=== PATIENT | female | born 1955 | race Caucasian/White ===

== ENCOUNTER 2016-10-07 19:41 | Inpatient (IN) | payer BC ==
--- NOTE | 2016-10-07 19:58 | ED ---
Neuro HPI - General Chief Complaint: Neuro Symptoms/Deficit Stated Complaint: L side numbness Time Seen by Provider: 10/07/16 19:45 Source: patient, RN notes reviewed Mode of arrival: wheelchair Limitations: no limitations - History of Present Illness Is the patient presenting with stroke symptoms?: Yes Last Known Well Date: 10/07/16 Last Known Well Time: 18:00 Onset/Timin -: hour(s) Initial Comments: Patient is 61-year-old woman who states she feels like she is having a TIA. The patient states she has had these symptoms previously and was told this was a stroke, and then the next time she had a TIA. The patient is complaining of what she is calling a burning or a picking-type sensation to her left side, and also states that it feels like her left side "is not moving like it's supposed to." Patient states the symptoms began at 6 PM while she was watching television at home. Location: left arm, left leg History of same: Yes Place: home Severity: moderate Quality: tingling, burning Improves With: none Worsens With: none On Anticoagulants: Yes Context: sudden onset Associated Symptoms: denies other symptoms Treatments Prior to Arrival: none - Related Data Home Medications: Home Medications Medication Instructions Recorded Confirmed Clopidogrel [Plavix] 75 mg PO DAILY 02/24/14 04/05/16 Doxepin [SINEquan] 20 mg PO HS 02/24/14 04/05/16 Levothyroxine Sodium [Synthroid] 88 mcg PO DAILY 02/24/14 04/05/16 Lisinopril 20 mg PO DAILY 02/24/14 04/05/16 Multivitamin/Iron/Folic Acid 1 tab PO DAILY 02/24/14 04/05/16 [Centrum Complete Multivit Tab] Omeprazole [PriLOSEC] 20 mg PO BID 02/24/14 04/05/16 Bells-3 Fatty Acids/Fish Oil [Fish 1,000 mg PO HS 10/29/14 04/05/16 Oil 1,000 mg Softgel] Bells-3 Fatty Acids/Fish Oil [Fish 2,000 mg PO DAILY 10/29/14 04/05/16 Oil 1,000 mg Softgel] Apixaban [Eliquis] 5 mg PO BID 04/05/16 04/05/16 Atorvastatin [Lipitor] 40 mg PO DAILY 04/05/16 04/05/16 Baclofen [Lioresal] 10 mg PO TID 04/05/16 04/05/16 Cholecalciferol [Vitamin D3] 5,000 unit PO DAILY 04/05/16 04/05/16 DULoxetine HCL [Cymbalta] 30 mg PO DAILY 04/05/16 04/05/16 Gabapentin [Neurontin] 300 mg PO TID 04/05/16 04/05/16 Deniseacidoph,Jocelyn B.lactis 1 cap PO DAILY 04/05/16 04/05/16 [Probiotic] Verapamil HCl [Verapamil ER] 240 mg PO DAILY 04/05/16 04/05/16 Previous Rx's Medication Instructions Recorded traMADol HCl [Ultram] 50 mg PO Q4H PRN #30 tab 04/06/16 Allergies/Adverse Reactions: Allergies Allergy/AdvReac Type Severity Reaction Status Date / Time cefpodoxime proxetil AdvReac Nausea & Verified 10/07/16 19:56 [From Vantin] Vomiting metoclopramide HCl AdvReac Nausea & Verified 10/07/16 19:56 [From Reglan] Vomiting pregabalin [From Lyrica] AdvReac Swelling Verified 10/07/16 19:56 Review of Systems ROS Statement: Those systems with pertinent positive or pertinent negative responses have been documented in the HPI. ROS Other: All systems not noted in ROS Statement are negative. Constitutional: Reports: weakness. Denies: fever, chills Eyes: Denies: vision change ENT: Denies: hearing loss Respiratory: Denies: cough, dyspnea Cardiovascular: Denies: chest pain, palpitations, edema, syncope Gastrointestinal: Denies: abdominal pain, nausea, vomiting Genitourinary: Denies: dysuria, hematuria Musculoskeletal: Denies: back pain Skin: Denies: rash Neurological: Reports: as per HPI, headache (Patient states she has had a chronic headache since she had "brain surgery," over 20 years ago), weakness, paresthesias Hematological/Lymphatic: Reports: as per HPI (Taking a look was 4 paroxysmal atrial tachycardia) General Exam Limitations: no limitations General appearance: alert, in no apparent distress, obese Head exam: Present: atraumatic, normocephalic Eye exam: Present: normal appearance. Absent: scleral icterus, conjunctival injection ENT exam: Present: normal oropharynx Neck exam: Present: normal inspection, full ROM. Absent: tenderness Respiratory exam: Present: normal lung sounds bilaterally, chest wall tenderness. Absent: respiratory distress, wheezes, rales, rhonchi, stridor Cardiovascular Exam: Present: regular rate, normal rhythm, normal heart sounds. Absent: systolic murmur, diastolic murmur, rubs, gallop GI/Abdominal exam: Present: soft. Absent: distended, tenderness, guarding, rebound, mass Extremities exam: Present: normal inspection, normal capillary refill. Absent: pedal edema, calf tenderness Back exam: Present: normal inspection Neurological exam: Present: alert, oriented X3, CN II-XII intact, motor sensory deficit (Patient has some subjective left arm and left leg weakness versus the right but still 5 out of 5.), reflexes normal Skin exam: Present: warm, dry, intact, normal color. Absent: rash, cyanosis, diaphoretic, erythema, petechiae, pallor, mottled Stroke MDM - Lab Data Result diagrams: 10/07/16 20:32 10/07/16 20:32 Lab Results 10/07/16 10/07/16 10/07/16 Range/Units 20:32 20:32 20:32 WBC 7.8 (3.8-10.6) k/uL RBC 4.77 (3.80-5.40) m/uL Hgb 13.6 (11.4-16.0) gm/dL Hct 41.4 (34.0-46.0) % MCV 86.9 (80.0-100.0) fL MCH 28.6 (25.0-35.0) pg MCHC 32.9 (31.0-37.0) g/dL RDW 13.0 (11.5-15.5) % Plt Count 134 L (150-450) k/uL Neutrophils % 56 % Lymphocytes % 33 % Monocytes % 7 % Eosinophils % 3 % Basophils % 1 % Neutrophils # 4.4 (1.3-7.7) k/uL Lymphocytes # 2.6 (1.0-4.8) k/uL Monocytes # 0.5 (0-1.0) k/uL Eosinophils # 0.2 (0-0.7) k/uL Basophils # 0.0 (0-0.2) k/uL PT (9.0-12.0) sec INR (<1.1) APTT (22.0-30.0) sec Sodium 143 (137-145) mmol/L Potassium 4.4 (3.5-5.1) mmol/L Chloride 109 H (98-107) mmol/L Carbon Dioxide 24 (22-30) mmol/L Anion Gap 10 mmol/L BUN 10 (7-17) mg/dL Creatinine 0.80 (0.52-1.04) mg/dL Est GFR (MDRD) Af Amer >60 (>60 ml/min/1.73 sqM) Est GFR (MDRD) Non-Af >60 (>60 ml/min/1.73 sqM) Glucose 123 H (74-99) mg/dL Calcium 8.6 (8.4-10.2) mg/dL Total Bilirubin 0.4 (0.2-1.3) mg/dL AST 29 (14-36) U/L ALT 39 (9-52) U/L Alkaline Phosphatase 123 (38-126) U/L Total Creatine Kinase 82 (30-135) U/L CK-MB (CK-2) 0.5 (0.0-2.4) ng/mL CK-MB (CK-2) Rel Index 0.6 Troponin I <0.012 (0.000-0.034) ng/mL Total Protein 6.3 (6.3-8.2) g/dL Albumin 3.9 (3.5-5.0) g/dL Urine Color Urine Appearance (Clear) Urine pH (5.0-8.0) Ur Specific [place] (1.001-1.035) Urine Protein (Negative) Urine Glucose (UA) (Negative) Urine Ketones (Negative) Urine Blood (Negative) Urine Nitrate (Negative) Urine Bilirubin (Negative) Urine Urobilinogen (<2.0) mg/dL Ur Leukocyte Esterase (Negative) Urine RBC (0-5) /hpf Urine WBC (0-5) /hpf Ur Squamous Epith Cells (0-4) /hpf Urine Mucus (None) /hpf 10/07/16 10/07/16 Range/Units 20:32 20:53 WBC (3.8-10.6) k/uL RBC (3.80-5.40) m/uL Hgb (11.4-16.0) gm/dL Hct (34.0-46.0) % MCV (80.0-100.0) fL MCH (25.0-35.0) pg MCHC (31.0-37.0) g/dL RDW (11.5-15.5) % Plt Count (150-450) k/uL Neutrophils % % Lymphocytes % % Monocytes % % Eosinophils % % Basophils % % Neutrophils # (1.3-7.7) k/uL Lymphocytes # (1.0-4.8) k/uL Monocytes # (0-1.0) k/uL Eosinophils # (0-0.7) k/uL Basophils # (0-0.2) k/uL PT 9.9 (9.0-12.0) sec INR 1.0 (<1.1) APTT 23.2 (22.0-30.0) sec Sodium (137-145) mmol/L Potassium (3.5-5.1) mmol/L Chloride (98-107) mmol/L Carbon Dioxide (22-30) mmol/L Anion Gap mmol/L BUN (7-17) mg/dL Creatinine (0.52-1.04) mg/dL Est GFR (MDRD) Af Amer (>60 ml/min/1.73 sqM) Est GFR (MDRD) Non-Af (>60 ml/min/1.73 sqM) Glucose (74-99) mg/dL Calcium (8.4-10.2) mg/dL Total Bilirubin (0.2-1.3) mg/dL AST (14-36) U/L ALT (9-52) U/L Alkaline Phosphatase (38-126) U/L Total Creatine Kinase (30-135) U/L CK-MB (CK-2) (0.0-2.4) ng/mL CK-MB (CK-2) Rel Index Troponin I (0.000-0.034) ng/mL Total Protein (6.3-8.2) g/dL Albumin (3.5-5.0) g/dL Urine Color Light Yellow Urine Appearance Clear (Clear) Urine pH 6.0 (5.0-8.0) Ur Specific [place] 1.007 (1.001-1.035) Urine Protein Negative (Negative) Urine Glucose (UA) Negative (Negative) Urine Ketones Negative (Negative) Urine Blood Negative (Negative) Urine Nitrate Negative (Negative) Urine Bilirubin Negative (Negative) Urine Urobilinogen <2.0 (<2.0) mg/dL Ur Leukocyte Esterase Moderate H (Negative) Urine RBC <1 (0-5) /hpf Urine WBC 11 H (0-5) /hpf Ur Squamous Epith Cells <1 (0-4) /hpf Urine Mucus Rare H (None) /hpf - EKG Data -: EKG Interpreted by Me EKG shows normal: QRS complexes (Wide-complex QRS consistent with paced rhythm) Rate: normal (86 bpm) When compared to previous EKG there are: other (Similar to comparison EKG from March 2016.) Interpretation: other (There is a paced rhythm which appears to be atrial sensed ventricular paced rate is 86 bpm.) Past Medical History Past Medical History: CVA/TIA, Fibromyalgia, GERD/Reflux, Hyperlipidemia, Hypertension, Osteoarthritis (OA), Pneumonia, Sleep Apnea/CPAP/BIPAP, Thyroid Disorder Additional Past Medical History / Comment(s): degenerative disc, splenic aneurysm (just being watched), UTI, HIATAL HERNIa.per pt no MRI's r/t metal clips rt temperol lobe-stated has had chronic headache ever since the sx); Chronic Pain Disorder,ddd headaches."6 tia's". cva 3-2013 lt side a bit weaker than rt.vit d deficiency,sinusitis History of Any Multi-Drug Resistant Organisms: None Reported Past Surgical History: Section, Cholecystectomy, Hysterectomy, Pacemaker Additional Past Surgical History / Comment(s): hemmorhoidectomy, PACEMAKER, PELVIC FLOOR SX FOR URINARY INCONT?MESH, BRAIN SX RT TEMPERAL ANUERYSM-HAS METAL CLIPS IN PLACE, ( HAS HEADACHES EVER SINCE), AVEL BREAST BIOPIES STATES HAS METALMARKERS IN PLACE.colonoscopy-benign polys removed. Past Anesthesia/Blood Transfusion Reactions: No Reported Reaction Additional Past Anesthesia/Blood Transfusion Reaction / Comment(s): usually wakes up very quickly from anesthesia Type of Cardiac Device: Permanent Pacemaker Device Placement Date:: Past Psychological History: Anxiety, Depression Smoking Status: Former smoker Past Alcohol Use History: None Reported, Rare Additional Past Alcohol Use History / Comment(s): smoked x 18 years 1.5 ppd, quit 1996 Past Drug Use History: None Reported - Past Family History Mother Family Medical History: Cancer, COPD, Myocardial Infarction (NM) Additional Family Medical History / Comment(s): cervical cancer, pancreatitis Father Family Medical History: Cancer, Congestive Heart Failure (CHF), COPD Additional Family Medical History / Comment(s): lung cancer,emphysema Course Vital Signs 10/07/16 10/07/16 10/07/16 19:50 19:56 20:10 Temperature 98.0 F 98 F Pulse Rate 84 87 82 Respiratory 18 20 18 Rate Blood Pressure 154/68 154/68 151/66 O2 Sat by Pulse 98 97 98 Oximetry 10/07/16 10/07/16 10/07/16 20:20 20:30 20:43 Temperature 98 F Pulse Rate 82 80 80 Respiratory 20 20 18 Rate Blood Pressure 132/64 143/64 144/65 O2 Sat by Pulse 98 98 98 Oximetry 10/07/16 21:00 Temperature Pulse Rate 82 Respiratory 18 Rate Blood Pressure 130/62 O2 Sat by Pulse 98 Oximetry Disposition Clinical Impression: Transient cerebral ischemia Disposition: ADMITTED IP TO THIS [facility] Condition: Fair
--- NOTE | 2016-10-07 20:19 | CT ---
EXAMINATION TYPE: CT brain wo con DATE OF EXAM: 10/07/2016 8:08 PM COMPARISON: 10/29/2014 HISTORY: Left side weakness. Hx of CVA. CT DLP: 976.8 mGycm Automated exposure control for dose reduction was used. FINDINGS: There is metal artifact from surgery at the anterior right temporal lobe. There is right temporal supervisor aircraft cleaning niotomy defect. There is hypodensity in the right posterior frontal lobe. There is no midline shift. There is no sign of intracranial hemorrhage. The calvarium is intact. Lateral ventricles appear britany l. IMPRESSION: There is evidence of old right posterior frontal lobe encephalomalacia. No acute intracranial abnorma lity. Previous right-sided surgery. No significant change compared to old exam.
[2016-10-07 20:44] LABS: Basophils % (A) 1 %; CH 29.2; CHCM 33.8; Eosinophils # (A) 0.2 k/uL (0-0.7); Eosinophils % (A) 3 %; HCT 41.4 % (34.0-46.0); HDW 2.69; HGB 13.6 gm/dL (11.4-16.0); Luc # (Auto) 0.09; Luc % (Auto) 1; Lymphocytes # (A) 2.6 k/uL (1.0-4.8); Lymphocytes % (A) 33 %; MCH 28.6 pg (25.0-35.0); MCHC 32.9 g/dL (31.0-37.0); MCV 86.9 fL (80.0-100.0); Mean Platelet Volume 8.4; Monocytes # (A) 0.5 k/uL (0-1.0); Monocytes % (A) 7 %; Neutrophils # (A) 4.4 k/uL (1.3-7.7); Neutrophils % (A) 56 %; RBC 4.77 m/uL (3.80-5.40); WBC 7.8 k/uL (3.8-10.6); WBC (Perox) 7.71
[2016-10-07 20:50] LABS: Partial Thromboplastin Time 23.2 sec (22.0-30.0); Prothrombin Time 9.9 sec (9.0-12.0)
[2016-10-07 20:53] LABS: ALT 39 U/L (9-52); AST 29 U/L (14-36); Alkaline Phosphatase 123 U/L (38-126); Anion Gap 10 mmol/L; Blood Urea Nitrogen 10 mg/dL (7-17); Calcium 8.6 mg/dL (8.4-10.2); Carbon Dioxide 24 mmol/L (22-30); Chloride 109 mmol/L (98-107); Glucose 123 mg/dL (74-99); Non-African American GFR(MDRD) >60 (>60 ml/min/1.73 sqM); Potassium 4.4 mmol/L (3.5-5.1); Sodium 143 mmol/L (137-145); Total Bilirubin 0.4 mg/dL (0.2-1.3); Total Protein 6.3 g/dL (6.3-8.2)
[2016-10-07 21:02] LABS: Creatine Kinase 82 U/L (30-135)
[2016-10-07 21:11] LABS: Appearance,Urine Clear (Clear); Bilirubin,Urine Negative (Negative); Glucose,Urine (UA) Negative (Negative); Ketones,Urine Negative (Negative); Leukocyte Esterase,Urine Moderate (Negative); Mucus,Urine Rare /hpf; Nitrite,Urine Negative (Negative); Particle Count 732; Protein,Urine Negative (Negative); RBC,Urine <1 /hpf (0-5); Specific Gravity,Urine 1.007 (1.001-1.035); Squamous Epithelial Cell,Urine <1 /hpf (0-4); UA Billing (MACRO vs. MICRO) MICRO; Urobilinogen,Urine <2.0 mg/dL (<2.0); WBC,Urine 11 /hpf (0-5)
[2016-10-07 21:15] LABS: Creatine Kinase MB 0.5 ng/mL (0.0-2.4); Troponin I <0.012 ng/mL (0.000-0.034)
--- NOTE | 2016-10-07 21:19 | XR ---
EXAMINATION TYPE: XR chest 2V DATE OF EXAM: 10/07/2016 9:04 PM COMPARISON: 04/05/2016 HISTORY: Altered mental status TECHNIQUE: Frontal and lateral views of the chest are obtained. FINDINGS: There is no heart failure nor confluent pneumonic infiltrate. Exam is limited by obesity. There is a left axillary pacemaker with the lead tips in the right ventricle. I see no sign of pleura l effusion. There are no hilar masses. IMPRESSION: No active cardiopulmonary disease. No change.
[2016-10-07] MEDS ORDERED: ASPIRIN 325 MG TAB PO STA (21:31)
[2016-10-07] MEDS ORDERED: traMADol 50 MG TAB PO STA (21:31)
[2016-10-08 02:22] VITALS: BMI 45.3
[2016-10-08] MEDS: traMADol 50 MG TAB PO PRN ×5 (02:28→22:45)
[2016-10-08] MEDS: SODIUM CHLORIDE 0.9% 1,000 ML IV SCH ×3 (05:52→17:22)
--- NOTE | 2016-10-08 10:16 | US ---
EXAMINATION TYPE: US carotid duplex BILAT DATE OF EXAM: 10/07/2016 11:11 PM COMPARISON: CT and US on PACS CLINICAL HISTORY: Stenosis. EC patient with left body side weakness today; prior TIA; pacemaker EXAM MEASUREMENTS: RIGHT: Peak Systolic Velocity (PSV) cm/sec ----- Right CCA: 56.6 ----- Right ICA: 64.5 ----- Right ECA: 65.3 ICA/CCA ratio: 1.1 RIGHT: End Diastole cm/sec ----- Right CCA: 15.6 ----- Right ICA: 18.2 ----- Right ECA: 9.0 LEFT: Peak Systolic Velocity (PSV) cm/sec ----- Left CCA: 38.7 ----- Left ICA: 69.8 ----- Left ECA: 69.7 ICA/CCA ratio: 1.8 LEFT: End Diastole cm/sec ----- Left CCA: 7.6 ----- Left ICA: 25.8 ----- Left ECA: 20.2 VERTEBRALS (direction of flow): Right Vertebral: Antegrade Left Vertebral: Antegrade TECHNOLOGIST IMPRESSION: Mild to moderate intimal wall thickening is noted at bilateral carotid bifu rcation, but PSV is within normal limits. IMPRESSION: Intimal thickening without significant flow-limiting stenosis. Criteria for Assigning % of Stenosis / Diameter reduction (Estimation based on the indirect measurements of the internal carotid artery velocities (ICA PSV). 1. Normal (no stenosis)=ICA PSV < 125 cm/s: ratio < 2.0: ICA EDV<40 cm/s. 2. Less than 50% stenosis=ICA PSV < 125 cm/s: ratio < 2.0: ICA EDV<40 cm/s. 3. 50 to 69% stenosis=ICA PSV of 125 to 230 cm/s: ration 2.0 ? 4.0: ICA EDV 40-100 cm/s. 4. Greater than 70% stenosis to near occlusion= ICA PSV > 230 cm/s: ratio > 4.0: ICA EDV > 100 cm/s. 5. Near occlusion= ICA PSV velocities may be low or undetectable: variable ratio and ICA EDV. 6. Total occlusion=unable to detect flow.
[2016-10-08] MEDS: ACETAMINOPHEN TAB 325 MG TAB PO PRN ×2 (11:04→17:21)
[2016-10-08] MEDS: CLOPIDOGREL 75 MG TAB PO SCH (11:05)
[2016-10-08] MEDS: ATORVASTATIN 80 MG TAB PO SCH (11:05)
[2016-10-08] MEDS: BACLOFEN 10 MG TAB PO SCH ×3 (11:05→22:41)
[2016-10-08] MEDS: CHOLECALCIFEROL 1,000 UNIT TAB PO SCH (11:05)
[2016-10-08] MEDS: APIXABAN 5 MG TAB PO SCH ×2 (11:05→22:41)
[2016-10-08] MEDS: FAMOTIDINE 20 MG TAB PO SCH ×2 (11:06→22:46)
[2016-10-08] MEDS: PANTOPRAZOLE 40 MG TABLET PO SCH ×2 (11:06→22:41)
[2016-10-08] MEDS: DULoxetine HCL 30 MG CAPSULE.DR PO SCH (11:06)
[2016-10-08] MEDS: LACTOBACILLUS ACIDOPH & BULGAR 1 EACH PACKET PO SCH (11:07)
[2016-10-08] MEDS: LEVOTHYROXINE 88 MCG TAB PO SCH (11:07)
[2016-10-08] MEDS: MULTIVITAMINS, THERA 1 EACH TAB PO SCH (11:07)
[2016-10-08] MEDS: LISINOPRIL 20 MG TAB PO SCH (11:07)
[2016-10-08] MEDS: VERAPAMIL SR 240 MG TABLET.ER PO SCH (11:07)
[2016-10-08] MEDS: GABAPENTIN 300 MG CAP PO SCH ×3 (11:08→22:41)
--- NOTE | 2016-10-08 18:24 | HP ---
DATE OF ADMISSION: 10/07/2016 CHIEF COMPLAINT: Numbness, tingling on the left side. HISTORY OF PRESENTING COMPLAINT: This is a very pleasant 61-year-old patient of Dr. Patrick with rather extensive medical history. Patient's chronic stable medical conditions include obesity; cerebral aneurysm and temporal lobe with a clip in place, GERD, hypertension, hyperlipidemia, hypothyroid, osteoarthritis, especially in the hands and the lower back, hiatal hernia, bipolar disorder. The patient has a history of about at least 5 or 6 TIAs and stroke in November 2013, which left the patient with very subtle weakness on the left side. Patient presents yesterday with feeling of prickly sensation in the lips, jaw discomfort and developed numbness, tingling and some weakness on the left side. The patient also has a headache off and on for about 2 months she states and does follow with Dr. Juan the neurologist in [facility]. Patient also developed chest pressure-like symptoms. There is no sweating. There is some dizziness and she therefore presented to the hospital. The patient has a at the bedside. REVIEW OF SYSTEMS: CONSTITUTIONAL: Tired. HEENT: As above. RESPIRATORY: None. CARDIOVASCULAR: As above. GASTROINTESTINAL: Heartburn. GENITOURINARY: None. MUSCULOSKELETAL: As above. Dermatological: None. HEMATOLOGICAL: None. LYMPHATICS: None. PSYCHIATRY: Anxious. NEUROLOGICAL: As above. Past medical history: Small PFO, paroxysmal atrial tachycardia, multiple TIAs, stroke in November 2013, residual left-sided weakness, morbid obesity; temporal lobe cerebral aneurysm with clip in place, GERD, hypertension, hyperlipidemia, hypothyroid, osteoarthritis of the hands and lumbar spine, hiatal hernia and bipolar disorder. PAST SURGICAL HISTORY: 1. . 2. Cholecystectomy. 3. Hysterectomy. 4. Pacemaker. 5. Hemorrhoidectomy. 6. Pacemaker. 7. ( ) surgery for urinary incontinence mesh. 8. Bilateral breast biopsies. 9. Permanent pacemaker. Past psych history bipolar disorder. SOCIAL HISTORY: Patient smoked for 18 years a pack and a half a day; stopped in 1996. . FAMILY HISTORY: Cancer, COPD, dementia, and myocardial infarction, cervical cancer. HOME MEDICATIONS: 1. ( ) 75 mg p.o. q.h.s. 2. Wellbutrin XL 300 mg p.o. daily. 3. Verapamil ER 240 mg p.o. daily. 4. Prilosec 20 mg p.o. b.i.d. 5. [place]-3 360 mg p.o. t.i.d. 6. Multivitamin Centrum, 1 tablet p.o. daily. 7. Lisinopril 20 mg p.o. daily. 8. Synthroid 88 mcg p.o. daily. 9. Probiotic 1 capsule p.o. daily. 10. Neurontin 300 mg p.o. t.i.d. 11. Fish oil 200 mg p.o. t.i.d. 12. Sinequan 200 mg q.h.s. 13. Vitamin D3 5000 units p.o. daily. 14. Baclofen 20 mg p.o. t.i.d. 15. Lipitor 40 mg p.o. daily. 16. Eliquis 5 mg p.o. b.i.d. 17. 5-Hydroxytryptophan 200 mg p.o. q.h.s. ALLERGIES TO ( ), REGLAN, LYRICA. On examination vital signs on presentation: Temperature 98, pulse 84, respiratory rate 18, blood pressure 150/68, pulse ox 98% on 2 liters. GENERAL APPEARANCE: Well built, BMI of 45.3, lying in bed, tired appearing. EYES: Pupils equal. Conjunctivae normal. HEENT: Oral cavity normal. NECK: JVD not raised. Mass not palpable. RESPIRATORY: Effort normal. LUNGS: Fair air entry. CARDIOVASCULAR: First and second seconds are normal. No edema. ABDOMEN: Soft, nontender. Liver and spleen not palpable. LYMPHATIC: No lymph nodes palpable in neck or axillae. PSYCHIATRY: Alert and oriented times three. Mood and affect slightly anxious -appearing. NEUROLOGICAL: Pupils equal. Cranial nerves grossly intact. Power on the left side is 4.5, slightly decreased sensation. INVESTIGATIONS: White count 7.8, hemoglobin 13.6. Potassium 4.4. UA positive for leukocyte esterase, WBC. EKG shows atrial sensed ventricular paced rhythm. CT scan of the brain shows old right posterior frontal lobe encephalomalacia. Nil acute. Chest x-ray nil acute. ASSESSMENT: 1. Possible acute stroke with symptoms lasting for close to 24 hours and now presents with numbness and tingling in the left side in a patient who has had multiple TIAs in the past and a prior stroke. This is a right-handed patient, likely ischemic in nature in the distribution of right middle cerebral artery area 2. Obesity, morbid obesity, body mass index of 45.3. 3. Temporal lobe cerebral aneurysm with clipping in the past. 4. Chronic gastroesophageal reflux disease. 5. Essential hypertension. 6. Hyperlipidemia. 7. Hypothyroidism. 8. Primary osteoarthritis of multiple joints, including the hands and lumbar spine. 9. Hiatal hernia. 10. Bipolar disorder, chronic. 11. Chest pain, with no prior cardiac history. PLAN: Home medications will be resumed. Patient is already on Eliquis. We will add baby aspirin and also do GI prophylaxis. This is Dr. Juan's patient. Will consult him also. Also get a cardiology opinion. Care was discussed in detail with the patient and . Questions were answered. Copy to Dr. Patrick
[2016-10-08] MEDS: DOXEPIN 10 MG CAP PO SCH (22:40)
[2016-10-08] MEDS: CEFUROXIME 250 MG TAB PO SCH (22:40)
[2016-10-09] MEDS: traMADol 50 MG TAB PO PRN ×4 (05:09→20:54)
[2016-10-09] MEDS: SODIUM CHLORIDE 0.9% 1,000 ML IV SCH ×2 (05:49→10:09)
[2016-10-09] MEDS: CEFUROXIME 250 MG TAB PO SCH ×2 (10:11→20:53)
[2016-10-09] MEDS: ATORVASTATIN 80 MG TAB PO SCH (10:12)
[2016-10-09] MEDS: APIXABAN 5 MG TAB PO SCH ×2 (10:12→20:52)
[2016-10-09] MEDS: BACLOFEN 10 MG TAB PO SCH ×3 (10:12→20:54)
[2016-10-09] MEDS: CHOLECALCIFEROL 1,000 UNIT TAB PO SCH (10:12)
[2016-10-09] MEDS: LACTOBACILLUS ACIDOPH & BULGAR 1 EACH PACKET PO SCH (10:13)
[2016-10-09] MEDS: GABAPENTIN 300 MG CAP PO SCH ×3 (10:13→20:54)
[2016-10-09] MEDS: CLOPIDOGREL 75 MG TAB PO SCH (10:13)
[2016-10-09] MEDS: FAMOTIDINE 20 MG TAB PO SCH ×2 (10:14→20:53)
[2016-10-09] MEDS: LEVOTHYROXINE 88 MCG TAB PO SCH (10:14)
[2016-10-09] MEDS: DULoxetine HCL 30 MG CAPSULE.DR PO SCH ×2 (10:14→10:31)
[2016-10-09] MEDS: PANTOPRAZOLE 40 MG TABLET PO SCH ×2 (10:15→20:53)
[2016-10-09] MEDS: LISINOPRIL 20 MG TAB PO SCH (10:15)
[2016-10-09] MEDS: MULTIVITAMINS, THERA 1 EACH TAB PO SCH (10:15)
[2016-10-09] MEDS: VERAPAMIL SR 240 MG TABLET.ER PO SCH (10:16)
[2016-10-09] MEDS: ACETAMINOPHEN TAB 325 MG TAB PO PRN ×2 (10:20→16:44)
--- NOTE | 2016-10-09 11:50 | PN ---
Hailey Ross is a 61-year-old female who presented with chest discomfort and numbness in the face and the jaw and discomfort in her jaw and therefore came into the hospital. Cardiac enzymes are normal. She has a sequential pacing and has a paced rhythm. Three sets of cardiac enzymes are normal. She is lying comfortably in bed at this time. Past history of obesity, cerebral aneurysm. Status post clipping, GERD, hypertension and complete heart block and dyslipidemia, hypothyroidism, osteoarthritis, and apparently a history of TIAs, and strokes was diagnosed previously by Dr. Ramsey. REVIEW OF SYSTEMS: No fever, chills, rigors. No cough or expectoration. No nausea, vomiting or diarrhea. No hematuria or dysuria. No strokes or seizures. No skin lesions. No musculoskeletal complaints. PAST SURGICAL HISTORY: , cholecystectomy, hysterectomy, pacemaker implantation, hemorrhoidectomy, breast biopsies. PAST MEDICAL HISTORY: History of bipolar disorder. SOCIAL HISTORY: She smoked for 18 years and smoked pack and a half day. She stopped in 1996. FAMILY HISTORY: Noncontributory. Medication list was reviewed and is documented in the chart. She is on Eliquis for atrial fibrillation. She is also on statins. ALLERGIES: REVIEWED AND ARE DOCUMENTED IN THE CHART. On examination, her blood pressure was in the normal range. Head and neck examination is normal. Heart sounds are normal, lungs are clear to auscultation. EXTREMITIES: Warm. No edema. She is alert and oriented. No motor weakness. IMPRESSION: 1. The patient denies any chest discomfort. Cardiac enzymes are normal. 2. She has been diagnosed with an acute stroke with numbness and tingling in her left side. She has had this symptom before. 3. Morbid obesity. 4. Temporal lobe cerebral aneurysm with clipping. 5. Atrial fibrillation. 6. Complete heart block status post permanent pacemaker implantation. Suggest: Continue cardiac medications and work up for stroke. She has had similar symptoms in the past and has had white matter disease on MRI. From a cardiac standpoint, I will continue all medication list without any changes. I will get the report for cardiac testing from the office and review that.
[2016-10-09 15:41] VITALS: RESP 18
[2016-10-09 18:47] LABS: Cholesterol 108 mg/dL (<200); HDL Cholesterol 40 mg/dL (40-60); Triglycerides 206 mg/dL (<150)
--- NOTE | 2016-10-09 19:07 | ECHOF ---
Referral Reason:Thrombus MEASUREMENTS -------- HEIGHT: 154.9 cm WEIGHT: 108.4 kg BP: 126/61 RVIDd: 2.6 cm (< 3.3) IVSd: 1.3 cm (0.6 - 1.1) LVIDd: 3.4 cm (3.9 - 5.3) LVPWd: 1.2 cm (0.6 - 1.1) IVSs: 1.9 cm LVIDs: 2.4 cm LVPWs: 2.0 cm LA Diam: 3.5 cm (2.7 - 3.8) LAESV Index (A-L): 16.55 ml/m Ao Diam: 2.9 cm (2.0 - 3.7) AV Cusp: 2.2 cm (1.5 - 2.6) MV EXCURSION: 17.332 mm (> 18.000) MV EF SLOPE: 100 mm/s (70 - 150) EPSS: 0.8 cm MV E Maged: 0.91 m/s MV DecT: 72 ms MV A Maged: 1.13 m/s MV E/A Ratio: 0.81 FINDINGS -------- Paced rhythm. This was a technically difficult study with suboptimal views. The left ventricular size is normal. There is mild concentric left ventricular hypertrophy. Overall left ventricular systolic function is normal with, an EF between 55 - 60 %. The right ventricle is normal in size and function. Normal LA size by volume 22+/-6 ml/m2. The right atrium is normal in size. 1.5mg of Definity was utilized for enhancement of images The aortic valve is trileaflet and appears structurally normal. There is trace mitral regurgitation. The tricuspid valve appears structurally normal. No regurgitation noted The pulmonic valve was not well visualized. The aortic root size is normal. There is no pericardial effusion. CONCLUSIONS -------- 1. Paced rhythm. 2. The aortic valve is trileaflet and appears structurally normal. 3. There is trace mitral regurgitation. 4. The pulmonic valve was not well visualized. 5. The aortic root size is normal. 6. There is no pericardial effusion. 7. This was a technically difficult study with suboptimal views. 8. The left ventricular size is normal. 9. There is mild concentric left ventricular hypertrophy. 10. Overall left ventricular systolic function is normal with, an EF between 55 - 60 %. 11. The right ventricle is normal in size and function. 12. Normal LA size by volume 22+/-6 ml/m2. 13. The right atrium is normal in size. 14. 1.5mg of Definity was utilized for enhancement of images [employer] FINISHER: Chen Cheung RDCS
[2016-10-09] MEDS: DOXEPIN 10 MG CAP PO SCH (20:53)
[2016-10-10] MEDS: SODIUM CHLORIDE 0.9% 1,000 ML IV SCH ×2 (00:07→07:56)
[2016-10-10] MEDS: ACETAMINOPHEN TAB 325 MG TAB PO PRN ×2 (00:07→06:50)
[2016-10-10] MEDS: traMADol 50 MG TAB PO PRN ×2 (00:51→06:51)
[2016-10-10] MEDS: VERAPAMIL SR 240 MG TABLET.ER PO SCH (07:52)
[2016-10-10] MEDS: PANTOPRAZOLE 40 MG TABLET PO SCH (07:52)
[2016-10-10] MEDS: LISINOPRIL 20 MG TAB PO SCH (07:53)
[2016-10-10] MEDS: LACTOBACILLUS ACIDOPH & BULGAR 1 EACH PACKET PO SCH (07:53)
[2016-10-10] MEDS: LEVOTHYROXINE 88 MCG TAB PO SCH (07:53)
[2016-10-10] MEDS: MULTIVITAMINS, THERA 1 EACH TAB PO SCH (07:53)
[2016-10-10] MEDS: ATORVASTATIN 80 MG TAB PO SCH (07:54)
[2016-10-10] MEDS: BACLOFEN 10 MG TAB PO SCH (07:54)
[2016-10-10] MEDS: APIXABAN 5 MG TAB PO SCH (07:54)
[2016-10-10] MEDS: CLOPIDOGREL 75 MG TAB PO SCH (07:55)
[2016-10-10] MEDS: DULoxetine HCL 30 MG CAPSULE.DR PO SCH ×2 (07:55→08:02)
[2016-10-10] MEDS: CEFUROXIME 250 MG TAB PO SCH (07:55)
[2016-10-10] MEDS: CHOLECALCIFEROL 1,000 UNIT TAB PO SCH (07:55)
[2016-10-10] MEDS: GABAPENTIN 300 MG CAP PO SCH (07:56)
[2016-10-10] MEDS: FAMOTIDINE 20 MG TAB PO SCH (07:56)
[2016-10-10] MEDS ORDERED: buPROPion XL 300 MG TAB.ER.24H PO SCH (09:00)
--- NOTE | 2016-10-10 10:43 | PN ---
DATE OF SERVICE: 10/09/2016 PRESENTING COMPLAINT: Numbness and tingling to the left side. INTERVAL HISTORY: This is a patient with multiple TIAs in the past, stroke previously, presented with some weakness on the left side, numbness, tingling. Seen by neurology earlier today, do not have the formal note. The patient also had some headache which has been constant, but patient is able to tolerate a diet, appears to be rather comfortable. at the bedside. Some tingling, numbness and on the left side. Per cardiology no further work-up has been ordered. Review of constitutional, cardiovascular, GI, pulmonary; relevant findings as above. Currently no chest pain. On examination, temperature 97.7, pulse 78, respiration 18, blood pressure 116/56, pulse ox 93% on room air. GENERAL APPEARANCE: Sitting up, comfortable, awake, eating a meal. EYES: Pupils equal. Conjunctivae normal. NECK: JVD not raised. Mass not palpable. RESPIRATORY: Effort normal. Lungs are clear. CARDIOVASCULAR: First and second sounds normal. No edema. ABDOMEN: Soft, nontender. Liver and spleen not palpable. PSYCHIATRY: Alert and oriented x3. Mood and affect normal. NEUROLOGICAL: Some numbness and mild weakness of the left side still present. INVESTIGATIONS: LDL is 27. Troponins are negative. Carotid Doppler no critical stenosis. ASSESSMENT: 1. Possible acute stroke, in a right-handed patient probably ischemic, distribution of right middle cerebral artery area. 2. Obesity, morbid; body mass index of 45.3. 3. Temporal lobe cerebral aneurysm with clipping history in the past. 4. Chronic gastroesophageal reflux disease. 5. Essential hypertension. 6. Hyperlipidemia. 7. Hypothyroidism. 8. Primary osteoarthritis of multiple joints including hands and lumbar spine. 9. Hiatal hernia. 10. Bipolar disorder, chronic. 11. Chest pain. No prior cardiac history. Seen by Dr. Ontiveros on this admission. 12. Chronic cephalgia. PLAN: Care was discussed with the patient and at bedside. Will await further input from neurology and cardiology. No further changes from my standpoint. The patient otherwise appears rather comfortable. Will follow.
[2016-10-10 11:43] VITALS: BP 131/66; PULSE 75; TEMP 98
--- NOTE | 2016-10-10 12:14 | P.PN ---
Subjective Principal diagnosis: Questionable TIA This is a 61-year-old female presented to the hospital initially with symptoms of chest discomfort as well as facial numbness. Cardiac enzymes 3 were negative. EKG showed a paced rhythm. Carotid Doppler study did not reveal any significant stenosis. Hemodynamically stable. Patient does have a history of obesity, cerebral aneurysm status post clipping, GERD, hypertension, hyperlipidemia, hypothyroidism. She was seen and examined this morning, from cardiology's standpoint when she is cleared by neurology and her primary she may be able to be discharged home. Objective - Vital Signs Vital signs: Vital Signs Temp 98.0 F 10/10/16 11:40 Pulse 75 10/10/16 11:40 Resp 18 10/10/16 11:40 BP 131/66 10/10/16 11:40 Pulse Ox 96 10/10/16 11:40 Intake & Output 10/09/16 10/10/16 10/10/16 18:59 06:59 18:59 Intake Total 596 800 180 Output Total 560 350 Balance 36 450 180 Weight 121.5 kg Intake: IV 800 Sodium Chloride 0.9% 1, 800 000 ml @ 100 mls/hr IV . Q10H NEHA Rx#:[id number] Oral 596 180 Output: Urine 560 350 Other: Voiding Method Bedpan Toilet # Voids 1 - Exam PHYSICAL EXAMINATION: HEENT: Head is atraumatic, normocephalic. Pupils equal, round. Neck is supple. There is no elevated jugular venous pressure. HEART EXAMINATION: Heart S1, S2 normal. No murmur or gallop heard. CHEST EXAMINATION: Lungs are clear to auscultation and precussion. No chest wall tenderness is noted on palpation or with deep breathing. ABDOMEN: Soft, nontender. Bowel sounds are heard. No organomegaly noted. EXTREMITIES: 2+ peripheral pulses with no evidence of peripheral edema and no calf tenderness noted. NEUROLOGIC patient is awake, alert and oriented -3. . - Labs CBC & Chem 7: 10/07/16 20:32 10/07/16 20:32 Labs: Abnormal Lab Results - Last 24 Hours (Table) 10/09/16 Range/Units 18:10 Triglycerides 206 H (<150) mg/dL Assessment and Plan (1) Pacemaker Status: Acute (2) Paroxysmal a-fib Status: Acute (3) Hx of nicotine dependence Status: Acute (4) Transient cerebral ischemia Status: Acute
--- NOTE | 2016-10-11 10:30 | EEG ---
DATE OF SERVICE: 10/10/2016 INDICATIONS FOR EXAMINATION: Transient ischemic attack. AGE: 61Y DESCRIPTION OF PROCEDURE: This EEG was performed using a 21 channel digital electroencephalograph, following international 10-20 system. DESCRIPTION OF THE RECORDING: From the beginning of the tracing, with the patient's eyes closed, the background rhythm was consisting most of 8-9 Hz alpha frequency in the posterior occipital leads. No obvious asymmetry is seen. Occasional muscle and movement artifacts are seen. Photic stimulation was performed with a minimal driving response seen. No pathological waves were elicited. Hyperventilation was not performed. The patient remains awake throughout the tracing. No epileptiform discharges were seen. Her EKG lead showed regular rate and rhythm. INTERPRETATION: This awake EEG can be considered within normal limits. There was no asymmetry seen. No epileptiform discharges were noticed. The absence of epileptiform discharges does not rule out the diagnosis of epilepsy. Therefore, clinical correlation is recommended.
--- NOTE | 2016-10-11 22:04 | DS ---
DATE OF ADMISSION: 10/07/2016 DATE OF DISCHARGE: 10/10/2016 FINAL DIAGNOSES: 1. Probable acute stroke in a right-handed patient, probably ischemic in the distribution, right middle cerebral artery area, likely ischemic. 2. Obesity, morbid, BMI of 45.3. 3. Temporal lobe cerebral aneurysm with clipping history in the past. 4. Chronic gastroesophageal reflux disease. 5. Essential hypertension. 6. Hyperlipidemia. 7. Hypothyroidism. 8. Primary osteoarthritis, multiple joints, including hands and lumbar spine. 9. Hiatal hernia. 10. Bipolar disorder, chronic. 11. Chronic cephalgia two months duration. 12. Chest pain, could be musculoskeletal, left-sided chest wall pain, not for any further work-up per cardiology. HOSPITAL COURSE: This is a very pleasant lady presented with numbness, tingling and left side has a baseline, has weakness on the left side. This was more so than before. Symptoms lasted for a good over 24 hours. Prior to discharge some of these symptoms actually had improved. The patient's CT scan of the brain did not show anything acute. Carotid Doppler did not show any critical stenosis. Echocardiogram showed preserved LV function. No thrombus was reported. Patient also had a headache for 2 months but the patient is able to eat, carry out activities. Patient was told to follow with her neurologist Dr. Juan. This admission, the patient was seen by Dr. Russ. At the time of discharge I did not have any formal dictation showing up. Patient also seen by cardiology, Dr. Ontiveros and patient has complaints also of chest pain. No further change in medications were made. Patient is already on Eliquis. Patient had atrial fibrillation previously. On the day of discharge, care was discontinued. On examination, mild weakness on the left side about 4/5 power, decreased sensation. The patient LDL was 27. Patient also was treated for UTI. Care was discussed in detail with the patient. Discharge planning more than 35 minutes. DISCHARGE MEDICATIONS: 1. Synthroid 88 mcg a day. 2. Lisinopril 20 mg a day. 3. Centrum complete 1 tablet p.o. daily. 4. Prilosec 20 mg b.i.d. 5. Eliquis 5 mg p.o. b.i.d. 6. Vitamin D3 ( ) p.o. daily. 7. Neurontin 300 mg p.o. t.i.d. 8. Probiotic 1 capsule p.o. daily. 9. Verapamil ER 240 mg p.o. daily. 10. Five hydroxytryptophan ( ) mg p.o. q.h.s. 11. Sinequan 20 mg p.o. q.h.s. 12. Fish oil 1200 mg p.o. t.i.d. 13. Freeburn-3 360 mg p.o. daily. 14. Wellbutrin XL 300 mg a day. 15. ( ) 75 mg p.o. q.h.s. 16. Lipitor 40 mg p.o. daily. 17. Baclofen 10 mg p.o. t.i.d. 18. Ceftin 200 mg p.o. b.i.d. for 6 tablets. 19. Plavix 75 mg p.o. daily. 20. Cymbalta 30 mg p.o. daily. 21. Ultram 50 mg p.o. q.4 p.r.n. Follow-up with Dr. Patrick on 10/12/2016. Follow up with Dr. Juan 10/11/2016. Discharge planning more than 35 minutes.
== END 2016-10-10 16:55 | disposition home or self-care (01) | DRG 65 ==
LOC: EC 19:41 → 6SEL 22:37
PROVIDERS: ADMIT Hospitalist; ATTEND Hospitalist
DX: I63.9 Cerebral infarction, unspecified (principal); I44.2 Atrioventricular block, complete; I67.1 Cerebral aneurysm, nonruptured; G93.89 Other specified disorders of brain; Q21.1 Atrial septal defect; I69.351 Hemiplegia and hemiparesis following cerebral infarction affecting right dominant side; N39.0 Urinary tract infection, site not specified; I72.8 Aneurysm of other specified arteries; K21.9 Gastro-esophageal reflux disease without esophagitis; I10 Essential (primary) hypertension; E03.9 Hypothyroidism, unspecified; E78.5 Hyperlipidemia, unspecified; K44.9 Diaphragmatic hernia without obstruction or gangrene; F31.9 Bipolar disorder, unspecified; M19.042 Primary osteoarthritis, left hand; M19.041 Primary osteoarthritis, right hand; I48.0 Paroxysmal atrial fibrillation; G47.30 Sleep apnea, unspecified; R90.82 White matter disease, unspecified; R07.89 Other chest pain; M47.816 Spondylosis without myelopathy or radiculopathy, lumbar region; R51 Headache; M79.7 Fibromyalgia; R40.2430 Glasgow coma scale score 3-8, unspecified time; G89.29 Other chronic pain; F41.9 Anxiety disorder, unspecified; E55.9 Vitamin D deficiency, unspecified; Z90.710 Acquired absence of both cervix and uterus; Z90.49 Acquired absence of other specified parts of digestive tract; Z87.448 Personal history of other diseases of urinary system; Z82.49 Family history of ischemic heart disease and other diseases of the circulatory system; Z80.1 Family history of malignant neoplasm of trachea, bronchus and lung; Z80.49 Family history of malignant neoplasm of other genital organs; Z82.5 Family history of asthma and other chronic lower respiratory diseases; Z87.891 Personal history of nicotine dependence; Z95.0 Presence of cardiac pacemaker; Z86.010 Personal history of colon polyps; Z87.01 Personal history of pneumonia (recurrent); Z87.440 Personal history of urinary (tract) infections; Z86.19 Personal history of other infectious and parasitic diseases; Z79.01 Long term (current) use of anticoagulants; Z79.899 Other long term (current) drug therapy; Z88.1 Allergy status to other antibiotic agents; Z88.8 Allergy status to other drugs, medicaments and biological substances
CPT/HCPCS: 36415; 70450; 71020; 80053; 80061; 81001; 82550; 82553; 83090; 84484; 85025; 85610; 85730; 93005; 93306; 93880; 95819; 99285

== ENCOUNTER → 2016-12-22 | Outpatient (CLI) | payer BC ==
[2016-12-22 07:21] LABS: Basophils # (A) 0.1 k/uL (0-0.2); Basophils % (A) 1 %; CH 29.2; CHCM 32.9; Eosinophils # (A) 0.3 k/uL (0-0.7); Eosinophils % (A) 3 %; HDW 2.73; HGB 14.6 gm/dL (11.4-16.0); Luc # (Auto) 0.21; Luc % (Auto) 2; Lymphocytes # (A) 3.8 k/uL (1.0-4.8); Lymphocytes % (A) 32 %; MCH 28.9 pg (25.0-35.0); MCHC 32.5 g/dL (31.0-37.0); MCV 88.9 fL (80.0-100.0); Mean Platelet Volume 7.4; Monocytes # (A) 0.6 k/uL (0-1.0); Monocytes % (A) 5 %; Neutrophils % (A) 59 %; RBC 5.06 m/uL (3.80-5.40); RDW 13.5 % (11.5-15.5); WBC (Perox) 11.57
[2016-12-22 07:40] LABS: ALT 30 U/L (9-52); AST 24 U/L (14-36); Alkaline Phosphatase 128 U/L (38-126); Amylase 45 U/L (30-110); Anion Gap 13 mmol/L; Blood Urea Nitrogen 9 mg/dL (7-17); Calcium 9.1 mg/dL (8.4-10.2); Carbon Dioxide 27 mmol/L (22-30); Chloride 105 mmol/L (98-107); Glucose 127 mg/dL (74-99); Non-African American GFR(MDRD) >60 (>60 ml/min/1.73 sqM); Potassium 4.2 mmol/L (3.5-5.1); Sodium 145 mmol/L (137-145); Total Bilirubin 0.6 mg/dL (0.2-1.3); Total Protein 6.7 g/dL (6.3-8.2)
--- NOTE | 2016-12-22 07:53 | US ---
EXAMINATION TYPE: US abdomen complete DATE OF EXAM: 12/22/2016 7:27 AM COMPARISON: CT 2016 CLINICAL HISTORY: R10.11 RT Upper Quad Pain. Gb removed 8 years ago, large body habitus EXAM MEASUREMENTS: Liver Length: 16 cm Gallbladder Wall: removed 7- 8 years ago CBD: 0.3 cm Spleen: 9.5 cm Right Kidney: 10.5 x 3.9 x 4.6 cm Left Kidney: 10.1 x 4.3 x 4.6 cm Pancreas: large body habitus , overlying bowel gas limited visualization Liver: large body habitus , fatty liver Gallbladder: removed Evidence for sonographic Patricio's sign: removed CBD: wnl Spleen: wnl Right Kidney: wnl Left Kidney: wnl Upper IVC: large body habitus , overlying bowel gas limited visualization Abd Aorta: large body habitus , overlying bowel gas limited visualization IMPRESSION: 1. Some limitation on the exam due to bowel gas. 2. No abnormal ultrasound findings. 3. Moderate fatty infiltration liver.
[2016-12-22 08:27] LABS: Hepatitis C Virus IgG Index 0.01
[2016-12-22 08:32] LABS: Hepatitis C Virus IgG Ab Negative (Negative)
[2016-12-22 09:46] LABS: Appearance,Urine Cloudy (Clear); Bacteria,Urine Rare /hpf; Bilirubin,Urine Negative (Negative); Glucose,Urine (UA) Negative (Negative); Ketones,Urine Negative (Negative); Leukocyte Esterase,Urine Large (Negative); Mucus,Urine Few /hpf; Nitrite,Urine Negative (Negative); PH, Urine 5.5 (5.0-8.0); Particle Count 9765; Protein,Urine Trace (Negative); RBC,Urine 3 /hpf (0-5); Specific Gravity,Urine 1.015 (1.001-1.035); Squamous Epithelial Cell,Urine 3 /hpf (0-4); UA Billing (MACRO vs. MICRO) MICRO; Urobilinogen,Urine <2.0 mg/dL (<2.0); WBC,Urine 63 /hpf (0-5)
== END | disposition home or self-care (01) ==
LOC: RADUSWWP 06:46
PROVIDERS: ATTEND Family Medicine
DX: K76.0 Fatty (change of) liver, not elsewhere classified (principal); R10.11 Right upper quadrant pain
CPT/HCPCS: 76700; 80053; 81001; 82150; 83690; 85025; 86803; 87086

== ENCOUNTER 2017-02-21 11:00 | Day surgery (SDC) | payer BC ==
[2017-02-17 13:51] VITALS: BMI 47.7
[~2017-02-21 11:00] MED LIST: LACTATED RINGERS 1,000 ML IV NR; LACTATED RINGERS 1,000 ML IV SCH; LEVOFLOXACIN 500MG-D5W PMX 500 MG in DEXTROSE/WATER 1 100ML.BAG IVPB NR
[2017-02-21] MEDS ORDERED: INDOMETHACIN 50MG SUPPOSITORY RECTAL ONE (12:30)
[2017-02-21 12:42] VITALS: TEMP 97
[2017-02-21 12:51] LABS: Glucose,Whole Blood 119 mg/dL (75-99)
[2017-02-21] MEDS ORDERED: LIDOCAINE 1% 20 ML VIAL (10MG/ML) FOR IV START INTRADERMA ONE (13:03)
[2017-02-21] MEDS ORDERED: GLUCAGON 1 MG/ML VIAL ONE (14:03)
[2017-02-21] MEDS ORDERED: GLYCOPYRROLATE 0.2 MG/ML 2 ML VIAL ONE (14:03)
[2017-02-21] MEDS ORDERED: LIDOCAINE 1% INJ 10MG/ML (20 ML MDV) ONE (14:03)
[2017-02-21] MEDS ORDERED: PROPOFOL 10 MG/ML 20 ML VIAL IV ONE (14:03)
[2017-02-21 14:04] LABS: Basophils % (A) 0 %; CHCM 33.4; Eosinophils # (A) 0.1 k/uL (0-0.7); Eosinophils % (A) 1 %; HCT 47.4 % (34.0-46.0); HDW 2.76; HGB 15.6 gm/dL (11.4-16.0); Luc # (Auto) 0.19; Luc % (Auto) 2; Lymphocytes # (A) 2.8 k/uL (1.0-4.8); Lymphocytes % (A) 23 %; MCH 28.8 pg (25.0-35.0); MCV 87.2 fL (80.0-100.0); Monocytes # (A) 0.7 k/uL (0-1.0); Monocytes % (A) 6 %; Neutrophils # (A) 8.6 k/uL (1.3-7.7); Neutrophils % (A) 69 %; RBC 5.43 m/uL (3.80-5.40); RDW 13.4 % (11.5-15.5); WBC 12.4 k/uL (3.8-10.6); WBC (Perox) 11.45
[2017-02-21 14:08] LABS: INR 1.1 (<1.1); Partial Thromboplastin Time 22.2 sec (22.0-30.0); Prothrombin Time 10.6 sec (9.0-12.0)
[2017-02-21 14:11] LABS: ALT 46 U/L (9-52); AST 43 U/L (14-36); Alkaline Phosphatase 149 U/L (38-126); Anion Gap 8 mmol/L; Blood Urea Nitrogen 11 mg/dL (7-17); Calcium 9.5 mg/dL (8.4-10.2); Carbon Dioxide 28 mmol/L (22-30); Chloride 105 mmol/L (98-107); Glucose 128 mg/dL (74-99); Non-African American GFR(MDRD) 56 (>60 ml/min/1.73 sqM); Potassium 4.7 mmol/L (3.5-5.1); Sodium 141 mmol/L (137-145); Total Bilirubin 0.9 mg/dL (0.2-1.3); Total Protein 7.1 g/dL (6.3-8.2)
[2017-02-21] MEDS ORDERED: IOHEXOL 300 MG/ML 50 ML BOTTLE MISCELLANE ONE (14:28)
--- NOTE | 2017-02-21 14:40 | P.PCN ---
Date of Procedure: 02/21/17 Preoperative Diagnosis: Postoperative Diagnosis: Procedure(s) Performed: Procedure: Endoscopic retrograde cholangiopancreatography ERCP. Preoperative diagnosis: Abdominal pain and abnormal liver enzymes. Postoperative diagnosis: S/P cholecystectomy, otherwise, examination within normal limits with normal pancreatic duct and normal common bile duct and intrahepatic biliary tree. Preparation sedation: Was provided by anesthesia. Brief clinical history: The patient is a 61-year-old female who was evaluated in the office recently regarding abdominal pain radiating to her back and slight elevation in her alkaline phosphatase and transaminases. She had prior cholecystectomy. The patient has a pacemaker and cannot undergo an MRI. An ultrasound of the abdomen showed fatty infiltration of the liver. This evaluation is to rule out with confidence retained common bile duct stone. Procedure: With the patient in the prone position and after informed consent and adequate sedation, I passed the Olympus video duodenoscope down the esophagus into her stomach then passed it through the pylorus into the duodenum and brought the papilla into view. The distal esophagus, stomach and duodenum did not show any abnormalities. The papilla appeared normal. Initial cannulation and injection with dye resulted in opacification of the pancreatic duct which appeared normal. Subsequently, we were able to cannulate the common bile duct selectively and visualize the CBD and biliary tree. The patient had prior cholecystectomy. The common bile duct did not have any filling defects and the intrahepatic biliary tree appeared normal. The patient tolerated the procedure well. Plan: The patient was reassured. Will continue to advise low-fat diet and reevaluate her liver enzymes. Further management and workup of her abdominal pains would be planned and I will keep you updated on her progress. Implants: Indications for Procedure: Operative Findings: Description of Procedure:
[2017-02-21 15:11] VITALS: BP 144/81; PULSE 100; RESP 20
--- NOTE | 2017-02-21 15:14 | FL ---
Fluoroscopy HISTORY: Common bile duct obstruction Two minutes 20 seconds fluoroscopy time supplied to the referring clinician. 3 intraoperative C-arm images document the procedure. See dictated report from gastroenterology.
== END 2017-02-21 15:25 | disposition home or self-care (01) ==
LOC: ORWHC2ENDO 11:00
DX: R74.8 Abnormal levels of other serum enzymes (principal); R10.9 Unspecified abdominal pain; R74.0 Nonspecific elevation of levels of transaminase and lactic acid dehydrogenase [LDH]; I10 Essential (primary) hypertension; E78.5 Hyperlipidemia, unspecified; E07.9 Disorder of thyroid, unspecified; E11.9 Type 2 diabetes mellitus without complications; K76.0 Fatty (change of) liver, not elsewhere classified; Z88.8 Allergy status to other drugs, medicaments and biological substances; Z86.73 Personal history of transient ischemic attack (TIA), and cerebral infarction without residual deficits; Z79.899 Other long term (current) drug therapy; Z95.0 Presence of cardiac pacemaker; Z90.49 Acquired absence of other specified parts of digestive tract
CPT/HCPCS: 80053; 85025; 85610; 85730; 74330; 43260; J1610; J1956; J2001; J2704; Q9967

== ENCOUNTER 2017-05-28 12:14 | Emergency (ER) | payer BC ==
[2017-05-28 12:27] VITALS: BP 147/67; PULSE 70; RESP 18; TEMP 97.6
[2017-05-28] MEDS ORDERED: HYDROcodone/APAP 5-325MG 1 EACH TAB PO STA (13:04)
--- NOTE | 2017-05-28 13:10 | ED ---
ENT HPI - General Chief complaint: ENT Stated complaint: Nose Bleed Time Seen by Provider: 05/28/17 12:54 Source: patient Mode of arrival: wheelchair Limitations: no limitations - History of Present Illness Initial comments: This patient is a 62-year-old woman who presents to be evaluate for epistaxis. The patient states that she had an episode of nose bleeding from the right naris one week ago. This was stopped at home she did see her clinic doctor during the week and he was unable to find a source for the bleeding, and told her that should she have another episode she should go to the emergency department. The patient states that around 10:30 today in the morning she started having bleeding again from the right naris. It has stopped now but this was while she was in the waiting room here. The patient states she has also been having some right facial pain that she thinks is related to sinus headache. She states that she does tend to get sinus headaches, and her physician was going to have a computed tomography scan for her. Patient is denying symptoms of anemia, including no dyspnea, diaphoresis, palpitations, chest pain, lightheadedness or syncope. The patient does take eliquis as directed for paroxysmal atrial tachycardia. MD complaint: epistaxis Onset/Timin -: week(s) Location: nose Consistency: intermittent, now resolved Worsens with: none Context-Epistaxis: other - Related Data Home Medications Medication Instructions Recorded Confirmed Levothyroxine Sodium [Synthroid] 88 mcg PO DAILY 02/24/14 02/17/17 Multivitamin/Iron/Folic Acid 1 tab PO DAILY 02/24/14 02/17/17 [Centrum Complete Multivit Tab] Omeprazole [PriLOSEC] 20 mg PO BID 02/24/14 02/17/17 Apixaban [Eliquis] 5 mg PO BID 04/05/16 02/17/17 Cholecalciferol [Vitamin D3] 5,000 unit PO TID 04/05/16 02/17/17 Gabapentin [Neurontin] 300 mg PO TID 04/05/16 02/17/17 L.acidoph,Paracasei, B.lactis 1 cap PO DAILY 04/05/16 02/17/17 [Probiotic] 5-Hydroxytryptophan (5-Htp) [5-Htp 300 mg PO HS 10/08/16 02/17/17 (Natrol)] buPROPion HCL [Wellbutrin XL] 300 mg PO DAILY 10/08/16 02/17/17 clomiPRAMINE HCL 75 mg PO HS 10/08/16 02/17/17 Losartan Potassium 100 mg PO DAILY 02/17/17 02/17/17 Melatonin 10 mg PO HS 02/17/17 02/17/17 Verapamil HCl [Verelan] 360 mg PO DAILY 02/17/17 02/17/17 metFORMIN HCL [Metformin HCl] 500 mg PO DAILY 02/17/17 02/17/17 Previous Rx's Medication Instructions Recorded Atorvastatin [Lipitor] 40 mg PO DAILY #30 tab 10/10/16 Baclofen [Lioresal] 10 mg PO TID tab 10/10/16 Azithromycin [Zithromax Z-pack] 250 mg PO DIRECTED #6 tab 05/28/17 Allergies Allergy/AdvReac Type Severity Reaction Status Date / Time cefpodoxime proxetil AdvReac Nausea & Verified 05/28/17 12:27 [From Vantin] Vomiting metoclopramide HCl AdvReac Nausea & Verified 05/28/17 12:27 [From Reglan] Vomiting pregabalin [From Lyrica] AdvReac Swelling/BLURRY Verified 05/28/17 12:27 VISION Review of Systems ROS Statement: Those systems with pertinent positive or pertinent negative responses have been documented in the HPI. ROS Other: All systems not noted in ROS Statement are negative. Constitutional: Denies: fever, chills ENT: Reports: epistaxis, congestion. Denies: ear pain, hearing loss Respiratory: Denies: cough, dyspnea Cardiovascular: Denies: chest pain, palpitations, syncope Gastrointestinal: Denies: abdominal pain, vomiting Neurological: Reports: as per HPI, headache. Denies: weakness, numbness, paresthesias Hematological/Lymphatic: Reports: other (eliquis) Past Medical History Past Medical History: CVA/TIA, Fibromyalgia, GERD/Reflux, Hyperlipidemia, Hypertension, Osteoarthritis (OA), Pneumonia, Sleep Apnea/CPAP/BIPAP, Thyroid Disorder Additional Past Medical History / Comment(s): CURRENT ABDOMINAL PAIN. degenerative disc, splenic aneurysm (just being watched), UTI, HIATAL HERNIa.per pt no MRI's r/t metal clips rt temperol lobe-stated has had chronic headache ever since the sx November of 1991); Chronic Pain Disorder,ddd headaches. "6 tia's". cva -2013 lt side a bit weaker than rt., sinusitis, DOES NOT USE CPAP, STATES TAKING METFORMIN FOR "FATTY LIVER" History of Any Multi-Drug Resistant Organisms: None Reported Past Surgical History: Section, Cholecystectomy, Hysterectomy, Pacemaker Additional Past Surgical History / Comment(s): hemmorhoidectomy, PACEMAKER, PELVIC FLOOR SX FOR URINARY INCONT MESH, BRAIN SX RT TEMPERAL ANUERYSM-HAS METAL CLIPS IN PLACE, ( HAS HEADACHES EVER SINCE), AVEL BREAST BIOPIES STATES HAS METALMARKERS IN PLACE.colonoscopy-HX OF POLYPS, EPIDURAL STERIOD INJECTIONS Past Anesthesia/Blood Transfusion Reactions: Previous Problems w/ Anesthesia Additional Past Anesthesia/Blood Transfusion Reaction / Comment(s): usually wakes up very quickly from anesthesia Type of Cardiac Device: Permanent Pacemaker Device Placement Date:: Snoobe, Past Psychological History: Anxiety, Bipolar, Depression Smoking Status: Former smoker Past Alcohol Use History: None Reported Past Drug Use History: None Reported - Past Family History Mother Family Medical History: Cancer, COPD, Dementia, Myocardial Infarction ([place]) Additional Family Medical History / Comment(s): cervical cancer, pancreatitis Father Family Medical History: Cancer, Congestive Heart Failure (CHF), COPD Additional Family Medical History / Comment(s): lung cancer,emphysema General Exam Limitations: no limitations General appearance: alert, in no apparent distress, obese Head exam: Present: atraumatic, normocephalic Eye exam: Present: normal appearance. Absent: scleral icterus, conjunctival injection ENT exam: Present: normal oropharynx, other (There is some dried blood around the right nare, there is no active bleeding. Currently no bleeding in the oropharynx. I do not see an anterior source of bleeding.) Respiratory exam: Present: normal lung sounds bilaterally. Absent: respiratory distress, wheezes, rales, rhonchi, stridor Cardiovascular Exam: Present: regular rate, normal rhythm, normal heart sounds. Absent: systolic murmur, diastolic murmur, rubs, gallop GI/Abdominal exam: Present: soft. Absent: distended, tenderness, guarding, rebound Neurological exam: Present: alert Skin exam: Present: warm, dry, intact, normal color. Absent: rash Course Vital Signs 05/28/17 12:23 Temperature 97.6 F Pulse Rate 70 Respiratory 18 Rate Blood Pressure 147/67 O2 Sat by Pulse 96 Oximetry Medical Decision Making - Lab Data Result diagrams: 05/28/17 13:30 05/28/17 13:30 Lab Results 05/28/17 05/28/17 05/28/17 Range/Units 13:30 13:30 13:30 WBC 7.0 (3.8-10.6) k/uL RBC 4.56 (3.80-5.40) m/uL Hgb 13.4 (11.4-16.0) gm/dL Hct 39.8 (34.0-46.0) % MCV 87.3 (80.0-100.0) fL MCH 29.3 (25.0-35.0) pg MCHC 33.6 (31.0-37.0) g/dL RDW 13.2 (11.5-15.5) % Plt Count 145 L (150-450) k/uL Neutrophils % 54 % Lymphocytes % 34 % Monocytes % 6 % Eosinophils % 3 % Basophils % 1 % Neutrophils # 3.8 (1.3-7.7) k/uL Lymphocytes # 2.4 (1.0-4.8) k/uL Monocytes # 0.4 (0-1.0) k/uL Eosinophils # 0.2 (0-0.7) k/uL Basophils # 0.0 (0-0.2) k/uL PT 9.9 (9.0-12.0) sec INR 1.0 (<1.2) APTT 22.5 (22.0-30.0) sec Sodium 145 (137-145) mmol/L Potassium 4.8 (3.5-5.1) mmol/L Chloride 108 H (98-107) mmol/L Carbon Dioxide 29 (22-30) mmol/L Anion Gap 8 mmol/L BUN 9 (7-17) mg/dL Creatinine 0.78 (0.52-1.04) mg/dL Est GFR (MDRD) Af Amer >60 (>60 ml/min/1.73 sqM) Est GFR (MDRD) Non-Af >60 (>60 ml/min/1.73 sqM) Glucose 122 H (74-99) mg/dL Calcium 9.1 (8.4-10.2) mg/dL Disposition Clinical Impression: Epistaxis, Sinusitis Disposition: HOME SELF-CARE Condition: Good Instructions: Sinusitis (ED), Nosebleed (ED) Prescriptions: Azithromycin [Zithromax Z-pack] 250 mg PO DIRECTED #6 tab Referrals: Sukhdev Patrick MD [Primary Care Provider] - 1-2 days Antwon Schroeder DO [Doctor of Osteopathic Medicine] - 1-2 days
[2017-05-28 13:42] LABS: Basophils % (A) 1 %; CH 28.8; CHCM 33.1; Eosinophils # (A) 0.2 k/uL (0-0.7); Eosinophils % (A) 3 %; HCT 39.8 % (34.0-46.0); HDW 2.72; HGB 13.4 gm/dL (11.4-16.0); Luc # (Auto) 0.14; Luc % (Auto) 2; Lymphocytes # (A) 2.4 k/uL (1.0-4.8); Lymphocytes % (A) 34 %; MCH 29.3 pg (25.0-35.0); MCHC 33.6 g/dL (31.0-37.0); MCV 87.3 fL (80.0-100.0); Mean Platelet Volume 8.2; Monocytes # (A) 0.4 k/uL (0-1.0); Monocytes % (A) 6 %; Neutrophils # (A) 3.8 k/uL (1.3-7.7); Neutrophils % (A) 54 %; RBC 4.56 m/uL (3.80-5.40); RDW 13.2 % (11.5-15.5); WBC (Perox) 6.98
[2017-05-28 13:49] LABS: Anion Gap 8 mmol/L; Blood Urea Nitrogen 9 mg/dL (7-17); Calcium 9.1 mg/dL (8.4-10.2); Carbon Dioxide 29 mmol/L (22-30); Chloride 108 mmol/L (98-107); Glucose 122 mg/dL (74-99); Non-African American GFR(MDRD) >60 (>60 ml/min/1.73 sqM); Potassium 4.8 mmol/L (3.5-5.1); Sodium 145 mmol/L (137-145)
[2017-05-28 14:05] LABS: Partial Thromboplastin Time 22.5 sec (22.0-30.0); Prothrombin Time 9.9 sec (9.0-12.0)
--- NOTE | 2017-05-28 14:10 | CT ---
EXAMINATION TYPE: CT sinus wo con DATE OF EXAM: 05/28/2017 COMPARISON: Previous study dated 08/13/2012. HISTORY: Nose bleed x 1.[address] DLP: 599.80 mGycm. Automated Exposure Control for Dose Reduction was Utilized. TECHNIQUE: CT scan of the sinuses is performed without contrast, axial images are obtained, coronal r eformatted images are also reviewed. FINDINGS: There has been a previous right temporal craniotomy and aneurysm clipping. There is a mick ter or malacia adjacent to the surgical site. There is an air-fluid level in the right maxillary sinus. The remainder of the paranasal sinuses appe ar clear. Both infundibula are patent. No soft tissue masses seen. IMPRESSION: 1. POSTSURGICAL CHANGE. 2. AIR-FLUID LEVEL IN THE RIGHT MAXILLARY SINUS SUGGESTS ACUTE SINUSITIS.
[2017-05-28] MEDS ORDERED: AZITHROMYCIN 500 MG TAB PO STA (14:15)
== END 2017-05-28 14:36 | disposition home or self-care (01) ==
LOC: EC 12:14
DX: J32.9 Chronic sinusitis, unspecified (principal); R04.0 Epistaxis; E78.5 Hyperlipidemia, unspecified; I10 Essential (primary) hypertension; K21.9 Gastro-esophageal reflux disease without esophagitis; M79.7 Fibromyalgia; E07.9 Disorder of thyroid, unspecified; E66.9 Obesity, unspecified; Z87.891 Personal history of nicotine dependence; Z79.01 Long term (current) use of anticoagulants; Z79.84 Long term (current) use of oral hypoglycemic drugs; Z79.899 Other long term (current) drug therapy; Z86.73 Personal history of transient ischemic attack (TIA), and cerebral infarction without residual deficits; Z87.898 Personal history of other specified conditions; Z88.1 Allergy status to other antibiotic agents; Z88.8 Allergy status to other drugs, medicaments and biological substances; Z98.890 Other specified postprocedural states; Z68.42 Body mass index [BMI] 45.0-49.9, adult
CPT/HCPCS: 36415; 70486; 80048; 85025; 85610; 85730; 99284

== ENCOUNTER 2017-06-20 18:30 | Inpatient (IN) | payer BC ==
[2017-06-20] MEDS ORDERED: ASPIRIN 81 MG PO STA (18:55)
[2017-06-20] MEDS ORDERED: MORPHINE SULFATE 2 MG/ML SYRINGE IVP STA ×2 (18:55→20:18)
[2017-06-20] MEDS ORDERED: NITROGLYCERIN OINT 1 INCH/GM PACKET TOPICAL STA (18:55)
--- NOTE | 2017-06-20 19:00 | ED ---
Chest Pain HPI - General Chief Complaint: Arrhythmia/Palpitations Stated Complaint: Low Pulse Time Seen by Provider: 06/20/17 18:49 Source: patient Mode of arrival: wheelchair Limitations: no limitations - History of Present Illness Initial Comments: This 62-year-old white female presents with with the complaint of a feeling of weakness throughout her entire body. She also states that her heart rate has been decreased recently and will ranged between 58 and 60 at times. She does have a pacemaker in place. She also has had some left-sided chest pain which is described as a burning which radiates into her neck and jaw and left shoulder. She has had some associated shortness of breath. She states that she has had a hard time ambulating due to the weakness. She does have a history of previous cardiac arrhythmias requiring the pacemaker but otherwise denies any cardiac abnormalities. Her last stress test was approximately one year ago and was purportedly normal. She was sent in today by her manager rehab' s office. She denies any leg pain or swelling or history of DVT or PE. No other complaints or modifying factors. - Related Data Home Medications Medication Instructions Recorded Confirmed Levothyroxine Sodium [Synthroid] 88 mcg PO DAILY 02/24/14 06/20/17 Omeprazole [PriLOSEC] 20 mg PO BID 02/24/14 06/20/17 Cholecalciferol [Vitamin D3] 5,000 unit PO TID 04/05/16 06/20/17 Gabapentin [Neurontin] 600 mg PO TID 04/05/16 06/20/17 L.acidoph,Paracasei, B.lactis 1 cap PO DAILY 04/05/16 06/20/17 [Probiotic] 5-Hydroxytryptophan (5-Htp) [5-Htp 300 mg PO HS 10/08/16 06/20/17 (Natrol)] buPROPion HCL [Wellbutrin XL] 300 mg PO DAILY 10/08/16 06/20/17 Losartan Potassium 100 mg PO DAILY 02/17/17 06/20/17 Verapamil HCl [Verelan] 360 mg PO DAILY 02/17/17 06/20/17 Apixaban [Eliquis] 2.5 mg PO BID 06/20/17 06/20/17 Baclofen [Lioresal] 20 mg PO TID 06/20/17 06/20/17 Multivitamins, Thera [Multivitamin 1 tab PO DAILY 06/20/17 06/20/17 (formulary)] metFORMIN HCL ER [Glucophage Xr] 500 mg PO PC-BRKFST 06/20/17 06/20/17 Previous Rx's Medication Instructions Recorded Atorvastatin [Lipitor] 40 mg PO DAILY #30 tab 10/10/16 Allergies Allergy/AdvReac Type Severity Reaction Status Date / Time pregabalin [From Lyrica] Allergy Swelling/Blurry Verified 06/20/17 19:00 Vision cefpodoxime proxetil AdvReac Nausea & Verified 06/20/17 19:00 [From Vantin] Vomiting metoclopramide HCl AdvReac Nausea & Verified 06/20/17 19:00 [From Reglan] Vomiting Review of Systems ROS Statement: Those systems with pertinent positive or pertinent negative responses have been documented in the HPI. ROS Other: All systems not noted in ROS Statement are negative. Past Medical History Past Medical History: CVA/TIA, Fibromyalgia, GERD/Reflux, Hyperlipidemia, Hypertension, Osteoarthritis (OA), Pneumonia, Sleep Apnea/CPAP/BIPAP, Thyroid Disorder Additional Past Medical History / Comment(s): CURRENT ABDOMINAL PAIN. degenerative disc, splenic aneurysm (just being watched), UTI, HIATAL HERNIa.per pt no MRI's r/t metal clips rt temperol lobe-stated has had chronic headache ever since the sx November of 1991); Chronic Pain Disorder,ddd headaches. "6 tia's". cva 3-2013 lt side a bit weaker than rt., sinusitis, DOES NOT USE CPAP, STATES TAKING METFORMIN FOR "FATTY LIVER" History of Any Multi-Drug Resistant Organisms: None Reported Past Surgical History: Section, Cholecystectomy, Hysterectomy, Pacemaker Additional Past Surgical History / Comment(s): hemmorhoidectomy, PACEMAKER, PELVIC FLOOR SX FOR URINARY INCONT MESH, BRAIN SX RT TEMPERAL ANUERYSM-HAS METAL CLIPS IN PLACE, ( HAS HEADACHES EVER SINCE), AVEL BREAST BIOPIES STATES HAS METALMARKERS IN PLACE.colonoscopy-HX OF POLYPS, EPIDURAL STERIOD INJECTIONS Past Anesthesia/Blood Transfusion Reactions: Previous Problems w/ Anesthesia Additional Past Anesthesia/Blood Transfusion Reaction / Comment(s): usually wakes up very quickly from anesthesia Type of Cardiac Device: Permanent Pacemaker Device Placement Date:: [place], Past Psychological History: Anxiety, Bipolar, Depression Smoking Status: Former smoker Past Alcohol Use History: None Reported Past Drug Use History: None Reported - Past Family History Mother Family Medical History: Cancer, COPD, Dementia, Myocardial Infarction (DC) Additional Family Medical History / Comment(s): cervical cancer, pancreatitis Father Family Medical History: Cancer, Congestive Heart Failure (CHF), COPD Additional Family Medical History / Comment(s): lung cancer,emphysema General Exam - General Exam Comments Initial Comments: GENERAL: The patient is well nourished and well hydrated. VITAL SIGNS: Heart rate, blood pressure, respiratory rate reviewed as recorded in nurse's notes. EYES: Pupils are round and reactive. Extraocular movements are intact. No conjunctival / lid redness or swelling. ENT: No external evidence of injury, swelling, or ecchymosis. Airway is patent. Throat is clear. NECK: Nontender. No swelling or evidence of injury. No subcutaneous emphysema. Trachea is midline. No thyroid mass. HEART: Regular rate and rhythm. Good peripheral pulses. LUNGS/CHEST: Breath sounds clear and equal bilaterally. No rales, rhonchi, or wheezes. No ecchymosis, subcutaneous emphysema, or tenderness. ABDOMEN: Abdomen soft without tenderness. No palpable masses or organomegaly. No peritoneal signs. No abdominal wall swelling or ecchymosis. EXTREMITIES: No extremity tenderness. Normal muscle tone and function. No thoracolumbar tenderness. NEUROLOGIC: Sensation is grossly intact. Cranial nerve exam reveals face is symmetrical, tongue is midline, speech is clear. SKIN: No abrasions or ecchymosis is noted. No induration or masses noted. PSYCHIATRIC: Alert and oriented. Appropriate behavior and judgment. Limitations: no limitations Course Vital Signs 06/20/17 06/20/17 18:31 20:28 Temperature 98.4 F 98.2 F Pulse Rate 60 55 L Respiratory 16 16 Rate Blood Pressure 132/61 114/84 O2 Sat by Pulse 98 97 Oximetry Chest Pain MDM - MDM The patient was seen and examined. All diagnostics were reviewed. An EKG shows an atrial sensed ventricular paced rhythm. There is no ST elevation identified. The IN intervals 184, QRS duration is 160, and the QTc interval is 506. The patient received an aspirin as well as Nitropaste and 2 mg of morphine IV. The laboratory is reviewed and is unremarkable. The chest x-ray does not show any acute process. It is felt as though she would require admission to the hospital to rule out the possibility of acute coronary syndrome. On recheck, she is feeling improved but states that that her pain is still at approximately 6 of 10 and she is ordered 2 more milligrams of morphine. The case is discussed with Halle from internal medicine and she is agreeable to admission. Disposition Clinical Impression: Chest pain, Dyspnea, Weakness, Unstable angina Disposition: ADMITTED IP TO THIS [facility] Condition: Fair Time of Disposition: 20:49 Decision Date: 06/20/17 Decision Time: 20:49
[2017-06-20 19:13] LABS: Basophils % (A) 1 %; CHCM 32.2; Eosinophils # (A) 0.2 k/uL (0-0.7); Eosinophils % (A) 3 %; HDW 2.82; HGB 13.4 gm/dL (11.4-16.0); Luc # (Auto) 0.18; Luc % (Auto) 3; Lymphocytes # (A) 2.6 k/uL (1.0-4.8); Lymphocytes % (A) 39 %; MCH 28.5 pg (25.0-35.0); MCHC 32.7 g/dL (31.0-37.0); MCV 87.2 fL (80.0-100.0); Mean Platelet Volume 7.7; Monocytes # (A) 0.4 k/uL (0-1.0); Monocytes % (A) 6 %; Neutrophils # (A) 3.2 k/uL (1.3-7.7); Neutrophils % (A) 49 %; RDW 13.1 % (11.5-15.5); WBC 6.7 k/uL (3.8-10.6); WBC (Perox) 6.93
[2017-06-20 19:25] LABS: ALT 30 U/L (9-52); AST 20 U/L (14-36); Alkaline Phosphatase 118 U/L (38-126); Anion Gap 9 mmol/L; Blood Urea Nitrogen 7 mg/dL (7-17); Calcium 8.9 mg/dL (8.4-10.2); Carbon Dioxide 24 mmol/L (22-30); Chloride 109 mmol/L (98-107); Glucose 93 mg/dL (74-99); Magnesium 1.9 mg/dL (1.6-2.3); Non-African American GFR(MDRD) >60 (>60 ml/min/1.73 sqM); Potassium 4.1 mmol/L (3.5-5.1); Sodium 142 mmol/L (137-145); Total Bilirubin 0.2 mg/dL (0.2-1.3); Total Protein 6.1 g/dL (6.3-8.2)
[2017-06-20 19:33] LABS: INR 0.9 (<1.2); Partial Thromboplastin Time 22.1 sec (22.0-30.0); Prothrombin Time 9.7 sec (9.0-12.0)
--- NOTE | 2017-06-20 19:33 | XR ---
EXAMINATION TYPE: XR chest 2V DATE OF EXAM: 06/20/2017 COMPARISON: Chest x-ray October 07, 2016 HISTORY: Chest pain and bradycardia. TECHNIQUE: Frontal and lateral views of the chest are obtained. FINDINGS: There is no focal air space opacity, pleural effusion, or pneumothorax seen. The cardiac silhouette size is stable and mildly enlarged with dual lead pacemaker and atherosclerotic thoracic a lisette all redemonstrated. Multilevel spurring in thoracic spine is again seen. Cholecystectomy clips a re redemonstrated. IMPRESSION: Mild Cardiomegaly without acute pulmonary process. No significant change from prior.
[2017-06-20 19:34] LABS: Creatine Kinase 31 U/L (30-135)
[2017-06-20 19:47] LABS: Creatine Kinase MB 0.3 ng/mL (0.0-2.4); Troponin I <0.012 ng/mL (0.000-0.034)
[2017-06-20] MEDS ORDERED: [UNRECOGNIZED DRUG - OTHER] PO SCH (21:00)
[2017-06-20] MEDS: CHOLECALCIFEROL 1,000 UNIT TAB PO SCH (22:24)
[2017-06-20] MEDS: GABAPENTIN 300 MG CAP PO SCH (22:24)
[2017-06-20] MEDS: BACLOFEN 10 MG TAB PO SCH (22:25)
[2017-06-20] MEDS: PANTOPRAZOLE 40 MG TABLET PO SCH (22:25)
[2017-06-20] MEDS: APIXABAN 2.5 MG TABLET PO SCH (22:25)
[2017-06-20] MEDS: NITROGLYCERIN OINT 1 INCH/GM PACKET TOPICAL SCH (23:29)
[2017-06-20] MEDS: MORPHINE SULFATE 2 MG/ML SYRINGE IVP PRN (23:29)
[2017-06-21 01:30] LABS: Creatine Kinase 27 U/L (30-135)
[2017-06-21 01:44] LABS: Creatine Kinase MB <0.2 ng/mL (0.0-2.4); Troponin I <0.012 ng/mL (0.000-0.034)
[2017-06-21] MEDS: MORPHINE SULFATE 2 MG/ML SYRINGE IVP PRN ×3 (02:22→09:05)
[2017-06-21] MEDS: LEVOTHYROXINE 88 MCG TAB PO SCH (05:45)
[2017-06-21] MEDS: NITROGLYCERIN OINT 1 INCH/GM PACKET TOPICAL SCH ×3 (05:46→18:31)
[2017-06-21 07:09] LABS: Cholesterol 125 mg/dL (<200); HDL Cholesterol 46 mg/dL (40-60)
[2017-06-21 07:20] LABS: Creatine Kinase 30 U/L (30-135)
[2017-06-21 07:33] LABS: Creatine Kinase MB 0.2 ng/mL (0.0-2.4); Troponin I <0.012 ng/mL (0.000-0.034)
[2017-06-21] MEDS: metFORMIN 500 MG TAB PO SCH ×2 (09:00→17:32)
[2017-06-21] MEDS ORDERED: ASPIRIN 325 MG TAB PO SCH (09:00)
[2017-06-21] MEDS: BACLOFEN 10 MG TAB PO SCH ×3 (09:01→21:17)
[2017-06-21] MEDS: buPROPion XL 300 MG TAB.ER.24H PO SCH (09:02)
[2017-06-21] MEDS: ATORVASTATIN 40 MG TAB PO SCH (09:02)
[2017-06-21] MEDS: CHOLECALCIFEROL 1,000 UNIT TAB PO SCH ×3 (09:02→21:18)
[2017-06-21] MEDS: LOSARTAN 50 MG TAB PO SCH (09:03)
[2017-06-21] MEDS: VERAPAMIL SR 180 MG TABLET.ER PO SCH (09:03)
[2017-06-21] MEDS: GABAPENTIN 300 MG CAP PO SCH ×3 (09:03→21:18)
[2017-06-21] MEDS: PANTOPRAZOLE 40 MG TABLET PO SCH ×2 (09:04→17:32)
[2017-06-21] MEDS: LACTOBACILLUS ACIDOPH & BULGAR 1 EACH PACKET PO SCH (09:04)
[2017-06-21] MEDS: ASPIRIN 81 MG PO SCH (09:39)
--- NOTE | 2017-06-21 09:54 | ECHOF ---
Referral Reason:cp MEASUREMENTS -------- HEIGHT: 154.9 cm WEIGHT: 107.0 kg BP: 115/50 IVSd: 1.4 cm (0.6 - 1.1) LVIDd: 4.2 cm (3.9 - 5.3) LVPWd: 1.6 cm (0.6 - 1.1) IVSs: 2.0 cm LVIDs: 2.6 cm LVPWs: 1.5 cm Ao Diam: 3.2 cm (2.0 - 3.7) AV Cusp: 2.1 cm (1.5 - 2.6) LA Diam: 4.1 cm (2.7 - 3.8) MV EXCURSION: 16.790 mm (> 18.000) MV EF SLOPE: 91 mm/s (70 - 150) EPSS: 0.7 cm MV E Maged: 0.70 m/s MV DecT: 225 ms MV A Maged: 0.76 m/s MV E/A Ratio: 0.93 RAP: 5.00 mmHg RVSP: 10.57 mmHg FINDINGS -------- Pacemaker This was a technically adequate study. The left ventricular size is normal. There is moderate concentric left ventricular hypertrophy. Overall left ventricular systolic function is normal with, an EF between 55 - 60 %. The right ventricle is normal in size and function. The left atrium is mildly dilated. The right atrium is normal in size. The aortic valve is trileaflet, and appears structurally normal. No aortic stenosis or regurgitation. The mitral valve leaflets are mildly thickened. There is trace mitral regurgitation. Trace tricuspid regurgitation present. The right ventricular systolic pressure, as measured by Doppler, is 10.57mmHg. Pulmonic valve appears structurally normal. The aortic root size is normal. The pericardium is normal. CONCLUSIONS -------- 1. Pacemaker 2. The mitral valve leaflets are mildly thickened. 3. There is trace mitral regurgitation. 4. Trace tricuspid regurgitation present. 5. The right ventricular systolic pressure, as measured by Doppler, is 10.57mmHg. 6. Pulmonic valve appears structurally normal. 7. The aortic root size is normal. 8. The pericardium is normal. 9. This was a technically adequate study. 10. The left ventricular size is normal. 11. There is moderate concentric left ventricular hypertrophy. 12. Overall left ventricular systolic function is normal with, an EF between 55 - 60 %. 13. The right ventricle is normal in size and function. 14. The left atrium is mildly dilated. 15. The right atrium is normal in size. 16. The aortic valve is trileaflet, and appears structurally normal. No aortic stenosis or regurgitation. [employer] OPERATOR: Padmini Watkins RDCS
[2017-06-21] MEDS ORDERED: ASPIRIN 325 MG TAB PO STA (11:07)
[2017-06-21] MEDS ORDERED: SODIUM CHLORIDE 0.9% 1,000 ML in EMPTY BAG 1 BAG IV ONE (11:07)
[2017-06-21] MEDS ORDERED: ALPRAZolam 0.25 MG TAB PO PRN (11:07)
[2017-06-21] MEDS ORDERED: ATORVASTATIN 40 MG TAB PO STA (11:11)
[2017-06-21] MEDS ORDERED: SODIUM CHLORIDE 0.9% 500 ML IV ONE (12:37)
[2017-06-21] MEDS: MULTIVITAMINS, THERA 1 EACH TAB PO SCH (12:55)
--- NOTE | 2017-06-21 14:05 | P.CRDCN ---
History of Present Illness Consult date: 06/21/17 History of present illness: This is a 62-year-old female. Past medical history significant for essential hypertension, complete heart block with permanent pacemaker implantation, dyslipidemia, paroxysmal atrial tachycardia, TIA and CVA. She is currently maintained on Eliquis. She presented to the hospital with complaints of increased weakness and fatigue over the last couple of days. She's been manually taking her pulse and she states it to be in the mid to low 50s. It was her understanding that her pacemaker is set at a rate of 60 so this concerned her. She also complains of midsternal chest heaviness with radiation across the left precordial region into the left shoulder and down the left arm as well as up into the left neck and jaw region. This pain is associated with shortness of breath, dizziness and chills. She states she's also had a dry cough recently. She cannot specify any aggravating or alleviating factors. She still complains of mild chest heaviness at this time. EKG reveals atrial and ventricular sensed paced rhythm. Cardiac enzymes are negative 3. Triglycerides 153, total cholesterol 125, LDL 48, HDL 46 potassium 4.1, BUNs 7, creatinine 0.72, hemoglobin 13.4. Current cardiac medications include Arturo was 2.5 mg by mouth twice a day, Lipitor 40 mg daily, losartan 100 mg daily, verapamil 360 mg daily. She states she recently suffered multiple nosebleeds and her Eliquis was cut in half. Her pacemaker was recently interrogated and showed normal function with episodes of PAT with controlled ventricular response. Review of Systems Extensive review of systems performed, negative except mentioned in HPI. Past Medical History Past Medical History: CVA/TIA, Fibromyalgia, GERD/Reflux, Hyperlipidemia, Hypertension, Osteoarthritis (OA), Pneumonia, Sleep Apnea/CPAP/BIPAP, Thyroid Disorder Additional Past Medical History / Comment(s): degenerative disc, splenic aneurysm (just being watched), UTI, HIATAL HERNIA.per pt no MRI's r/t metal clips rt temperol lobe-stated has had chronic headache ever since the sx November of 1991); Chronic Pain Disorder,ddd headaches."6 tia's". cva 3-2013 lt side a bit weaker than rt., sinusitis, DOES NOT USE CPAP, STATES TAKING METFORMIN FOR "FATTY LIVER" History of Any Multi-Drug Resistant Organisms: None Reported Past Surgical History: Section, Cholecystectomy, Hysterectomy, Pacemaker Additional Past Surgical History / Comment(s): hemmorhoidectomy, PACEMAKER, PELVIC FLOOR SX FOR URINARY INCONT MESH, BRAIN SX RT TEMPERAL ANUERYSM-HAS METAL CLIPS IN PLACE, ( HAS HEADACHES EVER SINCE), AVEL BREAST BIOPIES STATES HAS METALMARKERS IN PLACE.colonoscopy-HX OF POLYPS, EPIDURAL STERIOD INJECTIONS Past Anesthesia/Blood Transfusion Reactions: Previous Problems w/ Anesthesia Additional Past Anesthesia/Blood Transfusion Reaction / Comment(s): usually wakes up very quickly from anesthesia Type of Cardiac Device: Permanent Pacemaker Device Placement Date:: [employer], Past Psychological History: Anxiety, Bipolar, Depression Additional Psychological History / Comment(s): Diagnosed recently with Bipolar 2016 Smoking Status: Former smoker Past Alcohol Use History: None Reported Additional Past Alcohol Use History / Comment(s): smoked x 18 years 1.5 ppd, quit 1996 Past Drug Use History: None Reported - Past Family History Mother Family Medical History: Cancer, COPD, Dementia, Myocardial Infarction (OR) Additional Family Medical History / Comment(s): cervical cancer, pancreatitis Father Family Medical History: Cancer, Congestive Heart Failure (CHF), COPD Additional Family Medical History / Comment(s): lung cancer,emphysema Medications and Allergies Home Medications Medication Instructions Recorded Confirmed Type Levothyroxine Sodium [Synthroid] 88 mcg PO DAILY 02/24/14 06/20/17 History Omeprazole [PriLOSEC] 20 mg PO BID 02/24/14 06/20/17 History Cholecalciferol [Vitamin D3] 5,000 unit PO TID 04/05/16 06/20/17 History Gabapentin [Neurontin] 600 mg PO TID 04/05/16 06/20/17 History L.acidoph,Paracasei, B.lactis 1 cap PO DAILY 04/05/16 06/20/17 History [Probiotic] 5-Hydroxytryptophan (5-Htp) [5-Htp 300 mg PO HS 10/08/16 06/20/17 History (Natrol)] buPROPion HCL [Wellbutrin XL] 300 mg PO DAILY 10/08/16 06/20/17 History Atorvastatin [Lipitor] 40 mg PO DAILY #30 tab 10/10/16 06/20/17 Rx Losartan Potassium 100 mg PO DAILY 02/17/17 06/20/17 History Verapamil HCl [Verelan] 360 mg PO DAILY 02/17/17 06/20/17 History Apixaban [Eliquis] 2.5 mg PO BID 06/20/17 06/20/17 History Baclofen [Lioresal] 20 mg PO TID 06/20/17 06/20/17 History Multivitamins, Thera [Multivitamin 1 tab PO DAILY 06/20/17 06/20/17 History (formulary)] metFORMIN HCL ER [Glucophage Xr] 500 mg PO PC-BRKFST 06/20/17 06/20/17 History Allergies Allergy/AdvReac Type Severity Reaction Status Date / Time pregabalin [From Lyrica] Allergy Swelling/Blurry Verified 06/20/17 22:07 Vision cefpodoxime proxetil AdvReac Nausea & Verified 06/20/17 22:07 [From Vantin] Vomiting metoclopramide HCl AdvReac Nausea & Verified 06/20/17 22:07 [From Reglan] Vomiting Physical Exam Vitals: Vital Signs Temp Pulse Pulse Resp BP BP Pulse Ox 06/21/17 08:00 18 06/21/17 07:01 97.8 F 62 18 104/58 93 L 06/21/17 03:38 16 06/21/17 03:32 97.6 F 67 16 115/50 96 06/20/17 22:12 16 06/20/17 22:02 97.8 F 57 L 16 142/64 98 06/20/17 20:28 98.2 F 55 L 16 114/84 97 06/20/17 18:31 98.4 F 60 16 132/61 98 Intake and Output 06/20/17 06/21/17 06/21/17 22:59 06:59 14:59 Intake Total 250 Balance 250 Intake: Oral 250 Other: Voiding Method Toilet Toilet Toilet # Voids 2 Weight 107.048 kg GENERAL: Well-appearing, well-nourished and in no acute distress. Morbidly obese. NECK: Supple without JVD or thyromegaly. LUNGS: Breath sounds clear to auscultation bilaterally. Respiration equal and unlabored. No wheezes, rales or rhonchi. HEART: Regular rate and rhythm without murmurs, rubs or gallops. S1 and S2 heard. EXTREMITIES: Normal range of motion, no edema. No clubbing or cyanosis. Peripheral pulses intact and strong. Results 06/20/17 19:01 06/20/17 19:01 Cardiac Enzymes 06/20/17 06/20/17 06/21/17 Range/Units 19:01 19:01 00:53 AST 20 (14-36) U/L CK-MB (CK-2) 0.3 <0.2 (0.0-2.4) ng/mL Troponin I <0.012 <0.012 (0.000-0.034) ng/mL 06/21/17 Range/Units 06:34 AST (14-36) U/L CK-MB (CK-2) 0.2 (0.0-2.4) ng/mL Troponin I <0.012 (0.000-0.034) ng/mL Coagulation 06/20/17 Range/Units 19:01 PT 9.7 (9.0-12.0) sec APTT 22.1 (22.0-30.0) sec Lipids 06/21/17 Range/Units 06:34 Triglycerides 153 H (<150) mg/dL Cholesterol 125 (<200) mg/dL HDL Cholesterol 46 (40-60) mg/dL CBC 06/20/17 Range/Units 19:01 WBC 6.7 (3.8-10.6) k/uL RBC 4.70 (3.80-5.40) m/uL Hgb 13.4 (11.4-16.0) gm/dL Hct 41.0 (34.0-46.0) % Plt Count 147 L (150-450) k/uL Comprehensive Metabolic Panel 06/20/17 Range/Units 19:01 Sodium 142 (137-145) mmol/L Potassium 4.1 (3.5-5.1) mmol/L Chloride 109 H (98-107) mmol/L Carbon Dioxide 24 (22-30) mmol/L BUN 7 (7-17) mg/dL Creatinine 0.72 (0.52-1.04) mg/dL Glucose 93 (74-99) mg/dL Calcium 8.9 (8.4-10.2) mg/dL AST 20 (14-36) U/L ALT 30 (9-52) U/L Alkaline Phosphatase 118 (38-126) U/L Total Protein 6.1 L (6.3-8.2) g/dL Albumin 3.6 (3.5-5.0) g/dL Current Medications Generic Name Dose Route Start Last Admin Trade Name Freq PRN Reason Stop Dose Admin Apixaban 2.5 mg 06/20/17 21:00 06/20/17 22:25 Eliquis PO 2.5 mg BID [facility] Administration Aspirin 325 mg 06/21/17 09:00 Aspirin PO DAILY [facility] Atorvastatin Calcium 40 mg 06/21/17 09:00 Lipitor PO DAILY [facility] Baclofen 20 mg 06/20/17 22:00 06/20/17 22:25 Lioresal PO 20 mg TID [facility] Administration Bupropion HCl 300 mg 06/21/17 09:00 Wellbutrin Xl PO DAILY [facility] Cholecalciferol 5,000 unit 06/20/17 22:00 06/20/17 22:24 Vitamin D3 PO 5,000 unit TID [facility] Administration Gabapentin 600 mg 06/20/17 22:00 06/20/17 22:24 Neurontin PO 600 mg TID [facility] Administration Lactobacillus Acidoph/Bulgaricus 1 each 06/21/17 09:00 Lactinex PO DAILY [facility] Levothyroxine Sodium 88 mcg 06/21/17 06:30 06/21/17 05:45 Synthroid PO 88 mcg DAILY@0630 [facility] Administration Losartan Potassium 100 mg 06/21/17 09:00 Cozaar PO DAILY [facility] Metformin HCl 250 mg 06/21/17 07:30 Glucophage PO AC-BID [facility] Morphine Sulfate 2 mg 06/20/17 20:50 06/21/17 05:47 Morphine Sulfate (Inj) IVP 2 mg Q3H PRN Administration Chest Pain Multivitamins 1 each 06/21/17 12:00 Theragran PO DAILY@1200 [facility] Nitroglycerin 1 inch 06/21/17 00:00 06/21/17 05:46 Nitro-Bid Oint TOPICAL 1 inch Q6HR [facility] Administration Nitroglycerin 0.4 mg 06/20/17 20:50 Nitrostat SUBLINGUAL Q5M PRN Chest Pain Pantoprazole Sodium 40 mg 06/20/17 21:00 06/20/17 22:25 Protonix PO 40 mg AC-BID [facility] Administration Verapamil HCl 360 mg 06/21/17 09:00 Isoptin Sr PO DAILY [facility] Intake and Output 06/20/17 06/21/17 06/21/17 22:59 06:59 14:59 Intake Total 250 Balance 250 Intake: Oral 250 Other: Voiding Method Toilet Toilet Toilet # Voids 2 Weight 107.048 kg 06/20/17 19:01 06/20/17 19:01 Assessment and Plan Plan: ASSESSMENT 1. Unstable angina 2. Hypertension 3. Dyslipidemia 4. History of complete heart block status post pacemaker implantation 5. Paroxysmal atrial tachycardia on long-term anticoagulation PLAN We recommend proceeding with cardiac catheterization to assess for acute obstructive process. I have discussed the risks, benefits and alternative therapies for the above-mentioned procedure and for both sedation/analgesia as well as necessary blood product administration, if indicated, as they pertain to this patient. The patient has indicated understanding and acceptance of the risks and procedures discussed. She will be scheduled for tomorrow morning. Tami will be held tonight. If she should develop any chest pain please pain EKG stat. Nurse Practitioner note has been reviewed, I agree with a documented findings and plan of care. Patient was seen and examined.
--- NOTE | 2017-06-21 14:13 | HP ---
HISTORY AND PHYSICAL DATE OF ADMISSION: 06/20/2017 PRESENTING COMPLAINT: Chest pain. HISTORY OF PRESENTING COMPLAINT: Pleasant 62-year-old patient, rather extensive medical history. Chronic stable medical conditions include GERD, hypertension, hyperlipidemia, hypothyroid, osteoarthritis, hiatal hernia, bipolar disorder. Patient has a pacemaker. DIANE / FABIOLA: [id number] /
--- NOTE | 2017-06-21 15:01 | HP ---
HISTORY AND PHYSICAL DATE OF ADMISSION: 06/20/2017. DATE OF SERVICE: 06/21/2017. PRESENTING COMPLAINT: Chest pain. HISTORY OF PRESENTING COMPLAINT: This is a 62-year-old patient with rather extensive medical history. Chronic stable medical conditions include some temporal lobe cerebral aneurysm with clipping history, GERD, hypertension, hyperlipidemia, hypothyroid, osteoarthritis, hiatal hernia, bipolar disorder. The patient also had a pacemaker. The patient presents with dizzy, lightheaded, not feeling well. Blood pressure is running low. Also developed left- sided chest pain going up to the neck and the arm, lasting for a few hours. Called up Dr. Ontiveros's office, who directed her to come down to the ER. The patient is admitted for the same. REVIEW OF SYSTEMS: CONSTITUTIONAL: Tired. HEENT: None. RESPIRATORY: None. CARDIOVASCULAR: As above. GASTROINTESTINAL: Heartburn. GENITOURINARY: None. MUSCULOSKELETAL: As above. DERMATOLOGICAL: None. HEMATOLOGIC: None. LYMPHATIC: None. PSYCHIATRY: Anxiety. NEUROLOGICAL: None. PAST MEDICAL HISTORY: A small PFO, paroxysmal atrial tachycardia, multiple TIAs/strokes in November 2013, morbid obesity, temporal aneurysm with clip in place, GERD, hypertension, hyperlipidemia, hypothyroid, osteoarthritis, of the lumbar spine, hiatal hernia, bipolar disorder. PAST SURGICAL HISTORY: , cholecystectomy, hysterectomy, pacemaker, hemorrhoidectomy, surgery for urinary incontinence, bilateral breast biopsies. PAST PSYCH HISTORY: Bipolar disorder. SOCIAL HISTORY: Patient smoked for 18 years, a pack and half a day, stopped in 1996. . FAMILY HISTORY: Cancer, COPD, dementia, myocardial infarction, cervical cancer. HOME MEDICATIONS: 1. Glucophage XR 500 mg p.o. at breakfast. 2. Ventolin 360 mg p.o. daily. 3. Prilosec 20 mg p.o. b.i.d. 4. Multivitamin 1 tab p.o. daily. 5. Wellbutrin XL 300 mg p.o. daily. 6. Losartan 100 mg p.o. daily. 7. Synthroid 88 mcg p.o. daily. 8. Probiotic 1 capsule p.o. daily. 9. Neurontin 600 mg p.o. t.i.d. 10.Vitamin D3 5000 units p.o. t.i.d. 11.Baclofen 20 mg p.o. t.i.d. 12.Lipitor 40 mg p.o. daily. 13.Eliquis 22.5 p.o. b.i.d. 14.5-Hydroxytryptophan 300 mg p.o. q.h.s. ALLERGIES: LYRICA, REGLAN. PHYSICAL EXAMINATION: Vital Signs On Presentation: Temperature 98.2 pulse 55, respirations 16, blood pressure 114/84, pulse ox 97% on 2L. GENERAL APPEARANCE: Well built, BMI of 44.6, sitting up, slightly anxious appearing. EYES: Pupils equal. Conjunctivae normal. HEENT: Oral cavity normal. NECK: JVD not raised. Mass not palpable. RESPIRATORY: Effort normal. LUNGS: Clear. CARDIOVASCULAR: 1st and 2nd sounds normal. No edema. ABDOMEN: Soft, nontender. Liver and spleen not palpable. LYMPHATIC: No lymph node palpable in neck or axillae. PSYCHIATRY: Alert and oriented x3. Mood and affect slightly anxious-appearing. NEUROLOGICAL: Pupils equal. Cranial nerve grossly intact. Power and sensation grossly intact. INVESTIGATIONS: White count 6.7, hemoglobin 13.4. Potassium 4.1, BUN and creatinine are normal. Troponin x3 is negative. LDL is 48. EKG: Atrial sensed ventricular paced rhythm. ASSESSMENT: 1. Possible unstable angina. 2. Chronic fibromyalgia. 3. Gastroesophageal reflux disease. 4. Hypertension. 5. Hyperlipidemia. 6. Primary osteoarthritis multiple joints. 7. Obstructive sleep apnea. 8. Spleen aneurysm being followed. 9. Hiatal hernia. 10.Right temporal lobe aneurysm with a clip in place. 11.Chronic cephalgia. 12.Mild left hemiparesis from prior stroke. The patient does not use a continuous positive airway pressure machine. 13.Fatty liver. 14.Bipolar disorder. PLAN: Home medications are resumed. Cardiology was consulted. Patient's Eliquis has been held. Patient informed me that Dr. Eaton is going to take heart rate for a cardiac catheterization. The patient's and other family members are present. Care was discussed. MMODL / IJN: [id number] /
[2017-06-21 16:35] LABS: Basophils % (A) 0 %; CH 27.8; CHCM 30.5; Eosinophils # (A) 0.2 k/uL (0-0.7); Eosinophils % (A) 2 %; HCT 32.9 % (34.0-46.0); HDW 2.69; HGB 10.5 gm/dL (11.4-16.0); Hypochromasia Moderate; Luc # (Auto) 0.16; Luc % (Auto) 2; Lymphocytes # (A) 1.8 k/uL (1.0-4.8); Lymphocytes % (A) 26 %; MCH 29.3 pg (25.0-35.0); MCV 91.7 fL (80.0-100.0); Mean Platelet Volume 8.1; Monocytes # (A) 0.4 k/uL (0-1.0); Monocytes % (A) 6 %; Neutrophils # (A) 4.4 k/uL (1.3-7.7); Neutrophils % (A) 63 %; RBC 3.59 m/uL (3.80-5.40); RDW 13.4 % (11.5-15.5); WBC (Perox) 5.38
[2017-06-21 16:37] LABS: Calcium 8.3 mg/dL (8.4-10.2); Potassium 4.5 mmol/L (3.5-5.1); Total Bilirubin 0.3 mg/dL (0.2-1.3); Total Protein 5.7 g/dL (6.3-8.2)
[2017-06-22] MEDS: NITROGLYCERIN OINT 1 INCH/GM PACKET TOPICAL SCH ×5 (00:09→22:18)
[2017-06-22 01:05] LABS: Appearance,Urine Cloudy (Clear); Bacteria,Urine Rare /hpf; Bilirubin,Urine Negative (Negative); Glucose,Urine (UA) Negative (Negative); Ketones,Urine Negative (Negative); Leukocyte Esterase,Urine Large (Negative); Mucus,Urine Rare /hpf; Nitrite,Urine Negative (Negative); Particle Count 2159; Protein,Urine Negative (Negative); RBC,Urine 2 /hpf (0-5); Specific Gravity,Urine 1.006 (1.001-1.035); Squamous Epithelial Cell,Urine 5 /hpf (0-4); UA Billing (MACRO vs. MICRO) MICRO; Urobilinogen,Urine <2.0 mg/dL (<2.0); WBC,Urine 44 /hpf (0-5)
--- NOTE | 2017-06-22 01:29 | CT ---
EXAMINATION TYPE: CT brain wo con DATE OF EXAM: 06/22/2017 COMPARISON: 10/07/2016 HISTORY: r/o stroke weakness CT DLP: 1064.30 mGycm Automated exposure control for dose reduction was used. FINDINGS: There is a 4 cm area of cortical hypodensity in the right frontal lobe consistent with old cortical i nfarct. There is no mass effect. There is no midline shift. There is no sign of intracranial hemorrha ge. The calvarium is intact. There is right temporal craniotomy defect. There is surgical clips on th e right side of the sphenoid bone. There is hypodensity in the anterior right temporal lobe in the mi ddle cranial fossa. 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 NO ACUTE INTRACRANIAL ABNORMALITY. OLD SURGE RY. NO CHANGE COMPARED TO OLD EXAM.
[2017-06-22] MEDS: LACTOBACILLUS ACIDOPH & BULGAR 1 EACH PACKET PO SCH (08:53)
[2017-06-22] MEDS: ATORVASTATIN 40 MG TAB PO SCH (08:55)
[2017-06-22] MEDS: BACLOFEN 10 MG TAB PO SCH ×3 (08:55→20:47)
[2017-06-22] MEDS: CHOLECALCIFEROL 1,000 UNIT TAB PO SCH ×3 (08:55→20:47)
[2017-06-22] MEDS: LEVOTHYROXINE 88 MCG TAB PO SCH (08:56)
[2017-06-22] MEDS: PANTOPRAZOLE 40 MG TABLET PO SCH ×2 (08:56→17:09)
[2017-06-22] MEDS: LOSARTAN 50 MG TAB PO SCH (08:56)
[2017-06-22] MEDS: GABAPENTIN 300 MG CAP PO SCH ×3 (08:56→20:47)
[2017-06-22] MEDS: ASPIRIN 81 MG PO SCH (08:56)
[2017-06-22] MEDS: VERAPAMIL SR 180 MG TABLET.ER PO SCH (08:57)
[2017-06-22] MEDS: buPROPion XL 300 MG TAB.ER.24H PO SCH (08:57)
[2017-06-22] MEDS: metFORMIN 500 MG TAB PO SCH ×2 (08:57→17:09)
[2017-06-22 09:10] LABS: Basophils % (A) 0 %; CH 28.2; CHCM 31.2; Eosinophils # (A) 0.1 k/uL (0-0.7); Eosinophils % (A) 2 %; HCT 38.4 % (34.0-46.0); HDW 2.63; HGB 12.3 gm/dL (11.4-16.0); Hypochromasia Slight; Luc # (Auto) 0.13; Luc % (Auto) 2; Lymphocytes % (A) 38 %; MCH 29.1 pg (25.0-35.0); MCHC 32.1 g/dL (31.0-37.0); MCV 90.7 fL (80.0-100.0); Mean Platelet Volume 7.9; Monocytes # (A) 0.3 k/uL (0-1.0); Monocytes % (A) 6 %; Neutrophils # (A) 2.8 k/uL (1.3-7.7); Neutrophils % (A) 52 %; RBC 4.23 m/uL (3.80-5.40); RDW 13.2 % (11.5-15.5); WBC 5.4 k/uL (3.8-10.6)
[2017-06-22 09:34] LABS: ALT 34 U/L (9-52); AST 21 U/L (14-36); Alkaline Phosphatase 112 U/L (38-126); Anion Gap 8 mmol/L; Blood Urea Nitrogen 9 mg/dL (7-17); Calcium 8.8 mg/dL (8.4-10.2); Carbon Dioxide 27 mmol/L (22-30); Chloride 110 mmol/L (98-107); Glucose 87 mg/dL (74-99); Non-African American GFR(MDRD) >60 (>60 ml/min/1.73 sqM); Potassium 4.1 mmol/L (3.5-5.1); Sodium 145 mmol/L (137-145); Total Bilirubin 0.4 mg/dL (0.2-1.3); Total Protein 5.8 g/dL (6.3-8.2)
--- NOTE | 2017-06-22 09:47 | P.PN ---
Subjective Progress Note Date: 06/22/17 Principal diagnosis: Chest pain Paroxysmal atrial fibrillation After my evaluation yesterday I scheduled the patient for a cardiac catheterization given the chest pain that she had. Yesterday afternoon she had an episode of unexplained hypotension and subsequent labs showed that her creatinine was elevated and hemoglobin was low due to this and cardiac catheterization is canceled and patient is going to be transferred to sixth floor. Patient has developed intermittent episodes of speech difficulties which have somewhat inexplicable. The lab abnormalities and also somewhat difficult to explain. There is no obvious source of blood loss. I'm not going to do a cardiac catheterization on this admission she is pain-free had normal coronaries and a cardiac catheterization in 2012. When stable she'll be discharged home and outpatient follow-up arranged with cardiology. I'm going to resume the anticoagulant that she was on. Patient is going to be evaluated by neurologist. Objective - Vital Signs Vital signs: Vital Signs Temp 98.4 F 06/22/17 08:00 Pulse 78 06/22/17 08:00 Resp 18 06/22/17 08:00 BP 148/67 06/22/17 08:00 Pulse Ox 93 L 06/22/17 08:00 Intake & Output 06/21/17 06/22/17 06/22/17 18:59 06:59 18:59 Intake Total 1300 500 Balance 1300 500 Intake: Intake, IV Titration 500 Amount Sodium Chloride 0.9% 500 500 ml @ 999 mls/hr IV .Q31M ONE Rx#:[id number] Oral 800 500 Other: Voiding Method Toilet Toilet Toilet Bedside Commode # Voids 3 - Exam GENERAL: Patient is well developed and well nourished. Patient is nontoxic and well hydrated and is in no acute distress. ENT: Neck is soft and supple. No significant lymphadenopathy noted. Oropharynx clear. Moist mucous membranes. Neck has full range of motion without eliciting any pain. There is no thyroid enlargement and no masses are felt. EYES: Sclerae anicteric. PULMONARY: Unlabored respirations. Good breath sounds bilaterally. No audible rales, rhonchi or wheezing. CARDIOVASCULAR: First and second heart sounds are heard. S2 is normal intensity. No murmur. No gallop. No rubs. No parasternal heave. ABDOMEN: Soft and nontender with normal bowel sounds. No palpable organomegaly noted. There is no palpable pulsatile mass. NEUROLOGIC: Patient is alert and oriented x3. Cranial nerves grossly intact. No focal neurological deficit. Patient has intermittent episodes of speech difficulty MUSCULOSKELETAL: Normal extremities with adequate strength and full range of motion. No lower extremity swelling or edema. No calf tenderness. PSYCHIATRIC: No signs of anxiety. - Labs CBC & Chem 7: 06/22/17 08:53 06/22/17 08:53 Labs: Abnormal Lab Results - Last 24 Hours (Table) 06/21/17 06/21/17 06/22/17 Range/Units 16:04 16:04 00:45 RBC 3.59 L (3.80-5.40) m/uL Hgb 10.5 L (11.4-16.0) gm/dL Hct 32.9 L (34.0-46.0) % Plt Count 126 L (150-450) k/uL Chloride (98-107) mmol/L Creatinine 1.50 H (0.52-1.04) mg/dL Glucose 110 H (74-99) mg/dL Calcium 8.3 L (8.4-10.2) mg/dL Total Protein 5.7 L (6.3-8.2) g/dL Albumin 3.4 L (3.5-5.0) g/dL Urine Appearance Cloudy H (Clear) Ur Leukocyte Esterase Large H (Negative) Urine WBC 44 H (0-5) /hpf Ur Squamous Epith Cells 5 H (0-4) /hpf Urine Bacteria Rare H (None) /hpf Urine Mucus Rare H (None) /hpf 06/22/17 06/22/17 Range/Units 08:53 08:53 RBC (3.80-5.40) m/uL Hgb (11.4-16.0) gm/dL Hct (34.0-46.0) % Plt Count 123 L (150-450) k/uL Chloride 110 H (98-107) mmol/L Creatinine (0.52-1.04) mg/dL Glucose (74-99) mg/dL Calcium (8.4-10.2) mg/dL Total Protein 5.8 L (6.3-8.2) g/dL Albumin 3.4 L (3.5-5.0) g/dL Urine Appearance (Clear) Ur Leukocyte Esterase (Negative) Urine WBC (0-5) /hpf Ur Squamous Epith Cells (0-4) /hpf Urine Bacteria (None) /hpf Urine Mucus (None) /hpf Assessment and Plan Plan: Precordial chest pain sick sinus syndrome status post permanent pacemaker Unexplained confusion and speech difficulty No further cardiac evaluation on this admission. Whenever she is stable she will be discharged home and outpatient follow-up arranged with cardiology. We will see her through her hospital stay.
--- NOTE | 2017-06-22 13:33 | P.PN ---
Progress Note - Text Progress Note Date: 06/22/17 DATE OF SERVICE: 06/22/2017 PRESENTING COMPLAINT: chest pain HISTORY OF PRESENT ILLNESS: 62-year-old female who presented with dizziness lightheadedness not feeling well with low blood pressure. Developed left-sided chest pain going up to her neck and arm lasting for a few hours, call Dr. Qureshi's office who directed her to come to the ER for further evaluation. Admitted for same.patient was found to be hypotensive while in observation received to half liter fluid boluses and her blood pressure responded well. Later in the evening patient developed acute mental status changes,some myoclonic jerking noted, EKG performed, labs drawn, head CT performed, neurology consulted. INTERVAL HISTORY: 06/22/2017: this morning notified by observation area of patient's difficulty in finding words being able to complete sentences, concerning for stroke, instructed staff to notify neurology, transfer patient to [facility]. Patient seen in follow-up on [facility], lethargic and has difficulty answering questions, following orders, stat EEG ordered.cardiac catheterization canceled in light of her current condition. serial neuro exams ordered. We'll await additional input from neurology. REVIEW OF SYSTEMS: Done for constitutional ,cardiovascular, GI, pulmonary, neurologic with relevant findings as above. CURRENT MEDICATIONS Xanax, Eliquis, Lipitor, Wellbutrin 300 mg by mouth daily, Neurontin 600 mg by mouth 3 times a day, Synthroid, Cozaar, Glucophage,Protonix,[id number] mg by mouth daily. PHYSICAL EXAM VITAL SIGNS: temperature 98.4, pulse 78, respiratory rate 18, blood pressure 140/67, oxygen saturation 93% on room air. GENERAL APPEARANCE: Lying in bed, sleepy appearing, lethargic. EYES: Pupils equal. Conjunctiva normal. NECK: JVD not raised. Mass not palpable. RESPIRATORY: Respiratory effort normal. Lungs diminished bilaterally to auscultation. CARDIOVASCULAR: First and second sounds normal. No edema. ABDOMEN: Soft. Liver and spleen not palpable. No tenderness. No mass palpable. PSYCHIATRY: difficulty answering simple straightforward questions. Mood and affect lethargic. NEUROLOGICAL: Cranial nerves grossly intact. No facial asymmetry. Power and sensation grossly intact, difficulty finding words, INVESTIGATIONS: CBC and BMP unremarkable CT of the brain: Old right temporal lobe and right frontal lobe infarcts, no acute intracranial abnormality. ASSESSMENT: -unstable angina -Unexplained confusion and speech difficulty, in the differential are stroke/TIA , dementia,subdural or epidural hematoma, hypoglycemia, -Chronic fibromyalgia -Gastroesophageal reflux disease, -essential Hypertension -Hyperlipidemia. -Primary osteoarthritis of multiple joints, bilateral. -Obstructive sleep apnea. Patient does not use a continuous positive airway pressure machine. -Spleen aneurysm, being followed. -Hiatal hernia. 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 -Chronic cephalgia. -Mild left hemiparesis from prior stroke. -Fatty liver. -Bipolar disorder. PLAN: cardiology to follow will perform cardiac catheterization at a later time and date,Suspect stroke/TIA less likely dementia subdural/epidural hematoma,await input from neurology,EEG pending. Bedside swallow evaluation completed, lipid lowering agent and aspirin currently on, No family at the bedside we will continue to monitor patient very closely. CONTENT DEVELOPER statement: Patient was seen and examined by nurse practitioner Ese Hurtado and all elements of the case discussed with attending Dr. Velez
[2017-06-22] MEDS ORDERED: RX INFO: IV CONTRAST WAS GIVEN 1 EACH MISC MISCELLANE PRN (15:12)
[2017-06-22] MEDS: MULTIVITAMINS, THERA 1 EACH TAB PO SCH (17:07)
--- NOTE | 2017-06-22 18:14 | PN ---
PROGRESS NOTE DATE OF SERVICE: 06/22/2017 ATTENDING NOTE: This patient was seen and examined by me. I discussed the case with my nurse practitioner, Ms. Hurtado. This is a patient who initially presented with chest pain, was due for a cardiac catheterization today. Yesterday the patient developed episodes of hypotension and was given IV fluid bolus. Later on the patient was having some difficulty with speech; no focal weakness. Mentation somewhat changed overnight. Did CT scan early in the morning. It was negative. I did move the patient to [facility], as she was having trouble finding some words. PHYSICAL EXAMINATION: Temperature 98.4, pulse 78, respiration 18, blood pressure 148/67. On examination, lungs are clear. CARDIOVASCULAR: First and second sounds normal. NEURO: No focal weakness. Patient is having some difficulty with some words. INVESTIGATIONS: White count 5.4, hemoglobin 12.3, potassium 4.1, creatinine 0.84. UA positive. CT scan of the brain shows old right temporal lobe infarct and right frontal lobe infarct; nil acute. ASSESSMENT: 1. Acute mental status changes; could be a stroke. 2. Chest pain. At this point, cardiac catheterization has been deferred. PLAN: EEG has been ordered. Neurology was consulted. Neuro checks are in place. CT angio of the head and neck has been ordered by Neurology. Will follow. MMODL / IJN: [id number] /
[2017-06-22] MEDS ORDERED: ACETAMINOPHEN TAB 325 MG TAB PO PRN (18:35)
[2017-06-22] MEDS: MORPHINE SULFATE 2 MG/ML SYRINGE IVP PRN ×2 (19:07→22:52)
[2017-06-22] MEDS: APIXABAN 2.5 MG TABLET PO SCH (21:33)
--- NOTE | 2017-06-22 21:59 | P.CONS ---
History of Present Illness - Reason for Consult Consult date: 06/22/17 altered mental status Requesting physician: Joby Velez - Chief Complaint altered mental status - History of Present Illness patient is a 62-year-old female who is being consulted on by neurology for altered mental status. Patient initially presented to the ED with chest pain and was due for a cardiac catheterization today. Developed episodes of hypotension and was given IV fluid bolus. Patient also began having difficulty with speech, word finding ability. Patient did not have any focal weakness at that time. Mentation did appear to change during nighttime hours and nursing reported some altered mental status. CT of the brain was negative. Patient was moved to [facility] and still experiencing word finding difficulty. On contact, the patient is supine in bed alert and oriented 3, family present and in no acute distress. Patient CT of the brain noted old right temporal lobe and right frontal lobe infarcts. No acute intracranial abnormality. Old surgery. No change compared to old exam. Review of Systems all systems not noted in HPI or negative Past Medical History Past Medical History: CVA/TIA, Fibromyalgia, GERD/Reflux, Hyperlipidemia, Hypertension, Osteoarthritis (OA), Pneumonia, Sleep Apnea/CPAP/BIPAP, Thyroid Disorder Additional Past Medical History / Comment(s): degenerative disc, splenic aneurysm (just being watched), UTI, HIATAL HERNIA.per pt no MRI's r/t metal clips rt temperol lobe-stated has had chronic headache ever since the sx November of 1991); Chronic Pain Disorder,ddd headaches."6 tia's". cva 3-2013 lt side a bit weaker than rt., sinusitis, DOES NOT USE CPAP, STATES TAKING METFORMIN FOR "FATTY LIVER" History of Any Multi-Drug Resistant Organisms: None Reported Past Surgical History: Section, Cholecystectomy, Hysterectomy, Pacemaker Additional Past Surgical History / Comment(s): hemmorhoidectomy, PACEMAKER, PELVIC FLOOR SX FOR URINARY INCONT MESH, BRAIN SX RT TEMPERAL ANUERYSM-HAS METAL CLIPS IN PLACE, ( HAS HEADACHES EVER SINCE), AVEL BREAST BIOPIES STATES HAS METALMARKERS IN PLACE.colonoscopy-HX OF POLYPS, EPIDURAL STERIOD INJECTIONS Past Anesthesia/Blood Transfusion Reactions: Previous Problems w/ Anesthesia Additional Past Anesthesia/Blood Transfusion Reaction / Comm: usually wakes up very quickly from anesthesia Type of Cardiac Device: Permanent Pacemaker Device Placement Date:: Shape Collage, Past Psychological History: Anxiety, Bipolar, Depression Additional Psychological History / Comment(s): Diagnosed recently with Bipolar 2016 Smoking Status: Former smoker Past Alcohol Use History: None Reported Additional Past Alcohol Use History / Comment(s): smoked x 18 years 1.5 ppd, quit 1996 Past Drug Use History: None Reported - Past Family History Mother Family Medical History: Cancer, COPD, Dementia, Myocardial Infarction ([place]) Additional Family Medical History / Comment(s): cervical cancer, pancreatitis Father Family Medical History: Cancer, Congestive Heart Failure (CHF), COPD Additional Family Medical History / Comment(s): lung cancer,emphysema Medications and Allergies Home Medications Medication Instructions Recorded Confirmed Type Levothyroxine Sodium [Synthroid] 88 mcg PO DAILY 02/24/14 06/20/17 History Omeprazole [PriLOSEC] 20 mg PO BID 02/24/14 06/20/17 History Cholecalciferol [Vitamin D3] 5,000 unit PO TID 04/05/16 06/20/17 History Gabapentin [Neurontin] 600 mg PO TID 04/05/16 06/20/17 History L.acidoph,Paracasei, B.lactis 1 cap PO DAILY 04/05/16 06/20/17 History [Probiotic] 5-Hydroxytryptophan (5-Htp) [5-Htp 300 mg PO HS 10/08/16 06/20/17 History (Natrol)] buPROPion HCL [Wellbutrin XL] 300 mg PO DAILY 10/08/16 06/20/17 History Atorvastatin [Lipitor] 40 mg PO DAILY #30 tab 10/10/16 06/20/17 Rx Losartan Potassium 100 mg PO DAILY 02/17/17 06/20/17 History Verapamil HCl [Verelan] 360 mg PO DAILY 02/17/17 06/20/17 History Apixaban [Eliquis] 2.5 mg PO BID 06/20/17 06/20/17 History Baclofen [Lioresal] 20 mg PO TID 06/20/17 06/20/17 History Multivitamins, Thera [Multivitamin 1 tab PO DAILY 06/20/17 06/20/17 History (formulary)] metFORMIN HCL ER [Glucophage Xr] 500 mg PO [id number] 06/20/17 06/20/17 History Allergies Allergy/AdvReac Type Severity Reaction Status Date / Time pregabalin [From Lyrica] Allergy Swelling/Blurry Verified 06/22/17 15:22 Vision cefpodoxime proxetil AdvReac Nausea & Verified 06/22/17 15:22 [From Vantin] Vomiting metoclopramide HCl AdvReac Nausea & Verified 06/22/17 15:22 [From Reglan] Vomiting Physical Exam Vitals: Vital Signs Temp Pulse Resp BP Pulse Ox 06/22/17 18:45 60 127/58 06/22/17 18:40 62 127/74 06/22/17 18:35 65 119/82 06/22/17 18:30 67 116/65 06/22/17 15:55 97.8 F 63 18 139/61 96 06/22/17 13:55 97.8 F 63 18 132/66 96 06/22/17 12:00 63 18 06/22/17 09:55 97.6 F 72 18 144/91 96 06/22/17 08:00 98.4 F 78 18 148/67 93 L 06/22/17 04:00 98.3 F 70 16 158/71 93 L 06/21/17 23:57 98.4 F 84 16 134/50 90 L 06/21/17 23:30 70 16 Intake and Output 06/22/17 06/22/17 06/22/17 06:59 14:59 22:59 Intake Total 740 240 Balance 740 240 Intake: Oral 740 240 Other: Voiding Method Toilet Toilet Toilet Bedside Commode Bedside Commode # Voids 3 1 Constitutional: AOx3, cooperative HEENT: NC/AT, no facial asymmetry is seen. Throat: Supple, no masses Respiratory: No increased work of breathing Cardiac: Regular rate and Rhythm GI: non tender, non distended Musculoskeletal: Morning Nanny strengths are equal bilaterally 5/5, Lower extremity strengths are equal bilaterally at 5/5. Neurological: CN II-XII in tact, patient was AOx3, speech and language are normal but word finding difficulty noted, no unilateralizing weakness, no seizure activity note on physical exam. Sensation was abnormal. Left upper extremity and left lower extremity had decreased sensation to light touch. Patient also had positive nystagmus horizontally. Finger to nose induced dizziness and blurry vision. Patient was noted to have an upper torso and bilateral upper extremity tremor. Integementary: no rash, no erythema Psychiatric: mood and affect appropriate Results CBC & Chem 7: 06/22/17 08:53 06/22/17 08:53 Labs: Abnormal Lab Results - Last 24 Hours (Table) 06/22/17 06/22/17 06/22/17 Range/Units 00:45 08:53 08:53 Plt Count 123 L (150-450) k/uL Chloride 110 H (98-107) mmol/L Total Protein 5.8 L (6.3-8.2) g/dL Albumin 3.4 L (3.5-5.0) g/dL Urine Appearance Cloudy H (Clear) Ur Leukocyte Esterase Large H (Negative) Urine WBC 44 H (0-5) /hpf Ur Squamous Epith Cells 5 H (0-4) /hpf Urine Bacteria Rare H (None) /hpf Urine Mucus Rare H (None) /hpf Assessment and Plan (1) Altered mental status Status: Acute (2) Word finding difficulty Status: Acute Plan: 1. Altered mental status/rule out TIA or CVA 2. Word finding difficulty Patient does have a complex medical history. Patient does have a history of possible seizure during one occurrence in 1992 with multiple TIA since. Patient has a aneurysm clip in place from 1990. Physical exam decreased sensation/sensory perception in the left upper and lower extremities as well as positive nystagmus and finger to nose. Due to the patient's significant history as well as her new onset word finding difficulty and sensation abnormalities, we are going to order a CT angiogram of the head and neck. CT of the brain had no acute process at this time. Continue neuro checks as ordered. continue Lipitor 40 mg by mouth daily at bedtime, continue 81 mg aspirin. EEG is taken but not read. Continue DVT prophylaxis. With regard to the patient's upper torso jerking motion, we will continue to follow at this time. Further recommendations will be forthcoming. Status: Neurology will continue to follow and provide updates as needed or warranted. Contact our office with any questions. I discussed the patient's pertinent medical information with Dr. Russ. He agrees with the plan of care as implemented.
[2017-06-23] MEDS: NITROGLYCERIN OINT 1 INCH/GM PACKET TOPICAL SCH ×3 (00:47→19:13)
[2017-06-23] MEDS: NITROGLYCERIN SL TABS 0.4 MG TAB SUBLINGUAL PRN ×2 (01:04→01:09)
[2017-06-23] MEDS: ALPRAZolam 0.5 MG TAB PO PRN ×2 (01:05→09:38)
[2017-06-23] MEDS: MORPHINE SULFATE 2 MG/ML SYRINGE IVP PRN ×2 (01:25→09:19)
[2017-06-23 01:48] LABS: Anion Gap 10 mmol/L; Blood Urea Nitrogen 10 mg/dL (7-17); Calcium 8.9 mg/dL (8.4-10.2); Carbon Dioxide 22 mmol/L (22-30); Chloride 107 mmol/L (98-107); Glucose 79 mg/dL (74-99); Magnesium 1.9 mg/dL (1.6-2.3); Non-African American GFR(MDRD) >60 (>60 ml/min/1.73 sqM); Potassium 4.2 mmol/L (3.5-5.1); Sodium 139 mmol/L (137-145)
[2017-06-23 01:49] LABS: Basophils % (A) 0 %; CH 28.1; CHCM 30.5; Eosinophils # (A) 0.2 k/uL (0-0.7); Eosinophils % (A) 3 %; HCT 37.7 % (34.0-46.0); HDW 2.57; HGB 11.8 gm/dL (11.4-16.0); Hypochromasia Moderate; Luc # (Auto) 0.18; Luc % (Auto) 3; Lymphocytes # (A) 2.5 k/uL (1.0-4.8); Lymphocytes % (A) 40 %; MCH 28.8 pg (25.0-35.0); MCHC 31.2 g/dL (31.0-37.0); MCV 92.2 fL (80.0-100.0); Mean Platelet Volume 7.9; Monocytes # (A) 0.4 k/uL (0-1.0); Monocytes % (A) 6 %; Neutrophils % (A) 48 %; RBC 4.09 m/uL (3.80-5.40); RDW 13.3 % (11.5-15.5); WBC 6.2 k/uL (3.8-10.6); WBC (Perox) 6.55
[2017-06-23] MEDS: LEVOTHYROXINE 88 MCG TAB PO SCH (06:16)
[2017-06-23 06:17] LABS: Glucose,Whole Blood 87 mg/dL (75-99)
[2017-06-23] MEDS: PANTOPRAZOLE 40 MG TABLET PO SCH ×2 (06:17→19:09)
[2017-06-23] MEDS: metFORMIN 500 MG TAB PO SCH ×2 (06:17→19:09)
--- NOTE | 2017-06-23 08:21 | CT ---
EXAMINATION TYPE: CT angio head neck DATE OF EXAM: 06/22/2017 HISTORY: change in mental status, slurred speech, weakness COMPARISON: Carotid ultrasound October 07, 2016. CT brain earlier today. CT DLP: 417.8 mGycm. Automated Exposure Control for Dose Reduction was Utilized. TECHNIQUE: CTA scan of the head and neck are performed with IV Contrast, patient injected with 65 mL of Omnipaque 350, axial images are obtained, coronal and sagittal reformatted images are reviewed. T hree-D reconstructed images are created on an independent workstation and reviewed. FINDINGS: Carotid/Vascular Structures: There is mild calcified plaque in aortic arch. There is normal three-ves adelaida origin from aortic arch. Mild to moderate noncalcified plaque extends into left common and left s ubclavian arteries at their origin without significant stenosis seen. The right common carotid artery shows normal origin from the right brachiocephalic artery. There is tortuous medial course to both p roximal internal carotid arteries into the posterior oropharynx seen best near axial image 50. There is mild eccentric plaque at right carotid bulb extending into proximal internal carotid artery. No si gnificant stenosis is seen in right common or internal carotid arteries including at level of carotid bulb. Right external carotid artery is patent without significant plaque or stenosis. Seen best on raw data images there is moderate noncalcified plaque supraclinoid segment distal left i nternal carotid artery on raw data image 691, stenosis is approaching but felt under 50%. There is ot herwise no significant plaque or stenosis in left common or internal carotid arteries including at le jose of carotid bulb. There is patent left external carotid artery without significant plaque or steno sis. There is dominant right vertebral artery. Vertebral arteries are patent to basilar junction. There is patent right posterior communicating artery. There is hypoplastic left posterior communicating arter y. No significant stenosis or aneurysmal change is seen. There is patent anterior communicating artery. No significant focal stenosis or aneurysmal change is seen. Artifact from aneurysm clip at the right MCA trifurcation is redemonstrated. Other: Spine is straightened. There is mild to moderate multilevel spurring and disc space narrowing. There is partial visualization of left anterior chest wall pacemaker. There is right temporal craniotomy change with artifact from aneurysm clip at level of MCA trifurcati on. Old infarct right frontal temporal region is redemonstrated. IMPRESSION: 1. No new suspicious aneurysm at level of [place]. Clip and artifact from prior aneurysm cli pping right MCA trifurcation noted. 2. No significant focal stenosis in common or internal carotid arteries bilaterally.
[2017-06-23] MEDS: APIXABAN 2.5 MG TABLET PO SCH ×2 (08:45→20:08)
[2017-06-23] MEDS: ASPIRIN 81 MG PO SCH (08:45)
[2017-06-23] MEDS: BACLOFEN 10 MG TAB PO SCH ×3 (08:45→20:08)
[2017-06-23] MEDS: ATORVASTATIN 40 MG TAB PO SCH (08:45)
[2017-06-23] MEDS: CHOLECALCIFEROL 1,000 UNIT TAB PO SCH ×3 (08:46→20:09)
[2017-06-23] MEDS: buPROPion XL 300 MG TAB.ER.24H PO SCH (08:46)
[2017-06-23] MEDS: LOSARTAN 50 MG TAB PO SCH (08:47)
[2017-06-23] MEDS: GABAPENTIN 300 MG CAP PO SCH ×2 (08:47→20:09)
[2017-06-23] MEDS: LACTOBACILLUS ACIDOPH & BULGAR 1 EACH PACKET PO SCH (08:47)
[2017-06-23] MEDS: VERAPAMIL SR 180 MG TABLET.ER PO SCH (08:47)
[2017-06-23] MEDS: MULTIVITAMINS, THERA 1 EACH TAB PO SCH (08:48)
--- NOTE | 2017-06-23 11:22 | P.PN ---
Subjective Progress Note Date: 06/23/17 Principal diagnosis: chest pain, paroxysmal atrial fibrillation This is a pleasant 62-year-old female with past medical history of hypertension, complete heart block, status post permanent pacemaker implantation , dyslipidemia, paroxysmal atrial tachycardia, TIA and CVA. Presented to the hospital with complaints of increased weakness and fatigue over the last several days and noticing her heart rate to be in the mid to low 50s which she thinks her pacemaker is set at a rate of 60 to this was a concern of her. She also complained of some midsternal chest heaviness with radiation across the left corneal region into the left shoulder and down the left arm and up into the neck and jaw area. Stated with shortness of breath, dizziness and chills. No significant aggravating or alleviating factors. She was initially scheduled to undergo cardiac catheterization yesterday however patient developed an episode of hypotension and episodes so that intermittent speech difficulties and blurred vision. Neurology was placed and consult and cardiac catheterization was canceled. She continues to be chest pain-free. Cardiac catheterization in 2012 showed normal coronaries. On examination today, she is sitting up on the side of the bed complains of some degree of shortness of breath with blurred vision. There is a question yesterday about abnormalities in labs with elevated BUN/creatinine, BUN this morning 10 and creatinine 0.7. White count is low however the rest of the CBC is normal. Objective - Vital Signs Vital signs: Vital Signs Temp 97.0 F L 06/23/17 07:55 Pulse 55 L 06/23/17 07:55 Resp 18 06/23/17 07:55 BP 118/53 06/23/17 07:55 Pulse Ox 95 06/23/17 07:55 Intake & Output 06/22/17 06/23/17 06/23/17 18:59 06:59 18:59 Intake Total 980 20 50 Balance 980 20 50 Weight 115 kg Intake: IV 20 0.9% NS FLUSH 20 Oral 980 50 Other: Voiding Method Toilet Toilet Toilet Bedside Commode Bedside Commode Bedside Commode # Voids 1 1 # Bowel Movements 1 - Exam PHYSICAL EXAMINATION: HEENT: Head is atraumatic, normocephalic. Pupils equal, round. Neck is supple. There is no elevated jugular venous pressure. HEART EXAMINATION: Heart sounds regular, S1 and S2 normal. No murmur or gallop heard. CHEST EXAMINATION: Lungs are clear to auscultation and precussion. No chest wall tenderness is noted on palpation or with deep breathing. ABDOMEN: Soft, obese, nontender. Bowel sounds are heard. No organomegaly noted. EXTREMITIES: 2+ peripheral pulses with no evidence of peripheral edema and no calf tenderness noted. NEUROLOGIC patient is awake, alert and oriented x3. . - Labs CBC & Chem 7: 06/23/17 01:26 06/23/17 01:26 Labs: Abnormal Lab Results - Last 24 Hours (Table) 06/23/17 Range/Units 01:26 Plt Count 130 L (150-450) k/uL Assessment and Plan Plan: Assessment and plan #1 precordial chest pain #2 unexplained confusion, speech difficulty and blurred vision. #3 sick sinus syndrome, status post pacemaker implantation #4 hypertension From cardiology's perspective, no further cardiac evaluation on this admission. She will follow-up with Dr. Bhatti in as an outpatient. At this time we will follow the patient on an as-needed basis. Please do not hesitate to contact us with questions. QUALITY CONTROL ASSISTANT note has been reviewed, I agree with a documented findings and plan of care. Patient was seen and examined.
--- NOTE | 2017-06-23 11:45 | P.PN ---
Progress Note - Text Progress Note Date: 06/23/17 DATE OF SERVICE: 06/23/2017 PRESENTING COMPLAINT: chest pain HISTORY OF PRESENT ILLNESS: 62-year-old female who presented with dizziness lightheadedness not feeling well with low blood pressure. Developed left-sided chest pain going up to her neck and arm lasting for a few hours, call Dr. Qureshi's office who directed her to come to the ER for further evaluation. Admitted for same.patient was found to be hypotensive while in observation received to half liter fluid boluses and her blood pressure responded well. Later in the evening patient developed acute mental status changes,some myoclonic jerking noted, EKG performed, labs drawn, head CT performed, neurology consulted. INTERVAL HISTORY: 06/23/2017: Patient sitting up in bed able to answer questions. No difficulty finding words today. Vision remains blurred. EEG completed await final analysis. CTA of the head and neck performed and is negative for any new findings. Tolerating her diet ambulatory with some standby assistance. 06/22/2017: this morning notified by observation area of patient's difficulty in finding words being able to complete sentences, concerning for stroke, instructed staff to notify neurology, transfer patient to [facility] care. Patient seen in follow-up on selective care, lethargic and has difficulty answering questions, following orders, stat EEG ordered.cardiac catheterization canceled in light of her current condition. serial neuro exams ordered. We'll await additional input from neurology. REVIEW OF SYSTEMS: Done for constitutional ,cardiovascular, GI, pulmonary, neurologic with relevant findings as above. CURRENT MEDICATIONS Xanax, Eliquis, Lipitor,, baclofen 20 mg by mouth 3 times a day, Wellbutrin 300 mg by mouth daily, Neurontin 600 mg by mouth 3 times a day, Synthroid, Cozaar, Glucophage,Protonix,[id number] mg by mouth daily. PHYSICAL EXAM VITAL SIGNS: Temperature 97.0, pulse 55, respiratory rate 18, blood pressure 118/53, oxygen saturation 95% on 3 L GENERAL APPEARANCE: Sitting up in bed, appears comfortable. EYES: Pupils equal. Conjunctiva normal. NECK: JVD not raised. Mass not palpable. RESPIRATORY: Respiratory effort normal. Lungs diminished bilaterally to auscultation. CARDIOVASCULAR: First and second sounds normal. No edema. ABDOMEN: Soft. Liver and spleen not palpable. No tenderness. No mass palpable. PSYCHIATRY: difficulty answering simple straightforward questions. Mood and affect lethargic. NEUROLOGICAL: Cranial nerves grossly intact. No facial asymmetry. Power and sensation grossly intact, visual difficulties unable to see whiteboard at the end of the bed, INVESTIGATIONS: CBC and BMP unremarkable CT angiogram of the head and neck: No new suspicious aneurysm at the level of the [place] of [place]. Artifact from prior aneurysm clipping right MCA furcation noted, no significant focal stenosis in the common or internal carotid arteries bilaterally. EEG: Pending ASSESSMENT: -unstable angina, cardiology is deferred further assessment to a later date -Altered mental status rule out TIA -Chronic fibromyalgia -Gastroesophageal reflux disease, -essential Hypertension -Hyperlipidemia. -Primary osteoarthritis of multiple joints, bilateral. -Obstructive sleep apnea. Patient does not use a continuous positive airway pressure machine. -Spleen aneurysm, being followed. -Hiatal hernia. 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 -Chronic cephalgia. -Mild left hemiparesis from prior stroke. -Fatty liver. -Bipolar disorder. PLAN: cardiology to follow will perform cardiac catheterization/cardiac workup at a later time and date, no evidence of new stroke, more likely TIA EEG results pending. Bedside swallow evaluation completed, lipid lowering agent and aspirin currently on, plan of care discussed at the bedside with the patient she is in agreement.. MATERIAL HANDLER LOADER statement: Patient was seen and examined by nurse practitioner Ese Hurtado and all elements of the case discussed with attending Dr. Velez
[2017-06-23] MEDS ORDERED: GABAPENTIN 100 MG CAP PO SCH (16:00)
--- NOTE | 2017-06-23 18:30 | PN ---
PROGRESS NOTE DATE OF SERVICE: 06/23/2017 ATTENDING NOTE: This patient was seen and examined by me. I discussed the case with my nurse practitioner, Mayurifrieda. Patient was admitted with chest pain. Cardiac catheterization has been postponed. She also had some neurological changes. This morning patient complains of some blurring of the vision. Per the nursing staff, there is some inconsistency in her history. Some upper body slight tremors are present. Patient did tolerate some diet. PHYSICAL EXAMINATION: Temperature 97, pulse 55, respiration 18, blood pressure 118/53. On examination, slight tremors are present. LUNGS: Clear. CARDIOVASCULAR: First and second sounds normal. INVESTIGATIONS: White count 6.2, potassium 4.2. CT angiogram of the brain unremarkable. EEG pending. ASSESSMENT: The patient is slightly lethargic; not as much awake as she was before. I noticed her creatinine had gone up. Will cut back on the dose of Neurontin and see if that helps wake her up a bit more. EEG in the meantime is pending. Will follow. Care was discussed with JULIEN[facility]. MMODL / IJN: [id number] /
--- NOTE | 2017-06-23 20:19 | P.PN ---
Subjective Progress Note Date: 06/23/17 Principal diagnosis: altered mental status Neurology is following a 62-year-old female for altered mental status. Patient initially presented to the ED with chest pain and was due for a cardiac catheterization today. The episodes of hypotension and was given IV fluid bolus. Patient also began having difficulty with speech, word finding ability. Patient did not have any focal weakness at that time. Mentation did appear to change during nighttime hours and nursing reported some altered mental status. CT of the brain was negative. Patient was moved to [facility] care and still experienced word finding difficulty. Interval update: June 23, 2017 On contact, the patient was supine in bed resting, alert and oriented 2, family present. Patient was in no acute distress. Patient had been recently given Xanax prior to provider making contact. Family reports that the patient was extremely drowsy today. Patient had been given xanax prior to provider's interaction today. As referenced prior patient's CT of the brain noted old right temporal lobe and right frontal lobe infarcts. No acute intracranial abnormality. Old surgery. No change compared to old exam. Patient's CT angiogram was negative. EEG noted mild encephalopathy. Objective - Vital Signs Vital signs: Vital Signs Temp 97.2 F L 06/23/17 15:00 Pulse 50 L 06/23/17 15:00 Resp 18 06/23/17 15:00 BP 110/68 06/23/17 15:00 Pulse Ox 97 06/23/17 15:00 Intake & Output 06/23/17 06/23/17 06/24/17 06:59 18:59 06:59 Intake Total 20 50 Balance 20 50 Weight 115 kg Intake: IV 20 0.9% NS FLUSH 20 Oral 50 Other: Voiding Method Toilet Toilet Bedside Commode Bedside Commode # Voids 1 1 # Bowel Movements 1 - Exam Constitutional: AOx2, cooperative HEENT: NC/AT, no facial asymmetry is seen. Throat: Supple, no masses Respiratory: No increased work of breathing Cardiac: Regular rate and Rhythm GI: non tender, non distended Musculoskeletal: Coil Winding Supervisor strengths are equal bilaterally 5/5, Lower extremity strengths are equal bilaterally at 5/5. Neurological: CN II-XII in tact, patient was AOx2, speech and language are normal but word finding difficulty was still noted. No unilateralizing weakness , no seizure activity note on physical exam. Sensation was abnormal. sensation was abnormal. Left upper extremity and left lower extremity had decreased sensation to light touch. Patient also had positive nystagmus horizontally. Finger to nose induced dizziness and blurry vision. Patient was noted to have an upper torso and bilateral upper extremity tremor. Integementary: no rash, no erythema Psychiatric: mood and affect appropriate - Labs CBC & Chem 7: 06/23/17 01:26 06/23/17 01:26 Labs: Abnormal Lab Results - Last 24 Hours (Table) 06/23/17 Range/Units 01:26 Plt Count 130 L (150-450) k/uL Assessment and Plan (1) Altered mental status Status: Acute (2) Word finding difficulty Status: Acute (3) Encephalopathy Status: Acute Plan: 1. Altered mental status/rule out TIA or CVA 2. Word finding difficulty 3. Encephalopathy Patient does have a complex medical history. Patient does have a history of possible seizure during one occurrence in 1992 with multiple TIA since. Patient has a aneurysm clip in place from 1990. Physical exam decreased sensation/sensory perception in the left upper and lower extremities as well as positive nystagmus and finger to nose. CT angiogram of the head and neck was negative. CT of the brain had no acute process at this time. Continue neuro checks as ordered. Continue Lipitor 40 mg by mouth daily at bedtime, continue 81 mg aspirin. EEG noted mild encephalopathy. Continue DVT prophylaxis. With regard to the patient's upper torso jerking motion, further workup will take place in the outpatient setting. Discussed patient's medication regimen with hospitalist and it was agreed that we would decrease her gabapentin to 200 mg 3 times a day given her renal status and possible sedative effect. Additionally after speaking to nursing staff, patient was requesting to use Xanax regularly. Patient was on Xanax 0.50 mg as well as 0.25 mg. I'm going to discontinue Xanax 0.5 mg at this time. It was agreed between hospitalist and neurology that we would attempt to limit medications with sedation type effects with the patient and monitor for changes/ improvement. Status: Neurology will continue to follow and provide updates as needed or warranted. Contact our office with any questions. I discussed the patient's pertinent medical information with Dr. Russ. He agrees with the plan of care as implemented.
[2017-06-24] MEDS: LEVOTHYROXINE 88 MCG TAB PO SCH ×2 (06:38→06:41)
[2017-06-24] MEDS: metFORMIN 500 MG TAB PO SCH ×2 (06:38→17:57)
[2017-06-24] MEDS: PANTOPRAZOLE 40 MG TABLET PO SCH ×2 (06:38→17:58)
[2017-06-24 06:47] VITALS: RESP 18
[2017-06-24] MEDS: ASPIRIN 81 MG PO SCH (09:23)
[2017-06-24] MEDS: CHOLECALCIFEROL 1,000 UNIT TAB PO SCH ×3 (09:23→20:52)
[2017-06-24] MEDS: ATORVASTATIN 40 MG TAB PO SCH (09:23)
[2017-06-24] MEDS: GABAPENTIN 300 MG CAP PO SCH ×3 (09:24→20:52)
[2017-06-24] MEDS: APIXABAN 2.5 MG TABLET PO SCH ×2 (09:24→20:52)
[2017-06-24] MEDS: buPROPion XL 300 MG TAB.ER.24H PO SCH (09:24)
[2017-06-24] MEDS: LACTOBACILLUS ACIDOPH & BULGAR 1 EACH PACKET PO SCH (09:24)
[2017-06-24] MEDS: LOSARTAN 50 MG TAB PO SCH (09:24)
[2017-06-24] MEDS: BACLOFEN 10 MG TAB PO SCH ×3 (09:24→20:52)
[2017-06-24] MEDS: VERAPAMIL SR 180 MG TABLET.ER PO SCH (09:25)
[2017-06-24] MEDS ORDERED: RX INFO: IV CONTRAST WAS GIVEN 1 EACH MISC MISCELLANE PRN (10:45)
[2017-06-24 12:14] LABS: Calcium 9.3 mg/dL (8.4-10.2); Phosphorus 4.8 mg/dL (2.5-4.5)
[2017-06-24] MEDS: MULTIVITAMINS, THERA 1 EACH TAB PO SCH (12:14)
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
[2017-06-24] MEDS: MORPHINE SULFATE 2 MG/ML SYRINGE IVP PRN (17:56)
--- NOTE | 2017-06-24 18:02 | CT ---
EXAMINATION TYPE: CT brain wo/w con DATE OF EXAM: 06/24/2017 COMPARISON: NONE HISTORY: Tremor, weakness and dizziness CT DLP: 1739.2 mGycm Automated exposure control for dose reduction was used. CONTRAST: CT scan of the head is performed with IV Contrast, patient injected with 100 mL of Omnipaque 300. FINDINGS: Hypodense area is again noted in the right frontal lobe. Postsurgical changes are again noted. There is multiple metallic streak artifact from surgical clipping in the right middle cranial fossa. There is no acute hemorrhage or major vessel territorial infarct. Atrophy is noted in the right frontal lob e. The ventricles and sulci are age-appropriate. The calvarium and paranasal sinuses are unremarkable with the exception of postsurgical changes. There is mild hyperostosis frontalis interna. IMPRESSION: No change in appearance the brain from June 22, 2017.
--- NOTE | 2017-06-24 20:45 | P.PN ---
Subjective Progress Note Date: 06/24/17 Principal diagnosis: altered mental status Neurology is following a 62-year-old female for altered mental status. Patient initially presented to the ED with chest pain and was due for a cardiac catheterization today. The episodes of hypotension and was given IV fluid bolus. Patient also began having difficulty with speech, word finding ability. Patient did not have any focal weakness at that time. Mentation did appear to change during nighttime hours and nursing reported some altered mental status. CT of the brain was negative. Patient was moved to [facility] care and still experienced word finding difficulty. Interval update: June 24, 2017 Patient is sitting in a bedside chair and is able to interact and answer questions but appears somewhat fatigued. Patient did not have any difficulty during verbal interaction with word finding ability, comprehension contexts. Patient would intermittently repeat a previous word or sentence. But did note abnormality and self correct. is at the bedside. patient does appear to have improvement in mentation however, the patient still has an upper trunk and upper extremity rhythmic myoclonic jerking. Yesterday, the patient's gabapentin was decreased as well as her Xanax. This could have contributed to her increased mental clarity today. However, it has done nothing to identify an underlying etiology for the upper torso myoclonic activity. Patient's last EEG noted mild encephalopathy. CT of the brain will be reordered today. hospitalist has already requested another updated EEG. June 23, 2017 On contact, the patient was supine in bed resting, alert and oriented 2, family present. Patient was in no acute distress. Patient had been recently given Xanax prior to provider making contact. Family reports that the patient was extremely drowsy today. Patient had been given xanax prior to provider's interaction today. As referenced prior patient's CT of the brain noted old right temporal lobe and right frontal lobe infarcts. No acute intracranial abnormality. Old surgery. No change compared to old exam. Patient's CT angiogram was negative. EEG noted mild encephalopathy. Objective - Vital Signs Vital signs: Vital Signs Temp 97.4 F L 06/24/17 08:00 Pulse 64 06/24/17 16:00 Resp 18 06/24/17 06:46 BP 143/61 06/24/17 16:00 Pulse Ox 96 06/24/17 16:00 Intake & Output 06/24/17 06/24/17 06/25/17 06:59 18:59 06:59 Intake Total 490 310 Balance 490 310 Weight 112.9 kg Intake: IV 10 10 0.9% NS FLUSH 10 10 Oral 480 300 Other: Voiding Method Toilet # Voids 1 - Exam Constitutional: AOx3, cooperative HEENT: NC/AT, no facial asymmetry is seen. Throat: Supple, no masses Respiratory: No increased work of breathing Cardiac: Regular rate and Rhythm GI: non tender, non distended Musculoskeletal: Aquatics Manager strengths are equal bilaterally 5/5, Lower extremity strengths are equal bilaterally at 5/5. Neurological: CN II-XII in tact, patient was AOx3, speech and language are normal but word finding difficulty was still noted. No unilateralizing weakness , no seizure activity note on physical exam. Sensation was abnormal. sensation was abnormal. Left upper extremity and left lower extremity had decreased sensation to light touch. Patient also had positive nystagmus horizontally. Finger to nose induced dizziness and blurry vision. Patient was noted to have an upper torso and bilateral upper extremity tremor.or myoclonic jerking sensation Integementary: no rash, no erythema Psychiatric: mood and affect appropriate - Labs CBC & Chem 7: 06/23/17 01:26 06/23/17 01:26 Labs: Abnormal Lab Results - Last 24 Hours (Table) 06/24/17 Range/Units 11:29 Phosphorus 4.8 H (2.5-4.5) mg/dL Assessment and Plan (1) Altered mental status Status: Acute (2) Word finding difficulty Status: Acute (3) Encephalopathy Status: Acute Plan: 1. Altered mental status/rule out TIA or CVA 2. Word finding difficulty 3. Encephalopathy Patient does have a complex medical history. Patient does have a history of possible seizure during one occurrence in 1992 with multiple TIA since. Patient has a aneurysm clip in place from 1990. Physical exam decreased sensation/sensory perception in the left upper and lower extremities as well as positive nystagmus and finger to nose. CT angiogram of the head and neck was negative. CT of the brain had no acute process at this time. Repeated CT Brain ordered today. PCP - hospitalist ordered updated EEG. Last EEG noted mild encephalopathy. Continue neuro checks as ordered. Continue Lipitor 40 mg by mouth daily at bedtime, continue 81 mg aspirin. Continue DVT prophylaxis. Patient's upper torso myoclonic jerking is still being investigated. The gabapentin 200 mg 3 times a day given her renal status and possible sedative effect did produce some small positive improvment as stated previously. The discontinuation of the Xanax 0.5 mg at this time does also appear to have made some improvement as well. Status: Neurology will continue to follow and provide updates as needed or warranted. Contact our office with any questions. I discussed the patient's pertinent medical information with Dr. Russ. He agrees with the plan of care as implemented.
--- NOTE | 2017-06-24 21:37 | PN ---
PROGRESS NOTE DATE OF SERVICE: . ATTENDING NOTE: Patient seen and examined by me. I discussed with my nurse practitioner, Ms. Hurtado. This is a patient initially presented with chest pain. Subsequently had episodes of altered sensorium and jerking. I did cut back the dose of Neurontin yesterday and patient definitely more awake today but still she is having these jerking motions in upper body, not really myotonic but more of twitches I would say. at the bedside. PHYSICAL EXAMINATION: Temperature 97.4, pulse 70, blood pressure 123/59, patient having twitching movements but more awake. LABORATORY DATA: White count 6.2, potassium 4.2, magnesium is 2. ASSESSMENT: Altered mentation with some jerking movements. The patient is a bit more awake after the dose of Neurontin has been cut back. The patient is on a rather hefty dose of baclofen. Did discuss with the , we will cut back the dose of baclofen from 20 mg 3 times a day to 10 mg 4 times a day. The patient has been taking 5 hydroxytryptophan which review of literature shows that has been used in [place] in some places for depression and insomnia and for weight loss. We will see how the patient does with this. Patient did have a repeat CT scan of the brain showing some atrophy in the right frontal lobe. The frontal lobe finding might explain some of the findings but not the others. At the present time we will continue to observe the patient. I did discuss this today with JULIENNE Hughes of Dr. Russ. Also something at the level of cervical spine will not explain the altered mentation that she has had hence, we will see how the effect of cutting back on Baclofen does and go from there. MMODL / IJN: [id number] /
[2017-06-25] MEDS: BACLOFEN 10 MG TAB PO SCH ×3 (00:24→12:23)
[2017-06-25] MEDS: MORPHINE SULFATE 2 MG/ML SYRINGE IVP PRN ×3 (03:38→13:00)
[2017-06-25] MEDS: metFORMIN 500 MG TAB PO SCH (06:22)
[2017-06-25] MEDS: PANTOPRAZOLE 40 MG TABLET PO SCH (06:22)
[2017-06-25] MEDS: LEVOTHYROXINE 88 MCG TAB PO SCH (06:23)
[2017-06-25] MEDS: CHOLECALCIFEROL 1,000 UNIT TAB PO SCH (08:54)
[2017-06-25] MEDS: APIXABAN 2.5 MG TABLET PO SCH (08:55)
[2017-06-25] MEDS: GABAPENTIN 300 MG CAP PO SCH (08:55)
[2017-06-25] MEDS: VERAPAMIL SR 180 MG TABLET.ER PO SCH (08:55)
[2017-06-25] MEDS: LOSARTAN 50 MG TAB PO SCH (08:55)
[2017-06-25] MEDS: LACTOBACILLUS ACIDOPH & BULGAR 1 EACH PACKET PO SCH (08:55)
[2017-06-25] MEDS: ATORVASTATIN 40 MG TAB PO SCH (08:56)
[2017-06-25] MEDS: ASPIRIN 81 MG PO SCH (08:56)
[2017-06-25] MEDS: buPROPion XL 300 MG TAB.ER.24H PO SCH (08:56)
[2017-06-25 10:22] VITALS: TEMP 98.7
[2017-06-25] MEDS: MULTIVITAMINS, THERA 1 EACH TAB PO SCH (12:23)
[2017-06-25 14:19] VITALS: BP 115/57; PULSE 93
--- NOTE | 2017-06-25 15:18 | P.PN ---
Subjective Progress Note Date: 06/25/17 Principal diagnosis: altered mental status Neurology is following a 62-year-old female for altered mental status. Patient initially presented to the ED with chest pain and was due for a cardiac catheterization today. The episodes of hypotension and was given IV fluid bolus. Patient also began having difficulty with speech, word finding ability. Patient did not have any focal weakness at that time. Mentation did appear to change during nighttime hours and nursing reported some altered mental status. CT of the brain was negative. Patient was moved to [facility] care and still experienced word finding difficulty. Interval update: June 25, 2017 patient was in bed sitting in no acute distress, alert and oriented 3. Patient was much less fatigue today. She did not have any difficulty during verbal interaction with word finding ability, , comprehension or contacts. Patient's visual field changes have also resolved. Patient no longer repeated words phrases or sentences. Patient was also noted to have significantly less upper torso and upper extremity myoclonic jerking like activity. It is noted that the patient's baclofen was decreased by hospitalist yesterday. Patient also had her medication list reviewed with neurology and hospitalist and it was noted that the patient was no longer taking or 5 DHT as well. She has significantly improved. June 24, 2017 Patient is sitting in a bedside chair and is able to interact and answer questions but appears somewhat fatigued. Patient did not have any difficulty during verbal interaction with word finding ability, comprehension contexts. Patient would intermittently repeat a previous word or sentence. But did note abnormality and self correct. is at the bedside. patient does appear to have improvement in mentation however, the patient still has an upper trunk and upper extremity rhythmic myoclonic jerking. Yesterday, the patient's gabapentin was decreased as well as her Xanax. This could have contributed to her increased mental clarity today. However, it has done nothing to identify an underlying etiology for the upper torso myoclonic activity. Patient's last EEG noted mild encephalopathy. CT of the brain will be reordered today. hospitalist has already requested another updated EEG. June 23, 2017 On contact, the patient was supine in bed resting, alert and oriented 2, family present. Patient was in no acute distress. Patient had been recently given Xanax prior to provider making contact. Family reports that the patient was extremely drowsy today. Patient had been given xanax prior to provider's interaction today. As referenced prior patient's CT of the brain noted old right temporal lobe and right frontal lobe infarcts. No acute intracranial abnormality. Old surgery. No change compared to old exam. Patient's CT angiogram was negative. EEG noted mild encephalopathy. Objective - Vital Signs Vital signs: Vital Signs Temp 98.7 F 06/25/17 08:00 Pulse 93 06/25/17 12:00 Resp 18 06/25/17 03:31 BP 115/57 06/25/17 12:00 Pulse Ox 99 06/25/17 12:00 Intake & Output 06/24/17 06/25/17 06/25/17 18:59 06:59 18:59 Intake Total 310 980 318 Output Total 400 Balance 310 580 318 Weight 112.5 kg Intake: IV 10 20 20 0.9% NS FLUSH 10 20 20 Oral 300 960 298 Output: Urine 400 Other: Voiding Method Toilet # Voids 3 - Exam Constitutional: AOx3, cooperative HEENT: NC/AT, no facial asymmetry is seen. Throat: Supple, no masses Respiratory: No increased work of breathing Cardiac: Regular rate and Rhythm GI: non tender, non distended Musculoskeletal: Account Receivable Associate strengths are equal bilaterally 5/5, Lower extremity strengths are equal bilaterally at 4/5. Neurological: CN II-XII in tact, patient was AOx3, speech and language are normal, no unilateralizing weakness, no seizure activity note on physical exam. Sensation was normal. Integementary: no rash, no erythema Psychiatric: mood and affect appropriate - Labs CBC & Chem 7: 06/23/17 01:26 06/23/17 01:26 Assessment and Plan (1) Altered mental status Status: Acute (2) Word finding difficulty Status: Acute (3) Encephalopathy Status: Acute Plan: 1. encephalopathy 2. Medication reaction Patient does have a complex medical history. Patient does have a history of possible seizure during one occurrence in 1992 with multiple TIA since. Patient has a aneurysm clip in place from 1990. his physical exam findings have resolved to baseline. CT angiogram of the head and neck was negative. CT of the brain had no acute process at this time. Repeated CT Brain was consistent with previous CT. updated EEG results pending. Last EEG noted mild encephalopathy. Continue Lipitor 40 mg by mouth daily at bedtime, continue 81 mg aspirin. Continue DVT prophylaxis. Patient's upper torso myoclonic jerking is significantly improved since the adjustment and decreased dosing of baclofen, gabapentin, Xanax. Status: Neurology will clear the patient for discharge from a neurological standpoint. Advised patient to contact our office within 10 business days for a follow-up appointment. I discussed the patient's pertinent medical information with Dr. Russ. He agrees with the plan of care as implemented.
--- NOTE | 2017-06-25 16:50 | P.DS ---
Providers Date of admission: 06/22/17 15:01 Expected date of discharge: 06/25/17 Attending physician: Joby Velez Consults: 06/20/17 20:50 Consult Physician Urgent Consulting Provider: Susan Batista Consult Reason/Comments: cp Do you want consulting provider notified?: Yes 06/22/17 00:53 Consult Physician Routine Consulting Provider: Tiffanie Russ Consult Reason/Comments: altered mental status change / tremors Do you want consulting provider notified?: Yes, Notify in am 06/22/17 08:27 Consult Physician Routine Consulting Provider: Tiffanie Russ Consult Reason/Comments: change in mental status Do you want consulting provider notified?: Yes Primary care physician: Sukhdev Patrick Hospital Course: FINAL DIAGNOSES: -unstable angina, cardiology has deferred further assessment to a later date -Altered mental status rule out TIA -Toxic encephalopathy related to excess medication -Chronic fibromyalgia -Gastroesophageal reflux disease, -essential Hypertension -Hyperlipidemia. -Primary osteoarthritis of multiple joints, bilateral. -Obstructive sleep apnea. Patient does not use a continuous positive airway pressure machine. -Spleen aneurysm, being followed. -Hiatal hernia. 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 -Chronic cephalgia. -Mild left hemiparesis from prior stroke. -Fatty liver. -Bipolar disorder. HOSPTIAL COURSE: 62-year-old female who presented with dizziness and lightheadedness not feeling well and low blood pressure, developed left-sided chest pain going up to her neck and arm last Few hours spoke with her manager workers compensation who directed her to come to the emergency department for further evaluation and she was admitted for the same.home medications ordered,cardiology consulted, and there were tentative plans for a heart catheterization.Patient was hypotensive while in the observation area received to half liter fluid boluses and her blood pressure responded well., Later that evening patient developed acute mental status changes was noted to have myoclonic jerking EKG performed, labs drawn head CT performed neurology consulted patient transferred to [address] [place] [address]. Given the acute nature of the patient's changes in her mental status, cardiology canceled the heart catheterization and patient can follow-up as an outpatient and arrange to have this procedure done at that time.patient continued to be lethargic, neurology ordered an EEG, unable to perform MRI as patient has a pacemaker. Computed tomography scan did not reveal any acute infarct or acute changes.patient was noted to have difficulty with verbal interactions with word finding ability comprehension and context. Patient also found to have a torso myoclonic activity. EEG revealed mild encephalopathy. Second EEG was requested for follow-up. Medication list was reviewed by neurology and hospitalist service to determine source of myoclonic jerking..on hefty doses of baclofen, gabapentin, and Xanax as well as5 DHT. 5 DHT was stopped, baclofen gabapentin and Xanax were reduced. Patient tolerated the reduction well, mentation improved, myoclonic jerking reduced significantly.still has some difficulty with fine motor movement. Patient tolerating her diet ambulatory to and from the bathroom with standby assistance , no chest pain, dizziness, lightheadedness, minimal myoclonic jerking to the upper torso, patient's condition stable for discharge. PHYSICAL EXAM: CARDIOVASCULAR: first and second sound noted no edema. RESPIRATORY: respiratory effort normal, lung sounds diminished bilaterally MUSKULOSKELETAL:ambulatory with a steady gait, no weakness or drifting noted NEUROLOGIC: alert and oriented 3,gross motor movement intact,some myoclonic jerking to the upper torso. Patient was seen and examined by nurse practitioner Ese Hurtado in all elements of the case discussed with attending Dr. Velez DISPOSITION:home to the care of her Patient Condition at Discharge: Fair Plan - Discharge Summary New Discharge Prescriptions: New Aspirin 81 mg PO DAILY Melatonin 3 mg PO HS #1 tablet Nitroglycerin Sl Tabs [Nitrostat] 0.4 mg SUBLINGUAL Q5M PRN #21 tab PRN Reason: Chest Pain Continue Levothyroxine Sodium [Synthroid] 88 mcg PO DAILY Omeprazole [PriLOSEC] 20 mg PO BID Cholecalciferol [Vitamin D3] 5,000 unit PO TID L.acidoph,Paracasei, B.lactis [Probiotic] 1 cap PO DAILY buPROPion HCL [Wellbutrin XL] 300 mg PO DAILY Atorvastatin [Lipitor] 40 mg PO DAILY #30 tab Verapamil HCl [Verelan] 360 mg PO DAILY Losartan Potassium 100 mg PO DAILY Multivitamins, Thera [Multivitamin (formulary)] 1 tab PO DAILY Apixaban [Eliquis] 2.5 mg PO BID metFORMIN HCL ER [Glucophage Xr] 500 mg PO PC-BRKFST Changed Baclofen [Lioresal] 10 mg PO QID #0 Gabapentin [Neurontin] 300 mg PO TID #0 Discontinued 5-Hydroxytryptophan (5-Htp) [5-Htp (Natrol)] 300 mg PO HS Discharge Medication List Levothyroxine Sodium [Synthroid] 88 mcg PO DAILY 02/24/14 [History] Omeprazole [PriLOSEC] 20 mg PO BID 02/24/14 [History] Cholecalciferol [Vitamin D3] 5,000 unit PO TID 04/05/16 [History] L.acidoph,Paracasei, B.lactis [Probiotic] 1 cap PO DAILY 04/05/16 [History] buPROPion HCL [Wellbutrin XL] 300 mg PO DAILY 10/08/16 [History] Atorvastatin [Lipitor] 40 mg PO DAILY #30 tab 10/10/16 [Rx] Losartan Potassium 100 mg PO DAILY 02/17/17 [History] Verapamil HCl [Verelan] 360 mg PO DAILY 02/17/17 [History] Apixaban [Eliquis] 2.5 mg PO BID 06/20/17 [History] Multivitamins, Thera [Multivitamin (formulary)] 1 tab PO DAILY 06/20/17 [History ] metFORMIN HCL ER [Glucophage Xr] 500 mg PO PC-BRKFST 06/20/17 [History] Aspirin 81 mg PO DAILY 06/25/17 [Rx] Baclofen [Lioresal] 10 mg PO QID #0 06/25/17 [Rx] Gabapentin [Neurontin] 300 mg PO TID #0 06/25/17 [Rx] Melatonin 3 mg PO HS #1 tablet 06/25/17 [Rx] Nitroglycerin Sl Tabs [Nitrostat] 0.4 mg SUBLINGUAL Q5M PRN #21 tab 06/25/17 [Rx ] Follow up Appointment(s)/Referral(s): Jose A Ontiveros MD [STAFF PHYSICIAN] - 1 Week (Office will call with appointment. ) Sukhdev Patrick MD [Primary Care Provider] - 3 Days Tiffanie Russ MD [STAFF PHYSICIAN] - 1 Week Patient Instructions/Handouts: Altered Mental Status (GEN) Discharge Disposition: HOME SELF-CARE
--- NOTE | 2017-06-26 07:18 | DS ---
DISCHARGE SUMMARY DATE OF SERVICE: 06/25/2017. ATTENDING NOTE: This patient was seen and examined by me. I discussed with my nurse practitioner, Ms. Hurtado. This patient initially presented with chest pain, then developed altered mental status, altered sensorium and some jerking movements/twitching. Neurological workup was negative. I did cut back on patient's Neurontin dose to half, that is 600 to 300 mg 3 times a day. Also dose of baclofen was cut back from 20 mg 3 times a day down to 10 mg 4 times a day. Five hydroxytryptophan was discontinued. With these changes patient actually became more awake, twitches had gone down: Discussions were held today at length today with the patient and the . Very happy about the outcome. On exam lungs are clear. CARDIOVASCULAR: First and second sounds normal. The patient will follow with Neurology and Cardiology as an outpatient. DISCHARGE PLANNING: More than 35 minutes. MMSEEL / MELISSAN: [id number] /
--- NOTE | 2017-06-26 19:36 | EEG ---
ELECTROENCEPHALOGRAM REPORT DATE OF SERVICE: 06/22/2017. REASON FOR TESTING: Dizziness. DESCRIPTION OF THE PROCEDURE: This EEG was performed using a 21 channel digital electroencephalograph, following international 10-20 system. DESCRIPTION OF THE RECORDING: From the beginning of the tracing, and with patient's eyes closed, the background rhythm was mostly consisting of 6-7 hertz theta frequency in the posterior occipital leads. No obvious asymmetry is seen. Photic stimulation was performed with no driving response seen. No pathological waves were elicited. Hyperventilation was not performed. The patient remains awake throughout the tracing. No epileptiform discharges were seen. Her EKG lead showed a regular rate and rhythm. INTERPRETATION: This awake EEG is abnormal due to presence of generalized slowing of the background rhythm, mostly in the theta range. This is consistent with mild encephalopathy. No epileptiform discharges were seen. The absence of epileptiform discharges does not rule out the diagnosis of epilepsy, therefore clinical correlation is recommended. MMSEEL / IJN: [id number] /
== END 2017-06-25 14:43 | disposition home or self-care (01) | DRG 311 ==
LOC: EC 18:30 → 3OBS 20:50 → 6SEL 06-22 09:35 → OBSVTOIN 06-22 15:01
PROVIDERS: ADMIT Hospitalist; ATTEND Hospitalist
DX: I20.0 Unstable angina (principal); G92 Toxic encephalopathy; I95.9 Hypotension, unspecified; I69.354 Hemiplegia and hemiparesis following cerebral infarction affecting left non-dominant side; Z68.42 Body mass index [BMI] 45.0-49.9, adult; E66.01 Morbid (severe) obesity due to excess calories; K76.0 Fatty (change of) liver, not elsewhere classified; G25.3 Myoclonus; I10 Essential (primary) hypertension; I48.0 Paroxysmal atrial fibrillation; K21.9 Gastro-esophageal reflux disease without esophagitis; M79.7 Fibromyalgia; E78.5 Hyperlipidemia, unspecified; M19.91 Primary osteoarthritis, unspecified site; K44.9 Diaphragmatic hernia without obstruction or gangrene; F31.9 Bipolar disorder, unspecified; M47.816 Spondylosis without myelopathy or radiculopathy, lumbar region; R04.0 Epistaxis; F41.9 Anxiety disorder, unspecified; G47.33 Obstructive sleep apnea (adult) (pediatric); G47.00 Insomnia, unspecified; R51 Headache; T42.8X5A Adverse effect of antiparkinsonism drugs and other central muscle-tone depressants, initial encounter; T43.295A Adverse effect of other antidepressants, initial encounter; T42.6X5A Adverse effect of other antiepileptic and sedative-hypnotic drugs, initial encounter; E03.9 Hypothyroidism, unspecified; Z79.84 Long term (current) use of oral hypoglycemic drugs; Z79.01 Long term (current) use of anticoagulants; Z79.899 Other long term (current) drug therapy; Z95.0 Presence of cardiac pacemaker; Z87.891 Personal history of nicotine dependence; Z90.49 Acquired absence of other specified parts of digestive tract; Z90.710 Acquired absence of both cervix and uterus; Z86.010 Personal history of colon polyps; Z88.1 Allergy status to other antibiotic agents; Z88.8 Allergy status to other drugs, medicaments and biological substances
CPT/HCPCS: 36415; 70450; 70470; 70496; 70498; 71020; 80048; 80053; 80061; 81001; 82310; 82550; 82553; 83090; 83735; 83880; 84100; 84484; 85025; 85379; 85610; 85730; 93005; 93306; 95816; 96361; 96374; 96376; 99285

== ENCOUNTER → 2017-09-08 | Outpatient (CLI) | payer BC ==
--- NOTE | 2017-09-09 04:41 | CT ---
EXAMINATION TYPE: CT lumbar spine wo con DATE OF EXAM: 09/08/2017 COMPARISON: NONE HISTORY: Pain Unenhanced CT of the lumbar spine was performed. Bone and soft tissue window settings are submitted as well as coronal and sagittal reconstructions. L1-L2: Normal disc space height. No disc herniation protrusion or central stenosis. No facet joint arthropathy. No evidence for foraminal encroachment. L2-L3: Normal disc space height. No disc herniation protrusion or central stenosis. No facet joint arthropathy. No evidence for foraminal encroachment. L3-L4: Mild degenerative disc space narrowing. Mild posterior disc bulge. Mild effacement ventral the karo sac without overt stenosis. Facet joint arthropathy with mild bilateral foraminal encroachment. L4-L5: Moderate degenerative disc space narrowing. Broad-based right paracentral disc herniation with right lateral recess stenosis and right foraminal encroachment. Facet joint arthropathy with borderl ine to mild central stenosis identified. L5-S1: Mild degenerative disc space narrowing. No herniation protrusion or central stenosis. Facet kennedi int arthropathy without foraminal encroachment. No paraspinal masses are identified. Lumbar segments are free if fracture. Scattered ventral spondyl osis. Adrenal adenomas noted bilaterally. IMPRESSION: 1. Degenerative disc disease as discussed. 2. At L4-5 there is right paracentral broad-based disc herniation as noted above.
== END | disposition home or self-care (01) ==
LOC: RADCTMAIN 16:28
PROVIDERS: ATTEND Psychiatry & Neurology Neurology
DX: M51.26 Other intervertebral disc displacement, lumbar region (principal); M51.36 Other intervertebral disc degeneration, lumbar region
CPT/HCPCS: 72131

== ENCOUNTER → 2017-10-10 | Outpatient (CLI) | payer BC ==
--- NOTE | 2017-10-11 08:44 | MM ---
Reason for exam: screening (asymptomatic). Last mammogram was performed 2 years and 8 months ago. History: Patient is postmenopausal and has history of high-risk lesion on a previous biopsy at age 57. High risk right mammotome panel of the right breast, July 16, 2012. Benign stereotactic core biopsy of the left breast, June 23, 2003. Cyst aspiration of the left breast, 1984. Physical Findings: A clinical breast exam by your physician is recommended on an annual basis and results should be correlated with mammographic findings. MG Screening Mammo w CAD Bilateral CC and MLO view(s) were taken. Prior study comparison: February 16, 2015, bilateral MG diagnostic mammo w CAD AVEL. March 18, 2013, right diagnostic mammogram w/CAD. There are scattered fibroglandular densities. Previous mammotome biopsy within the right and left breast. There is developing symmetry in the right breast anterior depth slightly outer aspect CC view only. Left breast axillary pacemaker redemonstrated. ASSESSMENT: Incomplete: need additional imaging evaluation, BI-RAD 0 RECOMMENDATION: Special view mammogram of the right breast. If lesion persists on supplemental views, image directed ultrasound is recommended. [facility] will attempt to contact patient to return for supplemental views and ultrasound if indicated.
== END | disposition home or self-care (01) ==
LOC: RADMAMWWP 07:41
PROVIDERS: ATTEND Family Medicine
DX: Z12.31 Encounter for screening mammogram for malignant neoplasm of breast (principal)
CPT/HCPCS: 77067

== ENCOUNTER → 2017-10-17 | Outpatient (CLI) | payer BC ==
--- NOTE | 2017-10-17 10:24 | MM ---
Reason for exam: additional evaluation requested from abnormal screening. Last mammogram was performed less than 1 month ago. History: Patient is postmenopausal and has history of high-risk lesion on a previous biopsy at age 57. High risk right mammotome panel of the right breast, July 16, 2012. Benign stereotactic core biopsy of the left breast, June 23, 2003. Cyst aspiration of the left breast, 1984. Took hormonal contraceptives for 1 year beginning at age 18. Physical Findings: Nurse did not find any significant physical abnormalities on exam. MG Work Up Mamm w CAD RT Spot compression CC, spot compression MLO, ML, and CC view(s) were taken of the right breast. Prior study comparison: October 10, 2017, bilateral MG screening mammo w CAD. February 16, 2015, bilateral MG diagnostic mammo w CAD AVEL. There are scattered fibroglandular densities. Focal asymmetry persists on repeat CC and spot CC views. Not as well seen on additional views. These results were verbally communicated with the patient and result sheet given to the patient on 10/17/17. ASSESSMENT: Incomplete: need additional imaging evaluation, BI-RAD 0 RECOMMENDATION: Ultrasound of the right breast.
--- NOTE | 2017-10-17 10:25 | USB ---
Reason for exam: additional evaluation requested from abnormal screening. History: Patient is postmenopausal and has history of high-risk lesion on a previous biopsy at age 57. High risk right mammotome panel of the right breast, July 16, 2012. Benign stereotactic core biopsy of the left breast, June 23, 2003. Cyst aspiration of the left breast, 1984. Took hormonal contraceptives for 1 year beginning at age 18. US Breast Workup Limited RT Right breast ultrasound demonstrates a 4 x 2 x 3mm lobular, cystic lesion at 12 o'clock. These results were verbally communicated with the patient and result sheet given to the patient on 10/17/17. ASSESSMENT: Probably benign, BI-RAD 3 RECOMMENDATION: Follow-up diagnostic mammogram of the right breast in 6 months.
== END | disposition home or self-care (01) ==
LOC: RADMAMWWP 08:09
PROVIDERS: ATTEND Family Medicine
DX: R92.8 Other abnormal and inconclusive findings on diagnostic imaging of breast (principal)
CPT/HCPCS: 77065

== ENCOUNTER 2018-02-03 00:22 | Observation (INO) | payer BC ==
[2018-02-03] MEDS ORDERED: NITROGLYCERIN SL TABS 0.4 MG TAB SUBLINGUAL STA (00:36)
[2018-02-03] MEDS ORDERED: ASPIRIN 81 MG PO STA (00:36)
[2018-02-03] MEDS ORDERED: NITROGLYCERIN OINT 1 INCH/GM PACKET TOPICAL STA (00:36)
--- NOTE | 2018-02-03 00:39 | ED ---
General Adult HPI - General Chief complaint: Chest Pain Stated complaint: chest pain Time Seen by Provider: 02/03/18 00:25 Source: patient, RN notes reviewed Mode of arrival: wheelchair Limitations: no limitations - History of Present Illness Initial comments: This is a 62-year-old female who has a past medical history significant for high blood pressure high cholesterol and morbid obesity. Patient comes in today because about 10:30 this evening she started having chest pain which radiated to her jaw. Patient took one sublingual nitroglycerin and the pain radiated to her shoulder and eventually down her left side. She did a second nitroglycerin with no relief. Patient was short of breath and states she felt clammy. Patient denies any nausea vomiting or diarrhea. Patient states that she's not had any coronary artery disease but she does have a pacemaker in place. Patient denies any recent fever chills or cough. Patient denies any abdominal pain patient denies any calf pain or leg swelling. - Related Data Home Medications Medication Instructions Recorded Confirmed Levothyroxine Sodium [Synthroid] 88 mcg PO DAILY 02/24/14 06/20/17 Omeprazole [PriLOSEC] 20 mg PO BID 02/24/14 06/20/17 Cholecalciferol [Vitamin D3] 5,000 unit PO TID 04/05/16 06/20/17 L.acidoph,Paracasei, B.lactis 1 cap PO DAILY 04/05/16 06/20/17 [Probiotic] buPROPion HCL [Wellbutrin XL] 300 mg PO DAILY 10/08/16 06/20/17 Losartan Potassium 100 mg PO DAILY 02/17/17 06/20/17 Verapamil HCl [Verelan] 360 mg PO DAILY 02/17/17 06/20/17 Apixaban [Eliquis] 2.5 mg PO BID 06/20/17 06/20/17 Multivitamins, Thera [Multivitamin 1 tab PO DAILY 06/20/17 06/20/17 (formulary)] metFORMIN HCL ER [Glucophage Xr] 500 mg PO PC-BRKFST 06/20/17 06/20/17 Previous Rx's Medication Instructions Recorded Atorvastatin [Lipitor] 40 mg PO DAILY #30 tab 10/10/16 Aspirin 81 mg PO DAILY 06/25/17 Baclofen [Lioresal] 10 mg PO QID #0 06/25/17 Gabapentin [Neurontin] 300 mg PO TID #0 06/25/17 Melatonin 3 mg PO HS #1 tablet 06/25/17 Nitroglycerin Sl Tabs [Nitrostat] 0.4 mg SUBLINGUAL Q5M PRN #21 tab 06/25/17 Allergies Allergy/AdvReac Type Severity Reaction Status Date / Time pregabalin [From Lyrica] Allergy Swelling/Blurry Verified 02/03/18 00:22 Vision cefpodoxime proxetil AdvReac Nausea & Verified 02/03/18 00:22 [From Vantin] Vomiting metoclopramide HCl AdvReac Nausea & Verified 02/03/18 00:22 [From Reglan] Vomiting Review of Systems ROS Statement: Those systems with pertinent positive or pertinent negative responses have been documented in the HPI. ROS Other: All systems not noted in ROS Statement are negative. Past Medical History Past Medical History: CVA/TIA, Fibromyalgia, GERD/Reflux, Hyperlipidemia, Hypertension, Osteoarthritis (OA), Pneumonia, Sleep Apnea/CPAP/BIPAP, Thyroid Disorder Additional Past Medical History / Comment(s): degenerative disc, splenic aneurysm (just being watched), UTI, HIATAL HERNIA.per pt no MRI's r/t metal clips rt temperol lobe-stated has had chronic headache ever since the sx November of 1991); Chronic Pain Disorder,ddd headaches."6 tia's". cva -2013 lt side a bit weaker than rt., sinusitis, DOES NOT USE CPAP, STATES TAKING METFORMIN FOR "FATTY LIVER" History of Any Multi-Drug Resistant Organisms: None Reported Past Surgical History: Section, Cholecystectomy, Hysterectomy, Pacemaker Additional Past Surgical History / Comment(s): hemmorhoidectomy, PACEMAKER, PELVIC FLOOR SX FOR URINARY INCONT MESH, BRAIN SX RT TEMPERAL ANUERYSM-HAS METAL CLIPS IN PLACE, ( HAS HEADACHES EVER SINCE), AVEL BREAST BIOPIES STATES HAS METALMARKERS IN PLACE.colonoscopy-HX OF POLYPS, EPIDURAL STERIOD INJECTIONS Past Anesthesia/Blood Transfusion Reactions: Previous Problems w/ Anesthesia Additional Past Anesthesia/Blood Transfusion Reaction / Comment(s): usually wakes up very quickly from anesthesia Type of Cardiac Device: Permanent Pacemaker Device Placement Date:: [employer], Past Psychological History: Anxiety, Bipolar, Depression Smoking Status: Former smoker Past Alcohol Use History: None Reported Past Drug Use History: None Reported - Past Family History Mother Family Medical History: Cancer, COPD, Dementia, Myocardial Infarction ([place]) Additional Family Medical History / Comment(s): cervical cancer, pancreatitis Father Family Medical History: Cancer, Congestive Heart Failure (CHF), COPD Additional Family Medical History / Comment(s): lung cancer,emphysema General Exam - General Exam Comments Initial Comments: GENERAL: Patient is well-developed and well-nourished. Patient is nontoxic and well- hydrated and is in mild distress. ENT: Neck is soft and supple. No significant lymphadenopathy is noted. Oropharynx is clear. Moist mucous membranes. Neck has full range of motion without eliciting any pain. EYES: The sclera were anicteric and conjunctiva were pink and moist. Extraocular movements were intact and pupils were equal round and reactive to light. Eyelids were unremarkable. PULMONARY: Unlabored respirations. Good breath sounds bilaterally. No audible rales rhonchi or wheezing was noted. CARDIOVASCULAR: There is a regular rate and rhythm without any murmurs gallops or rubs. ABDOMEN: Soft and nontender with normal bowel sounds. No palpable organomegaly was noted. There is no palpable pulsatile mass. SKIN: Skin is clear with no lesions or rashes and otherwise unremarkable. NEUROLOGIC: Patient is alert and oriented x3. Cranial nerves II through XII are grossly intact. Motor and sensory are also intact. Normal speech, volume and content. Symmetrical smile. MUSCULOSKELETAL: Normal extremities with adequate strength and full range of motion. LYMPHATICS: No significant lymphadenopathy is noted PSYCHIATRIC: Normal psychiatric evaluation. Limitations: no limitations Course Vital Signs 02/03/18 02/03/18 02/03/18 00:24 00:51 01:00 Temperature 98.7 F Pulse Rate 68 70 Pulse Rate [ 74 Left] Respiratory 18 16 Rate Blood Pressure 160/72 181/81 O2 Sat by Pulse 98 96 Oximetry Medical Decision Making - Medical Decision Making EKG shows a paced rhythm at 55 bpm TX interval is 196 QRS is 172 QTC intervals 506 QTC is 484. Chest x-ray shows no acute abnormality. Patient will be admitted for unstable angina. No blood thinners will be given because she is already on eliquis. I will write admitting orders admitted to Dr. de los santos and consult cardiology - Lab Data Result diagrams: 02/03/18 00:50 02/03/18 00:50 Lab Results 02/03/18 02/03/18 02/03/18 Range/Units 00:50 00:50 00:50 WBC 7.1 (3.8-10.6) k/uL RBC 4.56 (3.80-5.40) m/uL Hgb 12.8 (11.4-16.0) gm/dL Hct 38.8 (34.0-46.0) % MCV 85.0 (80.0-100.0) fL MCH 28.0 (25.0-35.0) pg MCHC 32.9 (31.0-37.0) g/dL RDW 13.4 (11.5-15.5) % Plt Count 150 (150-450) k/uL Neutrophils % 50 % Lymphocytes % 38 % Monocytes % 7 % Eosinophils % 3 % Basophils % 0 % Neutrophils # 3.6 (1.3-7.7) k/uL Lymphocytes # 2.7 (1.0-4.8) k/uL Monocytes # 0.5 (0-1.0) k/uL Eosinophils # 0.2 (0-0.7) k/uL Basophils # 0.0 (0-0.2) k/uL PT (9.0-12.0) sec INR (<1.2) APTT (22.0-30.0) sec Sodium 142 (137-145) mmol/L Potassium 4.0 (3.5-5.1) mmol/L Chloride 107 (98-107) mmol/L Carbon Dioxide 25 (22-30) mmol/L Anion Gap 10 mmol/L BUN 10 (7-17) mg/dL Creatinine 0.70 (0.52-1.04) mg/dL Est GFR (CKD-EPI)AfAm >90 (>60 ml/min/1.73 sqM) Est GFR (CKD-EPI)NonAf >90 (>60 ml/min/1.73 sqM) Glucose 117 H (74-99) mg/dL Calcium 9.2 (8.4-10.2) mg/dL Magnesium 1.8 (1.6-2.3) mg/dL Total Bilirubin 0.2 (0.2-1.3) mg/dL AST 21 (14-36) U/L ALT 30 (9-52) U/L Alkaline Phosphatase 105 (38-126) U/L Total Creatine Kinase 46 (30-135) U/L CK-MB (CK-2) <0.2 (0.0-2.4) ng/mL CK-MB (CK-2) Rel Index Troponin I <0.012 (0.000-0.034) ng/mL Total Protein 6.0 L (6.3-8.2) g/dL Albumin 3.6 (3.5-5.0) g/dL 02/03/18 Range/Units 00:50 WBC (3.8-10.6) k/uL RBC (3.80-5.40) m/uL Hgb (11.4-16.0) gm/dL Hct (34.0-46.0) % MCV (80.0-100.0) fL MCH (25.0-35.0) pg MCHC (31.0-37.0) g/dL RDW (11.5-15.5) % Plt Count (150-450) k/uL Neutrophils % % Lymphocytes % % Monocytes % % Eosinophils % % Basophils % % Neutrophils # (1.3-7.7) k/uL Lymphocytes # (1.0-4.8) k/uL Monocytes # (0-1.0) k/uL Eosinophils # (0-0.7) k/uL Basophils # (0-0.2) k/uL PT 9.6 (9.0-12.0) sec INR 1.0 (<1.2) APTT 22.6 (22.0-30.0) sec Sodium (137-145) mmol/L Potassium (3.5-5.1) mmol/L Chloride (98-107) mmol/L Carbon Dioxide (22-30) mmol/L Anion Gap mmol/L BUN (7-17) mg/dL Creatinine (0.52-1.04) mg/dL Est GFR (CKD-EPI)AfAm (>60 ml/min/1.73 sqM) Est GFR (CKD-EPI)NonAf (>60 ml/min/1.73 sqM) Glucose (74-99) mg/dL Calcium (8.4-10.2) mg/dL Magnesium (1.6-2.3) mg/dL Total Bilirubin (0.2-1.3) mg/dL AST (14-36) U/L ALT (9-52) U/L Alkaline Phosphatase (38-126) U/L Total Creatine Kinase (30-135) U/L CK-MB (CK-2) (0.0-2.4) ng/mL CK-MB (CK-2) Rel Index Troponin I (0.000-0.034) ng/mL Total Protein (6.3-8.2) g/dL Albumin (3.5-5.0) g/dL Disposition Clinical Impression: Unstable angina Disposition: ADMITTED IP TO THIS HOSP Referrals: Sukhdev Patrick MD [Primary Care Provider] - 1-2 days Time of Disposition: 01:55
[2018-02-03] MEDS ORDERED: ACETAMINOPHEN TAB 500 MG TAB PO STA (00:42)
[2018-02-03 01:02] VITALS: RESP 16
[2018-02-03 01:02] LABS: Basophils % (A) 0 %; Eosinophils # (A) 0.2 k/uL (0-0.7); Eosinophils % (A) 3 %; HCT 38.8 % (34.0-46.0); HGB 12.8 gm/dL (11.4-16.0); Lymphocytes # (A) 2.7 k/uL (1.0-4.8); Lymphocytes % (A) 38 %; MCHC 32.9 g/dL (31.0-37.0); Mean Platelet Volume 7.9; Monocytes # (A) 0.5 k/uL (0-1.0); Monocytes % (A) 7 %; Neutrophils # (A) 3.6 k/uL (1.3-7.7); Neutrophils % (A) 50 %; Platelet Count 150 k/uL (150-450); RBC 4.56 m/uL (3.80-5.40); RDW 13.4 % (11.5-15.5); WBC 7.1 k/uL (3.8-10.6)
[2018-02-03 01:13] LABS: Partial Thromboplastin Time 22.6 sec (22.0-30.0); Prothrombin Time 9.6 sec (9.0-12.0)
[2018-02-03 01:14] LABS: ALT 30 U/L (9-52); AST 21 U/L (14-36); Albumin 3.6 g/dL (3.5-5.0); Alkaline Phosphatase 105 U/L (38-126); Anion Gap 10 mmol/L; Blood Urea Nitrogen 10 mg/dL (7-17); Calcium 9.2 mg/dL (8.4-10.2); Carbon Dioxide 25 mmol/L (22-30); Chloride 107 mmol/L (98-107); Glucose 117 mg/dL (74-99); Magnesium 1.8 mg/dL (1.6-2.3); Sodium 142 mmol/L (137-145); Total Bilirubin 0.2 mg/dL (0.2-1.3)
--- NOTE | 2018-02-03 01:33 | XR ---
EXAMINATION TYPE: XR chest 2V DATE OF EXAM: 02/03/2018 COMPARISON: 06/20/2017 HISTORY: Chest pain TECHNIQUE: Frontal and lateral views of the chest are obtained. FINDINGS: There is no heart failure nor confluent pneumonic infiltrate. Costophrenic angles are araceli r. There are chest leads. There is left axillary pacemaker with the lead tips over the right ventricl e. Bony thorax appears intact. IMPRESSION: No active cardiopulmonary disease. No change.
[2018-02-03 01:34] LABS: Creatine Kinase 46 U/L (30-135)
[2018-02-03 01:47] LABS: Creatine Kinase MB <0.2 ng/mL (0.0-2.4); Troponin I <0.012 ng/mL (0.000-0.034)
[2018-02-03] MEDS ORDERED: NITROGLYCERIN SL TABS 0.4 MG TAB SUBLINGUAL PRN ×2 (01:55→09:53)
[2018-02-03 03:16] VITALS: BMI 45.5
[2018-02-03] MEDS: NITROGLYCERIN OINT 1 INCH/GM PACKET TOPICAL SCH ×2 (06:30→13:03)
[2018-02-03 07:17] LABS: Creatine Kinase 35 U/L (30-135)
[2018-02-03 07:29] LABS: Creatine Kinase MB <0.2 ng/mL (0.0-2.4); Troponin I <0.012 ng/mL (0.000-0.034)
--- NOTE | 2018-02-03 09:13 | P.CRDCN ---
History of Present Illness Consult date: 02/03/18 History of present illness: This is a 62-year-old female with history of hypertension and also complete heart block status post permanent pacemaker implantation being followed by Dr. Ontiveros regularly. She has been admitted to this hospital on several occasions with atypical chest pains. In fact she had a cardiac catheterization 2012 that showed mild coronary artery disease. She had a Lexiscan stress test recently which he did not reveal any inducible ischemia. She comes now with complaints of chest and neck pain radiating to the left arm. She also claims the pain sometimes radiates to the whole left side of the body. She took 2 nitroglycerin at home without much relief. In the emergency room patient was given Tylenol with some partial relief. She claims she takes [place] at home. Apparently this is prescribed by neurologist. Her pains appear to be atypical. Her cardiac enzymes have been negative. EKG shows atrial sensed ventricular paced rhythm. I'm not recommending any further cardiac workup at this time. Symptomatic therapy. Patient could be discharged home if cleared by neurology. Follow-up with Dr. Ontiveros as an outpatient. Review of Systems As per the chart Past Medical History Past Medical History: CVA/TIA, Fibromyalgia, GERD/Reflux, Hyperlipidemia, Hypertension, Osteoarthritis (OA), Pneumonia, Sleep Apnea/CPAP/BIPAP, Thyroid Disorder Additional Past Medical History / Comment(s): degenerative disc, splenic aneurysm (just being watched), UTI, HIATAL HERNIA.per pt no MRI's r/t metal clips rt temperol lobe-stated has had chronic headache ever since the sx November of 1991); Chronic Pain Disorder,ddd headaches."6 tia's". cva 3-2013 lt side a bit weaker than rt., sinusitis, DOES NOT USE CPAP, STATES TAKING METFORMIN FOR "FATTY LIVER" History of Any Multi-Drug Resistant Organisms: None Reported Past Surgical History: Section, Cholecystectomy, Hysterectomy, Pacemaker Additional Past Surgical History / Comment(s): hemmorhoidectomy, PACEMAKER, PELVIC FLOOR SX FOR URINARY INCONT MESH, BRAIN SX RT TEMPERAL ANUERYSM-HAS METAL CLIPS IN PLACE, ( HAS HEADACHES EVER SINCE), AVEL BREAST BIOPIES STATES HAS METALMARKERS IN PLACE.colonoscopy-HX OF POLYPS, EPIDURAL STERIOD INJECTIONS Past Anesthesia/Blood Transfusion Reactions: Previous Problems w/ Anesthesia Additional Past Anesthesia/Blood Transfusion Reaction / Comment(s): usually wakes up very quickly from anesthesia Type of Cardiac Device: Permanent Pacemaker Device Placement Date:: [employer], Past Psychological History: Anxiety, Bipolar, Depression Additional Psychological History / Comment(s): Diagnosed recently with Bipolar 2016 Smoking Status: Former smoker Past Alcohol Use History: None Reported Additional Past Alcohol Use History / Comment(s): smoked x 18 years 1.5 ppd, quit 1996 Past Drug Use History: None Reported - Past Family History Mother Family Medical History: Cancer, COPD, Dementia, Myocardial Infarction ([place]) Additional Family Medical History / Comment(s): cervical cancer, pancreatitis Father Family Medical History: Cancer, Congestive Heart Failure (CHF), COPD Additional Family Medical History / Comment(s): lung cancer,emphysema Medications and Allergies Home Medications Medication Instructions Recorded Confirmed Type Levothyroxine Sodium [Synthroid] 88 mcg PO DAILY 02/24/14 02/03/18 History Omeprazole [PriLOSEC] 20 mg PO BID 02/24/14 02/03/18 History Cholecalciferol [Vitamin D3] 5,000 unit PO TID 04/05/16 02/03/18 History L.acidoph,Paracasei, B.lactis 1 cap PO DAILY 04/05/16 02/03/18 History [Probiotic] Atorvastatin [Lipitor] 40 mg PO DAILY #30 tab 10/10/16 02/03/18 Rx Losartan Potassium 100 mg PO DAILY 02/17/17 02/03/18 History Verapamil HCl [Verelan] 360 mg PO DAILY 02/17/17 02/03/18 History Apixaban [Eliquis] 5 mg PO BID 06/20/17 02/03/18 History Multivitamins, Thera [Multivitamin 1 tab PO DAILY 06/20/17 02/03/18 History (formulary)] metFORMIN HCL ER [Glucophage Xr] 500 mg PO PC-BRKFST 06/20/17 02/03/18 History Aspirin 81 mg PO DAILY 06/25/17 02/03/18 Rx Gabapentin [Neurontin] 300 mg PO TID #0 06/25/17 02/03/18 Rx Nitroglycerin Sl Tabs [Nitrostat] 0.4 mg SUBLINGUAL Q5M PRN #21 tab 06/25/17 Rx Baclofen [Lioresal] 10 mg PO TID 02/03/18 02/03/18 History buPROPion XL [Wellbutrin Xl] 150 mg PO DAILY 02/03/18 02/03/18 History Allergies Allergy/AdvReac Type Severity Reaction Status Date / Time pregabalin [From Lyrica] Allergy Swelling/Blurry Verified 02/03/18 00:22 Vision cefpodoxime proxetil AdvReac Nausea & Verified 02/03/18 00:22 [From Vantin] Vomiting metoclopramide HCl AdvReac Nausea & Verified 02/03/18 00:22 [From Reglan] Vomiting Physical Exam Vitals: Vital Signs Temp Pulse Pulse Pulse Resp BP BP 02/03/18 08:00 97.4 F L 65 16 110/48 02/03/18 03:41 97.5 F L 58 L 16 144/81 02/03/18 02:30 97.3 F L 58 L 16 160/74 02/03/18 02:04 97.8 F 61 16 157/70 02/03/18 01:00 70 16 181/81 02/03/18 00:51 74 02/03/18 00:24 98.7 F 68 18 160/72 Pulse Ox 02/03/18 08:00 95 02/03/18 03:41 98 02/03/18 02:30 97 02/03/18 02:04 95 02/03/18 01:00 96 02/03/18 00:51 02/03/18 00:24 98 Intake and Output 02/02/18 02/03/18 02/03/18 22:59 06:59 14:59 Other: Voiding Method Toilet # Voids 2 Weight 109.316 kg GENERAL EXAM: Patient is alert and oriented and doesn't appear to be in any acute distress HEENT: Normocephalic. Normal reaction of pupils, equal size, normal range of extraocular motion. No erythema or exudates in the throat. NECK: No masses, no nuchal rigidity. CHEST: No chest wall deformity. LUNGS: Equal air entry with no crackles or wheeze. HEART: S1 and S2 normal with no audible mumurs or gallops. Regular rhythm, femorals equal on both sides.. ABDOMEN: No hepatosplenomegaly, normal bowel sounds, no guarding or rigidity. SKIN: No rashes CENTRAL NERVOUS SYSTEM: No focal deficits. EXTREMITIES: No cyanosis, clubbing or edema. Results 02/03/18 00:50 02/03/18 00:50 Cardiac Enzymes 02/03/18 02/03/18 02/03/18 Range/Units 00:50 00:50 06:08 AST 21 (14-36) U/L CK-MB (CK-2) <0.2 <0.2 (0.0-2.4) ng/mL Troponin I <0.012 <0.012 (0.000-0.034) ng/mL Coagulation 02/03/18 Range/Units 00:50 PT 9.6 (9.0-12.0) sec APTT 22.6 (22.0-30.0) sec CBC 02/03/18 Range/Units 00:50 WBC 7.1 (3.8-10.6) k/uL RBC 4.56 (3.80-5.40) m/uL Hgb 12.8 (11.4-16.0) gm/dL Hct 38.8 (34.0-46.0) % Plt Count 150 (150-450) k/uL Comprehensive Metabolic Panel 02/03/18 Range/Units 00:50 Sodium 142 (137-145) mmol/L Potassium 4.0 (3.5-5.1) mmol/L Chloride 107 (98-107) mmol/L Carbon Dioxide 25 (22-30) mmol/L BUN 10 (7-17) mg/dL Creatinine 0.70 (0.52-1.04) mg/dL Glucose 117 H (74-99) mg/dL Calcium 9.2 (8.4-10.2) mg/dL AST 21 (14-36) U/L ALT 30 (9-52) U/L Alkaline Phosphatase 105 (38-126) U/L Total Protein 6.0 L (6.3-8.2) g/dL Albumin 3.6 (3.5-5.0) g/dL Current Medications Generic Name Dose Route Start Last Admin Trade Name Freq PRN Reason Stop Dose Admin Aspirin 325 mg 02/04/18 09:00 Aspirin PO DAILY NEHA Nitroglycerin 1 inch 02/03/18 06:00 02/03/18 06:30 Nitro-Bid Oint TOPICAL Not Given Q6HR [facility] Nitroglycerin 0.4 mg 02/03/18 01:55 Nitrostat SUBLINGUAL Q5M PRN Chest Pain Intake and Output 02/02/18 02/03/18 02/03/18 22:59 06:59 14:59 Other: Voiding Method Toilet # Voids 2 Weight 109.316 kg 02/03/18 00:50 02/03/18 00:50 EKG Interpretations (text) Atrial sensed ventricular paced rhythm Assessment and Plan (1) Atypical chest pain Current Visit: Yes Status: Acute Code(s): R07.89 - OTHER CHEST PAIN SNOMED Code(s): 227482787 (2) Pacemaker Current Visit: No Status: Acute Code(s): Z95.0 - PRESENCE OF CARDIAC PACEMAKER SNOMED Code(s): 013206408 (3) Paroxysmal a-fib Current Visit: No Status: Acute Code(s): I48.0 - PAROXYSMAL ATRIAL FIBRILLATION SNOMED Code(s): 996161220 (4) Transient cerebral ischemia Current Visit: No Status: Acute Code(s): G45.9 - TRANSIENT CEREBRAL ISCHEMIC ATTACK, UNSPECIFIED SNOMED Code(s): 178311028 Plan: Patient had a recent negative Lexiscan stress test. Enzymes and EKGs did not show any acute changes. Her pains are clinically atypical for angina. From Cardec standpoint, patient could be discharged home. Follow-up with Dr. Ontiveros
[2018-02-03] MEDS ORDERED: HYDROcodone/APAP 5-325MG 1 EACH TAB PO PRN (09:53)
[2018-02-03] MEDS ORDERED: buPROPion XL 150 MG TAB.ER.24H PO SCH (10:00)
[2018-02-03] MEDS ORDERED: ASPIRIN 81 MG PO SCH (10:00)
[2018-02-03] MEDS ORDERED: metFORMIN 500 MG TAB PO SCH (10:00)
[2018-02-03] MEDS ORDERED: LOSARTAN 50 MG TAB PO SCH (10:00)
[2018-02-03] MEDS ORDERED: LEVOTHYROXINE 88 MCG TAB PO SCH (10:00)
[2018-02-03] MEDS ORDERED: VERAPAMIL SR 180 MG TABLET.ER PO SCH (10:00)
[2018-02-03] MEDS ORDERED: PANTOPRAZOLE 40 MG TABLET PO SCH (10:00)
[2018-02-03 11:53] LABS: Glucose,Whole Blood 146 mg/dL (75-99)
[2018-02-03] MEDS ORDERED: MULTIVITAMINS, THERA 1 EACH TAB PO SCH (12:00)
[2018-02-03 13:31] LABS: Creatine Kinase 38 U/L (30-135)
[2018-02-03 13:43] LABS: Creatine Kinase MB <0.2 ng/mL (0.0-2.4); Troponin I <0.012 ng/mL (0.000-0.034)
[2018-02-03] MEDS ORDERED: BACLOFEN 10 MG TAB PO SCH (16:00)
[2018-02-03] MEDS ORDERED: GABAPENTIN 300 MG CAP PO SCH (16:00)
[2018-02-03 16:04] VITALS: BP 133/56; PULSE 69; TEMP 98.1
--- NOTE | 2018-02-03 16:14 | HP ---
HISTORY AND PHYSICAL DATE OF ADMISSION: 02/03/2018 DATE OF DISCHARGE: 02/03/2018 DATE OF SERVICE: 02/03/2018 PRESENTING COMPLAINT: Chest pressure. HISTORY OF PRESENTING COMPLAINT: This is a 62-year-old patient with a rather extensive medical history. The patient follows with Dr. Patrick. 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 The patient presented with a sensation of a pushing sensation on the chest going across then going to her jaw. The patient took a nitroglycerin, it did not help. Then the pain also went to her shoulders and arms, especially the left arm. The patient felt short of breath, but lightheaded, a bit clammy. Decided to come in. Was admitted for unstable angina. The patient is put on nitro paste. The patient's pain was there for a few hours. Cardiology was consulted. REVIEW OF SYSTEMS: CONSTITUTIONAL: Tired. HEENT: Chronic headache. RESPIRATORY: As above. CARDIOVASCULAR: As above. GASTROINTESTINAL: Heartburn. GENITOURINARY: None. MUSCULOSKELETAL: Chronic pain in joints. DERMATOLOGIC: None. HEMATOLOGIC: None. LYMPHATICS: None. PSYCHIATRY: Anxiety. NEUROLOGICAL: None. PAST MEDICAL HISTORY: Past medical history of small PFO, paroxysmal atrial tachycardia, multiple TIAs, stroke in November 2013, morbid obesity, temporal aneurysm with clip in place, GERD, hypertension, hyperlipidemia, hypothyroid, osteoarthritis of the lumbar spine, hiatal hernia, bipolar disorder. PAST SURGICAL HISTORY: cholecystectomy hysterectomy, pacemaker, hemorrhoidectomy, surgery for urinary incontinence, bilateral breast biopsies. PSYCH HISTORY: Bipolar. SOCIAL HISTORY: The patient stopped smoking in 1996. Smoked a pack and a half for 18 years. . FAMILY HISTORY: Family history of cancer, COPD, dementia, myocardial infarction, cervical cancer. HOME MEDICATIONS: 1. Cinnamon 500 mg p.o. daily. 2. Apple cider vinegar 300 mg p.o. daily. 3. Eliquis 2.5 p.o. b.i.d. 4. [place] 5 one tablet q.6 p.r.n. 5. Vitamin D3, 5000 units p.o. t.i.d. 6. Baclofen 10 mg p.o. t.i.d. 7. Lipitor 40 mg p.o. daily. 8. Aspirin 81 mg p.o. daily. 9. Multivitamin 1 tablet p.o. daily. 10.Losartan 100 mg p.o. daily. 11.Synthroid 88 mcg p.o. daily. 12.Probiotic 1 capsule p.o. daily. 13.Neurontin 300 mg p.o. t.i.d. 14.Glucophage XR 500 mg with breakfast. 15.Ventolin 360 mg p.o. daily. 16.Prilosec 20 mg p.o. b.i.d. 17.Nitrostat 0.4 sublingual q.5 p.r.n. 18.Wellbutrin XL 150 mg p.o. daily. ALLERGIES: Allergy to LYRICA, VANTIN, REGLAN. PHYSICAL EXAMINATION: On examination, temperature 97.6, pulse 60, respiration 16, blood pressure 110/48, pulse ox 95% on room air. GENERAL APPEARANCE: Well built, lying in bed, comfortable. EYES: Pupils equal. Conjunctivae normal. HENT: External appearance of nose and ears normal. Oral cavity normal. NECK: JVD not raised. Mass not palpable. RESPIRATORY: Effort normal. Lungs are clear. CARDIOVASCULAR: First and second sounds normal. No edema. ABDOMEN: Soft, nontender. Liver and spleen not palpable. LYMPHATIC: No lymph node palpable in the neck or axillae. PSYCHIATRY: Alert and oriented x3. Mood and affect normal. NEUROLOGICAL: Pupils equal. Cranial nerves grossly intact. Power and sensation grossly intact. INVESTIGATIONS: White count 7.1, hemoglobin 12.8. Potassium 4.0. Troponin x3 negative. EKG atrial sensed ventricular paced rhythm. ASSESSMENT: 1. Anterior chest wall pain with some cardiac sounding features for which Cardiology has been consulted. 2. Chronic fibromyalgia. 3. Gastroesophageal reflux disease. 4. Essential hypertension. 5. Hyperlipidemia. 6. Primary osteoarthritis multiple joints. 7. Obstructive sleep apnea. 8. Spleen aneurysm, chronic. 9. Hiatal hernia. 10.Right temporal lobe aneurysm with clip in place. 11.Chronic cephalgia. 12.Mild left hemiparesis from prior stroke. 13.Fatty liver. 14.Bipolar disorder. PLAN: Home medications are resumed. Nitro paste was placed. Cardiology was consulted. Care was discussed with the patient. MMODL / IJN: [id number] /
[2018-02-03] MEDS ORDERED: APIXABAN 5 MG TAB PO SCH (21:00)
--- NOTE | 2018-02-03 21:14 | DS ---
DISCHARGE SUMMARY DATE OF ADMISSION: February 03, 2018. DATE OF DISCHARGE: February 03, 2018. FINAL DIAGNOSES: 1. Anterior chest wall pain. 2. Chronic fibromyalgia. 3. Gastroesophageal reflux disease. 4. Essential hypertension. 5. Hyperlipidemia. 6. Primary osteoarthritis multiple joints. 7. Obstructive sleep apnea. 8. Spleen aneurysm, chronic. 9. Hiatal hernia. 10.Right temporal lobe aneurysm with clip in place. 11.Chronic cephalgia. 12.Mild left hemiparesis from prior stroke. 13.Fatty liver. 14.Bipolar disorder. CONSULTATION: Dr. Batista. HOSPITAL COURSE: Please refer to my H and P from earlier today. Patient presented with chest pain. Seen by Dr. Batista. Did not feel the need for any further workup at this point. Patient to follow Dr. Ontiveros. Home medications as listed in H and P to continue. FOLLOWUP: Follow up with Dr. Ontiveros in 1 week. Follow up with Dr. Patrick in 3 days. On examination lungs fair entry. Cardiovascular 1st and 2nd sounds normal. MMODL / IJN: [id number] /
[2018-02-04] MEDS ORDERED: ATORVASTATIN 40 MG TAB PO SCH (09:00)
[2018-02-04] MEDS ORDERED: ASPIRIN 325 MG TAB PO SCH (09:00)
[2018-02-04] MEDS ORDERED: CHOLECALCIFEROL 1,000 UNIT TAB PO SCH (09:00)
[2018-02-04] MEDS ORDERED: LACTOBACILLUS ACIDOPH & BULGAR 1 EACH PACKET PO SCH (09:00)
== END 2018-02-03 16:14 | disposition home or self-care (01) ==
LOC: EC 00:22 → 3OBS 01:55
PROVIDERS: ADMIT Hospitalist; ATTEND Hospitalist
DX: R07.89 Other chest pain (principal); I10 Essential (primary) hypertension; I25.110 Atherosclerotic heart disease of native coronary artery with unstable angina pectoris; I44.2 Atrioventricular block, complete; I48.0 Paroxysmal atrial fibrillation; Q21.1 Atrial septal defect; Z95.0 Presence of cardiac pacemaker; M79.7 Fibromyalgia; K21.9 Gastro-esophageal reflux disease without esophagitis; E78.5 Hyperlipidemia, unspecified; Z99.89 Dependence on other enabling machines and devices; G47.33 Obstructive sleep apnea (adult) (pediatric); M15.9 Polyosteoarthritis, unspecified; I72.8 Aneurysm of other specified arteries; I69.359 Hemiplegia and hemiparesis following cerebral infarction affecting unspecified side; K76.0 Fatty (change of) liver, not elsewhere classified; F31.9 Bipolar disorder, unspecified; F41.9 Anxiety disorder, unspecified; K44.9 Diaphragmatic hernia without obstruction or gangrene; E66.01 Morbid (severe) obesity due to excess calories; Z68.42 Body mass index [BMI] 45.0-49.9, adult; G89.29 Other chronic pain; R51 Headache; E03.9 Hypothyroidism, unspecified; M47.816 Spondylosis without myelopathy or radiculopathy, lumbar region; Z79.82 Long term (current) use of aspirin; Z79.84 Long term (current) use of oral hypoglycemic drugs; Z79.01 Long term (current) use of anticoagulants; Z79.890 Hormone replacement therapy; Z79.899 Other long term (current) drug therapy; Z88.1 Allergy status to other antibiotic agents; Z88.8 Allergy status to other drugs, medicaments and biological substances; Z87.891 Personal history of nicotine dependence; Z87.01 Personal history of pneumonia (recurrent); Z87.440 Personal history of urinary (tract) infections; Z86.010 Personal history of colon polyps; Z82.5 Family history of asthma and other chronic lower respiratory diseases; Z82.49 Family history of ischemic heart disease and other diseases of the circulatory system; Z80.1 Family history of malignant neoplasm of trachea, bronchus and lung; Z80.49 Family history of malignant neoplasm of other genital organs; Z81.8 Family history of other mental and behavioral disorders; Z83.79 Family history of other diseases of the digestive system; E78.00 Pure hypercholesterolemia, unspecified
CPT/HCPCS: 99285 ×2; 36415; 80053; 82550; 82553; 83735; 84484; 85025; 85610; 85730; 71046; G0378

== ENCOUNTER → 2018-02-20 | Outpatient (CLI) | payer BC ==
[2018-02-20 11:03] LABS: Cholesterol 116 mg/dL (<200); HDL Cholesterol 56 mg/dL (40-60); LDL Cholesterol,Calculated 36 mg/dL (0-99); Triglycerides 122 mg/dL (<150)
--- NOTE | 2018-02-20 14:25 | CT ---
EXAMINATION TYPE: CT brain w con DATE OF EXAM: 02/20/2018 COMPARISON: 06/24/2017 INDICATION: Lt sided weakness DLP: 1005.1 mGycm, Automated exposure control for dose reduction was used. CONTRAST: None CT of the brain is performed utilizing 3 mm thick sections through the posterior fossa and 3 mm thick sections through the remaining calvarium. Study is performed within 24 hours of arrival to the hosp ital. No abnormal hyperdensity is present to suggest an acute intracranial hemorrhage. No mass lesion is evident. No acute infarcts are evident. 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 An aneurysm clip with beam hardening artifact is present in th e right middle cranial fossa. No suspicious enhancement is evident. Postsurgical craniotomies in the right temporal region. Findings are stable from comparison. Ventricles and sulci are appropriate for the patient age. Encephalomalacia is in the right frontal p arietal region at the postsurgical site. Paranasal sinuses and mastoid air cells within the [id number] are clear. IMPRESSIONS: 1. Postsurgical changes from prior aneurysm repair right middle cranial fossa. 2. No acute intracranial process. Exam appears stable from 2017.
--- NOTE | 2018-02-20 14:35 | CT ---
EXAMINATION TYPE: CT angio head neck DATE OF EXAM: 02/20/2018 HISTORY: Lt sided weakness COMPARISON: 06/22/2017 CT DLP: 1538.5 mGycm. Automated Exposure Control for Dose Reduction was Utilized. TECHNIQUE: CTA scan of the neck is performed without and with IV Contrast, patient injected with 65 mL of Isovue 370, axial images are obtained, coronal and sagittal reformatted images are reviewed. Th ree-D reconstructed images are created on an independent workstation and reviewed. FINDINGS: Carotid/Vascular Structures: The carotid arteries are nearly in the midline position at the level of the hypopharynx. The internal carotid arteries bifurcate into A1 and M1 segments. The left A1 segment appears hypoplastic. The anterior communicating artery is patent. A2 segments are normal. Middle cer ebral artery branches appear normal. There are aneurysm clips present on the right with beam hardenin g artifact causing limitation at that level. The right posterior communicating artery is patent. Left posterior communicating artery appears to be patent. Vertebrobasilar system is normal. Posterior cer ebral vasculature appears normal. No aneurysms are identified. Three-D [id number] imaging performed separately on the ventricular computer is reviewed. IMPRESSION: 1. No significant flow-limiting stenosis carotid bifurcations. 2. No aneurysm identified on the current [place]. Beam hardening artifact from prior aneurys m repair at the right middle cranial fossa is present.
== END | disposition home or self-care (01) ==
LOC: RADCTMAIN 09:03
PROVIDERS: ATTEND Psychiatry & Neurology Neurology
DX: G93.89 Other specified disorders of brain (principal); I63.9 Cerebral infarction, unspecified; Z98.890 Other specified postprocedural states
CPT/HCPCS: 80061; 83090; 70496; 70460; 70498; 36415; Q9967

== ENCOUNTER → 2018-04-17 | Outpatient (CLI) | payer BC ==
--- NOTE | 2018-04-19 08:32 | MM ---
Reason for exam: additional evaluation requested from prior study. Last mammogram was performed 6 months ago. History: Patient is postmenopausal and has history of high-risk lesion on a previous biopsy at age 57. High risk right mammotome panel of the right breast, July 16, 2012. Benign stereotactic core biopsy of the left breast, June 23, 2003. Cyst aspiration of the left breast, 1984. Took hormonal contraceptives for 1 year beginning at age 18. Took estrogen for 2 months. Physical Findings: Nurse did not find any significant physical abnormalities on exam. MG 3D Diag Mammo W/Cad RT CC and MLO view(s) were taken of the right breast. Prior study comparison: October 17, 2017, right breast MG work up mamm w CAD RT. October 17, 2017, right breast US breast workup limited RT. October 10, 2017, bilateral MG screening mammo w CAD. February 16, 2015, bilateral MG diagnostic mammo w CAD AVEL. There are scattered fibroglandular densities. Previous mammotome biopsy in the right breast. Inverted nipple is unchanged. The questioned central asymetric density is no longer present. These results were verbally communicated with the patient and result sheet given to the patient on 04/17/18. ASSESSMENT: Negative, BI-RAD 1 RECOMMENDATION: Routine screening mammogram of both breasts in 6 months.
== END | disposition home or self-care (01) ==
LOC: RADMAMWWP 09:41
PROVIDERS: ATTEND Family Medicine
DX: N60.81 Other benign mammary dysplasias of right breast (principal)
CPT/HCPCS: 77061; 77065

== ENCOUNTER → 2018-04-17 | Outpatient (CLI) | payer BC ==
[2018-04-17 11:42] LABS: Calcium 9.2 mg/dL (8.4-10.2); Potassium 4.4 mmol/L (3.5-5.1)
== END | disposition home or self-care (01) ==
LOC: LABWHC1 10:40
PROVIDERS: ATTEND Family Medicine
DX: R79.89 Other specified abnormal findings of blood chemistry (principal)
CPT/HCPCS: 36415; 80048

== ENCOUNTER → 2018-12-11 | Outpatient (CLI) | payer BC ==
--- NOTE | 2018-12-11 14:22 | CT ---
EXAMINATION TYPE: CT cervical spine wo con DATE OF EXAM: 12/11/2018 COMPARISON: None HISTORY: Pain CT DLP: 851 mGycm Automated exposure control for dose reduction was used. TECHNIQUE: CT scan of the cervical spine is obtained without contrast, axial images are obtained, sa gittal and coronal reformatted images are also reviewed. FINDINGS: Assessment spinal canal limited but noncontrast technique, resolution and artifact. Spinal cord assessment nondiagnostic. There is hypertrophic changes and degenerative disc disease at all lev els with most marked findings at C5-6 and C6-C7. C2-C3 no obvious disc herniation or canal stenosis. Neural foramina patent. At C3-C4 there is posterior spondylosis and minimal disc bulging. No Canal stenosis. Uncovertebral kennedi int hypertrophy on the right. Very mild right foraminal encroachment. At C4-C5 there is no obvious disc herniation or canal stenosis. Mild posterior spondylosis. Neural fo ramina patent. C5-C6 there is a posterior cervical spondylosis result in anterior compression of the thecal sac. Unc overtebral joint hypertrophy with moderate bilateral foraminal encroachment and mild to moderate cent ral stenosis. At C6-C7 there is facet arthropathy and uncovertebral joint hypertrophy with posterior spondylosis. M ild anterior compression of the thecal sac. Borderline central stenosis. At C7-T1 no obvious disc herniation, canal stenosis or foraminal encroachment. Incidental note is made of pacemaker leads. 3 mm subpleural nodularity in the posterior right lung li misael related to pleural thickening and postinflammatory. Soft tissue ossification posterior to the C4 -C5 spinous processes. Mild atherosclerotic change of the carotid artery. IMPRESSION: 1. Multilevel degenerative disc disease with multilevel hypertrophic spurring and cervical spondylosi s. Most marked findings at C5-6 and C6-C7 with canal stenosis at C5-C6 as discussed above. 2. Multilevel foraminal encroachment.
== END | disposition home or self-care (01) ==
LOC: RADCTMAIN 13:35
PROVIDERS: ATTEND Psychiatry & Neurology Pain Medicine
DX: M48.02 Spinal stenosis, cervical region (principal); M50.322 Other cervical disc degeneration at C5-C6 level; M47.812 Spondylosis without myelopathy or radiculopathy, cervical region; Z88.8 Allergy status to other drugs, medicaments and biological substances
CPT/HCPCS: 72125

== ENCOUNTER → 2019-01-17 | Outpatient (CLI) | payer BC ==
--- NOTE | 2019-01-17 16:34 | CT ---
EXAMINATION TYPE: CT angio abdomen DATE OF EXAM: 01/17/2019 2:24 PM COMPARISON: 04/18/2016 HISTORY: Splenic artery aneurysm. CT DLP: 886.6 mGycm Automated exposure control for dose reduction was used. TECHNIQUE: Performed with IV Contrast, patient injected with 100 mL of Isovue 370. Three-D reconstructed images performed on a separate computer by the technologist are presented.. FINDINGS: At this phase of contrast liver appears to have some fatty infiltration. There is irregular patchy co ntrast within the spleen. Vascular calcifications within the aorta. Kidneys appear normal. Pancreas i s unremarkable. Loops of bowel with oral contrast appear normal. There are some loops of bowel with i ncomplete distention limiting their evaluation. There is mild thickening of the right adrenal gland m easuring 1.4 cm. Mild thickening of the left adrenal gland measures 1.2 cm Attention is paid to the splenic artery. Three-D reconstructed images were performed by the technolog ist. The splenic artery is very tortuous. There is a calcified aneurysm distal portion at the splenic hilum. This measures 1.6 cm in diameter which is stable from comparison. IMPRESSION: 1. STABLE 1.6 CM SPLENIC ARTERY ANEURYSM. 2. THICKENING OF THE BILATERAL ADRENAL GLANDS
== END ==
LOC: RADCTMAIN 13:12
PROVIDERS: ATTEND Family Medicine
DX: I72.8 Aneurysm of other specified arteries (principal); E27.8 Other specified disorders of adrenal gland
CPT/HCPCS: 82565; 84520; 74175; 36415; Q9967

== ENCOUNTER → 2019-05-01 | Outpatient (CLI) | payer BC ==
--- NOTE | 2019-05-02 14:31 | MM ---
Reason for exam: screening (asymptomatic). Last mammogram was performed 1 year ago. History: Patient is postmenopausal and has history of high-risk lesion on a previous biopsy at age 57. High risk right mammotome panel of the right breast, July 16, 2012. Benign stereotactic core biopsy of the left breast, June 23, 2003. Cyst aspiration of the left breast, 1984. Took hormonal contraceptives for 1 year beginning at age 18. Took estrogen for 2 months. Physical Findings: A clinical breast exam by your physician is recommended on an annual basis and results should be correlated with mammographic findings. MG 3D Screening Mammo W/Cad Bilateral CC and MLO view(s) were taken. Prior study comparison: April 17, 2018, right breast MG 3d diag mammo w/cad RT. October 17, 2017, right breast MG work up mamm w CAD RT. There are scattered fibroglandular densities. Benign appearing bilateral calcifications. Bilateral biopsy markers noted. Left cardiac device. ASSESSMENT: Benign, BI-RAD 2 RECOMMENDATION: Routine screening mammogram of both breasts in 1 year.
== END | disposition home or self-care (01) ==
LOC: RADMAMWWP 13:05
PROVIDERS: ATTEND Family Medicine
DX: Z12.31 Encounter for screening mammogram for malignant neoplasm of breast (principal)
CPT/HCPCS: 77063; 77067

== ENCOUNTER → 2019-05-10 | Outpatient (CLI) | payer BC ==
--- NOTE | 2019-05-10 15:21 | CT ---
EXAMINATION TYPE: CT lumbar spine wo con DATE OF EXAM: 05/10/2019 COMPARISON: 09/08/2017 HISTORY: Low back pain, no injury. CT DLP: [address] of the lumbar spine was performed. Bone and soft tissue window settings are submitted as well as coronal and sagittal reconstructions. L1-L2: Normal disc space height. No disc herniation protrusion or central stenosis. No facet joint arthropathy. No evidence for foraminal encroachment. L2-L3: Normal disc space height. No disc herniation protrusion or central stenosis. No facet joint arthropathy. No evidence for foraminal encroachment. L3-L4: Mild degenerative disc space narrowing. Mild posterior disc bulge. No herniation of protrusion . No central stenosis or foraminal encroachment. L4-L5: Moderate disc desiccation. Again noted situated at the level of the right neural foramen is a broad-based disc herniation resulting in right lateral recess stenosis and right foraminal encroachme nt unchanged from prior study. No evidence for central stenosis. L5-S1: Mild to moderate disc space narrowing. No herniation or central stenosis. Mild facet joint art hropathy without evidence for foraminal encroachment. No paraspinal masses are identified. Lumbar segments are free if fracture. IMPRESSION: 1. Multilevel degenerative disc space narrowing. 2. Essentially stable disc herniation at L4-5 situated at the level of the right neural foramen.
== END | disposition home or self-care (01) ==
LOC: RADCTMAIN 14:38
PROVIDERS: ATTEND Psychiatry & Neurology Neurology
DX: M99.73 Connective tissue and disc stenosis of intervertebral foramina of lumbar region (principal); M51.26 Other intervertebral disc displacement, lumbar region
CPT/HCPCS: 72131

== ENCOUNTER → 2019-11-05 | Day surgery (SDC) | payer BC, MEDICARE ==
[2019-10-31 16:18] VITALS: BMI 48.8
[~2019-11-05] MED LIST changes: -LACTATED RINGERS 1,000 ML IV NR; -LEVOFLOXACIN 500MG-D5W PMX 500 MG in DEXTROSE/WATER 1 100ML.BAG IVPB NR; +LIDOCAINE 1% 20 ML VIAL (10MG/ML) FOR IV START INTRADERMA ONE; +LIDOCAINE 1% INJ 10MG/ML (20 ML MDV) ONE; +PROPOFOL 10 MG/ML 20 ML VIAL IV ONE
[2019-11-05 08:57] VITALS: TEMP 97.7
--- NOTE | 2019-11-05 09:54 | P.PCN ---
Date of Procedure: 11/05/19 Description of Procedure: Brief history: Patient is a pleasant scheduled for an elective upper endoscopy as well as colonoscopy as a part of evaluation of GERD and diarrhea. Patient has long- standing history of frequent loose bowel movements usually once daily with associated urgency. Also has a history of GERD. Procedure performed: Esophagogastroduodenoscopy with biopsy Colonoscopy with biopsy and polypectomy Estimated blood loss: Minimal. Preoperative diagnosis: GERD, diarrhea, last colonoscopy 2014 Anesthesia: [facility] [place] Procedure: After informed consent was obtained from the patient was brought into the endoscopy unit and IV sedation was administered by anesthesia under continuous monitoring. Initially upper endoscopy was done. The Olympus GF 190 video endoscope was inserted into the mouth and esophagus intubated without any difficulty and was gradually advanced into the stomach and duodenum and carefully examined. The bulb and second part of the duodenum appeared normal, with biopsies taken to rule out celiac sprue. The scope was then withdrawn into the stomach adequately insufflated with air and upon careful examination the antrum and body, cardia and fundus appeared normal., Except for some mild punctate erythema in the antrum and body suggestive of mild gastritis with biopsies taken The scope was then withdrawn into the esophagus. The GE junction was located at 38 cm to the incisors and appeared regular with biopsies taken. It appeared regular with no erythema erosions or ulcerations. Rest of the esophagus appeared normal. Patient tolerated the procedure well. At this time the patient continued to remain sedation. Initial digital rectal examination was normal. Olympus CF 190 video colonoscope was then inserted into the rectum and gradually advanced to the cecum without any difficulty. Careful examination was performed as the scope was gradually being withdrawn. The prep was excellent. The cecum, ascending colon, transverse colon, descending colon, sigmoid colon and rectum appeared normal. Diminutive flat 3 mm ascending colon polyp removed with cold forcep polypectomy and sessile 2 mm rectal polyp removed with cold forcep polypectomy. A few scattered left colonic diverticula noted. Terminal ileum was intubated and appeared normal with biopsies taken. Biopsies taken of the right and left colon in the setting of diarrhea. Retroflexion was performed in the rectum and no lesions were noted. Patient tolerated the pr ocedure well. Impression: 1. Mild gastritis antrum body, biopsied. Biopsies of the duodenum and GE junction. 2. Diminutive polyps removed from the ascending colon and rectum with cold forcep polypectomy. Mild left colonic diverticulosis. Random biopsies of the right colon, left colon and normal-appearing terminal ileum in the setting of altered bowel function and diarrhea. Recommendations: Findings of this examination were discussed with the patient as well as her . Okay to resume diet. Okay to resume medications. Await pathology from biopsies. Would recommend repeat colonoscopy in 7-10 years pending pathology polypectomy.
[2019-11-05 10:01] VITALS: BP 154/85; PULSE 86; RESP 18
== END ==
LOC: ORWHC2ENDO 07:40
PROVIDERS: ATTEND Internal Medicine
DX: K29.50 Unspecified chronic gastritis without bleeding (principal); K21.0 Gastro-esophageal reflux disease with esophagitis; D12.2 Benign neoplasm of ascending colon; K57.30 Diverticulosis of large intestine without perforation or abscess without bleeding; R19.7 Diarrhea, unspecified; F32.9 Major depressive disorder, single episode, unspecified; Z95.0 Presence of cardiac pacemaker; Z86.73 Personal history of transient ischemic attack (TIA), and cerebral infarction without residual deficits; Z79.890 Hormone replacement therapy; Z79.899 Other long term (current) drug therapy; Z79.01 Long term (current) use of anticoagulants; Z88.8 Allergy status to other drugs, medicaments and biological substances; Z87.891 Personal history of nicotine dependence; Z98.890 Other specified postprocedural states
CPT/HCPCS: 88305; 45380; 43239; J2001; J2704

== ENCOUNTER → 2020-04-24 | Outpatient (CLI) | payer MEDICARE ==
--- NOTE | 2020-04-24 13:59 | US ---
EXAMINATION TYPE: US abdomen limited DATE OF EXAM: 04/24/2020 COMPARISON: CT 01/17/2019, ultrasound 12/22/2016 CLINICAL HISTORY: I72.8 ANEURYSM OF OTHER SPECIFIED ARTERIES. Splenic artery aneurysm. Spleen: 11cm Unable to visualize splenic artery aneurysm on this exam due to overlying bowel gas. IMPRESSION: Limited ultrasound demonstrates no diagnostic evidence of splenic artery aneurysm. Howev er, there is a definite splenic artery aneurysm noted by previous CT scan which demonstrates peripher al atherosclerotic changes measuring 1.6 cm.
--- NOTE | 2020-04-24 14:21 | US ---
EXAMINATION TYPE: US carotid duplex BILAT DATE OF EXAM: 04/24/2020 COMPARISON: NONE CLINICAL HISTORY: R09.89 SYMPTOMS INVOLVING CIRCULATORY AND RESPITORY SYSTEM. EXAM MEASUREMENTS: RIGHT: Peak Systolic Velocity (PSV) cm/sec ----- Right CCA: 85.2 ----- Right ICA: 105.5 ----- Right ECA: 91.4 ICA/CCA ratio: 1.2 RIGHT: End Diastole cm/sec ----- Right CCA: 22.7 ----- Right ICA: 25.6 ----- Right ECA: 10.0 LEFT: Peak Systolic Velocity (PSV) cm/sec ----- Left CCA: 85.4 ----- Left ICA: 95.1 ----- Left ECA: 129.9 ICA/CCA ratio: 1.1 LEFT: End Diastole cm/sec ----- Left CCA: 19.2 ----- Left ICA: 27.3 ----- Left ECA: 19.5 VERTEBRALS (direction of flow): Right Vertebral: Antegrade Left Vertebral: Antegrade Rhythm: Normal Mild amount of plaque visualized bilateral bulbs. Slightly elevated velocity left ECA IMPRESSION: 1. Mild amount of plaque bilaterally with no significant hemodynamic stenosis Criteria for Assigning % of Stenosis / Diameter reduction (Estimation based on the indirect measurements of the internal carotid artery velocities (ICA PSV). 1. Normal (no stenosis)=ICA PSV < 125 cm/s: ratio < 2.0: ICA EDV<40 cm/s. 2. Less than 50% stenosis=ICA PSV < 125 cm/s: ratio < 2.0: ICA EDV<40 cm/s. 3. 50 to 69% stenosis=ICA PSV of 125 to 230 cm/s: ration 2.0 ? 4.0: ICA EDV 40-100 cm/s. 4. Greater than 70% stenosis to near occlusion= ICA PSV > 230 cm/s: ratio > 4.0: ICA EDV > 100 cm/s. 5. Near occlusion= ICA PSV velocities may be low or undetectable: variable ratio and ICA EDV. 6. Total occlusion=unable to detect flow.
== END | disposition home or self-care (01) ==
LOC: RADUSWWP 13:09
PROVIDERS: ATTEND Family Medicine
DX: I65.23 Occlusion and stenosis of bilateral carotid arteries (principal); I72.8 Aneurysm of other specified arteries
CPT/HCPCS: 76705; 93880

== ENCOUNTER 2020-04-27 12:15 | Observation (INO) | payer MEDICARE ==
--- NOTE | 2020-04-27 12:51 | ED ---
General Adult HPI - General Chief complaint: Neuro Symptoms/Deficit Stated complaint: left side weakness/pain Time Seen by Provider: 04/27/20 12:31 Source: patient, RN notes reviewed, old records reviewed Mode of arrival: wheelchair Limitations: no limitations - History of Present Illness Initial comments: 64 -year-old female presenting for evaluation of left-sided pain as well as numbness and tingling. Patient was sent in by her neurologist for CT a ngiography as an outpatient. Because of the preauthorization issues with insurance it was recommended she present to the emergency department for urgent imaging. Patient states that for 3 weeks she's had left-sided upper and lower extremity pain. She has previous history of clipped aneurysm in 1991. She has history of atrial fibrillation and is currently anticoagulated. She denies chest pain. Denies fever. Denies headache. She has additionally has history of fibromyalgia and does feel with chronic pain. - Related Data Home Medications Medication Instructions Recorded Confirmed Omeprazole [PriLOSEC] 20 mg PO BID 02/24/14 04/27/20 Cholecalciferol [Vitamin D3 (25 5,000 unit PO BID 04/05/16 04/27/20 Mcg = 1000 Iu)] Losartan Potassium 100 mg PO DAILY 02/17/17 04/27/20 Apixaban [Eliquis] 2.5 mg PO BID 06/20/17 04/27/20 HYDROcodone/APAP 5-325MG [[place] 1 tab PO TID 02/03/18 04/27/20 5-325] Alendronate Sodium [Fosamax] 70 mg PO FR 10/31/19 04/27/20 Multivit-Min/FA/Lycopen/Lutein 1 tab PO DAILY 10/31/19 04/27/20 [Centrum Silver Tablet] Ondansetron [Zofran] 4 mg PO Q8HR PRN 10/31/19 04/27/20 Verapamil HCl [Verapamil ER] 360 mg PO DAILY 10/31/19 04/27/20 buPROPion HCL [Wellbutrin XL] 300 mg PO DAILY 10/31/19 04/27/20 Atorvastatin [Lipitor] 40 mg PO DAILY 04/27/20 04/27/20 Baclofen [Lioresal] 10 mg PO BID@0800,1200 04/27/20 04/27/20 Baclofen [Lioresal] 20 mg PO HS 04/27/20 04/27/20 L.acidoph,Paracasei, B.lactis 1 cap PO BID 04/27/20 04/27/20 [Probiotic] Lacosamide [Vimpat] 150 mg PO BID 04/27/20 04/27/20 hydroCHLOROthiazide [Hydrodiuril] 12.5 mg PO DAILY 04/27/20 04/27/20 Previous Rx's Medication Instructions Recorded Aspirin 81 mg PO DAILY 06/25/17 Allergies Allergy/AdvReac Type Severity Reaction Status Date / Time pregabalin [From Lyrica] Allergy Swelling/Blurry Verified 04/27/20 13:28 Vision cefpodoxime proxetil AdvReac Nausea & Verified 04/27/20 13:28 [From Vantin] Vomiting metoclopramide HCl AdvReac Nausea & Verified 04/27/20 13:28 [From Reglan] Vomiting Review of Systems ROS Statement: Those systems with pertinent positive or pertinent negative responses have been documented in the HPI. ROS Other: All systems not noted in ROS Statement are negative. Past Medical History Past Medical History: CVA/TIA, Fibromyalgia, GERD/Reflux, Hyperlipidemia, Hypertension, Osteoarthritis (OA), Pneumonia, Renal Disease, Sleep Apnea/CPAP/BIPAP, Thyroid Disorder Additional Past Medical History / Comment(s): DDD, osteoporosis, spleenic aneurysm , Hx UTI's, HIATAL HERNIA.per pt no MRI's r/t metal clips rt temperol lobe-stated has had chronic headache ever since the sx November of 1991); Chronic Pain Disorder,ddd ,"6 tia's". cva 3-2013 lt side a bit weaker than rt., sinusitis, DOES NOT USE CPAP, FATTY LIVER, states BBB, frequent diarrhea.,nausea, stage 3 kidney disease., urine leakage- wears depends, palpitaions. History of Any Multi-Drug Resistant Organisms: None Reported Past Surgical History: Section, Cholecystectomy, Hysterectomy, Pacemaker Additional Past Surgical History / Comment(s): hemmorhoidectomy, PACEMAKER, PELVIC FLOOR SX FOR URINARY INCONT MESH, BRAIN SX RT TEMPERAL ANUERYSM-HAS METAL CLIPS IN PLACE, ( HAS HEADACHES EVER SINCE), AVEL BREAST BIOPIES STATES HAS METALMARKERS IN PLACE.colonoscopy-HX OF POLYPS, EPIDURAL STERIOD INJECTIONS Past Anesthesia/Blood Transfusion Reactions: Previous Problems w/ Anesthesia Additional Past Anesthesia/Blood Transfusion Reaction / Comment(s): usually wakes up very quickly from anesthesia- woke up during surgery Type of Cardiac Device: Permanent Pacemaker Device Placement Date:: 1stdibs, Past Psychological History: Anxiety, Bipolar, Depression Smoking Status: Former smoker Past Alcohol Use History: None Reported Past Drug Use History: None Reported - Past Family History Mother Family Medical History: Cancer, COPD, Dementia, Myocardial Infarction ([place]) Additional Family Medical History / Comment(s): cervical cancer, pancreatitis Father Family Medical History: Cancer, Congestive Heart Failure (CHF), COPD Additional Family Medical History / Comment(s): lung cancer,emphysema General Exam Limitations: no limitations General appearance: alert, in no apparent distress Head exam: Present: atraumatic, normocephalic Eye exam: Present: normal appearance, PERRL ENT exam: Present: normal exam Neck exam: Present: normal inspection. Absent: tenderness, meningismus Respiratory exam: Present: normal lung sounds bilaterally. Absent: respiratory distress, wheezes Cardiovascular Exam: Present: regular rate, normal rhythm GI/Abdominal exam: Present: soft. Absent: distended, tenderness Extremities exam: Present: normal inspection, normal capillary refill Back exam: Present: normal inspection, full ROM Neurological exam: Present: alert, oriented X3, CN II-XII intact, motor sensory deficit (NIH of 1), other Psychiatric exam: Present: normal affect, normal mood Skin exam: Present: warm, dry, intact. Absent: cyanosis, diaphoretic Course Vital Signs 04/27/20 04/27/20 12:19 14:13 Temperature 99.2 F 98.1 F Pulse Rate 75 69 Respiratory 20 18 Rate Blood Pressure 141/56 152/63 O2 Sat by Pulse 97 97 Oximetry EKG Findings - EKG Comments: EKG Findings:: Sinus rhythm atrial sensed ventricular paced rate of 90, CT interval 182, QRS duration 176, QTC [address] segment elevation. Medical Decision Making - Medical Decision Making 64-year-old female with progressive left-sided numbness, weakness, and pain. History of cerebral aneurysm. Patient is currently anticoagulated with history of atrial fibrillation. CT performed which is negative for intracranial hemorrhage, shows previous encephalomalacia and postsurgical changes. CT angiography performed which is negative for acute occlusion or aneurysmal change. Patient has normal CBC, normal CMP. Given the progressive nature of her symptoms she will be admitted with neurology on consult. Case is discussed with Dr. Lyman who will accept admission. - Lab Data Result diagrams: 04/27/20 12:45 04/27/20 12:45 Lab Results 04/27/20 04/27/20 04/27/20 Range/Units 12:45 12:45 12:45 WBC 6.9 (3.8-10.6) k/uL RBC 4.53 (3.80-5.40) m/uL Hgb 11.4 (11.4-16.0) gm/dL Hct 36.2 (34.0-46.0) % MCV 79.8 L (80.0-100.0) fL MCH 25.2 (25.0-35.0) pg MCHC 31.6 (31.0-37.0) g/dL RDW 14.4 (11.5-15.5) % Plt Count 155 (150-450) k/uL Neutrophils % 54 % Lymphocytes % 33 % Monocytes % 6 % Eosinophils % 3 % Basophils % 1 % Neutrophils # 3.7 (1.3-7.7) k/uL Lymphocytes # 2.3 (1.0-4.8) k/uL Monocytes # 0.4 (0-1.0) k/uL Eosinophils # 0.2 (0-0.7) k/uL Basophils # 0.0 (0-0.2) k/uL PT 9.9 (9.0-12.0) sec INR 0.9 (<1.2) APTT 24.2 (22.0-30.0) sec Sodium 138 (137-145) mmol/L Potassium 4.1 (3.5-5.1) mmol/L Chloride 106 (98-107) mmol/L Carbon Dioxide 26 (22-30) mmol/L Anion Gap 6 mmol/L BUN 14 (7-17) mg/dL Creatinine 0.70 (0.52-1.04) mg/dL Est GFR (CKD-EPI)AfAm >90 (>60 ml/min/1.73 sqM) Est GFR (CKD-EPI)NonAf >90 (>60 ml/min/1.73 sqM) Glucose 114 H (74-99) mg/dL Calcium 8.7 (8.4-10.2) mg/dL Total Bilirubin 0.5 (0.2-1.3) mg/dL AST 26 (14-36) U/L ALT 20 (4-34) U/L Alkaline Phosphatase 101 (38-126) U/L Troponin I (0.000-0.034) ng/mL Total Protein 6.2 L (6.3-8.2) g/dL Albumin 3.9 (3.5-5.0) g/dL 04/27/20 Range/Units 12:45 WBC (3.8-10.6) k/uL RBC (3.80-5.40) m/uL Hgb (11.4-16.0) gm/dL Hct (34.0-46.0) % MCV (80.0-100.0) fL MCH (25.0-35.0) pg MCHC (31.0-37.0) g/dL RDW (11.5-15.5) % Plt Count (150-450) k/uL Neutrophils % % Lymphocytes % % Monocytes % % Eosinophils % % Basophils % % Neutrophils # (1.3-7.7) k/uL Lymphocytes # (1.0-4.8) k/uL Monocytes # (0-1.0) k/uL Eosinophils # (0-0.7) k/uL Basophils # (0-0.2) k/uL PT (9.0-12.0) sec INR (<1.2) APTT (22.0-30.0) sec Sodium (137-145) mmol/L Potassium (3.5-5.1) mmol/L Chloride (98-107) mmol/L Carbon Dioxide (22-30) mmol/L Anion Gap mmol/L BUN (7-17) mg/dL Creatinine (0.52-1.04) mg/dL Est GFR (CKD-EPI)AfAm (>60 ml/min/1.73 sqM) Est GFR (CKD-EPI)NonAf (>60 ml/min/1.73 sqM) Glucose (74-99) mg/dL Calcium (8.4-10.2) mg/dL Total Bilirubin (0.2-1.3) mg/dL AST (14-36) U/L ALT (4-34) U/L Alkaline Phosphatase (38-126) U/L Troponin I <0.012 (0.000-0.034) ng/mL Total Protein (6.3-8.2) g/dL Albumin (3.5-5.0) g/dL Disposition Clinical Impression: Cerebrovascular accident (CVA) Disposition: ADMITTED IP TO THIS HOSP Condition: Stable Is patient prescribed a controlled substance at d/c from ED?: No Referrals: Sukhdev Patrick MD [Primary Care Provider] - 1-2 days Decision to Admit Reason: Admit from EC Decision Date: 04/27/20 Decision Time: 15:19
[2020-04-27 12:56] LABS: Basophils % (A) 1 %; Eosinophils # (A) 0.2 k/uL (0-0.7); Eosinophils % (A) 3 %; HCT 36.2 % (34.0-46.0); HGB 11.4 gm/dL (11.4-16.0); Lymphocytes # (A) 2.3 k/uL (1.0-4.8); Lymphocytes % (A) 33 %; MCH 25.2 pg (25.0-35.0); MCHC 31.6 g/dL (31.0-37.0); MCV 79.8 fL (80.0-100.0); Mean Platelet Volume 7.9; Monocytes # (A) 0.4 k/uL (0-1.0); Monocytes % (A) 6 %; Neutrophils # (A) 3.7 k/uL (1.3-7.7); Neutrophils % (A) 54 %; Platelet Count 155 k/uL (150-450); RBC 4.53 m/uL (3.80-5.40); RDW 14.4 % (11.5-15.5); WBC 6.9 k/uL (3.8-10.6)
[2020-04-27 13:09] LABS: ALT 20 U/L (4-34); AST 26 U/L (14-36); African American GFR (CKD) >90 (>60 ml/min/1.73 sqM); Albumin 3.9 g/dL (3.5-5.0); Alkaline Phosphatase 101 U/L (38-126); Anion Gap 6 mmol/L; Blood Urea Nitrogen 14 mg/dL (7-17); Calcium 8.7 mg/dL (8.4-10.2); Carbon Dioxide 26 mmol/L (22-30); Chloride 106 mmol/L (98-107); Glucose 114 mg/dL (74-99); Non-African American GFR(CKD) >90 (>60 ml/min/1.73 sqM); Potassium 4.1 mmol/L (3.5-5.1); Sodium 138 mmol/L (137-145); Total Bilirubin 0.5 mg/dL (0.2-1.3); Total Protein 6.2 g/dL (6.3-8.2)
[2020-04-27 13:22] LABS: INR 0.9 (<1.2); Partial Thromboplastin Time 24.2 sec (22.0-30.0); Prothrombin Time 9.9 sec (9.0-12.0)
--- NOTE | 2020-04-27 13:39 | CT ---
EXAMINATION TYPE: CT brain wo con DATE OF EXAM: 04/27/2020 HISTORY: Left sided pain, weakness, numbness an tingling. History of right sided temporal aneurysm. H istory of aneurysm repair. CT DLP: 1126.8 mGycm. Automated Exposure Control for Dose Reduction was Utilized. TECHNIQUE: CT scan of the head is performed without contrast. COMPARISON: CT brain 02/20/2018. CTA head and neck 02/20/2018. FINDINGS: Old encephalomalacia of right frontal and right temporal lobe. Aneurysm clips with beam hardening art ifact in the right middle cranial fossa redemonstrated. No extra-axial fluid collection. There is no acute intracranial hemorrhage, midline shift, or mass effect identified. The ventricles, sulci, and c isterns are normal in size and configuration. Right craniotomy postsurgical changes. The globes are grossly symmetric. Visualized sinuses and masto id air cells are clear. IMPRESSION: 1. No acute intracranial hemorrhage, midline shift, or mass effect. 2. Old encephalomalacia of the right frontal and right temporal lobes. 3. Right middle cranial fossa aneurysm repair postsurgical changes.
--- NOTE | 2020-04-27 13:55 | CT ---
EXAMINATION TYPE: CT angio head neck DATE OF EXAM: 04/27/2020 HISTORY: Left sided pain, weakness, numbness an tingling. History of right sided temporal aneurysm. H istory of aneurysm repair. COMPARISON: CTA head and neck 02/20/2018 CT DLP: 857.6 mGycm. Automated Exposure Control for Dose Reduction was Utilized. TECHNIQUE: CTA scan of the head and neck is performed with IV Contrast, patient injected with 65 mL of Isovue 370, axial images are obtained, coronal and sagittal reformatted images are reviewed. Three -D reconstructed images are created on an independent workstation and reviewed. FINDINGS: Carotid/Vascular Structures: The bilateral common carotid, internal carotid, and external carotid art eries are patent without evidence of significant narrowing or aneurysm. Cervical of [place]: Vertebral basilar system appears normal. Right vertebral artery is dominant. Post erior cerebral vasculature is unremarkable. Internal carotid arteries bifurcate normally into A1 and M1 segments. There are aneurysm clips in the right middle cranial fossa with beam hardening artifact, limiting evaluation at that level. A2 segments are normal. The anterior communicating artery is quesada nt. Left Posterior communicating artery is patent. Right posterior communicating artery is patent. No aneurysm seen. IMPRESSION: 1. Right middle cranial fossa aneurysm surgical clips with beam hardening artifact limiting evaluatio n at this level. 2. No evidence of aneurysm or significant stenosis of the head or neck.
[2020-04-27] MEDS ORDERED: ONDANSETRON 4 MG TAB PO PRN (18:25)
[2020-04-27] MEDS ORDERED: ACETAMINOPHEN TAB 325 MG TAB PO PRN (18:27)
[2020-04-27] MEDS ORDERED: NALOXONE 0.4 MG/ML 1 ML VIAL IV PRN (18:27)
[2020-04-27] MEDS ORDERED: MORPHINE SULFATE 2 MG/ML SYRINGE IV PRN (18:27)
--- NOTE | 2020-04-27 19:06 | P.HPIM ---
History of Present Illness H&P Date: 04/27/20 Chief Complaint: Numbness 64-year-old female with PMH of CVA in 2014 with left-sided residual weakness, aneurysm diagnosed in 1991 requiring right temporal lobe clip, skipped beat post pacemaker, splenic aneurysm presents the ED for constellation of symptoms. Patient reports 3 week history of left-sided pain including her upper and lower extremity. She describes this pain as myalgias, 10 out of 10 in severity. She also reports numbness that extends into her left hand and involves all of her fingers. She also reports numbness in her left toes. She had an outpatient appointment with Dr. Russ who ordered CT brain and CTA head and neck. She was unable to obtain these tests due to insurance authorization and she was advised to go to the ED. Patient denies any headache, lower extremity edema, nausea or vomiting, fever or chills, cough, chest pain, shortness of breath, palpitations, changes in urination or bowel habits. No changes in appetite or weight. She denies any dizziness. In the ED, her vital signs are stable except for T-max of 99.2 and mildly elevated blood pressure 152/63. MCV of 79.8. Coagulation panel was negative. CMP showed glucose of 114. Troponin was less than 0.012, EKG showing sinus rhythm with premature supraventricular complexes and fusion complexes. CT brain showed old encephalomalacia in the right frontal and right temporal lobe, right middle cranial fossa aneurysm repair postsurgical changes. CTA head and neck showed right middle cranial fossa aneurysm surgical clips, no evidence of aneurysm or significant stenosis. Patient is admitted for left-sided neuropathic pain and weakness, rule out CVA, neurology consultation. Review of Systems Pertinent positives and negatives as discussed in HPI, a complete review of systems was performed and all other systems are negative. Past Medical History Past Medical History: CVA/TIA, Fibromyalgia, GERD/Reflux, Hyperlipidemia, Hypertension, Osteoarthritis (OA), Pneumonia, Renal Disease, Sleep Apnea/CPAP/BIPAP, Thyroid Disorder Additional Past Medical History / Comment(s): DDD, osteoporosis, spleenic aneurysm , Hx UTI's, HIATAL HERNIA.per pt no MRI's r/t metal clips rt temperol lobe-stated has had chronic headache ever since the sx November of 1991); Chronic Pain Disorder,ddd ,"6 tia's". cva 3-2013 lt side a bit weaker than rt., sinusitis, DOES NOT USE CPAP, FATTY LIVER, states BBB, frequent diarrhea.,nausea, stage 3 kidney disease., urine leakage- wears depends, palpitaions. History of Any Multi-Drug Resistant Organisms: None Reported Past Surgical History: Section, Cholecystectomy, Hysterectomy, Pacemaker Additional Past Surgical History / Comment(s): hemmorhoidectomy, PACEMAKER, PELVIC FLOOR SX FOR URINARY INCONT MESH, BRAIN SX RT TEMPERAL ANUERYSM-HAS METAL CLIPS IN PLACE, ( HAS HEADACHES EVER SINCE), AVEL BREAST BIOPIES STATES HAS METALMARKERS IN PLACE.colonoscopy-HX OF POLYPS, EPIDURAL STERIOD INJECTIONS Past Anesthesia/Blood Transfusion Reactions: Previous Problems w/ Anesthesia Additional Past Anesthesia/Blood Transfusion Reaction / Comment(s): usually wakes up very quickly from anesthesia- woke up during surgery Type of Cardiac Device: Permanent Pacemaker Device Placement Date:: Clutch, Past Psychological History: Anxiety, Bipolar, Depression Smoking Status: Former smoker Past Alcohol Use History: None Reported Past Drug Use History: None Reported - Past Family History Mother Family Medical History: Cancer, COPD, Dementia, Myocardial Infarction ([place]) Additional Family Medical History / Comment(s): cervical cancer, pancreatitis Father Family Medical History: Cancer, Congestive Heart Failure (CHF), COPD Additional Family Medical History / Comment(s): lung cancer,emphysema Medications and Allergies Home Medications Medication Instructions Recorded Confirmed Type Omeprazole [PriLOSEC] 20 mg PO BID 02/24/14 04/27/20 History Cholecalciferol [Vitamin D3 (25 5,000 unit PO BID 04/05/16 04/27/20 History Mcg = 1000 Iu)] Losartan Potassium 100 mg PO DAILY 02/17/17 04/27/20 History Apixaban [Eliquis] 2.5 mg PO BID 06/20/17 04/27/20 History Aspirin 81 mg PO DAILY 06/25/17 04/27/20 Rx HYDROcodone/APAP 5-325MG [[place] 1 tab PO TID 02/03/18 04/27/20 History 5-325] Alendronate Sodium [Fosamax] 70 mg PO FR 10/31/19 04/27/20 History Multivit-Min/FA/Lycopen/Lutein 1 tab PO DAILY 10/31/19 04/27/20 History [Centrum Silver Tablet] Ondansetron [Zofran] 4 mg PO Q8HR PRN 10/31/19 04/27/20 History Verapamil HCl [Verapamil ER] 360 mg PO DAILY 10/31/19 04/27/20 History buPROPion HCL [Wellbutrin XL] 300 mg PO DAILY 10/31/19 04/27/20 History Atorvastatin [Lipitor] 40 mg PO DAILY 04/27/20 04/27/20 History Baclofen [Lioresal] 10 mg PO BID@0800,1200 04/27/20 04/27/20 History Baclofen [Lioresal] 20 mg PO HS 04/27/20 04/27/20 History L.acidoph,Paracasei, B.lactis 1 cap PO BID 04/27/20 04/27/20 History [Probiotic] Lacosamide [Vimpat] 150 mg PO BID 04/27/20 04/27/20 History hydroCHLOROthiazide [Hydrodiuril] 12.5 mg PO DAILY 04/27/20 04/27/20 History Allergies Allergy/AdvReac Type Severity Reaction Status Date / Time pregabalin [From Lyrica] Allergy Swelling/Blurry Verified 04/27/20 13:28 Vision cefpodoxime proxetil AdvReac Nausea & Verified 04/27/20 13:28 [From Vantin] Vomiting metoclopramide HCl AdvReac Nausea & Verified 04/27/20 13:28 [From Reglan] Vomiting Physical Exam Vitals: Vital Signs Temp Pulse Resp BP Pulse Ox 04/27/20 14:13 98.1 F 69 18 152/63 97 04/27/20 12:19 99.2 F 75 20 141/56 97 Intake and Output 04/27/20 04/27/20 04/27/20 06:59 14:59 22:59 Other: Weight 116.12 kg General: [non toxic], [no distress], [appears at stated age] Derm: [warm], [dry] Head: [atraumatic], [normocephalic], [symmetric] Eyes: [EOMI], [no lid lag], [anicteric sclera] Mouth: [no lip lesion], [mucus membranes moist] Cardiovascular: [S1S2 reg], [no murmur], [positive DP pulse bilateral], Lungs: [CTA bilateral], [no rhonchi, no rales] , [no accessory muscle use] Abdominal: [soft], [ nontender to palpation], [no guarding], [no appreciable organomegaly] Ext: [no gross muscle atrophy], [no edema], [no contractures] Neuro: [ CN II-XI grossly intact], [left lower extremity 3 out of 5 strength, 5 out of 5 throughout otherwise, sensation intact in all 4 extremities to touch] Psych: [Alert], [oriented], [appropriate affect] Results CBC & Chem 7: 04/27/20 12:45 08 12:45 Labs: Abnormal Lab Results - Last 24 Hours (Table) 04/27/20 04/27/20 Range/Units 12:45 12:45 MCV 79.8 L (80.0-100.0) fL Glucose 114 H (74-99) mg/dL Total Protein 6.2 L (6.3-8.2) g/dL Assessment and Plan Assessment: Left-sided neuropathic pain with numbness History of CVA Microcytosis Complete heart block post pacemaker Paroxysmal A. fib Fibromyalgia Hypertension Plans: Restart aspirin and Lipitor. Advance neurochecks. Telemetry monitoring. Fall precautions. Follow PT and OT recommendations. Plans: Management as above. Plans: Follow iron studies. Plans: Telemetry monitoring. Plans: Continue verapamil. Eliquis for anticoagulation. Plans: Pain control with morphine as needed. Continue Vimpat. Tylenol as needed. Plans: Continue hydrochlorothiazide. Continue losartan. Continue verapamil. DVT prophylaxis: [Eliquis] Discussed with: [Patient and ] Anticipated discharge: [2-3 days] Anticipated discharge place: [Home] A total of [45] minutes was spent on the care of this complex patient more than 50% of the time was spent in counseling and care coordination. Patient names her Curtis decision maker if she can make decisions for herself. Patient would like to be full code.
[2020-04-27] MEDS: LACOSAMIDE 150 MG TABLET PO SCH (20:17)
[2020-04-27] MEDS: APIXABAN 2.5 MG TABLET PO SCH (20:18)
[2020-04-27] MEDS: HYDROcodone/APAP 5-325MG 1 EACH TAB PO SCH (20:18)
[2020-04-27] MEDS: PANTOPRAZOLE 40 MG TABLET PO SCH (20:41)
[2020-04-27] MEDS ORDERED: BACLOFEN 10 MG TAB PO SCH (21:00)
[2020-04-28] MEDS: SODIUM CHLORIDE 0.9% 1,000 ML IV SCH ×3 (07:22→14:21)
[2020-04-28 07:28] LABS: Basophils % (A) 1 %; Eosinophils # (A) 0.2 k/uL (0-0.7); Eosinophils % (A) 4 %; HCT 36.2 % (34.0-46.0); HGB 11.4 gm/dL (11.4-16.0); Hypochromasia Slight; Lymphocytes # (A) 1.8 k/uL (1.0-4.8); Lymphocytes % (A) 30 %; MCH 25.4 pg (25.0-35.0); MCHC 31.5 g/dL (31.0-37.0); MCV 80.6 fL (80.0-100.0); Monocytes # (A) 0.4 k/uL (0-1.0); Monocytes % (A) 6 %; Neutrophils # (A) 3.3 k/uL (1.3-7.7); Neutrophils % (A) 56 %; Platelet Count 142 k/uL (150-450); RDW 14.4 % (11.5-15.5); WBC 5.9 k/uL (3.8-10.6)
[2020-04-28 07:43] LABS: ALT 19 U/L (4-34); AST 25 U/L (14-36); African American GFR (CKD) >90 (>60 ml/min/1.73 sqM); Albumin 3.7 g/dL (3.5-5.0); Alkaline Phosphatase 89 U/L (38-126); Anion Gap 6 mmol/L; Blood Urea Nitrogen 12 mg/dL (7-17); Calcium 8.9 mg/dL (8.4-10.2); Carbon Dioxide 28 mmol/L (22-30); Chloride 106 mmol/L (98-107); Cholesterol 112 mg/dL (<200); Glucose 114 mg/dL (74-99); HDL Cholesterol 55 mg/dL (40-60); LDL Cholesterol,Calculated 39 mg/dL (0-99); Magnesium 1.9 mg/dL (1.6-2.3); Non-African American GFR(CKD) >90 (>60 ml/min/1.73 sqM); Potassium 3.8 mmol/L (3.5-5.1); Sodium 140 mmol/L (137-145); Total Bilirubin 0.6 mg/dL (0.2-1.3); Total Protein 5.8 g/dL (6.3-8.2); Triglycerides 88 mg/dL (<150)
[2020-04-28 07:48] VITALS: RESP 16; TEMP 97.2
[2020-04-28] MEDS: PANTOPRAZOLE 40 MG TABLET PO SCH (07:50)
[2020-04-28] MEDS: BACLOFEN 10 MG TAB PO SCH ×2 (07:50→14:21)
[2020-04-28] MEDS: APIXABAN 2.5 MG TABLET PO SCH (07:50)
[2020-04-28] MEDS: HYDROcodone/APAP 5-325MG 1 EACH TAB PO SCH (07:51)
[2020-04-28] MEDS: LACOSAMIDE 150 MG TABLET PO SCH (07:52)
[2020-04-28] MEDS ORDERED: ASPIRIN 81 MG PO SCH (09:00)
[2020-04-28] MEDS ORDERED: buPROPion XL 300 MG TAB.ER.24H PO SCH (09:00)
[2020-04-28] MEDS ORDERED: hydroCHLOROthiazide 12.5 MG CAP PO SCH (09:00)
[2020-04-28] MEDS ORDERED: VERAPAMIL SR 180 MG TABLET.ER PO SCH (09:00)
[2020-04-28] MEDS ORDERED: ATORVASTATIN 40 MG TAB PO SCH (09:00)
[2020-04-28] MEDS ORDERED: LOSARTAN 50 MG TAB PO SCH (09:00)
[2020-04-28 11:00] VITALS: BP 140/76; PULSE 68
--- NOTE | 2020-04-28 11:16 | P.CNNES ---
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 Patient was send by her neurologist (Dr. Russ) who ordered CT angiogram of the head and neck but patient unable to get these done because insurance authorization issues. Patient denies any nausea any vomiting any fever or chills cough. Today at 5am she notices she had numbness, tingling and pain involving entire left face. She denies any slurring of speech, difficulty getting her worlds out, dysphaphagia. She denies of visual field defect. Her neurologist perscribe Verapamil acid for past 3 weeks, intially 100mg bid then increased to 150mg bid but was making her sleepy so decreased it to 75mg qam and 150mg qpm. She denies of any urinary or bowel problems. She had 2D echo about a week ago. On presentation the patient's initial vitals were blood pressure 141/56, heart rate of 75, respiratory rate of 97 at room air, and temperature of 99.2 Fahrenheit oral. Workup in the hospital so far consisted of: CT of the head which the was reported as no acute intracranial hemorrhage, midline shift or mass effect. Old encephalomalacia of the right frontal and right temporal lobe. Right middle cranial fossa aneurysm repair postsurgical changes. CTA of the head and neck which was reported as were right middle cranial fossa aneurysm surgical clip with beam hardening artifact limiting evaluation at this level. No evidence of aneurysm or significant stenosis of the head and neck. EKG was reported as sinus rhythm with premature supraventricular complex and fusion complexes. Left axis deviation. Nonspecific intraventricular block. Lateral infarct age undetermined. Here infarct age undetermined. The ventricular rate of 90 Of note patient's home medication includes Eliquis 2.5 mg twice a day, aspirin 81 mg daily, Lipitor 40 mg daily baclofen 10 mg three times a day. Of note she was on Lyrica in past and she could not tolerate medication, giving her blurry vision and extremity edema. And in remote past was on Gabapentin and not sure of dose but did not help. She said she also has history of sinusitis. Review of Systems Review of system: The 12 point system was reviewed and apparent positive and negative per HPI. Past Medical History Past Medical History: CVA/TIA, Fibromyalgia, GERD/Reflux, Hyperlipidemia, Hypertension, Osteoarthritis (OA), Pneumonia, Renal Disease, Sleep Apnea/CPAP/BIPAP, Thyroid Disorder Additional Past Medical History / Comment(s): DDD, osteoporosis, spleenic aneurysm , Hx UTI's, HIATAL HERNIA.per pt no MRI's r/t metal clips rt temperol lobe-stated has had chronic headache ever since the sx November of 1991); Chronic Pain Disorder,ddd ,"6 tia's". cva 3-2013 lt side a bit weaker than rt., sinusitis, DOES NOT USE CPAP, FATTY LIVER, states BBB, frequent diarrhea.,nausea, stage 3 kidney disease., urine leakage- wears depends, palpitaions. History of Any Multi-Drug Resistant Organisms: None Reported Past Surgical History: Section, Cholecystectomy, Hysterectomy, Pacemaker Additional Past Surgical History / Comment(s): hemmorhoidectomy, PACEMAKER, PELVIC FLOOR SX FOR URINARY INCONT MESH, BRAIN SX RT TEMPERAL ANUERYSM-HAS METAL CLIPS IN PLACE, ( HAS HEADACHES EVER SINCE), AVEL BREAST BIOPIES STATES HAS METALMARKERS IN PLACE.colonoscopy-HX OF POLYPS, EPIDURAL STERIOD INJECTIONS Past Anesthesia/Blood Transfusion Reactions: Previous Problems w/ Anesthesia Additional Past Anesthesia/Blood Transfusion Reaction / Comment(s): usually wakes up very quickly from anesthesia- woke up during surgery Type of Cardiac Device: Permanent Pacemaker Device Placement Date:: [email or web address], Past Psychological History: Anxiety, Bipolar, Depression Smoking Status: Former smoker Past Alcohol Use History: None Reported Past Drug Use History: None Reported - Past Family History Mother Family Medical History: Cancer, COPD, Dementia, Myocardial Infarction (PR) Additional Family Medical History / Comment(s): cervical cancer, pancreatitis Father Family Medical History: Cancer, Congestive Heart Failure (CHF), COPD Additional Family Medical History / Comment(s): lung cancer,emphysema Medications and Allergies Home Medications Medication Instructions Recorded Confirmed Type Omeprazole [PriLOSEC] 20 mg PO BID 02/24/14 04/27/20 History Cholecalciferol [Vitamin D3 (25 5,000 unit PO BID 04/05/16 04/27/20 History Mcg = 1000 Iu)] Losartan Potassium 100 mg PO DAILY 02/17/17 04/27/20 History Apixaban [Eliquis] 2.5 mg PO BID 06/20/17 04/27/20 History Aspirin 81 mg PO DAILY 06/25/17 04/27/20 Rx HYDROcodone/APAP 5-325MG [[place] 1 tab PO TID 02/03/18 04/27/20 History 5-325] Alendronate Sodium [Fosamax] 70 mg PO FR 10/31/19 04/27/20 History Multivit-Min/FA/Lycopen/Lutein 1 tab PO DAILY 10/31/19 04/27/20 History [Centrum Silver Tablet] Ondansetron [Zofran] 4 mg PO Q8HR PRN 10/31/19 04/27/20 History Verapamil HCl [Verapamil ER] 360 mg PO DAILY 10/31/19 04/27/20 History buPROPion HCL [Wellbutrin XL] 300 mg PO DAILY 10/31/19 04/27/20 History Atorvastatin [Lipitor] 40 mg PO DAILY 04/27/20 04/27/20 History Baclofen [Lioresal] 10 mg PO BID@0800,1200 04/27/20 04/27/20 History Baclofen [Lioresal] 20 mg PO HS 04/27/20 04/27/20 History L.acidoph,Paracasei, B.lactis 1 cap PO BID 04/27/20 04/27/20 History [Probiotic] Lacosamide [Vimpat] 150 mg PO BID 04/27/20 04/27/20 History hydroCHLOROthiazide [Hydrodiuril] 12.5 mg PO DAILY 04/27/20 04/27/20 History Gabapentin [Neurontin] 100 mg PO HS #42 cap 04/28/20 Rx Allergies Allergy/AdvReac Type Severity Reaction Status Date / Time pregabalin [From Lyrica] Allergy Swelling/Blurry Verified 04/27/20 13:28 Vision cefpodoxime proxetil AdvReac Nausea & Verified 04/27/20 13:28 [From Vantin] Vomiting metoclopramide HCl AdvReac Nausea & Verified 04/27/20 13:28 [From Reglan] Vomiting Physical Examination - Vital Signs Vital Signs: Vital Signs Temp Pulse Resp BP Pulse Ox 04/27/20 14:13 98.1 F 69 18 152/63 97 04/27/20 12:19 99.2 F 75 20 141/56 97 Intake and Output 04/27/20 04/27/20 04/27/20 06:59 14:59 22:59 Other: Weight 116.12 kg GENERAL: The patient is lying in bed and is not in acute distress. CHEST: The heart rate is regular rate rhythm. No murmurs to auscultation. LUNG: Clear to auscultation bilaterally no wheezing noted throughout. Not labored breathing. ABDOMEN/GI: Bowel sounds present in all 4 quadrants. No tenderness to palpation throughout. NEUROLOGICAL: Higher mental function: The patient is awake, alert, oriented to self, place and time. Patient is following commands. No aphasia and no neglect. Cranial nerves: The pupils are round, equal and reactive to light and accommodation. Visual cisneros are full to confrontation throughout. Extraocular movement is intact no nystagmus is noted. Facial sensation is decrease to touch and pinprick on entire left side. The facial strength is normal throughout. Hearing is normal bilaterally to hand rub. Tongue is midline and moved [id number] without any difficulty. No dysarthria is noted. Shoulder shrug is normal bilaterally. Motor: Gait is defered. The strength is 4+ to 5- over left upper and lower extremity (old). Otherwise 5 over 5 on the right. Normal tone and bulk. Cerebellum: Normal finger to nose bilaterally. Sensation: Sensation is decreased to touch and pinprick on left side. Reflexes (right/left): Bilateral upper extremities are 2+ while lower are 1+ bilaterally. Plantars are mute bilaterally. Results PT of 9.9, INR 0.9, PTT of 24.2. 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 Patient was send by her neurologist (Dr. Russ) who ordered CT angiogram of the head and neck. Today at 5am she notices she had numbness, tingling and pain involving entire left face. She denies any slurring of speech, difficulty getting her worlds out, dysphaphagia. She denies of visual field defect. Her neurologist perscribe Verapamil aand currently on75mg qam and 150mg qpm but not helping. Left facial and upper and lower extremity numbness, tingling and pain: Possibly right Thalamic stroke. On initial presentation she was having only left upper and lower extremity which would localize to cervcial area. 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 Old encephalomalacia of the right frontal and right temporal lobe. Right middle cranial fossa aneurysm repair postsurgical changes. CTA of the head and neck which was reported as were right middle cranial fossa aneurysm surgical clip with beam hardening artifact limiting evaluation at this level. No evidence of aneurysm or significant stenosis of the head and neck. EKG was reported as sinus rhythm with premature supraventricular complex and fusion complexes. Left axis deviation. Nonspecific intraventricular block. Lateral infarct age undetermined. Patient cannot get MRI because has clip. Cannot rule out right thalamic stroke or cervical causing her symptoms. -Ordered Vitamin B12, folate, thiamine levels and lipid profile. -Will place patient on Gabapentin 100mg qhs daily for one week and if continues to have symptoms to go up to 200mg qhs for next week and if continues to go up to 300mg qhs. -Need to follow-up regarding her recent 2D echo result as outpatient that she had recenly. -Continue ASA 81, Eliquis 2.5mg bid and lipitor 40mg. Patient is agreement not to have her medication adjustment because of risk of bleed. Will defer that to her neurologist she follows-up with.. -She need to follow-up with her neurologist within one to two weeks. Thank you for the consult. Raul Suarez MD Neuro-Hospitalist. Time with Patient: Greater than 30
--- NOTE | 2020-04-28 12:51 | P.DS ---
Providers Date of admission: 04/27/20 15:17 Expected date of discharge: 04/28/20 Attending physician: Dipika Pace MD Consults: 04/27/20 15:17 Consult Physician Routine Consulting Provider: Raul Suarez Consult Reason/Comments: CVA Do you want consulting provider notified?: Yes Primary care physician: [facility] Course: 64-year-old female with PMH of CVA in 2013 with left-sided residual weakness, aneurysm diagnosed in 1991 requiring right temporal lobe clip, skipped beat post pacemaker, splenic aneurysm presents the ED for constellation of symptoms. Patient reports 3 week history of left-sided pain including her upper and lower extremity. She describes this pain as myalgias, 10 out of 10 in severity. She also reports numbness that extends into her left hand and involves all of her fingers. She also reports numbness in her left toes. She had an outpatient appointment with Dr. Russ who ordered CT brain and CTA head and neck. She was unable to obtain these tests due to insurance authorization and she was advised to go to the ED. Patient denies any headache, lower extremity edema, nausea or vomiting, fever or chills, cough, chest pain, shortness of breath, palpitations, changes in urination or bowel habits. No changes in appetite or weight. She denies any dizziness. In the ED, her vital signs are stable except for T-max of 99.2 and mildly elevated blood pressure 152/63. MCV of 79.8. Coagulation panel was negative. CMP showed glucose of 114. Troponin was less than 0.012, EKG showing sinus rhythm with premature supraventricular complexes and fusion complexes. CT brain showed old encephalomalacia in the right frontal and right temporal lobe, right middle cranial fossa aneurysm repair postsurgical changes. CTA head and neck showed right middle cranial fossa aneurysm surgical clips, no evidence of aneurysm or significant stenosis. Patient is admitted for left-sided neuropathic pain and weakness, rule out CVA, neurology consultation. Patient was seen and examined this morning. Patient reports some numbness in the right side of her face. She continues to report weakness on the left side along with neuropathic pain, numbness and tingling in her left fingers and toes and myalgias. She was evaluated by neurology they could not exclude thalamic stroke given her inability to obtain MRI. He recommended gabapentin along with outpatient follow-up with neurology within 1-2 weeks. She is to continue aspirin, Lipitor and Eliquis. General: [non toxic], [no distress], [appears at stated age] Derm: [warm], [dry] Head: [atraumatic], [normocephalic], [symmetric] Eyes: [EOMI], [no lid lag], [anicteric sclera] Mouth: [no lip lesion], [mucus membranes moist] Cardiovascular: [S1S2 reg], [no murmur], [positive DP pulse bilateral], Lungs: [CTA bilateral], [no rhonchi, no rales] , [no accessory muscle use] Abdominal: [soft], [ nontender to palpation], [no guarding], [no appreciable organomegaly] Ext: [no gross muscle atrophy], [no edema], [no contractures] Neuro: [ CN II-XI grossly intact except decreased sensation on the left side of her face], [left lower extremity 3 out of 5 strength, 5 out of 5 throughout otherwise, sensation intact in all 4 extremities to touch] Psych: [Alert], [oriented], [appropriate affect] Left-sided neuropathic pain with numbness History of CVA Microcytosis Complete heart block post pacemaker Paroxysmal A. fib Fibromyalgia Hypertension CT brain showed old encephalomalacia in the right frontal and right temporal lobe, right middle cranial fossa aneurysm repair postsurgical changes. CTA head and neck showed right middle cranial fossa aneurysm surgical clips, no evidence of aneurysm or significant stenosis. Plans: Restart aspirin and Lipitor. Advance neurochecks. Telemetry monitoring. Fall precautions. Follow PT and OT recommendations. Follow thiamine, B12 and folic acid in the outpatient setting. Plans: Management as above. Plans: Follow iron studies. Plans: Telemetry monitoring. Plans: Continue verapamil. Eliquis for anticoagulation. Plans: Pain control with morphine as needed. Continue Vimpat. Tylenol as needed. Plans: Continue hydrochlorothiazide. Continue losartan. Continue verapamil. DVT prophylaxis: [Eliquis] Discussed with: [Patient and ] Anticipated discharge: [2-3 days] Anticipated discharge place: [Home] A total of [45] minutes was spent on the care of this complex patient more than 50% of the time was spent in counseling and care coordination. Patient names her Curtis decision maker if she can make decisions for herself. Patient would like to be full code. [Patient with persistent numbness on the left side. CTA head and neck stable. Unable to exclude thalamic stroke. Unable to obtain MRI. Patient to continue aspirin, Lipitor and Eliquis. Neurology cleared patient for discharge. Follow- up PCP within 3 days. Advised to return back to ED or call 911 for changes in neurologic condition. Patient verbalized understanding of the plan. This complex discharge took about 35 minutes to complete.] Pertinent Studies: Brain CT, CTA head and neck Patient Condition at Discharge: Stable Plan - Discharge Summary Discharge Rx Participant: No New Discharge Prescriptions: New Gabapentin [Neurontin] 100 mg PO HS #42 cap Continue Omeprazole [PriLOSEC] 20 mg PO BID Cholecalciferol [Vitamin D3 (25 Mcg = 1000 Iu)] 5,000 unit PO BID Losartan Potassium 100 mg PO DAILY Apixaban [Eliquis] 2.5 mg PO BID Aspirin 81 mg PO DAILY HYDROcodone/APAP 5-325MG [Page 5-325] 1 tab PO TID Verapamil HCl [Verapamil ER] 360 mg PO DAILY buPROPion HCL [Wellbutrin XL] 300 mg PO DAILY Alendronate Sodium [Fosamax] 70 mg PO FR Multivit-Min/FA/Lycopen/Lutein [Centrum Silver Tablet] 1 tab PO DAILY Ondansetron [Zofran] 4 mg PO Q8HR PRN PRN Reason: Nausea Atorvastatin [Lipitor] 40 mg PO DAILY Baclofen [Lioresal] 10 mg PO BID@0800,1200 Baclofen [Lioresal] 20 mg PO HS hydroCHLOROthiazide [Hydrodiuril] 12.5 mg PO DAILY Lacosamide [Vimpat] 150 mg PO BID L.acidoph,Paracasei, B.lactis [Probiotic] 1 cap PO BID Discharge Medication List Omeprazole [PriLOSEC] 20 mg PO BID 02/24/14 [History] Cholecalciferol [Vitamin D3 (25 Mcg = 1000 Iu)] 5,000 unit PO BID 04/05/16 [History] Losartan Potassium 100 mg PO DAILY 02/17/17 [History] Apixaban [Eliquis] 2.5 mg PO BID 06/20/17 [History] Aspirin 81 mg PO DAILY 06/25/17 [Rx] HYDROcodone/APAP 5-325MG [Page 5-325] 1 tab PO TID 02/03/18 [History] Alendronate Sodium [Fosamax] 70 mg PO FR 10/31/19 [History] Multivit-Min/FA/Lycopen/Lutein [Centrum Silver Tablet] 1 tab PO DAILY 10/31/19 [History] Ondansetron [Zofran] 4 mg PO Q8HR PRN 10/31/19 [History] Verapamil HCl [Verapamil ER] 360 mg PO DAILY 10/31/19 [History] buPROPion HCL [Wellbutrin XL] 300 mg PO DAILY 10/31/19 [History] Atorvastatin [Lipitor] 40 mg PO DAILY 04/27/20 [History] Baclofen [Lioresal] 10 mg PO BID@0800,1200 04/27/20 [History] Baclofen [Lioresal] 20 mg PO HS 04/27/20 [History] L.acidoph,Paracasei, B.lactis [Probiotic] 1 cap PO BID 04/27/20 [History] Lacosamide [Vimpat] 150 mg PO BID 04/27/20 [History] hydroCHLOROthiazide [Hydrodiuril] 12.5 mg PO DAILY 04/27/20 [History] Gabapentin [Neurontin] 100 mg PO HS #42 cap 04/28/20 [Rx] Follow up Appointment(s)/Referral(s): Sukhdev Patrick MD [Primary Care Provider] - 04/30/20 9:45 am () Tiffanie Russ MD [Medical Doctor] - 1 Week (Office will call you to make follow up appointment. ) Patient Instructions/Handouts: Ischemic Stroke (DC) Activity/Diet/Wound Care/Special Instructions: Diet: Low-salt cardiac Follow-up PCP within 3 days of discharge. Follow-up with neurology within 1 week of discharge. Dosing instructions for gabapentin Take 1 tablet at bedtime for the first 7 days followed by 2 tablets at bedtime for the next 7 days followed by 3 tablets at bedtime for the following 7 days. Take all medications as advised. Come back to the ED or call 911 for worsening dizziness, chest pain, shortness of breath, palpitations, new onset numbness weakness tingling. Discharge Disposition: HOME SELF-CARE
[2020-04-28 18:53] LABS: Folate, Serum >24.0 ng/mL
[2020-04-29] MEDS ORDERED: GABAPENTIN 100 MG CAP PO SCH (21:00)
== END 2020-04-28 15:02 | disposition home or self-care (01) ==
LOC: EC 12:15 → INTOOBSV 15:17 → 3SCARD 15:17 → UNDODISIN 04-28 15:02
PROVIDERS: ADMIT Family Medicine; ATTEND Family Medicine
DX: M79.2 Neuralgia and neuritis, unspecified (principal); R20.0 Anesthesia of skin; R20.2 Paresthesia of skin; M25.512 Pain in left shoulder; M79.622 Pain in left upper arm; M79.605 Pain in left leg; I69.354 Hemiplegia and hemiparesis following cerebral infarction affecting left non-dominant side; R71.8 Other abnormality of red blood cells; I44.2 Atrioventricular block, complete; I48.0 Paroxysmal atrial fibrillation; M79.7 Fibromyalgia; G93.89 Other specified disorders of brain; I12.9 Hypertensive chronic kidney disease with stage 1 through stage 4 chronic kidney disease, or unspecified chronic kidney disease; K21.9 Gastro-esophageal reflux disease without esophagitis; E78.5 Hyperlipidemia, unspecified; M19.90 Unspecified osteoarthritis, unspecified site; G47.30 Sleep apnea, unspecified; E07.9 Disorder of thyroid, unspecified; M51.9 Unspecified thoracic, thoracolumbar and lumbosacral intervertebral disc disorder; M81.0 Age-related osteoporosis without current pathological fracture; I72.8 Aneurysm of other specified arteries; K44.9 Diaphragmatic hernia without obstruction or gangrene; G89.29 Other chronic pain; R51 Headache; K76.0 Fatty (change of) liver, not elsewhere classified; N18.3 Chronic kidney disease, stage 3 (moderate); R32 Unspecified urinary incontinence; F41.9 Anxiety disorder, unspecified; F31.9 Bipolar disorder, unspecified; I49.3 Ventricular premature depolarization; R94.31 Abnormal electrocardiogram [ECG] [EKG]; Z98.890 Other specified postprocedural states; Z79.01 Long term (current) use of anticoagulants; Z79.899 Other long term (current) drug therapy; Z79.82 Long term (current) use of aspirin; Z79.891 Long term (current) use of opiate analgesic; Z79.83 Long term (current) use of bisphosphonates; Z88.8 Allergy status to other drugs, medicaments and biological substances; Z88.1 Allergy status to other antibiotic agents; Z87.01 Personal history of pneumonia (recurrent); Z87.440 Personal history of urinary (tract) infections; Z87.09 Personal history of other diseases of the respiratory system; Z87.19 Personal history of other diseases of the digestive system; Z90.49 Acquired absence of other specified parts of digestive tract; Z90.710 Acquired absence of both cervix and uterus; Z95.0 Presence of cardiac pacemaker; Z86.010 Personal history of colon polyps; Z91.89 Other specified personal risk factors, not elsewhere classified; Z87.891 Personal history of nicotine dependence; Z86.79 Personal history of other diseases of the circulatory system; Z80.49 Family history of malignant neoplasm of other genital organs; Z82.5 Family history of asthma and other chronic lower respiratory diseases; Z81.8 Family history of other mental and behavioral disorders; Z82.49 Family history of ischemic heart disease and other diseases of the circulatory system; Z83.79 Family history of other diseases of the digestive system; Z80.1 Family history of malignant neoplasm of trachea, bronchus and lung
CPT/HCPCS: 96374; 99285; 36415; 93005; 97162; 84425; 80061; 80053 ×2; 82607; 82746; 83735; 84484; 85025 ×2; 85610; 85730; 70496; 70450; 70498; G0378 ×2; J2270; Q9967

== ENCOUNTER → 2020-10-06 | Outpatient (CLI) | payer MEDICARE ==
--- NOTE | 2020-10-08 07:20 | MM ---
Reason for exam: screening (asymptomatic). Last mammogram was performed 1 year and 5 months ago. History: Patient is postmenopausal and has history of high-risk lesion on a previous biopsy at age 57. High risk right mammotome panel of the right breast, July 16, 2012. Benign stereotactic core biopsy of the left breast, June 23, 2003. Cyst aspiration of the left breast, 1984. Took hormonal contraceptives for 1 year beginning at age 18. Took estrogen for 2 months. Physical Findings: A clinical breast exam by your physician is recommended on an annual basis and results should be correlated with mammographic findings. MG 3D Screening Mammo W/Cad Bilateral CC and MLO view(s) were taken. Prior study comparison: May 01, 2019, bilateral MG 3d screening mammo w/cad. April 17, 2018, right breast MG 3d diag mammo w/cad RT. There are scattered fibroglandular densities. No significant changes when compared with prior studies. ASSESSMENT: Benign, BI-RAD 2 RECOMMENDATION: Routine screening mammogram of both breasts in 1 year.
== END | disposition home or self-care (01) ==
LOC: RADMAMWWP 16:00
PROVIDERS: ATTEND Family Medicine
DX: Z12.31 Encounter for screening mammogram for malignant neoplasm of breast (principal)
CPT/HCPCS: 77063; 77067

== ENCOUNTER → 2021-08-11 | Outpatient (CLI) | payer MEDICARE ==
--- NOTE | 2021-08-11 12:56 | US ---
EXAMINATION TYPE: US abdomen limited DATE OF EXAM: 08/11/2021 COMPARISON: NONE CLINICAL HISTORY: I72.8 ANEURYSM OF OTHER SPECIFIED ARTERERIES. History of distal splenic artery aneu rysm EXAM MEASUREMENTS: Spleen: 11.5 cm Difficult and limited study due to patient body habitus and overlying bowel gas 1. Spleen: spleen appears wnl, visualized portion of splenic artery appear wnl IMPRESSION: spleen appears wnl
== END | disposition home or self-care (01) ==
LOC: RADUSWWP 11:46
PROVIDERS: ATTEND Family Medicine
DX: I72.8 Aneurysm of other specified arteries (principal)
CPT/HCPCS: 76705

== ENCOUNTER → 2021-08-23 | Outpatient (CLI) | payer MEDICARE ==
[2021-08-23 14:12] LABS: Chol/HDL Ratio 2.01 Ratio; Creatine Kinase 49 U/L (26-186); LDL Cholesterol,Calculated 57.1 mg/dL (0.0-131.0)
== END | disposition home or self-care (01) ==
LOC: LABWHC1 07:10
PROVIDERS: ATTEND Family Medicine
DX: Z13.220 Encounter for screening for lipoid disorders (principal)
CPT/HCPCS: 36415; 80061; 82550

== ENCOUNTER 2021-08-25 09:15 | Emergency (ER) | payer MEDICARE ==
[2021-08-25 09:26] VITALS: TEMP 98.8
[2021-08-25] MEDS ORDERED: SODIUM CHLORIDE 0.9% 1,000 ML IV STA (09:34)
[2021-08-25] MEDS ORDERED: ONDANSETRON 4 MG/2 ML VIAL IVP STA (09:34)
[2021-08-25] MEDS ORDERED: MORPHINE SULFATE 4 MG/ML SYRINGE IV STA (09:34)
[2021-08-25 10:10] LABS: Basophils # (A) 0.1 k/uL (0-0.2); Basophils % (A) 1 %; Eosinophils # (A) 0.3 k/uL (0-0.7); Eosinophils % (A) 3 %; HCT 44.5 % (34.0-46.0); HGB 15.1 gm/dL (11.4-16.0); Lymphocytes # (A) 3.2 k/uL (1.0-4.8); Lymphocytes % (A) 31 %; MCH 30.6 pg (25.0-35.0); Mean Platelet Volume 7.9; Monocytes # (A) 0.8 k/uL (0-1.0); Monocytes % (A) 8 %; Neutrophils # (A) 5.7 k/uL (1.3-7.7); Neutrophils % (A) 55 %; Platelet Count 169 k/uL (150-450); RBC 4.94 m/uL (3.80-5.40); RDW 12.2 % (11.5-15.5); WBC 10.2 k/uL (3.8-10.6)
[2021-08-25 10:31] LABS: Albumin 4.1 g/dL (3.5-5.0); Calcium 9.1 mg/dL (8.4-10.2); Potassium 3.7 mmol/L (3.5-5.1); Total Bilirubin 0.7 mg/dL (0.2-1.3); Total Protein 6.8 g/dL (6.3-8.2)
[2021-08-25 10:59] LABS: Appearance,Urine Cloudy (Clear); Bilirubin,Urine Negative (Negative); Blood,Urine Negative (Negative); Color,Urine Yellow; Glucose,Urine (UA) Negative (Negative); Hyaline Casts,Urine 5 /lpf (0-2); Ketones,Urine Negative (Negative); Leukocyte Esterase,Urine Small (Negative); Mucus,Urine Rare /hpf; Nitrite,Urine Negative (Negative); PH, Urine 5.5 (5.0-8.0); Protein,Urine Trace (Negative); RBC,Urine 1 /hpf (0-5); Specific Gravity,Urine 1.024 (1.001-1.035); Squamous Epithelial Cell,Urine <1 /hpf (0-4); Urobilinogen,Urine <2.0 mg/dL (<2.0); WBC,Urine 10 /hpf (0-5)
[2021-08-25] MEDS ORDERED: MORPHINE SULFATE 4 MG/ML SYRINGE IVP STA (11:26)
--- NOTE | 2021-08-25 11:29 | CT ---
EXAMINATION TYPE: CT abdomen pelvis w con DATE OF EXAM: 08/25/2021 COMPARISON: CT 01/17/2019 HISTORY: Right sided abdominal/flank pain CT DLP: 1942.6 mGycm Automated exposure control for dose reduction was used. TECHNIQUE: Helical acquisition of images from the lung bases through the pelvis have been completed. CONTRAST: Performed without Oral Contrast and with IV Contrast, patient injected with 100 mL of Isovue 300. FINDINGS: Pacemaker lead is present within the right ventricle. LUNG BASES: No significant abnormality is appreciated. AORTA: Atheromatous changes present. LIVER/GB: Patient is post cholecystectomy. There is some dilated intrahepatic and extrahepatic biliar y ducts. Liver shows no mass. Liver is increased in size. PANCREAS: No significant abnormality is seen. SPLEEN: Suspect a calcified aneurysm within the splenic hilum measuring 2 cm. ADRENALS: No significant interval change is seen, low dense mildly nodular appearance noted. KIDNEYS: No significant abnormality is seen. REPRODUCTIVE ORGANS: Not seen BOWEL: Colonic interposition noted anterior to the lower margin of the liver. The appendix is not se en. FREE AIR: No Free Air visible. ASCITES: None visible. PELVIC ADENOPATHY: None visualized. RETROPERITONEAL ADENOPATHY: No Retroperitoneal Adenopathy visible. URINARY BLADDER: No significant abnormality is seen. OSSEOUS STRUCTURES: Degenerative disc changes, facet arthropathy noted in the visualized spine. IMPRESSION: HEPATOMEGALY AND POSTOP CHANGE, additional findings above, stable splenic artery aneurysm
[2021-08-25] MEDS ORDERED: SULFAMETHOX-TMP 800-160MG 1 EACH TAB PO STA (11:43)
--- NOTE | 2021-08-25 11:57 | ED ---
Abdominal Pain HPI - General Chief Complaint: Abdominal Pain Stated Complaint: Appendicitis Time Seen by Provider: 08/25/21 09:34 Source: patient, RN notes reviewed Mode of arrival: ambulatory Limitations: no limitations - History of Present Illness Initial Comments: Patient is a 66-year-old female that presents to the emergency department complaining of right lower quadrant pain onset 2 weeks ago progressively worse. She notes no urinary tract symptoms. She notes that the pain is random and has no alleviating or aggravating factors. Noted that she notes the pain slight worse is certain movements. Patient was otherwise well-appearing. She was in no distress. She denied any chest pain shortness of breath headache nausea vomiting diarrhea constipation fever fatigue chills. - Related Data Home Medications Medication Instructions Recorded Confirmed Omeprazole [PriLOSEC] 20 mg PO BID 02/24/14 08/21/20 Cholecalciferol [Vitamin D3 (25 5,000 unit PO BID 04/05/16 08/21/20 Mcg = 1000 Iu)] Losartan Potassium 100 mg PO DAILY 02/17/17 08/21/20 Apixaban [Eliquis] 2.5 mg PO BID 06/20/17 08/21/20 Alendronate Sodium [Fosamax] 70 mg PO FR 10/31/19 08/21/20 Multivit-Min/FA/Lycopen/Lutein 1 tab PO DAILY 10/31/19 08/21/20 [Centrum Silver Tablet] Ondansetron [Zofran] 4 mg PO Q8HR PRN 10/31/19 08/21/20 Verapamil HCl [Verapamil ER] 360 mg PO DAILY 10/31/19 08/21/20 buPROPion HCL [Wellbutrin XL] 300 mg PO DAILY 10/31/19 08/21/20 Atorvastatin [Lipitor] 40 mg PO DAILY 04/27/20 08/21/20 Baclofen [Lioresal] 10 mg PO BID@0800,1200 04/27/20 08/21/20 Baclofen [Lioresal] 20 mg PO HS 04/27/20 08/21/20 L.acidoph,Paracasei, B.lactis 1 cap PO BID 04/27/20 08/21/20 [Probiotic] Lacosamide [Vimpat] 150 mg PO BID 04/27/20 08/21/20 hydroCHLOROthiazide [Hydrodiuril] 12.5 mg PO DAILY 04/27/20 08/21/20 HYDROcodone/APAP 7.5-325MG [[place] 1 tab PO TID PRN 08/07/20 08/21/20 7.5-325] Previous Rx's Medication Instructions Recorded Aspirin 81 mg PO DAILY 06/25/17 Gabapentin [Neurontin] 100 mg PO HS #42 cap 04/28/20 Sulfamethox-Tmp 800-160Mg [Bactrim 1 each PO Q12HR #14 tab 08/25/21 Ds] Allergies Allergy/AdvReac Type Severity Reaction Status Date / Time pregabalin [From Lyrica] Allergy Swelling/Blurry Verified 08/25/21 09:26 Vision cefpodoxime proxetil AdvReac Nausea & Verified 08/25/21 09:26 [From Vantin] Vomiting metoclopramide HCl AdvReac Nausea & Verified 08/25/21 09:26 [From Reglan] Vomiting Review of Systems ROS Statement: Those systems with pertinent positive or pertinent negative responses have been documented in the HPI. ROS Other: All systems not noted in ROS Statement are negative. Past Medical History Past Medical History: CVA/TIA, Fibromyalgia, GERD/Reflux, Hyperlipidemia, Hypertension, Osteoarthritis (OA), Pneumonia, Renal Disease, Sleep Apnea/CP AP/BIPAP, Thyroid Disorder Additional Past Medical History / Comment(s): DDD, osteoporosis, spleenic aneurysm , Hx UTI's, HIATAL HERNIA.per pt no MRI's r/t metal clips rt temperol lobe-stated has had chronic headache ever since the sx November of 1991); Chronic Pain Disorder,ddd ,"6 tia's". cva 3-2013 lt side a bit weaker than rt., sinusitis, DOES NOT USE CPAP, FATTY LIVER, states BBB, frequent diarrhea.,nausea, stage 3 kidney disease., urine leakage- wears depends, palpi taions. History of Any Multi-Drug Resistant Organisms: None Reported Past Surgical History: Section, Cholecystectomy, Hysterectomy, Pacemaker Additional Past Surgical History / Comment(s): hemmorhoidectomy, PACEMAKER, PELVIC FLOOR SX FOR URINARY INCONT MESH, BRAIN SX RT TEMPERAL ANUERYSM-HAS METAL CLIPS IN PLACE, ( HAS HEADACHES EVER SINCE), AVEL BREAST BIOPIES STATES HAS METALMARKERS IN PLACE.colonoscopy-HX OF POLYPS, EPIDURAL STERIOD INJECTIONS Past Anesthesia/Blood Transfusion Reactions: Previous Problems w/ Anesthesia Additional Past Anesthesia/Blood Transfusion Reaction / Comment(s): usually wakes up very quickly from anesthesia- woke up during surgery Type of Cardiac Device: Permanent Pacemaker Device Placement Date:: [employer], Past Psychological History: Anxiety, Bipolar, Depression Smoking Status: Former smoker Past Alcohol Use History: None Reported Past Drug Use History: None Reported - Past Family History Mother Family Medical History: Cancer, COPD, Dementia, Myocardial Infarction ([place]) Additional Family Medical History / Comment(s): cervical cancer, pancreatitis Father Family Medical History: Cancer, Congestive Heart Failure (CHF), COPD Additional Family Medical History / Comment(s): lung cancer,emphysema General Exam Limitations: no limitations General appearance: alert, in no apparent distress, obese Head exam: Present: atraumatic, normocephalic, normal inspection Eye exam: Present: normal appearance, PERRL, EOMI. Absent: scleral icterus, conjunctival injection, periorbital swelling ENT exam: Present: normal exam, mucous membranes moist Neck exam: Present: normal inspection Respiratory exam: Present: normal lung sounds bilaterally. Absent: respiratory distress, wheezes, rales, rhonchi, stridor Cardiovascular Exam: Present: regular rate, normal rhythm, normal heart sounds. Absent: systolic murmur, diastolic murmur, rubs, gallop, clicks GI/Abdominal exam: Present: soft, normal bowel sounds. Absent: distended, tenderness, guarding, rebound, rigid Extremities exam: Present: normal inspection, full ROM, normal capillary refill. Absent: tenderness, pedal edema, joint swelling, calf tenderness Back exam: Present: normal inspection, CVA tenderness (L) Neurological exam: Present: alert, oriented X3 Psychiatric exam: Present: normal affect, normal mood Skin exam: Present: warm, dry, intact, normal color. Absent: rash Course Vital Signs 08/25/21 09:22 Temperature 98.8 F Pulse Rate 96 Respiratory 18 Rate Blood Pressure 137/85 O2 Sat by Pulse 96 Oximetry Medical Decision Making - Medical Decision Making 66-year-old female with right back pain that radiates to right lower quadrant. Labs, CT of the abdomen and pelvis, 1 L normal saline, 4 mg of Zofran, 4 mg of morphine ordered. Labs: CBC unremarkable, CMP unremarkable, urinalysis shows 10 white blood cells, 1 tablet of Bactrim double strength ordered. Patient most likely has a mild kidney infection or kidney stone. Computed tomography scan of the abdomen and pelvis negative for any acute appendicitis. Case discussed with Dr. Barraza, patient can discharge home. - Lab Data Result diagrams: 08/25/21 09:57 08/25/21 09:57 Lab Results 08/25/21 08/25/21 08/25/21 Range/Units 09:57 09:57 09:57 WBC 10.2 (3.8-10.6) k/uL RBC 4.94 (3.80-5.40) m/uL Hgb 15.1 (11.4-16.0) gm/dL Hct 44.5 (34.0-46.0) % MCV 90.0 (80.0-100.0) fL MCH 30.6 (25.0-35.0) pg MCHC 34.0 (31.0-37.0) g/dL RDW 12.2 (11.5-15.5) % Plt Count 169 (150-450) k/uL MPV 7.9 Neutrophils % 55 % Lymphocytes % 31 % Monocytes % 8 % Eosinophils % 3 % Basophils % 1 % Neutrophils # 5.7 (1.3-7.7) k/uL Lymphocytes # 3.2 (1.0-4.8) k/uL Monocytes # 0.8 (0-1.0) k/uL Eosinophils # 0.3 (0-0.7) k/uL Basophils # 0.1 (0-0.2) k/uL Sodium 136 L (137-145) mmol/L Potassium 3.7 (3.5-5.1) mmol/L Chloride 101 (98-107) mmol/L Carbon Dioxide 26 (22-30) mmol/L Anion Gap 9 mmol/L BUN 12 (7-17) mg/dL Creatinine 0.87 (0.52-1.04) mg/dL Est GFR (CKD-EPI)AfAm 80 (>60 ml/min/1.73 sqM) Est GFR (CKD-EPI)NonAf 69 (>60 ml/min/1.73 sqM) Glucose 118 H (74-99) mg/dL Plasma Lactic Acid Daniel 1.4 (0.7-2.0) mmol/L Calcium 9.1 (8.4-10.2) mg/dL Total Bilirubin 0.7 (0.2-1.3) mg/dL AST 30 (14-36) U/L ALT 25 (4-34) U/L Alkaline Phosphatase 96 (38-126) U/L Total Protein 6.8 (6.3-8.2) g/dL Albumin 4.1 (3.5-5.0) g/dL Amylase 50 (30-110) U/L Lipase 118 (23-300) U/L Urine Color Urine Appearance (Clear) Urine pH (5.0-8.0) Ur Specific [employer] (1.001-1.035) Urine Protein (Negative) Urine Glucose (UA) (Negative) Urine Ketones (Negative) Urine Blood (Negative) Urine Nitrite (Negative) Urine Bilirubin (Negative) Urine Urobilinogen (<2.0) mg/dL Ur Leukocyte Esterase (Negative) Urine RBC (0-5) /hpf Urine WBC (0-5) /hpf Ur Squamous Epith Cells (0-4) /hpf Hyaline Casts (0-2) /lpf Urine Mucus (None) /hpf 08/25/21 Range/Units 10:28 WBC (3.8-10.6) k/uL RBC (3.80-5.40) m/uL Hgb (11.4-16.0) gm/dL Hct (34.0-46.0) % MCV (80.0-100.0) fL MCH (25.0-35.0) pg MCHC (31.0-37.0) g/dL RDW (11.5-15.5) % Plt Count (150-450) k/uL MPV Neutrophils % % Lymphocytes % % Monocytes % % Eosinophils % % Basophils % % Neutrophils # (1.3-7.7) k/uL Lymphocytes # (1.0-4.8) k/uL Monocytes # (0-1.0) k/uL Eosinophils # (0-0.7) k/uL Basophils # (0-0.2) k/uL Sodium (137-145) mmol/L Potassium (3.5-5.1) mmol/L Chloride (98-107) mmol/L Carbon Dioxide (22-30) mmol/L Anion Gap mmol/L BUN (7-17) mg/dL Creatinine (0.52-1.04) mg/dL Est GFR (CKD-EPI)AfAm (>60 ml/min/1.73 sqM) Est GFR (CKD-EPI)NonAf (>60 ml/min/1.73 sqM) Glucose (74-99) mg/dL Plasma Lactic Acid Daniel (0.7-2.0) mmol/L Calcium (8.4-10.2) mg/dL Total Bilirubin (0.2-1.3) mg/dL AST (14-36) U/L ALT (4-34) U/L Alkaline Phosphatase (38-126) U/L Total Protein (6.3-8.2) g/dL Albumin (3.5-5.0) g/dL Amylase (30-110) U/L Lipase (23-300) U/L Urine Color Yellow Urine Appearance Cloudy H (Clear) Urine pH 5.5 (5.0-8.0) Ur Specific [employer] 1.024 (1.001-1.035) Urine Protein Trace H (Negative) Urine Glucose (UA) Negative (Negative) Urine Ketones Negative (Negative) Urine Blood Negative (Negative) Urine Nitrite Negative (Negative) Urine Bilirubin Negative (Negative) Urine Urobilinogen <2.0 (<2.0) mg/dL Ur Leukocyte Esterase Small H (Negative) Urine RBC 1 (0-5) /hpf Urine WBC 10 H (0-5) /hpf Ur Squamous Epith Cells <1 (0-4) /hpf Hyaline Casts 5 H (0-2) /lpf Urine Mucus Rare H (None) /hpf - Radiology Data Radiology results: report reviewed, image reviewed CT of the abdomen and pelvis: Hepatomegaly and postop changes. Disposition Clinical Impression: Urinary tract infection Disposition: HOME SELF-CARE Condition: Stable Instructions (If sedation given, give patient instructions): Urinary Tract Infection in Women (ED) Additional Instructions: Please return to the Emergency Department if symptoms worsen or any other concerns. Follow-up with primary care 1-2 days. Take antibiotics as prescribed until complete. Is patient prescribed a controlled substance at d/c from ED?: No Referrals: Sukhdev Patrick MD [Primary Care Provider] - 1-2 days Time of Disposition: 11:57
[2021-08-25 12:28] VITALS: BP 121/66; PULSE 85; RESP 16
== END 2021-08-25 12:26 | disposition home or self-care (01) ==
LOC: EC 09:15
DX: N39.0 Urinary tract infection, site not specified (principal); I12.9 Hypertensive chronic kidney disease with stage 1 through stage 4 chronic kidney disease, or unspecified chronic kidney disease; N18.30 Chronic kidney disease, stage 3 unspecified; K21.9 Gastro-esophageal reflux disease without esophagitis; M79.7 Fibromyalgia; E78.5 Hyperlipidemia, unspecified; M19.90 Unspecified osteoarthritis, unspecified site; E07.9 Disorder of thyroid, unspecified; M81.0 Age-related osteoporosis without current pathological fracture; F41.9 Anxiety disorder, unspecified; F31.9 Bipolar disorder, unspecified; Z79.01 Long term (current) use of anticoagulants; Z79.82 Long term (current) use of aspirin; Z88.1 Allergy status to other antibiotic agents; Z86.73 Personal history of transient ischemic attack (TIA), and cerebral infarction without residual deficits; Z87.440 Personal history of urinary (tract) infections; Z90.49 Acquired absence of other specified parts of digestive tract; Z90.710 Acquired absence of both cervix and uterus; Z95.0 Presence of cardiac pacemaker; Z87.891 Personal history of nicotine dependence
CPT/HCPCS: 99284; 96374; 96375; 96376; 96361; 36415; 80053; 82150; 83605; 83690; 85025; 81001; 74177; J2270; J2405; Q9967

== ENCOUNTER → 2021-12-08 | Outpatient (CLI) | payer MEDICARE ==
--- NOTE | 2021-12-08 08:44 | CT ---
EXAMINATION TYPE: CT lumbar spine wo con DATE OF EXAM: 12/08/2021 8:16 AM COMPARISON: CT dated 05/10/2019 HISTORY: Lumbago. History of DDD lumbar pain. CT DLP: 2223.7 mGycm Automated exposure control for dose reduction was used. Technique: Unenhanced CT of the lumbar spine was performed. Bone and soft tissue window settings are submitted as well as coronal and sagittal reconstructions. Findings: Osteopenia. Preserved lumbar curvature. No significant anterolisthesis or retrolisthesis. No definite vertebral body collapse or acute displaced fracture. Degenerative changes of the lower thoracic and lumbar spine with multilevel opposing endplate osteophytosis. Right L3-4, bilateral L4-5 and bilatera l L5-S1 facet osteoarthropathy. L1-L2: No significant disc disease, central spinal canal stenosis or neuroforaminal stenosis. L2-L3: Minimal bilateral focal foraminal disc protrusions, causing no significant central spinal jaclyn l stenosis or neuroforaminal stenosis. L3-L4: Mild posterior annular disc relaxation with posterior osteophytosis and right facet osteoarthr opathy, causing mild central spinal canal stenosis and moderate left neuroforaminal stenosis slightly encroaching on the left L3 nerve root. L4-L5: Right focal foraminal and extraforaminal disc protrusion associated with posterior osteophytos is and bilateral facet osteoarthropathy, causing mild central spinal canal stenosis and severe right neuroforaminal stenosis compressing the right L4 nerve root. L5-S1: Minimal focal central posterior disc protrusion associated with bilateral facet osteoarthropat hy and posterior osteophytosis, causing no significant central spinal canal stenosis or significant n euroforaminal stenosis. Previous cholecystectomy. Arterial atherosclerotic calcifications. Partially calcified splenic artery aneurysm measuring up to 17 mm, appreciated previously, for vascular surgery consultation if not alr della performed. Bilateral adrenal adenomas, stable. No paraspinal lesion. IMPRESSION: Degenerative changes of the lumbar spine with multilevel DDD as detailed above, please correlate clin ically. Other incidental findings as described above.
== END | disposition home or self-care (01) ==
LOC: RADCTMAIN 07:51
PROVIDERS: ATTEND Psychiatry & Neurology Neurology
DX: M47.816 Spondylosis without myelopathy or radiculopathy, lumbar region (principal); M51.36 Other intervertebral disc degeneration, lumbar region
CPT/HCPCS: 72131

== ENCOUNTER → 2021-12-31 | Outpatient (CLI) | payer MEDICARE ==
--- NOTE | 2022-01-03 10:11 | MM ---
Reason for exam: screening (asymptomatic). Last mammogram was performed 1 year and 3 months ago. History: Patient is postmenopausal and has history of high-risk lesion on a previous biopsy at age 57. High risk right mammotome panel of the right breast, July 16, 2012. Benign stereotactic core biopsy of the left breast, June 23, 2003. Cyst aspiration of the left breast, 1984. Took hormonal contraceptives for 1 year beginning at age 18. Took estrogen for 2 months. Physical Findings: A clinical breast exam by your physician is recommended on an annual basis and results should be correlated with mammographic findings. MG 3D Screening Mammo W/Cad Bilateral CC and MLO view(s) were taken. Prior study comparison: October 06, 2020, bilateral MG 3d screening mammo w/cad. May 01, 2019, bilateral MG 3d screening mammo w/cad. There are scattered fibroglandular densities. Stable benign calcifications. There is no discrete abnormality. No significant changes when compared with prior studies. ASSESSMENT: Benign, BI-RAD 2 RECOMMENDATION: Routine screening mammogram of both breasts in 1 year.
== END | disposition home or self-care (01) ==
LOC: RADMAMWWP 07:40
PROVIDERS: ATTEND Family Medicine
DX: Z12.31 Encounter for screening mammogram for malignant neoplasm of breast (principal); Z78.0 Asymptomatic menopausal state
CPT/HCPCS: 77063; 77067

== ENCOUNTER → 2022-07-04 | Outpatient (CLI) | payer MEDICARE ==
--- NOTE | 2022-07-04 17:17 | CT ---
EXAMINATION TYPE: CT angio abdomen pelvis CT DLP: 2219.90 mGycm, Automated exposure control for dose reduction was used. DATE OF EXAM: 07/04/2022 4:33 PM COMPARISON: CT abdomen pelvis 08/25/2021 CLINICAL INDICATION:Female, 67 years old with history of I72.8 ANEURYSM, f/u splenic aneurysm. TECHNIQUE: Multiple thin slice sub-millimeter images were obtained through the abdomen, pelvis after administration of contrast. No 3-D reconstructed images and maximum intensity projection images were created. CT Contrast: Contrast used:80 mL of Isovue 370 without and with IV Contrast, Oral contrast used: with Oral Contrast None FINDINGS: CTA Abdomen and pelvis: Evaluation somewhat limited given phase of contrast The abdominal aorta does not demonstrate aneurysmal dilatation. Atherosclerotic plaquing is identified within the abdominal a lisette. The origins of the superior mesenteric artery, renal arteries, inferior mesenteric artery, and celiac axis are patent. The iliac vessels are normal in morphology LOWER CHEST: No evidence of focal consolidation, pneumothorax or pleural effusion. Partially visualiz ed cardiac conduction leads. LIVER: Unremarkable GALLBLADDER AND BILE DUCTS: The gallbladder surgically absent. PANCREAS: Unremarkable. SPLEEN: Unremarkable. ADRENAL GLANDS: Bilateral adrenal lipid rich adenomas are unchanged. KIDNEYS AND URETERS: No evidence of hydronephrosis or renal calculus. The ureters are unremarkable. PELVIS BLADDER: Unremarkable REPRODUCTIVE: The uterus is surgically absent. ABDOMEN & PELVIS STOMACH AND BOWEL: No evidence of bowel obstruction. Scattered colonic diverticula are present. PERITONEUM: No evidence of pneumoperitoneum or free fluid. VASCULATURE: No evidence of aortic aneurysm. Unchanged peripherally calcified 14 mm splenic artery an eurysm MUSCULOSKELETAL: No acute osseous abnormalities, mild multilevel disc degeneration changes of the spi ne. LYMPH NODES: No gross evidence for lymphadenopathy. SOFT TISSUE/ABDOMINAL WALL: Fat-containing umbilical hernia. IMPRESSION 1. Unchanged 14 mm splenic artery aneurysm with peripheral cortication. 2. Atherosclerotic disease involving abdominal aorta.
== END | disposition home or self-care (01) ==
LOC: RADCTMAIN 14:44
PROVIDERS: ATTEND Family Medicine
DX: I72.8 Aneurysm of other specified arteries (principal); I70.0 Atherosclerosis of aorta
CPT/HCPCS: 82565; 84520; 36415; 74174; Q9967

== ENCOUNTER → 2022-07-22 | Outpatient (CLI) | payer MEDICARE ==
--- NOTE | 2022-07-22 18:06 | CT ---
EXAMINATION TYPE: CT angio head CT DLP: 2196 mGycm, Automated exposure control for dose reduction was used. DATE OF EXAM: 07/22/2022 5:33 PM COMPARISON: 04/27/2020. CLINICAL INDICATION:Female, 67 years old with history of I67.1 Cerebral arterial aneurysm, Cerebral a rterial aneurysm TECHNIQUE: Axially acquired helical CT angiogram of the head and neck was obtained with contrast util izing 100 cc of Isovue-370 administered intravenously. Axial images are supplemented with 3D reconstr uctions which were post-processed at an independent workstation. NASCET criteria used. FINDINGS: No evidence of acute intracranial hemorrhage, mass effect, or midline shift. The ventricles, sulci, a nd cisterns are unremarkable. Right middle cranial fossa aneurysm clips. The Visualized portions of the internal carotid arteries, middle cerebral arteries, anterior cerebral arteries, and posterior cerebral arteries are patent. The basilar and vertebral arteries are patent. Postsurgical changes to the calvarium. IMPRESSION: 1. Surgical changes to the right middle cranial fossa without evidence of aneurysm. No evidence of h igh-grade stenosis. 2. Similar encephalomalacia the right frontal lobe from remote injury. 3. No evidence of acute/subacute CVA.
== END | disposition home or self-care (01) ==
LOC: RADCTMAIN 14:44
PROVIDERS: ATTEND Family Medicine
DX: G93.89 Other specified disorders of brain (principal)
CPT/HCPCS: 82565; 84520; 70496; 36415; Q9967

== ENCOUNTER 2023-01-02 14:35 | Emergency (ER) | payer MEDICARE ==
[2023-01-02 15:05] VITALS: TEMP 98.1
--- NOTE | 2023-01-02 15:48 | XR ---
EXAMINATION TYPE: XR chest 2V DATE OF EXAM: 01/02/2023 COMPARISON: 02/03/2018 HISTORY: Shortness of breath TECHNIQUE: Frontal and lateral views of the chest are obtained. FINDINGS: There is a dual lead left-sided pacemaker. The heart size is at the upper limits of normal to borderl ine enlarged. There is no focal consolidation, significant pleural effusion, or pneumothorax. There a re multilevel degenerative changes of the spine. IMPRESSION: No acute cardiopulmonary process.
--- NOTE | 2023-01-02 16:09 | ED ---
SOB HPI - General Source: patient Mode of arrival: ambulatory Limitations: no limitations <Shon Guzman - Last Filed: 01/02/23 16:08> <Ron Albert - Last Filed: 01/02/23 20:49> - General Chief Complaint: Shortness of Breath Stated Complaint: fever, chest pain Time Seen by Provider: 01/02/23 16:08 - History of Present Illness Initial Comments: patient is a 67-year-old female presenting with chief complaint of shortness of breath. Patient was sent over from [facility] due to low pulse ox, pallor, diaphoresis in the office. Patient does not know what her pulse ox was in the office. She admits to some chest pressure. Patient had pneumonia about a week ago and symptoms have not improved (Shon Guzman) Dictation was produced using [employer] dictation software. please excuse any grammatical, word or spelling errors. Chief Complaint: 67-year-old female with multiple comorbidities presents emergency department for cough History of Present Illness: Patient is a 67-year-old female she states even daily pneumonia for the last 7 days. [facility] She was hypoxic and looked pale at the office so they told her to come to the emergency room. Patient states she has a productive cough. States that her cough has been slowly improving. Denies any fevers. Patient denies a history of COPD or asthma. Denies any constitutional symptoms. Patient does not know what her oxygen levels were at the clinic. The ROS documented in this emergency department record has been reviewed and co nfirmed by me. Those systems with pertinent positive or negative responses have been documented in the HPI. All other systems are other negative and/or noncontributory. (Ron Albert) - Related Data Home Medications Medication Instructions Recorded Confirmed Omeprazole [PriLOSEC] 20 mg PO BID 02/24/14 01/02/23 Losartan Potassium 100 mg PO DAILY 02/17/17 01/02/23 Apixaban [Eliquis] 2.5 mg PO BID 06/20/17 01/02/23 Alendronate Sodium [Fosamax] 70 mg PO FR 10/31/19 01/02/23 Multivit-Min/FA/Lycopen/Lutein 1 tab PO DAILY 10/31/19 01/02/23 [Centrum Silver Tablet] Verapamil HCl [Verapamil ER] 360 mg PO DAILY 10/31/19 01/02/23 buPROPion HCL [Wellbutrin XL] 300 mg PO DAILY 10/31/19 01/02/23 Atorvastatin [Lipitor] 40 mg PO DAILY 04/27/20 01/02/23 Baclofen [Lioresal] 10 mg PO BID@0800,1200 04/27/20 01/02/23 Baclofen [Lioresal] 20 mg PO HS 04/27/20 01/02/23 L.acidoph,Paracasei, B.lactis 1 cap PO BID 04/27/20 01/02/23 [Probiotic] hydroCHLOROthiazide [Hydrodiuril] 12.5 mg PO DAILY 04/27/20 01/02/23 HYDROcodone/APAP 7.5-325MG [[place] 1 tab PO TID PRN 08/07/20 01/02/23 7.5-325] Cholecalciferol [Vitamin D3 (125 125 mcg PO DAILY 01/02/23 01/02/23 Mcg = 5000 Iu)] Lacosamide [Vimpat] 100 mg PO BID 01/02/23 01/02/23 Levothyroxine Sodium [Synthroid] 88 mcg PO DAILY 01/02/23 01/02/23 Magnesium 420mg 420 mg PO DAILY 01/02/23 01/02/23 Previous Rx's Medication Instructions Recorded Aspirin 81 mg PO DAILY 06/25/17 Albuterol Inhaler [Ventolin Hfa 1 - 2 puff INHALATION RT-Q6H PRN 01/02/23 Inhaler] #1 each methylPREDNISolone Dose Pack 4 mg PO DIRECTED #1 packet 01/02/23 [Medrol Dose Pack] Allergies Allergy/AdvReac Type Severity Reaction Status Date / Time pregabalin [From Lyrica] Allergy Swelling/Blurry Verified 01/02/23 18:06 Vision cefpodoxime proxetil AdvReac Nausea & Verified 01/02/23 18:06 [From Vantin] Vomiting metoclopramide HCl AdvReac Nausea & Verified 01/02/23 18:06 [From Reglan] Vomiting Review of Systems ROS Other: All systems not noted in ROS Statement are negative. <Shon Guzman - Last Filed: 01/02/23 16:08> ROS Other: All systems not noted in ROS Statement are negative. <Ron Albert - Last Filed: 01/02/23 20:49> ROS Statement: Those systems with pertinent positive or pertinent negative responses have been documented in the HPI. Past Medical History Past Medical History: CVA/TIA, Fibromyalgia, GERD/Reflux, Hyperlipidemia, Hypertension, Osteoarthritis (OA), Pneumonia, Renal Disease, Sleep Apnea/CPAP/BIPAP, Thyroid Disorder Additional Past Medical History / Comment(s): DDD, osteoporosis, spleenic aneurysm , Hx UTI's, HIATAL HERNIA.per pt no MRI's r/t metal clips rt temperol lobe-stated has had chronic headache ever since the sx November of 1991); Chronic Pain Disorder,ddd ,"6 tia's". cva -2013 lt side a bit weaker than rt., sinusitis, DOES NOT USE CPAP, FATTY LIVER, states BBB, frequent diarrhea.,nausea, stage 3 kidney disease., urine leakage- wears depends, palpitaions. History of Any Multi-Drug Resistant Organisms: None Reported Past Surgical History: Section, Cholecystectomy, Hysterectomy, Pacemaker Additional Past Surgical History / Comment(s): hemmorhoidectomy, PACEMAKER, PELVIC FLOOR SX FOR URINARY INCONT MESH, BRAIN SX RT TEMPERAL ANUERYSM-HAS METAL CLIPS IN PLACE, ( HAS HEADACHES EVER SINCE), AVEL BREAST BIOPIES STATES HAS METALMARKERS IN PLACE.colonoscopy-HX OF POLYPS, EPIDURAL STERIOD INJECTIONS Past Anesthesia/Blood Transfusion Reactions: Previous Problems w/ Anesthesia Additional Past Anesthesia/Blood Transfusion Reaction / Comment(s): usually wakes up very quickly from anesthesia- woke up during surgery Type of Cardiac Device: Permanent Pacemaker Device Placement Date:: TestinTRONIC, Past Psychological History: Anxiety, Bipolar, Depression Smoking Status: Former smoker Past Alcohol Use History: None Reported Past Drug Use History: None Reported - Past Family History Mother Family Medical History: Cancer, COPD, Dementia, Myocardial Infarction ([place]) Additional Family Medical History / Comment(s): cervical cancer, pancreatitis Father Family Medical History: Cancer, Congestive Heart Failure (CHF), COPD Additional Family Medical History / Comment(s): lung cancer,emphysema <Shon Guzman - Last Filed: 01/02/23 16:08> General Exam Limitations: no limitations <Shon Guzman - Last Filed: 01/02/23 16:08> <Ron Albert - Last Filed: 01/02/23 20:49> - General Exam Comments Initial Comments: Visual Physical Exam Vital signs reviewed General: Well-appearing, nontoxic, no acute distress. Head: Normocephalic, atraumatic Eyes: PERRLA, EOMI ENT: Airway patent Chest: Nonlabored breathing Skin: No visual rash, normal skin tone Neuro: Alert and oriented 3 Musculoskeletal: No gross abnormalities (Shon Guzman) PHYSICAL EXAM: General Impression: Alert and oriented x3, not in acute distress HEENT: Normocephalic atraumatic, extra-ocular movements intact, pupils equal and reactive to light bilaterally, mucous membranes moist. Cardiovascular: Heart regular rate and rhythm Chest: Able to complete full sentences, no retractions, no tachypnea, diffuse rhonchi on auscultation Abdomen: abdomen soft, non-tender, non-distended, no organomegaly Musculoskeletal: Pulses present and equal in all extremities, no peripheral edema Motor: no focal deficits noted Neurological: CN II-XII grossly intact, no focal motor or sensory deficits noted Skin: Intact with no visualized rashes Psych: Normal affect and mood (Ron Albert) Course Vital Signs 01/02/23 01/02/23 01/02/23 15:01 18:15 18:25 Temperature 98.1 F Pulse Rate 86 86 86 Respiratory 18 Rate Blood Pressure 150/77 O2 Sat by Pulse 97 Oximetry 01/02/23 01/02/23 19:42 19:45 Temperature Pulse Rate 84 Respiratory 19 19 Rate Blood Pressure 136/54 O2 Sat by Pulse Oximetry Medical Decision Making - Lab Data Result diagrams: 01/02/23 17:49 01/02/23 19:12 <Ron Albert - Last Filed: 01/02/23 20:49> - Medical Decision Making Ambulatory pulse ox was measured. Patient did not become hypoxic. She did not complain of shortness of breath during ambulation. Was pt. sent in by a medical professional or institution (, PA, [employer]IER, urgent care, hospital, or senior living...) When possible be specific @ -Sent in from outside clinic Did you speak to anyone other than the patient for history (EMS, parent, family, police, friend...)? What history was obtained from this source @ -No Did you review nursing and triage notes (agree or disagree)? Why? @ -I reviewed and agree with nursing and triage notes Were old charts reviewed (outside hosp., previous admission, EMS record, old EKG, old radiological studies, urgent care reports/EKG's, senior living records)? Report findings @ -No old charts were reviewed Differential Diagnosis (chest pain, altered mental status, abdominal pain women, abdominal pain men, vaginal bleeding, musculoskeletal, weakness, fever, dyspnea, syncope, headache, dizziness, GI bleed, back pain, seizure, CVA, palpatations, mental health)? @ -Differential Dyspnea: Coronary syndrome, arrhythmia, tamponade, asthma, COPD, pulmonary embolism, pneumonia, pneumothorax, pulmonary effusion, anaphylaxis, diabetic ketoacidosis, flailed chest, pulmonary contusion, diaphragmatic rupture, anemia, neuromuscular, this is not meant to be an all-inclusive list. EKG interpreted by me (3pts min.). @ -None done X-rays interpreted by me (1pt min.). @ -No acute processes CT interpreted by me (1pt min.). @ -None done U/S interpreted by me (1pt. min.). @ -None done What testing was considered but not performed or refused? (CT, X-rays, U/S, labs)? Why? @ -None What meds were considered but not given or refused? Why? @ -None Did you discuss the management of the patient with other professionals (professionals i.e. , PA, [employer]IER, lab, RT, psych nurse, nursing home social worker, supervisor inspection and testing, teacher, corrections officer, welfare case worker)? Give summary @ -No Was smoking cessation discussed for >3mins.? @ -No Was critical care preformed (if so, how long)? @ -No Were there social determinants of health that impacted care today? How? (Homelessness, low income, unemployed, alcoholism, drug addiction, transportation, low edu. Level, literacy, decrease access to med. care, longterm, rehab)? @ -No Was there de-escalation of care discussed even if they declined (Discuss DNR or withdrawal of care, Hospice)? DNR status @ -No What co-morbidities impacted this encounter? (DM, HTN, Smoking, COPD, CAD, Cancer, CVA, ARF, Chemo, Hep., AIDS, mental health diagnosis, sleep apnea, morbid obesity)? @ -None Was patient admitted / discharged? Hospital course, mention meds given and route, prescriptions, significant lab abnormalities, going to OR and other p ertinent info. @ -67-year-old female sent in from outside clinic for alleged hypoxia and ill appearance. Vital signs upon arrival were unremarkable. Patient was not hypoxic for us. 97% on room air. And with her pulse ox is negative. She did have some rhonchi on auscultation of the lungs. Given DuoNeb. X-rays unremarkable. Labs are reassuring. Disposition options were discussed. Patient is agreeable for discharge. Patient prescription for inhaler and Medrol Dosepak. Patient agreeable with plan. Advised up with primary care doctor. Undiagnosed new problem with uncertain prognosis? @ -No Drug Therapy requiring intensive monitoring for toxicity (Heparin, Nitro, Insulin, Cardizem)? @ -No Were any procedures done? @ -No Diagnosis/symptom? Acute, or Chronic, or Acute on Chronic? Uncomplicated (without systemic symptoms) or Complicated (systemic symptoms)? @ -1. Dyspnea, no high-risk features Side effects of treatment? @ -No Exacerbation, Progression, or Severe Exacerbation? @ -No Poses a threat to life or bodily function? How? (Chest pain, [place], [place], pneumonia, PE, COPD, DKA, ARF, appy, cholecystitis, CVA, Diverticulitis, Homicidal, Suicidal, threat to staff... and all critical care pts) @ -No (Ron Albert) - Lab Data Lab Results 01/02/23 01/02/23 01/02/23 Range/Units 17:49 17:49 19:12 WBC 7.0 (3.8-10.6) k/uL RBC 4.83 (3.80-5.40) m/uL Hgb 14.2 (11.4-16.0) gm/dL Hct 42.0 (34.0-46.0) % MCV 87.1 (80.0-100.0) fL MCH 29.5 (25.0-35.0) pg MCHC 33.9 (31.0-37.0) g/dL RDW 12.4 (11.5-15.5) % Plt Count 188 (150-450) k/uL MPV 7.6 Neutrophils % 56 % Lymphocytes % 34 % Monocytes % 6 % Eosinophils % 2 % Basophils % 0 % Neutrophils # 3.9 (1.3-7.7) k/uL Lymphocytes # 2.4 (1.0-4.8) k/uL Monocytes # 0.4 (0-1.0) k/uL Eosinophils # 0.1 (0-0.7) k/uL Basophils # 0.0 (0-0.2) k/uL PT 10.5 (9.0-12.0) sec INR 1.0 (<1.2) APTT 23.3 (22.0-30.0) sec Sodium (137-145) mmol/L Potassium (3.5-5.1) mmol/L Chloride (98-107) mmol/L Carbon Dioxide (22-30) mmol/L Anion Gap mmol/L BUN (7-17) mg/dL Creatinine (0.52-1.04) mg/dL Est GFR (CKD-EPI)AfAm (>60 ml/min/1.73 sqM) Est GFR (CKD-EPI)NonAf (>60 ml/min/1.73 sqM) Glucose (74-99) mg/dL Calcium (8.4-10.2) mg/dL Total Bilirubin (0.2-1.3) mg/dL AST (14-36) U/L ALT (4-34) U/L Alkaline Phosphatase (38-126) U/L Troponin I <0.012 (0.000-0.034) ng/mL Total Protein (6.3-8.2) g/dL Albumin (3.5-5.0) g/dL 01/02/23 Range/Units 19:12 WBC (3.8-10.6) k/uL RBC (3.80-5.40) m/uL Hgb (11.4-16.0) gm/dL Hct (34.0-46.0) % MCV (80.0-100.0) fL MCH (25.0-35.0) pg MCHC (31.0-37.0) g/dL RDW (11.5-15.5) % Plt Count (150-450) k/uL MPV Neutrophils % % Lymphocytes % % Monocytes % % Eosinophils % % Basophils % % Neutrophils # (1.3-7.7) k/uL Lymphocytes # (1.0-4.8) k/uL Monocytes # (0-1.0) k/uL Eosinophils # (0-0.7) k/uL Basophils # (0-0.2) k/uL PT (9.0-12.0) sec INR (<1.2) APTT (22.0-30.0) sec Sodium 137 (137-145) mmol/L Potassium 3.7 (3.5-5.1) mmol/L Chloride 103 (98-107) mmol/L Carbon Dioxide 30 (22-30) mmol/L Anion Gap 4 mmol/L BUN 7 (7-17) mg/dL Creatinine 0.63 (0.52-1.04) mg/dL Est GFR (CKD-EPI)AfAm >90 (>60 ml/min/1.73 sqM) Est GFR (CKD-EPI)NonAf >90 (>60 ml/min/1.73 sqM) Glucose 90 (74-99) mg/dL Calcium 9.0 (8.4-10.2) mg/dL Total Bilirubin 0.5 (0.2-1.3) mg/dL AST 33 (14-36) U/L ALT 24 (4-34) U/L Alkaline Phosphatase 72 (38-126) U/L Troponin I (0.000-0.034) ng/mL Total Protein 6.1 L (6.3-8.2) g/dL Albumin 3.7 (3.5-5.0) g/dL Disposition <Shon Guzman - Last Filed: 01/02/23 16:08> Is patient prescribed a controlled substance at d/c from ED?: No Time of Disposition: 20:47 <Ron Albert - Last Filed: 01/02/23 20:49> Clinical Impression: Dyspnea Disposition: HOME SELF-CARE Condition: Good Instructions (If sedation given, give patient instructions): Acute Bronchitis (ED) Prescriptions: methylPREDNISolone Dose Pack [Medrol Dose Pack] 4 mg PO DIRECTED #1 packet Albuterol Inhaler [Ventolin Hfa Inhaler] 1 - 2 puff INHALATION RT-Q6H PRN #1 each PRN Reason: Dyspnea Referrals: Sukhdev Patrick MD [Primary Care Provider] - 1-2 days
[2023-01-02] MEDS ORDERED: IPRATROPIUM-ALBUTEROL 3 ML NEB INHALATION STA (17:50)
[2023-01-02 18:16] LABS: Basophils % (A) 0 %; Eosinophils # (A) 0.1 k/uL (0-0.7); Eosinophils % (A) 2 %; HGB 14.2 gm/dL (11.4-16.0); Lymphocytes # (A) 2.4 k/uL (1.0-4.8); Lymphocytes % (A) 34 %; MCH 29.5 pg (25.0-35.0); MCHC 33.9 g/dL (31.0-37.0); MCV 87.1 fL (80.0-100.0); Mean Platelet Volume 7.6; Monocytes # (A) 0.4 k/uL (0-1.0); Monocytes % (A) 6 %; Neutrophils # (A) 3.9 k/uL (1.3-7.7); Neutrophils % (A) 56 %; Platelet Count 188 k/uL (150-450); RBC 4.83 m/uL (3.80-5.40); RDW 12.4 % (11.5-15.5)
[2023-01-02 18:52] LABS: Partial Thromboplastin Time 23.3 sec (22.0-30.0); Prothrombin Time 10.5 sec (9.0-12.0)
[2023-01-02 19:44] VITALS: RESP 19
[2023-01-02 19:47] VITALS: BP 136/54; PULSE 84
[2023-01-02 20:20] LABS: ALT 24 U/L (4-34); African American GFR (CKD) >90 (>60 ml/min/1.73 sqM); Albumin 3.7 g/dL (3.5-5.0); Anion Gap 4 mmol/L; Blood Urea Nitrogen 7 mg/dL (7-17); Carbon Dioxide 30 mmol/L (22-30); Chloride 103 mmol/L (98-107); Glucose 90 mg/dL (74-99); Non-African American GFR(CKD) >90 (>60 ml/min/1.73 sqM); Sodium 137 mmol/L (137-145); Total Bilirubin 0.5 mg/dL (0.2-1.3); Total Protein 6.1 g/dL (6.3-8.2)
[2023-01-02 20:38] LABS: AST 33 U/L (14-36); Alkaline Phosphatase 72 U/L (38-126); Potassium 3.7 mmol/L (3.5-5.1)
[2023-01-02] MEDS ORDERED: DEXAMETHASONE SOD PHOSPHATE 10 MG/ML 1 ML VIAL IV STA (20:44)
[2023-01-02] MEDS ORDERED: dexAMETHasone 2 MG TAB PO STA (21:15)
== END 2023-01-02 21:24 | disposition home or self-care (01) ==
LOC: EC 14:35
DX: R06.00 Dyspnea, unspecified (principal); I12.9 Hypertensive chronic kidney disease with stage 1 through stage 4 chronic kidney disease, or unspecified chronic kidney disease; N18.30 Chronic kidney disease, stage 3 unspecified; K21.9 Gastro-esophageal reflux disease without esophagitis; F31.9 Bipolar disorder, unspecified; E78.5 Hyperlipidemia, unspecified; F41.9 Anxiety disorder, unspecified; M19.90 Unspecified osteoarthritis, unspecified site; M79.7 Fibromyalgia; E07.9 Disorder of thyroid, unspecified; Z79.890 Hormone replacement therapy; Z79.899 Other long term (current) drug therapy; Z88.8 Allergy status to other drugs, medicaments and biological substances; Z86.73 Personal history of transient ischemic attack (TIA), and cerebral infarction without residual deficits; Z87.891 Personal history of nicotine dependence; Z90.49 Acquired absence of other specified parts of digestive tract
CPT/HCPCS: 36415; 94640; 93005; 80053; 84484; 85025; 85610; 85730; 71046; 99285; J8540

== ENCOUNTER → 2023-02-23 | Outpatient (CLI) | payer MEDICARE ==
--- NOTE | 2023-02-24 07:21 | MM ---
Reason for Exam: Screening (asymptomatic). Last mammogram was performed 1 year(s) and 2 month(s) ago. Patient History: Menarche at age 10. First Full-Term at age 17. Right ovary removed at age 31. Hysterectomy at age 31. Postmenopausal. Patient has history of breast feeding. Estrogen for 2 months. Hormonal Contraceptives for 1 year from age 18 until age 19. 1985, Cyst Aspiration on the Left side. 07/16/2012, High risk Core Biopsy on the right side. 06/23/2003, Benign Stereotactic Core Biopsy on the left side. Risk Values: Jessica 5 year model risk: 2.0%. NCI Lifetime model risk: 6.6%. Prior Study Comparison: 02/16/2015 Bilateral Diagnostic Mammogram, [facility]. 10/10/2017 Bilateral Screening Mammogram, [facility]. 04/17/2018 Right Diagnostic Mammogram, [facility]. 05/01/2019 Bilateral Screening Mammogram, [facility]. 10/06/2020 Bilateral Screening Mammogram, [facility]. 12/31/2021 Bilateral Screening Mammogram, [facility]. Tissue Density: There are scattered fibroglandular densities. Findings: Analyzed By CAD. There is no suspicious group of microcalcifications or new suspicious mass in either breast. Overall Assessment: Negative, BI-RAD 1 Management: Screening Mammogram of both breasts in [address] [facility] will attempt to contact patient to return for supplemental views and ultrasound if indicated. Patient should continue monthly self-breast exams. A clinical breast exam by your physician is recommended on an annual basis. This exam should not preclude additional follow-up of suspicious palpable abnormalities. Note on Jessica scores and lifetime risk: 1. A Jessica score greater than 3% is considered moderate risk. If this is the case, consider specialist referral to assess eligibility for a risk reducing agent. 2. If overall lifetime risk for the development of breast cancer is 20% or higher, the patient may qualify for future screening with alternating mammogram and breast MRI. Electronically signed and approved by: Maurice Hi DO
== END | disposition home or self-care (01) ==
LOC: RADMAMWWP 09:12
PROVIDERS: ATTEND Family Medicine
DX: Z12.31 Encounter for screening mammogram for malignant neoplasm of breast (principal); Z78.0 Asymptomatic menopausal state
CPT/HCPCS: 77063; 77067

== ENCOUNTER → 2023-03-14 | Outpatient (CLI) | payer MEDICARE ==
--- NOTE | 2023-03-14 14:52 | CT ---
EXAMINATION TYPE: CT chest wo con DATE OF EXAM: 03/14/2023 COMPARISON: Chest x-ray January 02, 2023 HISTORY: h/o SOB, pneumonia CT DLP: 1572.7 mGycm. Automated Exposure Control for Dose Reduction was Utilized. TECHNIQUE: CT scan of the thorax is performed without IV contrast. High resolution protocol with 1 m m sequences obtained at 10 mm intervals in supine and prone technique utilizing for inspiration and e xpiration. FINDINGS: LUNGS: Mild focal linear scarring in the anterior right mid lung is redemonstrated near image 118 ser ies 4. No significant peripheral reticulation or fibrotic change. Mild linear scarring bilaterally ax ial image 142 is redemonstrated. Mild to minimal left basilar linear scarring. No pleural effusion or pneumothorax seen bilaterally. No honeycombing or bronchiectasis. MEDIASTINUM: Lack of IV contrast and technique are noted to limit evaluation for mediastinal and josefa cially hilar adenopathy. There are no definitive greater than 1 cm mediastinal lymph nodes. Cardiomeg raymond with dual lead pacemaker is redemonstrated. No pericardial effusion is seen. OTHER: Cholecystectomy clips are redemonstrated. Multilevel spurring in the thoracic spine is redemon strated. IMPRESSION: Mild scattered linear scarring. No significant peripheral reticulation or fibrotic change .
== END | disposition home or self-care (01) ==
LOC: RADCTMAIN 12:18
PROVIDERS: ATTEND Internal Medicine Critical Care Medicine
DX: J98.4 Other disorders of lung (principal); R06.00 Dyspnea, unspecified
CPT/HCPCS: 71250

== ENCOUNTER 2023-07-31 01:28 | Observation (INO) | payer MEDICARE ==
[2023-07-31] MEDS ORDERED: ASPIRIN 81 MG PO STA (01:50)
[2023-07-31] MEDS ORDERED: NITROGLYCERIN SL TABS 0.4 MG TAB SUBLINGUAL STA (01:50)
--- NOTE | 2023-07-31 02:03 | ED ---
Chest Pain HPI - General Chief Complaint: Chest Pain Stated Complaint: Chest Pain Time Seen by Provider: 07/31/23 01:45 Source: patient Mode of arrival: ambulatory Limitations: no limitations - History of Present Illness MD Complaint: chest pain Onset/Timin -: days(s) Onset: during rest Pain Location: substernal, epigastric Pain Radiation: back Severity: moderate Quality: aching Consistency: constant Improves With: nothing Worsens With: nothing Anginal Symptoms: nausea Treatments Prior to Arrival: none - Related Data Home Medications Medication Instructions Recorded Confirmed Omeprazole [PriLOSEC] 20 mg PO BID 02/24/14 01/02/23 Losartan Potassium 100 mg PO DAILY 02/17/17 01/02/23 Apixaban [Eliquis] 2.5 mg PO BID 06/20/17 01/02/23 Alendronate Sodium [Fosamax] 70 mg PO FR 10/31/19 01/02/23 Multivit-Min/FA/Lycopen/Lutein 1 tab PO DAILY 10/31/19 01/02/23 [Centrum Silver Tablet] Verapamil HCl [Verapamil ER] 360 mg PO DAILY 10/31/19 01/02/23 buPROPion HCL [Wellbutrin XL] 300 mg PO DAILY 10/31/19 01/02/23 Atorvastatin [Lipitor] 40 mg PO DAILY 04/27/20 01/02/23 Baclofen [Lioresal] 10 mg PO BID@0800,1200 04/27/20 01/02/23 Baclofen [Lioresal] 20 mg PO HS 04/27/20 01/02/23 L.acidoph,Paracasei, B.lactis 1 cap PO BID 04/27/20 01/02/23 [Probiotic] hydroCHLOROthiazide [Hydrodiuril] 12.5 mg PO DAILY 04/27/20 01/02/23 HYDROcodone/APAP 7.5-325MG [[place] 1 tab PO TID PRN 08/07/20 01/02/23 7.5-325] Cholecalciferol [Vitamin D3 (125 125 mcg PO DAILY 01/02/23 01/02/23 Mcg = 5000 Iu)] Lacosamide [Vimpat] 100 mg PO BID 01/02/23 01/02/23 Levothyroxine Sodium [Synthroid] 88 mcg PO DAILY 01/02/23 01/02/23 Magnesium 420mg 420 mg PO DAILY 01/02/23 01/02/23 Previous Rx's Medication Instructions Recorded Aspirin 81 mg PO DAILY 06/25/17 Albuterol Inhaler [Ventolin Hfa 1 - 2 puff INHALATION RT-Q6H PRN 01/02/23 Inhaler] #1 each methylPREDNISolone Dose Pack 4 mg PO DIRECTED #1 packet 01/02/23 [Medrol Dose Pack] Allergies Allergy/AdvReac Type Severity Reaction Status Date / Time pregabalin [From Lyrica] Allergy Swelling/Blurry Verified 01/02/23 18:06 Vision cefpodoxime proxetil AdvReac Nausea & Verified 01/02/23 18:06 [From Vantin] Vomiting metoclopramide HCl AdvReac Nausea & Verified 01/02/23 18:06 [From Reglan] Vomiting Review of Systems ROS Statement: Those systems with pertinent positive or pertinent negative responses have been documented in the HPI. ROS Other: All systems not noted in ROS Statement are negative. Constitutional: Denies: fever, chills Respiratory: Denies: cough, dyspnea Cardiovascular: Reports: chest pain. Denies: palpitations, orthopnea, edema, syncope Gastrointestinal: Reports: nausea. Denies: abdominal pain, vomiting, diarrhea Genitourinary: Denies: dysuria, hematuria Musculoskeletal: Denies: back pain Skin: Denies: rash Neurological: Denies: headache, weakness, numbness EKG Findings - EKG Comments: EKG Findings:: There is an atrial/ventricular paced rhythm, rate 72 bpm - EKG Results: EKG: interpreted by SUMAYA Past Medical History Past Medical History: CVA/TIA, Fibromyalgia, GERD/Reflux, Hyperlipidemia, Hy pertension, Osteoarthritis (OA), Pneumonia, Renal Disease, Sleep Apnea/CPAP/BIPAP, Thyroid Disorder Additional Past Medical History / Comment(s): DDD, osteoporosis, spleenic aneurysm , Hx UTI's, HIATAL HERNIA.per pt no MRI's r/t metal clips rt temperol lobe-stated has had chronic headache ever since the sx November of 1991); Chronic Pain Disorder,ddd ,"6 tia's". cva 3-2013 lt side a bit weaker than rt., sinusitis, DOES NOT USE CPAP, FATTY LIVER, states BBB, frequent diarrhea.,nausea, stage 3 kidney disease., urine leakage- wears depends, palpitaions. History of Any Multi-Drug Resistant Organisms: None Reported Past Surgical History: Section, Cholecystectomy, Hysterectomy, Pacemaker Additional Past Surgical History / Comment(s): hemmorhoidectomy, PACEMAKER, PELVIC FLOOR SX FOR URINARY INCONT MESH, BRAIN SX RT TEMPERAL ANUERYSM-HAS METAL CLIPS IN PLACE, ( HAS HEADACHES EVER SINCE), AVEL BREAST BIOPIES STATES HAS METALMARKERS IN PLACE.colonoscopy-HX OF POLYPS, EPIDURAL STERIOD INJECTIONS Past Anesthesia/Blood Transfusion Reactions: Previous Problems w/ Anesthesia Additional Past Anesthesia/Blood Transfusion Reaction / Comment(s): usually wakes up very quickly from anesthesia- woke up during surgery Type of Cardiac Device: Permanent Pacemaker Device Placement Date:: Cerevo, Past Psychological History: Anxiety, Bipolar, Depression Smoking Status: Former smoker Past Alcohol Use History: None Reported Past Drug Use History: None Reported - Past Family History Mother Family Medical History: Cancer, COPD, Dementia, Myocardial Infarction ([place]) Additional Family Medical History / Comment(s): cervical cancer, pancreatitis Father Family Medical History: Cancer, Congestive Heart Failure (CHF), COPD Additional Family Medical History / Comment(s): lung cancer,emphysema General Exam Limitations: no limitations General appearance: alert, in no apparent distress Head exam: Present: atraumatic, normocephalic Eye exam: Present: normal appearance. Absent: scleral icterus, conjunctival injection ENT exam: Present: normal oropharynx Neck exam: Present: normal inspection Respiratory exam: Present: normal lung sounds bilaterally. Absent: respiratory distress, wheezes, rales, rhonchi, stridor Cardiovascular Exam: Present: regular rate, normal rhythm, normal heart sounds. Absent: systolic murmur, diastolic murmur, rubs, gallop GI/Abdominal exam: Present: soft. Absent: distended, tenderness, guarding, rebound, rigid, mass Extremities exam: Present: normal inspection, normal capillary refill. Absent: pedal edema, calf tenderness Back exam: Present: normal inspection. Absent: CVA tenderness (R), CVA tenderness (L) Neurological exam: Present: alert Skin exam: Present: warm, dry, intact, normal color. Absent: rash Course Vital Signs 07/31/23 01:31 Temperature 98.2 F Pulse Rate 78 Respiratory 20 Rate Blood Pressure 174/80 O2 Sat by Pulse 98 Oximetry Disposition Referrals: Sukhdev Patrick MD [Primary Care Provider] - 1-2 days
[2023-07-31 02:04] LABS: Basophils % (A) 0 %; Eosinophils # (A) 0.3 k/uL (0-0.7); Eosinophils % (A) 3 %; HCT 42.2 % (34.0-46.0); HGB 14.2 gm/dL (11.4-16.0); Lymphocytes # (A) 3.3 k/uL (1.0-4.8); Lymphocytes % (A) 40 %; MCH 29.3 pg (25.0-35.0); MCHC 33.7 g/dL (31.0-37.0); MCV 87.1 fL (80.0-100.0); Mean Platelet Volume 8.1; Monocytes # (A) 0.6 k/uL (0-1.0); Monocytes % (A) 7 %; Neutrophils # (A) 3.9 k/uL (1.3-7.7); Neutrophils % (A) 47 %; Platelet Count 141 k/uL (150-450); RBC 4.84 m/uL (3.80-5.40); RDW 12.9 % (11.5-15.5); WBC 8.4 k/uL (3.8-10.6)
[2023-07-31 02:14] LABS: INR 0.9 (<1.2); Partial Thromboplastin Time 25.3 sec (22.0-30.0); Prothrombin Time 10.4 sec (10.0-12.5)
[2023-07-31 02:18] LABS: ALT 30 U/L (4-34); AST 35 U/L (14-36); African American GFR (CKD) >90 (>60 ml/min/1.73 sqM); Albumin 4.2 g/dL (3.5-5.0); Alkaline Phosphatase 114 U/L (38-126); Amylase 65 U/L (30-110); Anion Gap 11 mmol/L; Blood Urea Nitrogen 14 mg/dL (7-17); Carbon Dioxide 24 mmol/L (22-30); Chloride 101 mmol/L (98-107); Glucose 94 mg/dL (74-99); Lipase 199 U/L (23-300); Magnesium 2.1 mg/dL (1.6-2.3); Non-African American GFR(CKD) 79 (>60 ml/min/1.73 sqM); Potassium 3.8 mmol/L (3.5-5.1); Sodium 136 mmol/L (137-145); Total Bilirubin 0.6 mg/dL (0.2-1.3); Total Protein 6.6 g/dL (6.3-8.2)
[2023-07-31 02:25] LABS: NT-Pro-B-Type Natriuretic Pept 76 pg/mL
--- NOTE | 2023-07-31 02:39 | XR ---
EXAM: XR Chest, 1 View CLINICAL HISTORY: chest pain TECHNIQUE: Frontal view of the chest. COMPARISON: Chest 2 views 01/02/2023 FINDINGS: Lungs: No focal airspace consolidation, accounting for prominent overlying soft tissues. Pulmonary vasculature is equalized without radiographic evidence for florid CHF. Pleural space: Unremarkable. No pneumothorax. No large pleural effusion. Heart: More prominent cardiomegaly is presumed related to portable technique. Mediastinum: No significant abnormality identified. The trachea is midline. Bones/joints: Unremarkable. Tubes, lines and devices: Left subclavian dual lead pacer, stable. IMPRESSION: No focal airspace consolidation, accounting for prominent overlying soft tissues. Pulmonary vasculature is equalized without radiographic evidence for florid CHF. No large pleural effusion or pneumothorax.
[2023-07-31] MEDS ORDERED: MORPHINE SULFATE 4 MG/ML SYRINGE IV STA (03:07)
[2023-07-31] MEDS ORDERED: NITROGLYCERIN SL TABS 0.4 MG TAB SUBLINGUAL PRN (03:49)
[2023-07-31] MEDS ORDERED: HYDROcodone/APAP 7.5-325MG 1 EACH TAB PO PRN (03:52)
[2023-07-31] MEDS ORDERED: ALBUTEROL NEBULIZED 2.5 MG/3 ML INHALATION PRN (03:52)
[2023-07-31] MEDS ORDERED: SODIUM CHLORIDE 0.9% 1,000 ML IV SCH (04:00)
[2023-07-31] MEDS ORDERED: LEVOTHYROXINE 88 MCG TAB PO SCH (07:00)
--- NOTE | 2023-07-31 07:12 | P.HPIM ---
History of Present Illness H&P Date: 07/31/23 Chief Complaint: Chest pain 68-year-old female with history of hypertension, GERD Patient coming in for evaluation of chest pain. She reports that she was following up with cardiology on July 10 when she was told that she has complete heart block and a stress test was ordered and done couple days later which was reported to be normal. since then she's been having off-and-on episodes of chest pain not related to activity however this chest pain has progressed to become steady chest pain over the past week that goes up and down in intensity again not related to any activity Over the past couple days her chest pain has been mostly consistent at around 8.5 out of 10 in severity right across her chest associated with shortness of breath and feeling intense pressure on her chest that gets worse with activity when she walks around. She also reports random sweating episodes over the past few weeks which felt similar to her hot flashes symptoms. She denies any palpitations or dizziness however she's been feeling off balance and she reports 2 falls over the past 6 months no head injuries no passing out. She reports occasional nausea but denies any vomiting Today she was watching the lines gain went toward the end she had intense pain as she was getting excited, this pain progressed throughout the night for which she decided to come in for evaluation. Patient has history of pacemaker which was placed 10 years ago. Right after which she had an episode of stroke with right-sided weakness that resolved completely. She also reports recent diagnosis of asthma where her general claims agent started her on some albuterol She denies any tobacco smoking illicit drugs or heavy alcohol Patient denies any known sick contacts denies any fevers or chills denies any coughing denies any sore throat denies any runny nose denies any changes in her bowel or urinary habits denies any abdominal pain. review of systems Pertinent positives as noted in HPI. All other systems were reviewed and are negative on exam Constitutional: No acute distress, conversant, pleasant Eyes: Anicteric sclerae, moist conjunctiva, Pupils equal round reactive to light ENMT: NC/AT Oropharynx clear, no erythema, or exudates Neck: Supple, no masses, or JVD No carotid bruits No thyromegaly Lungs: Clear to auscultation Clear to percussion Normal respiratory effort, no accessory muscle use Cardiovascular: Heart regular in rate and rhythm, No murmurs, gallops, or rubs No peripheral edema Abdominal: Soft Nontender, no guarding, rebound or rigidity Abdomen moving with respiration Normoactive bowel sounds No hepatomegaly, No splenomegaly No palpable mass No abdominal wall hernia noted Extremities: No digital cyanosis No clubbing Pedal pulses intact and symmetrical Radial pulses intact and symmetrical No calf tenderness Psychiatric: Alert and oriented to person, place and time Appropriate affect fair judgement Neuro Muscles Strength 5/5 in all 4 extremities Sensation to light touch grossly present throughout Cranial nerves II-XII grossly intact Lymphatics: no palpable cervical or supraclavicular lymph nodes Past Medical History Past Medical History: CVA/TIA, Fibromyalgia, GERD/Reflux, Hyperlipidemia, Hypertension, Osteoarthritis (OA), Pneumonia, Renal Disease, Sleep Apnea/CPAP/BIPAP, Thyroid Disorder Additional Past Medical History / Comment(s): DDD, osteoporosis, spleenic aneurysm , Hx UTI's, HIATAL HERNIA.per pt no MRI's r/t metal clips rt temperol lobe-stated has had chronic headache ever since the sx November of 1991); Chronic Pain Disorder,ddd ,"6 tia's". cva -2013 lt side a bit weaker than rt., sinusitis, DOES NOT USE CPAP, FATTY LIVER, states BBB, frequent diarrhea.,nausea, stage 3 kidney disease., urine leakage- wears depends, palpitaions. History of Any Multi-Drug Resistant Organisms: None Reported Past Surgical History: Section, Cholecystectomy, Hysterectomy, Pacemaker Additional Past Surgical History / Comment(s): hemmorhoidectomy, PACEMAKER, PELVIC FLOOR SX FOR URINARY INCONT MESH, BRAIN SX RT TEMPERAL ANUERYSM-HAS METAL CLIPS IN PLACE, ( HAS HEADACHES EVER SINCE), AVEL BREAST BIOPIES STATES HAS METALMARKERS IN PLACE.colonoscopy-HX OF POLYPS, EPIDURAL STERIOD INJECTIONS Past Anesthesia/Blood Transfusion Reactions: Previous Problems w/ Anesthesia Additional Past Anesthesia/Blood Transfusion Reaction / Comment(s): usually w akes up very quickly from anesthesia- woke up during surgery Type of Cardiac Device: Permanent Pacemaker Device Placement Date:: [employer], Past Psychological History: Anxiety, Bipolar, Depression Additional Psychological History / Comment(s): . Smoking Status: Former smoker Past Alcohol Use History: None Reported Additional Past Alcohol Use History / Comment(s): smoked x 18 years 1.5 ppd, quit 1996 Past Drug Use History: None Reported - Past Family History Mother Family Medical History: Cancer, COPD, Dementia, Myocardial Infarction ([place]) Additional Family Medical History / Comment(s): cervical cancer, pancreatitis Father Family Medical History: Cancer, Congestive Heart Failure (CHF), COPD Additional Family Medical History / Comment(s): lung cancer,emphysema Medications and Allergies Home Medications Medication Instructions Recorded Confirmed Type Omeprazole [PriLOSEC] 20 mg PO BID 02/24/14 01/02/23 History Losartan Potassium 100 mg PO DAILY 02/17/17 01/02/23 History Apixaban [Eliquis] 2.5 mg PO BID 06/20/17 01/02/23 History Aspirin 81 mg PO DAILY 06/25/17 01/02/23 Rx Alendronate Sodium [Fosamax] 70 mg PO FR 10/31/19 01/02/23 History Multivit-Min/FA/Lycopen/Lutein 1 tab PO DAILY 10/31/19 01/02/23 History [Centrum Silver Tablet] Verapamil HCl [Verapamil ER] 360 mg PO DAILY 10/31/19 01/02/23 History buPROPion HCL [Wellbutrin XL] 300 mg PO DAILY 10/31/19 01/02/23 History Atorvastatin [Lipitor] 40 mg PO DAILY 04/27/20 01/02/23 History Baclofen [Lioresal] 10 mg PO BID@0800,1200 04/27/20 01/02/23 History Baclofen [Lioresal] 20 mg PO HS 04/27/20 01/02/23 History L.acidoph,Paracasei, B.lactis 1 cap PO BID 04/27/20 01/02/23 History [Probiotic] hydroCHLOROthiazide [Hydrodiuril] 12.5 mg PO DAILY 04/27/20 01/02/23 History HYDROcodone/APAP 7.5-325MG [[place] 1 tab PO TID PRN 08/07/20 01/02/23 History 7.5-325] Albuterol Inhaler [Ventolin Hfa 1 - 2 puff INHALATION RT-Q6H PRN 01/02/23 Rx Inhaler] #1 each Cholecalciferol [Vitamin D3 (125 125 mcg PO DAILY 01/02/23 01/02/23 History Mcg = 5000 Iu)] Lacosamide [Vimpat] 100 mg PO BID 01/02/23 01/02/23 History Levothyroxine Sodium [Synthroid] 88 mcg PO DAILY 01/02/23 01/02/23 History Magnesium 420mg 420 mg PO DAILY 01/02/23 01/02/23 History methylPREDNISolone Dose Pack 4 mg PO DIRECTED #1 packet 01/02/23 Rx [Medrol Dose Pack] Allergies Allergy/AdvReac Type Severity Reaction Status Date / Time pregabalin [From Lyrica] Allergy Swelling/Blurry Verified 07/31/23 07:02 Vision cefpodoxime proxetil AdvReac Nausea & Verified 07/31/23 07:02 [From Vantin] Vomiting metoclopramide HCl AdvReac Nausea & Verified 07/31/23 07:02 [From Reglan] Vomiting Physical Exam Vitals: Vital Signs Temp Pulse Pulse Resp BP BP Pulse Ox 07/31/23 04:36 97.6 F 69 17 174/79 99 07/31/23 04:24 69 16 149/66 96 07/31/23 03:19 75 16 152/69 96 07/31/23 02:49 69 07/31/23 01:31 98.2 F 78 20 174/80 98 Intake and Output 07/30/23 07/30/23 07/31/23 14:59 22:59 06:59 Other: Weight 105.687 kg Results CBC & Chem 7: 07/31/23 01:53 07/31/23 01:53 Labs: Abnormal Lab Results - Last 24 Hours (Table) 07/31/23 07/31/23 Range/Units 01:53 01:53 Plt Count 141 L (150-450) k/uL Sodium 136 L (137-145) mmol/L Assessment and Plan Assessment: 68-year-old female with history of GERD and hypertension coming in for persistent chest pain over the past week which has worsened overnight and decided to come in for evaluation she had a recent normal stress test done about couple weeks ago I discussed the case with the ED doctor and accepted the admission for atypical chest pain to rule out acute coronary syndrome with anticipated length of stay less than 2 midnights Atypical chest pain Cardiology consult Troponins negative, continue to trend EKG showed ventricular paced rhythm Continue cardiac meds verapamil aspirin and Eliquis Continue atorvastatin Cardiac monitoring Monitor vital signs Nitro sublingual when necessary for pain Supplemental oxygen as needed Hypertension Continue hydrochlorothiazide, losartan Hypothyroid continue levothyroxine GERD Continue with the context 40 mg by mouth twice a day Blood work showing white count 8.4, hemoglobin 14.2 Mild thrombocytopenia platelets 141 Sodium 136 potassium 3.8 Urine 14 creatinine 0.7 Magnesium 2.1 Fall precautions PT evaluation due to reports of recent falls over the past 6 months Full code DVT prophylaxis on Eliquis 2.5 mg by mouth twice a day
[2023-07-31 07:46] VITALS: BP 145/73; PULSE 79; RESP 14; TEMP 97.7
[2023-07-31] MEDS ORDERED: buPROPion XL 300 MG TAB.ER.24H PO SCH (09:00)
[2023-07-31] MEDS ORDERED: CHOLECALCIFEROL 125 MCG (5000 IU) TABLET PO SCH (09:00)
[2023-07-31] MEDS ORDERED: LACOSAMIDE 50 MG TABLET PO SCH (09:00)
[2023-07-31] MEDS ORDERED: hydroCHLOROthiazide 12.5 MG CAP PO SCH (09:00)
[2023-07-31] MEDS ORDERED: VERAPAMIL SR 180 MG TABLET.ER PO SCH (09:00)
[2023-07-31] MEDS ORDERED: APIXABAN 2.5 MG TABLET PO SCH (09:00)
[2023-07-31] MEDS ORDERED: MAGNESIUM OXIDE 400 MG TAB PO SCH (09:00)
[2023-07-31] MEDS ORDERED: ATORVASTATIN 40 MG TAB PO SCH (09:00)
[2023-07-31] MEDS ORDERED: PANTOPRAZOLE 40 MG TABLET PO SCH (09:00)
[2023-07-31] MEDS ORDERED: LOSARTAN 50 MG TAB PO SCH (09:00)
--- NOTE | 2023-07-31 11:31 | P.CRDCN ---
History of Present Illness Consult date: 07/31/23 Consult reason: chest pain History of present illness: History of present illness: This is a 68 year old female patient of Dr. Ontiveros with past medical history of coronary artery disease, status post permanent pacemaker due to complete heart block, hypertension, history of PAT, hyperlipidemia, gastroesophageal reflux disease, hypothyroidism. We have been asked to evaluate the patient for chest pain. Patient states that she has had intermittent sharp pain that she has never had before. The chest wall is very tender to touch. She thought it was related to her fibromyalgia. Patient denies having any shortness of breath, lightheadedness or dizziness, no palpitations. EKG atrial sensed and ventricular paced Chest x-ray: No acute finding WBC 8.4, hemoglobin 14.2, platelet count 141. INR 0.9. Sodium 136, potassium 3.8, creatinine 0.77. Magnesium 2.1. Troponin negative 3. Liver function tests normal. Lipase 199. ProBNP 76 Home cardiac medications: Eliquis 2.5 mg twice daily, aspirin 81 mg daily, atorvastatin 40 mg daily, hydrochlorothiazide 12.5 mg daily, losartan 50 mg daily, verapamil 360 mg daily. Lexiscan stress test performed 07/07/2023 in the office was inconclusive EKG part with probable normal myocardial perfusion and function. Echocardiogram performed 06/16/2022 in the office revealed EF of 55-60%, mild left ventricular hypertrophy. Moderate mitral regurgitation. Mild to moderate tricuspid regurgitation. PAS P 55 mmHg. Review Of Systems: At the time of my evaluation: Constitutional: No fever, no chills. No weakness, fatigue or lethargy. EENT: No headache. No dizziness. Lungs: No shortness of breath, cough, no sputum production. No wheezing. Cardiovascular: + chest pain, no lower extremity edema. No palpitations. No paroxysmal nocturnal dyspnea. No orthopnea. No lightheadedness or dizziness. No syncopal episodes. Abdominal: No abdominal pain. No nausea, vomiting. No diarrhea. No c onstipation. No bloody or tarry stools. Musculoskeletal: No myalgias. No muscle weakness, no frequent falls. Integumentary: No wounds. No rash. No unusual bruising. Neurologic: No aphasia. No facial droop. No change in mentation. Physical examination: Gen: This is a 68-year-old female. She is resting in bed appears to be comfortable and in no acute distress. VS: reviewed HEENT: Head is atraumatic, normocephalic. Pupils equal, round. Sclerae is anicteric. NECK: Supple. No JVD. . LUNGS: Clear to auscultation. No wheezes or rhonchi. No intercostal retractions. HEART: Regular rate and rhythm. Systolic murmur. + Chest wall tenderness ABDOMEN: Soft No tenderness. EXTREMITIES: No pedal edema. No calf tenderness. NEUROLOGICAL: Patient is awake, alert and oriented x3. Assessment: Atypical chest pain, acute coronary syndrome ruled out Hypertension History of complete heart block status post pacemaker Pulmonary hypertension Plan: Continue patient's home cardiac medications Patient is cleared for discharge may follow-up in the office with Dr. Ontiveros as scheduled. Nurse practitioner note has been reviewed, I agree with documented findings and plan of care. Patient was seen and examined. Past Medical History Past Medical History: CVA/TIA, Fibromyalgia, GERD/Reflux, Hyperlipidemia, Hypertension, Osteoarthritis (OA), Pneumonia, Renal Disease, Sleep Apnea/CPAP/BIPAP, Thyroid Disorder Additional Past Medical History / Comment(s): DDD, osteoporosis, spleenic aneurysm , Hx UTI's, HIATAL HERNIA.per pt no MRI's r/t metal clips rt temperol lobe-stated has had chronic headache ever since the sx November of 1991); Chronic Pain Disorder,ddd ,"6 tia's". cva 3-2013 lt side a bit weaker than rt., si nusitis, DOES NOT USE CPAP, FATTY LIVER, states BBB, frequent diarrhea.,nausea, stage 3 kidney disease., urine leakage- wears depends, palpitaions. History of Any Multi-Drug Resistant Organisms: None Reported Past Surgical History: Section, Cholecystectomy, Hysterectomy, Pacemaker Additional Past Surgical History / Comment(s): hemmorhoidectomy, PACEMAKER, PELVIC FLOOR SX FOR URINARY INCONT MESH, BRAIN SX RT TEMPERAL ANUERYSM-HAS METAL CLIPS IN PLACE, ( HAS HEADACHES EVER SINCE), AVEL BREAST BIOPIES STATES HAS METALMARKERS IN PLACE.colonoscopy-HX OF POLYPS, EPIDURAL STERIOD INJECTIONS Past Anesthesia/Blood Transfusion Reactions: Previous Problems w/ Anesthesia Additional Past Anesthesia/Blood Transfusion Reaction / Comment(s): usually wakes up very quickly from anesthesia- woke up during surgery Type of Cardiac Device: Permanent Pacemaker Device Placement Date:: [employer], Past Psychological History: Anxiety, Bipolar, Depression Additional Psychological History / Comment(s): . Smoking Status: Former smoker Past Alcohol Use History: None Reported Additional Past Alcohol Use History / Comment(s): smoked x 18 years 1.5 ppd, quit 1996 Past Drug Use History: None Reported - Past Family History Mother Family Medical History: Cancer, COPD, Dementia, Myocardial Infarction ([place]) Additional Family Medical History / Comment(s): cervical cancer, pancreatitis Father Family Medical History: Cancer, Congestive Heart Failure (CHF), COPD Additional Family Medical History / Comment(s): lung cancer,emphysema Medications and Allergies Home Medications Medication Instructions Recorded Confirmed Type Apixaban [Eliquis] 2.5 mg PO BID 06/20/17 07/31/23 History Aspirin 81 mg PO DAILY 06/25/17 07/31/23 Rx Alendronate Sodium [Fosamax] 70 mg PO FR 10/31/19 07/31/23 History Verapamil HCl [Verapamil ER] 360 mg PO DAILY 10/31/19 07/31/23 History buPROPion HCL [Wellbutrin XL] 300 mg PO DAILY 10/31/19 07/31/23 History Atorvastatin [Lipitor] 40 mg PO DAILY 04/27/20 07/31/23 History Baclofen [Lioresal] 10 mg PO BID@0800,1200 04/27/20 07/31/23 History Baclofen [Lioresal] 20 mg PO HS 04/27/20 07/31/23 History L.acidoph,Paracasei, B.lactis 1 cap PO DAILY 04/27/20 07/31/23 History [Probiotic] hydroCHLOROthiazide [Hydrodiuril] 12.5 mg PO DAILY 04/27/20 07/31/23 History HYDROcodone/APAP 7.5-325MG [[place] 1 tab PO TID PRN 08/07/20 07/31/23 History 7.5-325] Lacosamide [Vimpat] 100 mg PO BID 01/02/23 07/31/23 History Levothyroxine Sodium [Synthroid] 88 mcg PO DAILY 01/02/23 07/31/23 History Albuterol Sulfate [Albuterol 2 puff PO RT-Q6H PRN 07/31/23 07/31/23 History Sulfate Hfa] Cholecalciferol [Vitamin D3 (25 50 mcg PO BID 07/31/23 07/31/23 History Mcg = 1000 Iu)] Fluticasone/Umeclidin/Vilanter 1 puff INHALATION RT-DAILY 07/31/23 07/31/23 History [Trelegy Ellipta 100-62.5-25] Losartan [Cozaar] 50 mg PO DAILY 07/31/23 07/31/23 History Magnesium Oxide [Mag-Ox] 400 mg PO HS 07/31/23 07/31/23 History Multivit-Min/Iron/Folic/Lutein 1 tab PO DAILY 07/31/23 07/31/23 History [Centrum Silver Women Tablet] Omeprazole [PriLOSEC] 40 mg PO DAILY 07/31/23 07/31/23 History Zinc Gluconate [Zinc] 50 mg PO DAILY 07/31/23 07/31/23 History Allergies Allergy/AdvReac Type Severity Reaction Status Date / Time pregabalin [From Lyrica] Allergy Swelling/Blurry Verified 07/31/23 07:02 Vision cefpodoxime proxetil AdvReac Nausea & Verified 07/31/23 07:02 [From Vantin] Vomiting metoclopramide HCl AdvReac Nausea & Verified 07/31/23 07:02 [From Reglan] Vomiting Physical Exam Vitals: Vital Signs Temp Pulse Pulse Resp BP BP Pulse Ox 07/31/23 07:00 97.7 F 79 14 145/73 95 07/31/23 04:36 97.6 F 69 17 174/79 99 07/31/23 04:24 69 16 149/66 96 07/31/23 03:19 75 16 152/69 96 07/31/23 02:49 69 07/31/23 01:31 98.2 F 78 20 174/80 98 Intake and Output 07/30/23 07/31/23 07/31/23 22:59 06:59 14:59 Other: # Voids 1 Weight 105.687 kg Results 07/31/23 01:53 07/31/23 01:53 Cardiac Enzymes 07/31/23 07/31/23 07/31/23 Range/Units 01:53 01:53 04:45 AST 35 (14-36) U/L Troponin I <0.012 <0.012 (0.000-0.034) ng/mL Coagulation 07/31/23 Range/Units 01:53 PT 10.4 (10.0-12.5) sec APTT 25.3 (22.0-30.0) sec CBC 07/31/23 Range/Units 01:53 WBC 8.4 (3.8-10.6) k/uL RBC 4.84 (3.80-5.40) m/uL Hgb 14.2 (11.4-16.0) gm/dL Hct 42.2 (34.0-46.0) % Plt Count 141 L (150-450) k/uL Comprehensive Metabolic Panel 07/31/23 Range/Units 01:53 Sodium 136 L (137-145) mmol/L Potassium 3.8 (3.5-5.1) mmol/L Chloride 101 (98-107) mmol/L Carbon Dioxide 24 (22-30) mmol/L BUN 14 (7-17) mg/dL Creatinine 0.77 (0.52-1.04) mg/dL Glucose 94 (74-99) mg/dL Calcium 9.0 (8.4-10.2) mg/dL AST 35 (14-36) U/L ALT 30 (4-34) U/L Alkaline Phosphatase 114 (38-126) U/L Total Protein 6.6 (6.3-8.2) g/dL Albumin 4.2 (3.5-5.0) g/dL Current Medications Generic Name Dose Route Start Last Admin Trade Name Freq PRN Reason Stop Dose Admin Hydrocodone Bitart/Acetaminophen 1 each 07/31/23 03:52 07/31/23 04:50 Hydrocodone/Apap 7.5-325mg 1 Each Tab PO 1 each TID PRN Administration Pain Albuterol Sulfate 2.5 mg 07/31/23 03:52 Albuterol Nebulized 2.5 Mg/3 Ml INHALATION RT-Q6H PRN Dyspnea Apixaban 2.5 mg 07/31/23 09:00 Apixaban 2.5 Mg Tablet PO BID [facility] Protocol Aspirin 325 mg 08/01/23 09:00 Aspirin 325 Mg Tab PO DAILY [facility] Atorvastatin Calcium 40 mg 07/31/23 09:00 Atorvastatin 40 Mg Tab PO DAILY [facility] Bupropion HCl 300 mg 07/31/23 09:00 Bupropion Xl 300 Mg Tab.Er.24h PO DAILY [facility] Cholecalciferol 125 mcg 07/31/23 09:00 Cholecalciferol 125 Mcg (5000 Iu) Tablet PO DAILY [facility] Hydrochlorothiazide 12.5 mg 07/31/23 09:00 Hydrochlorothiazide 12.5 Mg Cap PO DAILY [facility] Sodium Chloride 1,000 mls @ 20 mls/hr 07/31/23 04:00 07/31/23 04:34 Saline 0.9% IV Not Given .Q24H NEHA Lacosamide 100 mg 07/31/23 09:00 Lacosamide 50 Mg Tablet PO BID [facility] Levothyroxine Sodium 88 mcg 07/31/23 07:00 07/31/23 05:55 Levothyroxine 88 Mcg Tab PO 88 mcg DAILY@0700 [facility] Administration Losartan Potassium 100 mg 07/31/23 09:00 Losartan 50 Mg Tab PO DAILY [facility] Magnesium Oxide 400 mg 07/31/23 09:00 Magnesium Oxide 400 Mg Tab PO DAILY [facility] Nitroglycerin 0.4 mg 07/31/23 03:49 Nitroglycerin Sl Tabs 0.4 Mg Tab SUBLINGUAL Q5M PRN Chest Pain Pantoprazole Sodium 40 mg 07/31/23 09:00 Pantoprazole 40 Mg Tablet PO BID [facility] Verapamil HCl 360 mg 07/31/23 09:00 Verapamil Sr 180 Mg Tablet.Er PO DAILY [facility] Intake and Output 07/30/23 07/31/23 07/31/23 22:59 06:59 14:59 Other: # Voids 1 Weight 105.687 kg 07/31/23 01:53 07/31/23 01:53
--- NOTE | 2023-07-31 11:39 | P.DS ---
Providers Date of admission: 07/31/23 03:52 Expected date of discharge: 07/31/23 Attending physician: Colby Lozano MD Consults: 07/31/23 03:50 Consult Physician Routine Consulting Provider: Peng Huynh Consult Reason/Comments: chest pain Do you want consulting provider notified?: Yes Primary care physician: [facility] Course: 68-year-old female with PMH of hypertension, GERD, complete heart block with permanent pacemaker, CAD, dyslipidemia, hypothyroidism presents to the ED for chest pain. In the ED, she underwent extensive evaluation. Vital signs were stable. CBC showed platelet count 141. Coagulation panel within normal limits. CMP showed sodium of 136. Amylase and lipase within normal limits. Troponin less than 0.0123 with EKG showing ventricular paced rhythm. Chest x-ray no acute findings. Patient was admitted for chest pain, rule out ACS, cardiology consultation. Troponins were trended and ACS was ruled out. D-Dimer was negative. Cardiology evaluated the patient and recommended no further workup and outpatient follow-up with Dr. Ontiveros. 07/31 Patient was seen and examined this morning. She reports continued yesterday, 03/27 in severity, right sided, radiating to the right arm. General: non toxic, no distress, appears at stated age Derm: warm, dry Head: atraumatic, normocephalic, symmetric Eyes: EOMI, no lid lag, anicteric sclera Cardiovascular: S1S2 reg, no murmur, TTP chest wall Lungs: CTA bilateral, no rhonchi, no rales , no accessory muscle use Ext: no gross muscle atrophy, no edema, no contractures Neuro: no focal neuro deficits Psych: Alert, oriented, appropriate affect Discharge diagnosis: Atypical chest pain Chronic conditions: hypertension, GERD, complete heart block with permanent pacemaker, CAD, dyslipidemia, hypothyroidism This complex discharge took 35 minutes to complete. Patient Condition at Discharge: Stable Plan - Discharge Summary New Discharge Prescriptions: Continue Apixaban [Eliquis] 2.5 mg PO BID Aspirin 81 mg PO DAILY Verapamil HCl [Verapamil ER] 360 mg PO DAILY buPROPion HCL [Wellbutrin XL] 300 mg PO DAILY Alendronate Sodium [Fosamax] 70 mg PO FR Atorvastatin [Lipitor] 40 mg PO DAILY Baclofen [Lioresal] 10 mg PO BID@0800,1200 Baclofen [Lioresal] 20 mg PO HS hydroCHLOROthiazide [Hydrodiuril] 12.5 mg PO DAILY L.acidoph,Paracasei, B.lactis [Probiotic] 1 cap PO DAILY HYDROcodone/APAP 7.5-325MG [[place] 7.5-325] 1 tab PO TID PRN PRN Reason: Pain Lacosamide [Vimpat] 100 mg PO BID Levothyroxine Sodium [Synthroid] 88 mcg PO DAILY Omeprazole [PriLOSEC] 40 mg PO DAILY Albuterol Sulfate [Albuterol Sulfate Hfa] 2 puff PO RT-Q6H PRN PRN Reason: Shortness Of Breath Zinc Gluconate [Zinc] 50 mg PO DAILY Cholecalciferol [Vitamin D3 (25 Mcg = 1000 Iu)] 50 mcg PO BID Multivit-Min/Iron/Folic/Lutein [Centrum Silver Women Tablet] 1 tab PO DAILY Magnesium Oxide [Mag-Ox] 400 mg PO HS Fluticasone/Umeclidin/Vilanter [Trelegy Ellipta 100-62.5-25] 1 puff INHALATION RT-DAILY Losartan [Cozaar] 50 mg PO DAILY Discharge Medication List Apixaban [Eliquis] 2.5 mg PO BID 06/20/17 [History] Aspirin 81 mg PO DAILY 06/25/17 [Rx] Alendronate Sodium [Fosamax] 70 mg PO FR 10/31/19 [History] Verapamil HCl [Verapamil ER] 360 mg PO DAILY 10/31/19 [History] buPROPion HCL [Wellbutrin XL] 300 mg PO DAILY 10/31/19 [History] Atorvastatin [Lipitor] 40 mg PO DAILY 04/27/20 [History] Baclofen [Lioresal] 10 mg PO BID@0800,1200 04/27/20 [History] Baclofen [Lioresal] 20 mg PO HS 04/27/20 [History] L.acidoph,Paracasei, B.lactis [Probiotic] 1 cap PO DAILY 04/27/20 [History] hydroCHLOROthiazide [Hydrodiuril] 12.5 mg PO DAILY 04/27/20 [History] HYDROcodone/APAP 7.5-325MG [[place] 7.5-325] 1 tab PO TID PRN 08/07/20 [History] Lacosamide [Vimpat] 100 mg PO BID 01/02/23 [History] Levothyroxine Sodium [Synthroid] 88 mcg PO DAILY 01/02/23 [History] Albuterol Sulfate [Albuterol Sulfate Hfa] 2 puff PO RT-Q6H PRN 07/31/23 [History] Cholecalciferol [Vitamin D3 (25 Mcg = 1000 Iu)] 50 mcg PO BID 07/31/23 [History] Fluticasone/Umeclidin/Vilanter [Trelegy Ellipta 100-62.5-25] 1 puff INHALATION RT-DAILY 07/31/23 [History] Losartan [Cozaar] 50 mg PO DAILY 07/31/23 [History] Magnesium Oxide [Mag-Ox] 400 mg PO HS 07/31/23 [History] Multivit-Min/Iron/Folic/Lutein [Centrum Silver Women Tablet] 1 tab PO DAILY 07/31/23 [History] Omeprazole [PriLOSEC] 40 mg PO DAILY 07/31/23 [History] Zinc Gluconate [Zinc] 50 mg PO DAILY 07/31/23 [History] Follow up Appointment(s)/Referral(s): Jose A Ontiveros MD [STAFF PHYSICIAN] - 2 Weeks Sukhdev Patrick MD [Primary Care Provider] - 1-2 days Discharge Disposition: HOME SELF-CARE
[2023-08-01] MEDS ORDERED: ASPIRIN 325 MG TAB PO SCH (09:00)
[2023-08-01] MEDS ORDERED: ASPIRIN 81 MG PO SCH (09:00)
== END 2023-07-31 13:46 | disposition home or self-care (01) ==
LOC: EC 01:28 → 6NMEDSUR 03:52
PROVIDERS: ADMIT Internal Medicine; ATTEND Internal Medicine
DX: R07.89 Other chest pain (principal); F31.9 Bipolar disorder, unspecified; F41.9 Anxiety disorder, unspecified; I25.10 Atherosclerotic heart disease of native coronary artery without angina pectoris; E78.5 Hyperlipidemia, unspecified; K21.9 Gastro-esophageal reflux disease without esophagitis; E03.9 Hypothyroidism, unspecified; I27.20 Pulmonary hypertension, unspecified; I10 Essential (primary) hypertension; J45.909 Unspecified asthma, uncomplicated; G47.30 Sleep apnea, unspecified; I69.351 Hemiplegia and hemiparesis following cerebral infarction affecting right dominant side; I69.352 Hemiplegia and hemiparesis following cerebral infarction affecting left dominant side; Z87.891 Personal history of nicotine dependence; Z95.0 Presence of cardiac pacemaker; Z79.01 Long term (current) use of anticoagulants; Z79.83 Long term (current) use of bisphosphonates; Z79.890 Hormone replacement therapy; Z79.82 Long term (current) use of aspirin; Z79.899 Other long term (current) drug therapy
CPT/HCPCS: 96374; 99285; 36415; 93005; 85379; 83880; 80053; 82150; 83690; 83735; 84484; 85025; 85610; 85730; 71045; G0378; J2270

== ENCOUNTER → 2023-10-25 | Outpatient (CLI) | payer MEDICARE ==
[2023-10-25 13:40] LABS: African American GFR (CKD) >90 (>60 ml/min/1.73 sqM); Blood Urea Nitrogen 8 mg/dL (7-17); Non-African American GFR(CKD) >90 (>60 ml/min/1.73 sqM)
--- NOTE | 2023-10-25 14:46 | CT ---
EXAMINATION TYPE: CT brain wo/w con DATE OF EXAM: 10/25/2023 COMPARISON: 04/27/2020 HISTORY: headaches, right side numbness CT DLP: 2226mGycm CONTRAST: CT scan of the head is performed with IV Contrast, patient injected with 100 mL of Isovue 300. Unenhanced followed by contrast enhanced CT of the brain is submitted for evaluation. The ventricles are midline. There are age-related atrophic and chronic small vessel ischemic change. Right tempora l craniotomy with right frontal postoperative encephalomalacia. There is no evidence for intracranial hemorrhage or extra-axial collection. No mass effects are identified. Visualized bony calvarium is intact. Contrast is administered and no enhancing lesions are detected. No pathologic enhancement is identified. If symptoms persist consider MRI. IMPRESSION: 1. Postoperative changes as discussed. 2. Mild age-related atrophic and chronic small vessel ischemic change.
== END | disposition home or self-care (01) ==
LOC: RADCTMAIN 12:59
PROVIDERS: ATTEND Physical Medicine & Rehabilitation Pain Medicine
DX: Z01.818 Encounter for other preprocedural examination (principal); G31.1 Senile degeneration of brain, not elsewhere classified; I67.82 Cerebral ischemia; G43.009 Migraine without aura, not intractable, without status migrainosus; R41.3 Other amnesia; Z98.890 Other specified postprocedural states
CPT/HCPCS: 82565; 84520; 70470; 36415; Q9967

== ENCOUNTER → 2023-10-30 | Outpatient (CLI) | payer MEDICARE ==
[2023-10-30 15:54] LABS: Blood Urea Nitrogen 15.3 mg/dL (9.0-27.0); Carbon Dioxide 26.9 mmol/L (21.6-31.8); Chloride 103 mmol/L (96-109); Potassium 4.6 mmol/L (3.5-5.5); Sodium 141 mmol/L (135-145)
[2023-10-30 16:21] LABS: HCT 42.7 % (37.2-46.3); HGB 13.8 g/dL (12.0-15.0); MCH 28.6 pg (27.0-32.0); MCHC 32.3 g/dL (32.0-37.0); MCV 88.6 FL (80.0-97.0); Mean Platelet Volume 10.8 FL (9.5-12.2); NRBC Per 100 WBC 0 X 10*3/uL (0.00-0.01); Platelet Count 154 X 10*3/uL (140-440); RBC 4.82 X 10*6/uL (4.10-5.20); RDW 12.9 % (11.5-14.5); WBC 7.44 X 10*3/uL (4.50-10.00)
== END | disposition home or self-care (01) ==
LOC: LABPAT 10:18
PROVIDERS: ATTEND Internal Medicine Clinical Cardiac Electrophysiology
DX: Z01.812 Encounter for preprocedural laboratory examination (principal); I44.2 Atrioventricular block, complete; I47.19 Other supraventricular tachycardia
CPT/HCPCS: 80051; 82565; 84520; 85027

== ENCOUNTER 2023-11-07 13:48 | Day surgery (SDC) | payer MEDICARE ==
[~2023-11-07 13:48] MED LIST changes: -LACTATED RINGERS 1,000 ML IV SCH; -LIDOCAINE 1% 20 ML VIAL (10MG/ML) FOR IV START INTRADERMA ONE; -LIDOCAINE 1% INJ 10MG/ML (20 ML MDV) ONE; -PROPOFOL 10 MG/ML 20 ML VIAL IV ONE; +ceFAZolin 1 GM in SODIUM CHLORIDE 0.9% IRRIG BTL 250 ML IRRIGATION PRN
[2023-11-07] MEDS: SODIUM CHLORIDE 0.9% 1,000 ML IV SCH ×2 (14:31→19:57)
[2023-11-07] MEDS ORDERED: fentaNYL (PF) 50 MCG/ML 2 ML AMP ONE (16:40)
[2023-11-07] MEDS ORDERED: MIDAZOLAM 2 MG/2 ML VIAL ONE (16:40)
[2023-11-07] MEDS ORDERED: PROPOFOL 10 MG/ML 20 ML VIAL IV ONE (16:40)
[2023-11-07] MEDS ORDERED: LIDOCAINE 1% INJ 10MG/ML (20 ML MDV) ONE ×3 (17:04→18:32)
[2023-11-07] MEDS: LIDOCAINE 1% INJ 10MG/ML (20 ML MDV) SQ ONE ×3 (17:20→18:30)
[2023-11-07] MEDS: VANCOMYCIN 1,500 MG in SODIUM CHLORIDE 0.9% 500 ML 500 ML IVPB PRN (18:04)
[2023-11-07] MEDS: ROPIVACAINE 5 MG/ML 30 ML VIAL MISCELLANE ONE (18:07)
--- NOTE | 2023-11-07 18:42 | P.EPPROC ---
- EP Procedure Note Electrophysiology Procedure Note: Transvenous temporary pacing procedure Indication for the procedure: Severe underlying bradycardia secondary to complete heart block Awaiting pacemaker generator change. TVP placed just prior to that Patient was brought to the EP lab in a fasting state. Written informed consent was obtained prior to the procedure. The right groin was prepped and draped as a protocol. A 6-[place] sheath was placed in the right femoral vein. Via this, a temporary pacing catheter was placed in the right ventricle. Thresholds were interrogated. Temporary pacing was performed through the rest of the procedure. At the end of the entire procedure, the TVP was removed. The sheath was removed and hemostasis was assured. Patient tolerated the procedure well without any acute complications. Procedure performed Transvenous temporary pacing
--- NOTE | 2023-11-07 18:47 | P.EPPROC ---
- EP Procedure Note Electrophysiology Procedure Note: Diagnosis Symptomatic bradycardia secondary to complete heart block status post dual-chamber pacemaker Pacemaker at [facility] awaiting pacemaker generator change Procedure Dual-chamber pacemaker generator change Details Patient was brought to the EP lab in a fasting state. Written informed consent was obtained prior to the procedure. Conscious sedation provided. IV antibiotics administered. Local anesthesia administered. A 4 cm incision made in the pectoral area. Subfascial pocket made. Venous accesses obtained Venous sheaths placed. Leads placed in the right heart Chronic atrial lead position the right atrial appendage. P waves 3.4 mV, pacing impedance 418 ohms and pacing threshold 1.25 V at point 4 ms Chronic RV lead position in the RV apex. Pacemaker dependent, pacing impedance 950 ohms and pacing threshold 0.75 V at point 4 ms Device urology teacher: [id number] dual-chamber pacemaker Livier XT DR MRI Dual-chamber pacemaker device connected to the leads and placed in the subfascial pocket Antibiotic pouch placed Patient tolerated the procedure well without acute complications Pacemaker programming DDDR 50-130 bpm
[2023-11-07] MEDS: ACETAMINOPHEN IV (For NPO) 1,000 MG in EMPTY BAG 1 BAG IVPB ONE (19:48)
[2023-11-07] MEDS: MAGNESIUM OXIDE 400 MG TAB PO SCH (19:49)
[2023-11-07] MEDS: BACLOFEN 10 MG TAB PO SCH (19:49)
[2023-11-07 19:57] VITALS: RESP 16
[2023-11-07] MEDS: VANCOMYCIN 1,575 MG in SODIUM CHLORIDE 0.9% 250 ML IVPB ONE (20:00)
[2023-11-08] MEDS: ACETAMINOPHEN TAB 325 MG TAB PO PRN (03:32)
[2023-11-08 07:19] VITALS: BP 148/62; PULSE 71; TEMP 97.4
[2023-11-08] MEDS: VERAPAMIL SR 180 MG TABLET.ER PO SCH (08:45)
[2023-11-08] MEDS: buPROPion XL 300 MG TAB.ER.24H PO SCH (08:45)
[2023-11-08] MEDS: hydroCHLOROthiazide 12.5 MG CAP PO SCH (08:45)
[2023-11-08] MEDS: BACLOFEN 10 MG TAB PO SCH (08:46)
[2023-11-08] MEDS: LOSARTAN 50 MG TAB PO SCH (08:46)
[2023-11-08] MEDS: ASPIRIN 81 MG PO SCH (08:46)
[2023-11-08] MEDS: ATORVASTATIN 40 MG TAB PO SCH (08:46)
[2023-11-08] MEDS: LEVOTHYROXINE 88 MCG TAB PO SCH (08:49)
--- NOTE | 2023-11-08 09:11 | P.DS ---
Providers Date of admission: 11/07/23 Attending physician: Jose A Ontiveros Primary care physician: Sukhdev Cazaresleslie [facility] Course: The patient is a 68-year-old female who follows in the office with Dr. Ontiveros. She presented to the hospital to undergo pacemaker generator change. She tolerated her procedure well. The patient was interviewed and examined resting comfortably in bed. The patient denies any pain or pressure at her device site. GENERAL: Well-appearing, well-nourished and in no acute distress. NECK: Supple without JVD or thyromegaly. LUNGS: Breath sounds clear to auscultation bilaterally. Respiration equal and unlabored. No wheezes, rales or rhonchi. HEART: Regular rate and rhythm without murmurs, rubs or gallops. S1 and S2 heard. Small amount of serous drainage on device dressing. EXTREMITIES: Normal range of motion, no edema. No clubbing or cyanosis. Peripheral pulses intact and strong. IMPRESSION: Complete heart block, status post permanent pacemaker Pacemaker generator change PLAN: Continue home medication regimen Patient is cleared for discharge I am dictating on behalf of Dr Jose A Ontiveros's history/physical and assessment/plan. Plan - Discharge Summary New Discharge Prescriptions: No Action Apixaban [Eliquis] 2.5 mg PO BID Aspirin 81 mg PO DAILY Verapamil HCl [Verapamil ER] 360 mg PO DAILY buPROPion HCL [Wellbutrin XL] 300 mg PO DAILY Alendronate Sodium [Fosamax] 70 mg PO FR Atorvastatin [Lipitor] 40 mg PO DAILY Baclofen [Lioresal] 10 mg PO BID@0800,1200 Baclofen [Lioresal] 20 mg PO HS hydroCHLOROthiazide [Hydrodiuril] 12.5 mg PO DAILY L.acidoph,Paracasei, B.lactis [Probiotic] 1 cap PO DAILY HYDROcodone/APAP 7.5-325MG [[place] 7.5-325] 1 tab PO TID PRN PRN Reason: Pain Lacosamide [Vimpat] 100 mg PO BID Levothyroxine Sodium [Synthroid] 88 mcg PO DAILY Omeprazole [PriLOSEC] 40 mg PO DAILY Albuterol Sulfate [Albuterol Sulfate Hfa] 2 puff PO RT-Q6H PRN PRN Reason: Shortness Of Breath Zinc Gluconate [Zinc] 50 mg PO DAILY Cholecalciferol [Vitamin D3 (25 Mcg = 1000 Iu)] 50 mcg PO BID Multivit-Min/Iron/Folic/Lutein [Centrum Silver Women Tablet] 1 tab PO DAILY Magnesium Oxide [Mag-Ox] 400 mg PO HS Losartan [Cozaar] 50 mg PO DAILY Fluticasone/Umeclidin/Vilanter [Trelegy Ellipta 100-62.5-25] 1 inhalation INHALATION DAILY Discharge Medication List Apixaban [Eliquis] 2.5 mg PO BID 06/20/17 [History] Aspirin 81 mg PO DAILY 06/25/17 [Rx] Alendronate Sodium [Fosamax] 70 mg PO FR 10/31/19 [History] Verapamil HCl [Verapamil ER] 360 mg PO DAILY 10/31/19 [History] buPROPion HCL [Wellbutrin XL] 300 mg PO DAILY 10/31/19 [History] Atorvastatin [Lipitor] 40 mg PO DAILY 04/27/20 [History] Baclofen [Lioresal] 10 mg PO BID@0800,1200 04/27/20 [History] Baclofen [Lioresal] 20 mg PO HS 04/27/20 [History] L.acidoph,Paracasei, B.lactis [Probiotic] 1 cap PO DAILY 04/27/20 [History] hydroCHLOROthiazide [Hydrodiuril] 12.5 mg PO DAILY 04/27/20 [History] HYDROcodone/APAP 7.5-325MG [[place] 7.5-325] 1 tab PO TID PRN 08/07/20 [History] Lacosamide [Vimpat] 100 mg PO BID 01/02/23 [History] Levothyroxine Sodium [Synthroid] 88 mcg PO DAILY 01/02/23 [History] Albuterol Sulfate [Albuterol Sulfate Hfa] 2 puff PO RT-Q6H PRN 07/31/23 [History] Cholecalciferol [Vitamin D3 (25 Mcg = 1000 Iu)] 50 mcg PO BID 07/31/23 [History] Losartan [Cozaar] 50 mg PO DAILY 07/31/23 [History] Magnesium Oxide [Mag-Ox] 400 mg PO HS 07/31/23 [History] Multivit-Min/Iron/Folic/Lutein [Centrum Silver Women Tablet] 1 tab PO DAILY 07/31/23 [History] Omeprazole [PriLOSEC] 40 mg PO DAILY 07/31/23 [History] Zinc Gluconate [Zinc] 50 mg PO DAILY 07/31/23 [History] Fluticasone/Umeclidin/Vilanter [Trelegy Ellipta 100-62.5-25] 1 inhalation INHALATION DAILY 11/07/23 [History]
== END 2023-11-08 11:16 | disposition home or self-care (01) ==
LOC: CATHEP 13:48 → 6NMEDSUR 18:25 → CATHEP 11-08 11:16
PROVIDERS: ATTEND Internal Medicine Clinical Cardiac Electrophysiology
DX: I44.2 Atrioventricular block, complete (principal); Z79.01 Long term (current) use of anticoagulants; Z79.899 Other long term (current) drug therapy; Z79.82 Long term (current) use of aspirin
CPT/HCPCS: 33227; C1894; C1769 ×2; C1760; C1730; C1785; J2250; J3370; J0690; J2001; J3010; J2795; J0131; J2704

== ENCOUNTER → 2024-01-15 | Outpatient (CLI) | payer MEDICARE ==
--- NOTE | 2024-01-15 14:53 | US ---
EXAMINATION TYPE: US carotid duplex BILAT DATE OF EXAM: 01/15/2024 COMPARISON: CTa 2021, US 2019 CLINICAL INDICATION: Female, 68 years old with history of R20.0 PARESTHESIA OF SKIN; Hx smoker x 18 y ears, pt quit smoking in 1996. Hx hypertension, hyperlipidemia. TECHNIQUE: Carotid duplex ultrasound examination. Indirect Doppler criteria was utilized. FINDINGS: EXAM MEASUREMENTS: RIGHT: Peak Systolic Velocity (PSV) cm/sec ----- Right CCA: 75.7 ----- Right ICA: 79.0 ----- Right ECA: 97.7 ICA/CCA ratio: 1.0 RIGHT: End Diastole cm/sec ----- Right CCA: 17.5 ----- Right ICA: 14.5 ----- Right ECA: 10.9 LEFT: Peak Systolic Velocity (PSV) cm/sec ----- Left CCA: 85.6 ----- Left ICA: 76.8 ----- Left ECA: 114.5 ICA/CCA ratio: 0.9 LEFT: End Diastole cm/sec ----- Left CCA: 16.4 ----- Left ICA: 14.2 ----- Left ECA: 9.5 VERTEBRALS (direction of flow): Right Vertebral: Antegrade Left Vertebral: Antegrade Rhythm: Normal DEVIL TENDER NOTES: Intimal thickening seen bilaterally. Plaque seen within bilateral bulbs. IMPRESSION: Less than 50% stenosis of the bilateral carotid bifurcations. Criteria for Assigning % of Stenosis / Diameter reduction (Estimation based on the indirect measurements of the internal carotid artery velocities (ICA PSV). 1. Normal (no stenosis)=ICA PSV < 125 cm/s: ratio < 2.0: ICA EDV<40 cm/s. 2. Less than 50% stenosis=ICA PSV < 125 cm/s: ratio < 2.0: ICA EDV<40 cm/s. 3. 50 to 69% stenosis=ICA PSV of 125 to 230 cm/s: ration 2.0 ? 4.0: ICA EDV 40-100 cm/s. 4. Greater than 70% stenosis to near occlusion= ICA PSV > 230 cm/s: ratio > 4.0: ICA EDV > 100 cm/s. 5. Near occlusion= ICA PSV velocities may be low or undetectable: variable ratio and ICA EDV. 6. Total occlusion=unable to detect flow.
== END | disposition home or self-care (01) ==
LOC: RADUSWWP 14:07
PROVIDERS: ATTEND Family Medicine
DX: R20.2 Paresthesia of skin (principal)
CPT/HCPCS: 93880

== ENCOUNTER → 2024-02-07 | Outpatient (CLI) | payer MEDICARE ==
--- NOTE | 2024-02-07 17:22 | CT ---
EXAMINATION TYPE: CT ankle LT wo con, CT left foot without contrast DATE OF EXAM: 02/07/2024 COMPARISON: None HISTORY: Unspecified injury of left ankle. CT DLP: Combined DLP of 479.9 mGycm Automated exposure control for dose reduction was used. Contrast: None Technique: Axial images 2 mm thick sections. Reconstructed images in the coronal and sagittal plane. Images are obtained through both the ankle and the foot separately. FINDINGS: Left ankle: Ankle mortise is intact. No acute fractures are evident. Achilles tendon calcaneal heel s pur is present. Plantar calcaneal heel spurs present. Left foot: Alignment appears preserved. No acute fractures or dislocations evident. Tarsal metatarsal alignment appears normal. Joint spaces appear preserved. 3-D reconstructed images the left ankle and left foot are reviewed. IMPRESSION: 1. PLANTAR AND ACHILLES TENDON CALCANEAL HEEL SPURS. 2. NO ACUTE OSSEOUS ABNORMALITY EVIDENT. 3. MILD DEGENERATIVE JOINT CHANGES NOTED AT THE ANKLE AND WITHIN THE FOOT.
== END | disposition home or self-care (01) ==
LOC: RADCTMAIN 16:05
PROVIDERS: ATTEND Family Medicine
DX: M77.32 Calcaneal spur, left foot (principal); M19.072 Primary osteoarthritis, left ankle and foot; S99.912A Unspecified injury of left ankle, initial encounter; X58.XXXA Exposure to other specified factors, initial encounter

== ENCOUNTER → 2024-02-26 | Outpatient (CLI) | payer MEDICARE ==
--- NOTE | 2024-02-27 09:13 | MM ---
Reason for Exam: Screening (asymptomatic). Last screening mammogram was performed 12 month(s) ago. Patient History: Menarche at age 10. First Full-Term at age 17. Right ovary removed at age 31. Hysterectomy at age 31. Postmenopausal. Patient has history of breast feeding. Estrogen for 2 months. Hormonal Contraceptives for 1 year from age 18 until age 19. 1984, Cyst Aspiration on the Left side. 07/16/2012, High risk Core Biopsy on the right side. 06/23/2003, Benign Stereotactic Core Biopsy on the left side. Risk Values: Jessica 5 year model risk: 2.0%. NCI Lifetime model risk: 6.3%. Prior Study Comparison: 10/06/2020 Bilateral Screening Mammogram, [facility]. 12/31/2021 Bilateral Screening Mammogram, [facility]. 02/23/2023 Bilateral MG 3D screening mammo w/cad, [facility]. Tissue Density: The breasts are heterogeneously dense, which may obscure small masses. Findings: Analyzed By CAD. There is no suspicious group of microcalcifications or new suspicious mass in either breast. Overall Assessment: Benign, BI-RAD 2 Management: Screening Mammogram of both breasts in 1 year. . Patient should continue monthly self-breast exams. A clinical breast exam by your physician is recommended on an annual basis. This exam should not preclude additional follow-up of suspicious palpable abnormalities. Note on Jessica scores and lifetime risk: 1. A Jessica score greater than 3% is considered moderate risk. If this is the case, consider specialist referral to assess eligibility for a risk reducing agent. 2. If overall lifetime risk for the development of breast cancer is 20% or higher, the patient may qualify for future screening with alternating mammogram and breast MRI. Electronically signed and approved by: Pavan Morley M.D. Radiologis
== END | disposition home or self-care (01) ==
LOC: RADMAMWWP 10:48
PROVIDERS: ATTEND Family Medicine
DX: Z12.31 Encounter for screening mammogram for malignant neoplasm of breast (principal); Z78.0 Asymptomatic menopausal state
CPT/HCPCS: 77063; 77067

== ENCOUNTER 2024-04-30 14:33 | Emergency (ER) | payer MEDICARE ==
[2024-04-30] MEDS ORDERED: MORPHINE SULFATE 4 MG/ML SYRINGE ONE (14:35)
--- NOTE | 2024-05-29 14:02 | XR ---
Site ID [facility] Patient Hailey Ross ID [id number] Order # EXAMINATION TYPE: XR chest 2V DATE OF EXAM: 04/30/2024 COMPARISON: No comparisons on downtime PACS INDICATION: Chest pain TECHNIQUE: Frontal and lateral views of the chest are obtained. FINDINGS: The heart size is upper limits of normal for size. Pacemaker overlies left chest.. The pulmonary vasculature is normal. The lungs are clear. IMPRESSION: 1. No acute pulmonary process.
== END 2024-04-30 19:15 | disposition home or self-care (01) ==
LOC: EC 14:33
DX: R07.9 Chest pain, unspecified (principal)
CPT/HCPCS: 71046; 93005; 96374; 99285

== ENCOUNTER → 2024-08-02 | Outpatient (CLI) | payer MEDICARE ==
[2024-08-02 13:29] LABS: African American GFR (CKD) >90 (>60 ml/min/1.73 sqM); Blood Urea Nitrogen 16 mg/dL (7-17); Non-African American GFR(CKD) 86 (>60 ml/min/1.73 sqM)
--- NOTE | 2024-08-02 17:07 | CT ---
EXAMINATION TYPE: CT cervical spine wo/w con DATE OF EXAM: 08/02/2024 COMPARISON: CT cervical spine 12/11/2018 CLINICAL INDICATION: Female, 69 years old with history of M54.17 RADICULOPATHY, LUMBOSAC M51.370 I63. 9 M54.2; PHH, RADICULOPATHY. pain, numbess and tingling in all extremities. TECHNIQUE: CT scan of the cervical spine is obtained before and after the uneventful administration of 150 mL of Isovue 300 intravenously. Axial images are obtained, sagittal and coronal reformatted im ages are also reviewed. Patient was reinjected due to overheating/failure machine. CT DLP for all examinations performed at this time: 5776.80 mGycm Automated exposure control for dose reduction was used. FINDINGS: Cervical spine is visualized in its entirety from C1 through upper thoracic levels, demonstrates sati sfactory alignment without evidence of acute fracture or dislocation. Prevertebral soft tissue appea rs within normal limits. The C1-C2 articulation is within normal limits on the coronal images. No ab normal contrast enhancement. Retropectoral course of the bilateral internal carotid arteries. Visuali zed vascular changes patent. Tiny central disc protrusion at C2-C3 without significant effacement of anterior thecal sac. Broad-ba sed disc bulge at C3-C4 without significant effacement of the anterior thecal sac. Posterior disc ost eophyte complexes at C5-C6 and C6-C7 with mild to moderate central canal stenosis. Moderate to severe bilateral neural foraminal stenosis at C5-C6. Moderate left neural foraminal stenosis at C6-C7. Elizabeth lar soft tissue ossification posterior to the C4-C5 spinous processes. Thyroid gland is felt within normal limits. Visualized lung apices are clear. Partial visualization o f cardiac pacemaking leads. Prior visualization of postsurgical changes of the right middle cranial f obinna. IMPRESSION: 1. There is no acute fracture or dislocation evident in the cervical spine. 2. Moderate multilevel degenerative disc disease of the cervical spine at C5-C7. [facility], , 08/02/2024 5:05 PM
--- NOTE | 2024-08-02 17:15 | CT ---
EXAMINATION TYPE: CT lumbar spine wo/w con CT DLP: combined 5776.80 mGycm, Automated exposure control for dose reduction was used. DATE OF EXAM: 08/02/2024 3:14 PM COMPARISON: CT lumbar spine 12/08/2021, CTA abdomen and pelvis 07/04/2022. CLINICAL INDICATION:Female, 69 years old with history of M54.17 RADICULOPATHY, LUMBOSAC M51.370 I63.9 M54.2; PHH, RADICULOPATHY. pain, numbess and tingling in all extremities. TECHNIQUE: Multiple axial images were obtained from the midportion of T11 through the sacroiliac yaneth nts. Soft tissue and bone windows in coronal and sagittal planes were obtained and reviewed. Patient was reinjected due to overheating/failure machine. Contrast used:150 mL of Isovue 300 without and with IV Contrast Oral contrast used: none. FINDINGS: Alignment: There are 5 lumbar type vertebral bodies within normal alignment. Bone: Diffuse osteopenia. No evidence of fracture is identified. Multilevel anterior osteophytosis. M ild degenerative changes of bilateral SI joints. Multilevel lower lumbar spine facet arthropathy. No abnormal contrast enhancement. Discs: T12-L1: No spinal canal or neural foraminal stenosis is identified. L1-L2: No spinal canal or neural foraminal stenosis is identified. L2-L3: No spinal canal or neural foraminal stenosis is identified. L3-L4: Broad-based disc bulge with bilateral facet arthropathy contribute to mild central canal steno sis. Moderate bilateral neuroforaminal stenosis. L4-L5: Broad-based disc bulge with bilateral facet arthropathy contribute to mild central canal steno sis. Moderate bilateral neuroforaminal stenosis. L5-S1: Minimal focal central disc protrusion without significant effacement of the anterior thecal sa c. Bilateral facet arthropathy. Moderate bilateral neural foraminal stenosis. Other: Stable size of partially calcified splenic artery aneurysm measuring up to 1.4 cm. Moderate at herosclerotic calcification of the aorta and its branches. Stable lipid rich bright lateral adrenal a denomas. Uterus is surgically absent. IMPRESSION: 1. No evidence for spinal fracture. 2. Moderate multilevel degenerative disc disease and facet arthropathy as described above. Relatively stable from prior CT 2021. 3. Stable partially calcified splenic artery aneurysm dating back to at least 2021. [facility], , 08/02/2024 5:13 PM
== END | disposition home or self-care (01) ==
LOC: RADCTMAIN 12:48
PROVIDERS: ATTEND Physical Medicine & Rehabilitation Pain Medicine
DX: M51.17 Intervertebral disc disorders with radiculopathy, lumbosacral region (principal); M50.10 Cervical disc disorder with radiculopathy, unspecified cervical region; I63.9 Cerebral infarction, unspecified; M47.26 Other spondylosis with radiculopathy, lumbar region; I72.8 Aneurysm of other specified arteries
CPT/HCPCS: 82565; 84520; 72127; 72133; 36415; Q9967

== ENCOUNTER → 2024-10-01 | Outpatient (CLI) | payer MEDICARE | LOC: LABPAT 08:37 | PROVIDERS: ATTEND Psychiatry & Neurology Neurology | DX: Z01.818 Encounter for other preprocedural examination (principal) ==

== ENCOUNTER 2025-01-27 09:27 | Day surgery (SDC) | payer MEDICARE ==
[~2025-01-27 09:27] MED LIST changes: +LIDOCAINE 1% (10MG/ML) FOR IV START INTRADERMA PRN; +Pre Op ABX Message 1 EACH MISC MISCELLANE ONE; -ceFAZolin 1 GM in SODIUM CHLORIDE 0.9% IRRIG BTL 250 ML IRRIGATION PRN
[2025-01-27] MEDS: LACTATED RINGERS 1,000 ML IV SCH (10:33)
[2025-01-27] MEDS: ONDANSETRON 4 MG/2 ML VIAL IVP ONE (10:33)
[2025-01-27] MEDS: DEXAMETHASONE SOD PHOSPHATE 4 MG/ML 1 ML VIAL IV ONE (10:34)
[2025-01-27] MEDS: IV FLUID CONTINUATION 1,000 ML IV ONE (10:36)
[2025-01-27] MEDS: fentaNYL (PF) 50 MCG/ML 2 ML AMP IVP PRN (11:41)
[2025-01-27] MEDS: MIDAZOLAM 2 MG/2 ML VIAL IV PRN (11:41)
--- NOTE | 2025-01-27 12:12 | P.ANPRN ---
Procedure Note - Anesthesia - Nerve Block Performed Left Supraclavicular Single Time Out Performed: Yes Date of Procedure: 01/27/25 Procedure Start Time: 11:41 Procedure Stop Time: 11:47 Location of Patient: PreOp Indication: Acute Post-Operative Pain, Requested by Surgeon Sedation Type: Sedate with meaningful contact maintained Preparation: Sterile Prep Position: Supine Needle Types: Pajunk Needle Gauge: 21 Ultrasound used to visualize needle placement: Yes Ultrasound used to observe medication spread: Yes Injectate: 0.5% Ropivacaine (see comment for volume) (25 ml + 4 mg Dexamethasone) Blood Aspirated: No Pain Paresthesia on Injection Noted: No Resistance on Injection: Normal Image Stored and Saved: Yes Events: Uneventful and Well Tolerated
[2025-01-27] MEDS ORDERED: fentaNYL (PF) 50 MCG/ML 2 ML AMP ONE (12:34)
[2025-01-27] MEDS ORDERED: PROPOFOL 10 MG/ML 20 ML VIAL IV ONE (12:34)
[2025-01-27] MEDS ORDERED: ROPIVACAINE 5 MG/ML 30 ML VIAL ONE (12:34)
[2025-01-27] MEDS ORDERED: LIDOCAINE 1% INJ 10MG/ML (20 ML MDV) ONE (12:34)
[2025-01-27] MEDS ORDERED: MIDAZOLAM 2 MG/2 ML VIAL ONE (12:34)
[2025-01-27] MEDS ORDERED: DEXAMETHASONE SOD PHOSPHATE 4 MG/ML 1 ML VIAL ONE (12:34)
[2025-01-27 13:42] VITALS: TEMP 98
[2025-01-27] MEDS: HYDROmorphone 0.5 MG/0.5 ML SYRINGE IVP STA (13:49)
[2025-01-27] MEDS: HYDROmorphone 0.5 MG/0.5 ML SYRINGE IVP PRN (14:16)
[2025-01-27 14:47] VITALS: RESP 18
[2025-01-27] MEDS: HYDROcodone/APAP 5-325MG 1 EACH TAB PO STA (15:39)
[2025-01-27 15:45] VITALS: BP 143/84; PULSE 94
--- NOTE | 2025-01-28 15:39 | P.OP ---
Date of Procedure: 01/27/25 Preoperative Diagnosis: Left carpal tunnel syndrome, Left cubital tunnel syndrome Postoperative Diagnosis: same Procedure(s) Performed: Left cubital tunnel release, in situ Left endoscopic carpal tunnel release Anesthesia: SUSI Surgeon: Tara Plascencia Estimated Blood Loss (ml): 5 Pathology: none sent Condition: stable Disposition: PACU Indications for Procedure: Patient has numbness and tingling in her fingertips. Exam is consistent with carpal and cubital tunnel syndrome. We have decided to proceed with release of both simultaneously. Description of Procedure: The patient, operative extremity, and procedure were identified in the preoperative holding area. After informed consent was obtained, the patient was brought back to the operating room. The extremity was then prepped and draped in normal sterile fashion with a tourniquet on the patients brachium. A formal timeout was performed and the tourniquet was inflated to 250mmHg. A transverse incision was made just ulnar to the palmaris longus tendon. Dissection was taken down to the forearm fascia. This is released proximally about a centimeter. The incision was utilized to access the carpal tunnel with serial dilators and scraping tool. The arthroscope/device was inserted, the t ransverse carpal ligament was well isolated without any aberrant soft tissue visible. Under direct visualization, the cutting tool was used to transect the transverse carpal ligament in its entirety. The release was confirmed visually with the arthroscope and also by palpation with the dilator tool. The attention was then turned to the cubital tunnel. A longitudinal incision was made between the olecranon and the medial epicondyle. Dissection was carried down to the forearm fascia with care taken to protect the cutaneous nerves. The fascia overlying the confluence between the two heads of the FCU was identified and carefully incised. The ulnar nerve was located between the two heads. The fascia overlying and under the FCU was released distally. The nerve was then followed proximally to the cubital tunnel. Osbornes ligament was identified and carefully released. The release was carried proximally to the intermuscular septum. Digital palpation was utilized to check the release proximally and there was no further restriction palpated. The ulnar nerve was then carefully examined again to ensure that all tight fascial bands were released. The elbow was then taken through a full range of motion and there was no subluxation with full flexion. Tourniquet was then let down, hemostasis was achieved and the wound was closed with skin glue and steristrips. Wound was dressed with adaptic, gauze, mary, and an andressa wrap. Patient was aroused by the anesthesia team and brought back to PACU in stable condition.
== END 2025-01-27 16:00 | disposition home or self-care (01) ==
LOC: OR 09:27
PROVIDERS: ATTEND Orthopaedic Surgery Hand Surgery
DX: G56.02 Carpal tunnel syndrome, left upper limb (principal); G56.22 Lesion of ulnar nerve, left upper limb; G89.18 Other acute postprocedural pain; I10 Essential (primary) hypertension
CPT/HCPCS: 84132; 29848; 64718; 64415; J2250; J1100; J2405; J3010; J1171

== ENCOUNTER → 2025-03-24 | Outpatient (CLI) | payer MEDICARE ==
--- NOTE | 2025-03-25 14:40 | MM ---
Reason for Exam: Screening (asymptomatic). Last mammogram was performed 1 year(s) and 1 month(s) ago. Patient History: Menarche at age 10. First Full-Term at age 17. Right ovary removed at age 31. Hysterectomy at age 31. Postmenopausal. Patient has history of breast feeding. Estrogen for 2 months. Hormonal Contraceptives for 1 year from age 18 until age 19. 1984, Cyst Aspiration on the Left side. 07/16/2012, High risk Core Biopsy on the right side. 06/23/2003, Benign Stereotactic Core Biopsy on the left side. Risk Values: Jessica 5 year model risk: 2.1%. NCI Lifetime model risk: 6.0%. Prior Study Comparison: 12/31/2021 Bilateral Screening Mammogram, [facility]. 02/23/2023 Bilateral MG 3D screening mammo w/cad, [facility]. 02/26/2024 Bilateral MG 3D screening mammo w/cad, [facility]. Tissue Density: There are scattered areas of fibroglandular density. Findings: Analyzed By CAD. Mammotome biopsy clip in the bilateral breast cysts redemonstrated. There are tiny benign-appearing round and linear calcifications bilaterally redemonstrated. There is partial visualization of pacemaker device in the left axilla redemonstrated. There is no suspicious group of microcalcifications or new suspicious mass in either breast. Overall Assessment: Benign, BI-RAD 2 Management: Screening Mammogram of both breasts in 1 year. . Patient should continue monthly self-breast exams. A clinical breast exam by your physician is recommended on an annual basis. This exam should not preclude additional follow-up of suspicious palpable abnormalities. Note on Jessica scores and lifetime risk: 1. A Jessica score greater than 3% is considered moderate risk. If this is the case, consider specialist referral to assess eligibility for a risk reducing agent. 2. If overall lifetime risk for the development of breast cancer is 20% or higher, the patient may qualify for future screening with alternating mammogram and breast MRI. [facility], , 03/24/2025 9:36 AM. Electronically signed and approved by: Fernando Low M.D.
== END | disposition home or self-care (01) ==
LOC: RADMAMWWP 08:47
PROVIDERS: ATTEND Family Medicine
DX: Z12.31 Encounter for screening mammogram for malignant neoplasm of breast (principal); R92.323 Mammographic fibroglandular density, bilateral breasts; Z78.0 Asymptomatic menopausal state; Z92.0 Personal history of contraception
CPT/HCPCS: 77063; 77067